=== PATIENT | male | born 1985 | race Caucasian/White ===

== ENCOUNTER 2017-11-11 13:00 | Outpatient (RCR) | payer MEDICARE, MEDICAID, SELFPAY | END 2017-11-19 | LOC: PT 13:00 | PROVIDERS: Visit Provider Nurse Practitioner Family | DX: M54.41 Lumbago with sciatica, right side (principal) | CPT/HCPCS: G8978; G8979; G8980; 97010; 97014; 97110; 97161; G0283 ==

== ENCOUNTER → 2018-06-11 09:01 | Outpatient (CLI) | payer MEDICARE, MEDICAID, SELFPAY ==
--- NOTE | 2018-06-11 09:24 | XR_ITS ---
XR lumbar spine min 4V Ordering Physician: Heriberto Mccann MD Patient Age: 33 years: Male HISTORY: ITS.REASON: SPONDYLOSIS TECHNIQUE: Five-view lumbar spine series. COMPARISON :Previous lumbar spine series October 17, 2017 FINDINGS Vertebral bodies are intact. Normal alignment. Attending slight nonspecific straightening of lumbar lordosis observed. Flexion-extension views show no significant instability. No prominent subluxation. Only question some slight posterior offset of L4 on L5 accentuated on the extension views where it measures just over 2 mm. Slight posterior ridging at the inferior margin of L2 4 may also contribute. This patient has had a previous laminectomy at L5/S1 and possibly including L4/5 with. L5/S1 level is stable. Unremarkable. SI joints unremarkable pedicles transverse processes intact. . IMPRESSION: Previous laminectomy at L5/S1 and possibly extending to L4/5 Slight disc space narrowing L4/5 and L5/S1. The subtle posterior offset of L4 on 5 appears noted and only slightly more evident on the extension and flexion. Negligible.
== END ==
PROVIDERS: PCP Anesthesiology Pain Medicine; Visit Provider Anesthesiology Pain Medicine
DX: M47.816 Spondylosis without myelopathy or radiculopathy, lumbar region (principal)
CPT/HCPCS: 72110

== ENCOUNTER → 2018-09-08 07:16 | Outpatient (CLI) | payer MEDICARE, MEDICAID, SELFPAY ==
--- NOTE | 2018-09-08 08:00 | US_ITS ---
US liver HISTORY: ITS.REASON: ELEVATED LIVER ENZYMES ORDERING PHYSICIAN: Sugey Nieto PATIENT AGE: 33 years COMPARISON: None FINDINGS: PANCREAS:Poorly visualized, no obvious mass LIVER:There is diffuse increased echogenicity of the liver with poor through transmission of sound consistent with fatty liver. There is appropriate direction of the portal blood flow. The portal vein is upper normal at 13 mm. No focal liver lesions demonstrated. RIGHT KIDNEY:Unremarkable. Normal size and echogenicity. No hydronephrosis GALLBLADDER:No gallstones, gallbladder wall thickening, pericholecystic fluid, or biliary dilatation. IMPRESSION: Fatty liver otherwise negative right upper quadrant ultrasound
== END ==
PROVIDERS: Family Provider Internal Medicine Adolescent Medicine; PCP Anesthesiology Pain Medicine; Visit Provider Nurse Practitioner Family
DX: R74.8 Abnormal levels of other serum enzymes (principal)
CPT/HCPCS: 76705

== ENCOUNTER → 2018-10-10 10:37 | Outpatient (POV) | payer MEDICARE, MEDICAID, SELFPAY | PROVIDERS: Visit Provider Specialist | DX: R20.2 Paresthesia of skin (principal) | CPT/HCPCS: 95886; 95908 ==

== ENCOUNTER → 2018-12-20 09:39 | Outpatient (CLI) | payer MEDICARE, MEDICAID, SELFPAY ==
--- NOTE | 2018-12-20 09:48 | XR_ITS ---
EXAM: XR cervical spine 3V HISTORY: ITS.REASON: CERVICALGIA,NECK PAIN ORDERING PHYSICIAN: Heriberto Mccann MD PATIENT AGE: 33 years COMPARISON: None FINDINGS: Normal alignment. No fracture or dislocation. No lytic or blastic change. No significant degenerative change. The disc spaces are preserved. IMPRESSION: Negative cervical spine
== END ==
PROVIDERS: PCP Nurse Practitioner Family; Visit Provider Anesthesiology Pain Medicine
DX: M54.2 Cervicalgia (principal)
CPT/HCPCS: 72040

== ENCOUNTER → 2018-12-29 11:00 | Outpatient (CLI) | payer MEDICARE, MEDICAID, SELFPAY ==
--- NOTE | 2018-12-29 11:10 | XR_ITS ---
XR shoulder RT min 2V HISTORY: Right shoulder pain ITS.REASON: RT SHOULDER INJURY ORDERING PHYSICIAN: Sugey Nieto PATIENT AGE: 33 years Comparison: None FINDINGS: No fracture or dislocation. No lytic or blastic change. There is normal mineralization. The joint spaces are well-preserved. No significant degenerative/arthritic changes. No erosive changes evident. IMPRESSION: Negative, no acute finding
== END ==
PROVIDERS: PCP Nurse Practitioner Family; Visit Provider Nurse Practitioner Family
DX: S49.91XA Unspecified injury of right shoulder and upper arm, initial encounter (principal)
CPT/HCPCS: 73030

== ENCOUNTER → 2019-06-05 14:19 | Outpatient (CLI) | payer MEDICARE, MEDICAID, SELFPAY ==
--- NOTE | 2019-06-05 14:31 | XR_ITS ---
EXAM: XR cervical spine 5V HISTORY: ITS.REASON: CORINNE UPPER EXTREMITY NUMBNESS ORDERING PHYSICIAN: Sugey Nieto APRN PATIENT AGE: 34 years COMPARISON: None FINDINGS: Normal alignment. No fracture or dislocation. No lytic or blastic change. No significant degenerative change. The disc spaces are preserved. The neural foramina are widely patent. No cervical rib evident. IMPRESSION: Negative cervical spine
== END ==
PROVIDERS: PCP Nurse Practitioner Family; Visit Provider Nurse Practitioner Family
DX: R20.0 Anesthesia of skin (principal)
CPT/HCPCS: 72050

== ENCOUNTER → 2019-07-03 08:21 | Outpatient (POV) | payer MEDICARE, MEDICAID, SELFPAY | PROVIDERS: Visit Provider Specialist | DX: M79.602 Pain in left arm (principal); M79.601 Pain in right arm; R20.0 Anesthesia of skin; R20.2 Paresthesia of skin | CPT/HCPCS: 95886; 95909 ==

== ENCOUNTER → 2020-04-30 09:27 | Outpatient (CLI) | payer MEDICARE, MEDICAID, SELFPAY ==
--- NOTE | 2020-04-30 09:39 | XR_ITS ---
PROCEDURE: XR HIP RT 2-3V W/PELVIS CLINICAL INDICATION: RT HIP PAIN COMPARISON: No exams were available for comparison FINDINGS: No fracture or dislocation is evident. No significant degenerative change. No lytic or blastic change. Unremarkable soft tissues. IMPRESSION: No acute findings. Dictated by: Dr. Juan Pederson MD 04/30/2020 10:[address] Juan Pederson MD in [place] 04/30/2020 10:07
== END ==
PROVIDERS: PCP Nurse Practitioner Family; Visit Provider Nurse Practitioner Family
DX: M25.551 Pain in right hip (principal)
CPT/HCPCS: 73502

== ENCOUNTER → 2020-05-21 12:06 | Outpatient (CLI) | payer MEDICARE, MEDICAID, SELFPAY ==
--- NOTE | 2020-05-21 12:14 | XR_ITS ---
PROCEDURE: XR WRIST RT MIN 3V CLINICAL INDICATION: RIGHT WRIST PAIN/ CTS COMPARISON: No exams were available for comparison FINDINGS: No fracture or dislocation. No lytic or blastic change. There is normal mineralization. The joint spaces are well-preserved. No significant degenerative/arthritic changes. No erosive changes evident. Other findings:None. IMPRESSION: No acute findings. Dictated by: Xavi Thorne MD 05/21/2020 14:09 Electronically signed by Xavi Thorne MD in [place] 05/21/2020 14:09
--- NOTE | 2020-05-21 12:14 | XR_ITS ---
PROCEDURE: XR WRIST LT MIN 3V CLINICAL INDICATION: left wrist pain/ CTS COMPARISON: No exams were available for comparison FINDINGS: No fracture or dislocation. No lytic or blastic change. There is normal mineralization. The joint spaces are well-preserved. No significant degenerative/arthritic changes. No erosive changes evident. Other findings:None. IMPRESSION: No acute findings. Dictated by: Xavi Thorne MD 05/21/2020 14:09 Electronically signed by Xavi Thorne MD in [place] 05/21/2020 14:09
== END ==
PROVIDERS: PCP Nurse Practitioner Family; Visit Provider Orthopaedic Surgery
DX: M25.532 Pain in left wrist (principal); M25.531 Pain in right wrist
CPT/HCPCS: 73110

== ENCOUNTER 2020-05-21 13:32 | Outpatient (RCR) | payer MEDICARE, MEDICAID, SELFPAY | END 2020-05-21 14:00 | disposition home or self-care (01) | LOC: OT 13:32 | PROVIDERS: Visit Provider Orthopaedic Surgery | DX: G56.03 Carpal tunnel syndrome, bilateral upper limbs (principal) | CPT/HCPCS: 97763 ==

== ENCOUNTER 2020-06-28 15:12 | Emergency (ER) | payer MEDICARE, MEDICAID, SELFPAY ==
[2020-06-28 15:21] VITALS: BP 154/87; PULSE 101; RESP 16; TEMP 36.6; O2SAT 98; BMI 36.5
--- NOTE | 2020-06-28 15:30 | HMH.EDGENADL ---
ED Disposition Clinical Impression: Low back pain with sciatica Qualifiers: Chronicity: chronic Back pain laterality: midline Sciatica laterality: sciatica of right side Qualified Code(s): M54.41 - Lumbago with sciatica, right side; G89.29 - Other chronic pain Spinal stenosis Qualifiers: Spinal region: lumbar Neurogenic claudication status: without neurogenic claudication Qualified Code(s): M48.061 - Spinal stenosis, lumbar region without neurogenic claudication Disposition: Home, Self-Care Condition on Discharge: Good Instructions: DI for Back Pain With Sciatica Additional Instructions: Prednisone as prescribed. Gabapentin as prescribed. Follow-up with your primary care doctor or neurologist next week. Additional instructions for BACK PAIN: See your physician as soon as possible for further evaluation. Return immediately if back pain becomes intolerable, or if fever, numbness or weakness of your legs, loss of control of your bowels or bladder. Additional instructions for CONTROLLED SUBSTANCES: You have been prescribed a medication that is a controlled substance. Controlled substances include pain medications known as opiates and sedative nerve medications known as benzodiazepines. Tramadol, fioricet, and gabapentin are also controlled substances. Some common opiates include: Codeine (such as Tylenol #3) Hydrocodone (Vicodin, Lortab, Lorcet, [place]) Oxycodone (Percocet, Percodan, Oxycodone, Oxy IR) Some common benzodiazepines include: Diazepam (Valium) Lorazepam (Ativan) Alprazolam (Xanax) Clonazepam (Klonopin) Oxazepam (Serax) All of these controlled substances are highly addictive and frequently abused. Misuse can and frequently does lead to addiction as well as overdose and . Medication should be stored in a locked cabinet or other secure storage unit. Do not store the medication in a motor vehicle. Short term supplies, 3 days or less, are prescribed because of the highly addictive nature of the medication. Any of the controlled substance medication NOT taken should be disposed of properly and NOT SAVED. The recommended method of disposing of unused medications is: Place the medicines in a sealable plastic bag. If the medicine is a solid, crush it or add water to dissolve it. Add something undesirable (cat litter, coffee grounds, etc.) Dispose of sealed bag in household trash Do not flush or pour unused medicines down a sink or drain. Controlled substances should not be shared, given away or sold. Because of the addictive nature and frequent abuse, these medications are sometimes stolen. These medications should be kept in a safe place where they cannot be stolen. Do not keep them in your car or purse. Lost or stolen prescriptions for controlled substances WILL NOT BE REFILLED in this emergency department, regardless of whether a police report was filed. Prescriptions: Gabapentin [Gabapentin 100mg Cap] 100 mg PO TID #20 cap Prescription Printed predniSONE [Prednisone 20mg Tab] 20 mg PO BID #10 tab Prescription Printed Referrals: Sugey Nieto APRN [Primary Care Provider] - - Critical Care Critical Care Time: No Attestation: On 06/28/20, the high probability of a clinically significant, sudden or life threatening deterioration of the following system(s) required my full and direct attention, intervention and personal management. The time I documented below is in addition to time spent performing reported procedures but includes the following listed in this critical care notation. Medical Decision Making - Prasanth Inquiry Pt receiving controlled substance: Yes (neurontin) Prasanth was queried for this patient: Yes Reference #:: [id number] Risks and benefits of using a controlled substance: were discussed with pt by me Comment: 0 rxs. Vital Signs: 06/28/20 15:21 Temperature 98 F Temperature Source Oral Pulse Rate [Radial] 101 H Respiratory Rate 16 Blood Pressu
[2020-06-28 16:01] VITALS: BP 153/78; PULSE 78; RESP 16; TEMP 36.6; O2SAT 98
== END 2020-06-28 16:03 | disposition home or self-care (01) ==
PROVIDERS: Emergency Provider Emergency Medicine; PCP Nurse Practitioner Family
DX: M54.41 Lumbago with sciatica, right side (principal); G89.29 Other chronic pain; M48.061 Spinal stenosis, lumbar region without neurogenic claudication; E11.9 Type 2 diabetes mellitus without complications; I10 Essential (primary) hypertension; E78.5 Hyperlipidemia, unspecified; Z95.2 Presence of prosthetic heart valve; F17.210 Nicotine dependence, cigarettes, uncomplicated; Z90.09 Acquired absence of other part of head and neck; Z79.899 Other long term (current) drug therapy
CPT/HCPCS: 96372; 99281

== ENCOUNTER → 2020-07-05 09:06 | Outpatient (CLI) | payer MEDICARE, MEDICAID, SELFPAY ==
[2020-07-05 10:43] LABS: Chloride 104 mmol/L (98-107); Potassium 4.5 mmoL/L (3.5-5.1); Sodium 139 mmol/L (136-145)
[2020-07-05 10:46] LABS: Anion Gap 14.5 mEq/L (5-15); Blood Urea Nitrogen 11 mg/dl (9-20); Carbon Dioxide 25 mmol/L (22.0-30.0); Estimated Glomerular Filt Rate 128 ml/min (>60); GFR (African American) 154 ML/MIN (>60)
[2020-07-05 10:47] LABS: Calcium 9.3 mg/dl (8.4-10.2); Glucose 132 mg/dl (74-100)
== END ==
PROVIDERS: Visit Provider Physician Assistant Medical
DX: M54.16 Radiculopathy, lumbar region (principal)
CPT/HCPCS: 36415; 80048

== ENCOUNTER → 2020-07-11 08:13 | Outpatient (CLI) | payer MEDICARE, MEDICAID, SELFPAY ==
--- NOTE | 2020-07-11 08:17 | MR_ITS ---
PROCEDURE: MR LUMBAR SPINE WO/W CON CLINICAL INDICATION: LUMBAR RADICULOPATHY RIGHT LEG WEAKNESS, TINGLING AND NUMBNESS [id number], PREVIOUS BACK SURGERY IN 2010. PRIOR MRI 03-14-15 23ML PROHANCE BUN: 11 CREAT: 0.70 GFR: 128 COMPARISON: 03/14/2015 MRI L-spine TECHNIQUE: Standard multiplanar multiecho sequences are performed without and with contrast. 3-D MIP and myelographic images are also rendered and reviewed FINDINGS: There is straightening of the lumbar lordosis.. There is normal alignment. The spinal cord ends at the L1 level. L1-L2: Mild degenerative disc disease with mild disc desiccation and minimal endplate irregularity L2-L3: Minimal degenerative change with mild disc desiccation and endplate irregularity L3-L4: There is mild concentric bulging disc with facet and ligamentum hypertrophy with mild bilateral foraminal narrowing. Borderline narrowing of the canal. L4-5: Degenerative disc disease with decrease in the disc space and disc desiccation with type 2 endplate changes and mild bulging disc with mild bilateral foraminal narrowing. There is borderline narrowing of the canal. Previously noted extra-axial isointensity at the L4-5 level which demonstrate contrast enhancement is not apparent on today's study. Some L5-S1: Degenerative disc disease with bulging disc and a small broad-based central and right paracentral disc protrusion causing moderate right lateral recess narrowing impinging upon the anterior aspect of the right S1 nerve root. There is mild bilateral foraminal narrowing at this level. There is narrowing of the canal at this level at 10 mm. There post laminectomy changes at L5. No enhancing lesions are evident. IMPRESSION: 1. Mild degenerative changes at L1-L2 and L2-L3 and L3-L4. 2. L4-5: Degenerative disc disease with decrease in the disc space and disc desiccation with type 2 endplate changes and mild bulging disc with mild bilateral foraminal narrowing. There is borderline narrowing of the canal. Previously noted extra-axial isointensity at the L4-5 level which demonstrate contrast enhancement is not apparent on today's exam. 3. L5-S1: Degenerative disc disease with bulging disc and a small broad-based central and right paracentral disc protrusion causing moderate right lateral recess narrowing impinging upon the anterior aspect of the right S1 nerve root. There is mild bilateral foraminal narrowing at this level. There is narrowing of the canal at this level at 10 mm. There post laminectomy changes at L5 Dictated by: Xavi Thorne MD 07/12/2020 14:01 Xavi Thorne MD in [place] 07/12/2020 14:01
== END ==
PROVIDERS: PCP Nurse Practitioner Family; Visit Provider Physician Assistant Medical
DX: M54.16 Radiculopathy, lumbar region (principal)
CPT/HCPCS: 72158; 76376; A9576

== ENCOUNTER → 2020-12-12 10:10 | Outpatient (CLI) | payer MEDICARE, MEDICAID, SELFPAY ==
--- NOTE | 2020-12-12 | XR_ITS ---
PROCEDURE: XR HIP RT 2-3V W/PELVIS CLINICAL INDICATION: Right hip pain COMPARISON: CR XR HIP RT 2-3V W/PELVIS from 04/30/2020 FINDINGS: No fracture or dislocation is evident. No significant degenerative change. No lytic or blastic change. Unremarkable soft tissues. IMPRESSION: Negative right hip Dictated by: Xavi Thorne MD 12/12/2020 15:47 Xavi Thorne MD in [place] 12/12/2020 15:47
--- NOTE | 2020-12-12 | XR_ITS ---
PROCEDURE: XR HIP LT 2-3V W/PELVIS CLINICAL INDICATION: PAIN IN RIGHT HIP JOINT Left hip pain COMPARISON: CR XR HIP RT 2-3V W/PELVIS from 04/30/2020 FINDINGS: No fracture or dislocation is evident. No significant degenerative change. No lytic or blastic change. Unremarkable soft tissues. IMPRESSION: Negative left hip Dictated by: Xavi Thorne MD 12/12/2020 15:47 Xavi Thorne MD in [place] 12/12/2020 15:47
== END ==
PROVIDERS: PCP Nurse Practitioner Family; Visit Provider Physician Assistant Medical
DX: M25.551 Pain in right hip (principal)
CPT/HCPCS: 73502

== ENCOUNTER → 2021-06-16 14:35 | Outpatient (CLI) | payer MEDICARE, MEDICAID, SELFPAY ==
--- NOTE | 2021-06-16 14:38 | XR_ITS ---
PROCEDURE: XR WRIST RT MIN 3V CLINICAL INDICATION: right wrist pain COMPARISON: CR XR WRIST RT MIN 3V from 05/21/2020 CR XR WRIST LT MIN 3V from 05/21/2020 FINDINGS: No fracture or dislocation. No lytic or blastic change. There is normal mineralization. The joint spaces are well-preserved. No significant degenerative/arthritic changes. No erosive changes evident. Other findings:None. IMPRESSION: No acute findings. Dictated by: Xavi Thorne MD 06/16/2021 16:57 Xavi Thorne MD in [place] 06/16/2021 16:57
== END ==
PROVIDERS: PCP Family Medicine; Visit Provider Orthopaedic Surgery
DX: M25.531 Pain in right wrist (principal)
CPT/HCPCS: 73110

== ENCOUNTER → 2021-09-15 10:31 | Outpatient (CLI) | payer MEDICARE, MEDICAID, SELFPAY ==
--- NOTE | 2021-09-15 10:40 | XR_ITS ---
PROCEDURE: XR CHEST 2V CLINICAL HISTORY: surgery 09/18/21, hypertension Smoking history, history of asthma COMPARISON: CR CXR CHEST(2 VIEWS-NOT PORTABLE) from 12/04/2013 FINDINGS: The cardiomediastinal silhouette and pulmonary vascularity are within normal limits. The lungs are clear without infiltrates, suspicious nodules, or pleural effusions. No acute bony abnormalities. IMPRESSION: No acute findings. Dictated by: Dr. Juan Pederson MD 09/16/2021 08:27 Dr. Juan Pederson MD in [place] 09/16/2021 08:27
[2021-09-15 10:56] LABS: Basophils # 0.1 K/mm3 (0-0.2); Basophils % 0.8 % (0.1-2.0); Eosinophils # 0.1 K/mm3 (0.0-0.4); Eosinophils % 0.9 % (0.1-12.0); Hematocrit 47.9 % (42.0-52.0); Hemoglobin 15.4 g/dL (14.1-18.0); Lymphocytes # 2.6 K/mm3 (0.7-4.5); Lymphocytes % 20.5 % (10-50); Mean Corpuscular HGB Conc 32.1 g/dL (31.8-35.4); Mean Corpuscular Hemoglobin 28.5 pg (27.0-31.2); Mean Corpuscular Volume 88.7 fl (80-94); Mean Platelet Volume 9.5 fl (7.4-10.4); Monocytes # 0.6 K/mm3 (0.1-1.0); Monocytes % 4.7 % (1.7-9.3); Neutrophils # 9.1 K/mm3 (1.8-7.8); Platelet Count 226 K/mm3 (142-424); Red Cell Distribution Width 14.5 % (11.5-17.5); White Blood Count 12.5 K/mm3 (4.8-10.8)
--- NOTE | 2021-09-15 11:29 | ECG_ITS ---
APPROVED REPORT Exam: Resting ECG HR:85 bpm ECG Measurements Heart Rate 85 AXES AL 184 P 69 QRSd 116 QRS 70 QT 360 T 51 QTc 428 Conclusion Normal sinus rhythm Normal ECG Electronically signed by : Chandrakant Cedillo MD 09/15/2021 21:15:25
[2021-09-15 11:49] LABS: Hemoglobin A1C 6.4 % (4.0-6.0)
[2021-09-15 11:59] LABS: Chloride 104 mmol/L (98-107); Potassium 4.3 mmoL/L (3.5-5.1); Sodium 139 mmol/L (136-145)
[2021-09-15 12:01] LABS: Alanine Aminotransferase 30 U/L (12-78); Aspartate Amino Transferase 27 U/L (17-59); Blood Urea Nitrogen 9 mg/dl (9-20); Estimated Glomerular Filt Rate 127 ml/min (>60); GFR (African American) 154 ML/MIN (>60)
[2021-09-15 12:02] LABS: Albumin/Globulin Ratio 1.6 (1.1-1.8); Alkaline Phosphatase 100 U/L (38-126); Anion Gap 14.3 mEq/L (5-15); Bilirubin,Total 0.6 mg/dl (0.2-1.3); Carbon Dioxide 25 mmol/L (22.0-30.0); Globulin 2.5 g/dL (1.3-3.2); Glucose 105 mg/dl (74-100); Total Protein,Serum 6.5 g/dl (6.3-8.2)
== END ==
PROVIDERS: Visit Provider Orthopaedic Surgery
DX: Z01.818 Encounter for other preprocedural examination (principal); E11.9 Type 2 diabetes mellitus without complications; G56.01 Carpal tunnel syndrome, right upper limb; Z79.84 Long term (current) use of oral hypoglycemic drugs
CPT/HCPCS: 36415; 71046; 80053; 83036; 85025; 93005

== ENCOUNTER → 2021-09-16 10:58 | Outpatient (CLI) | payer MEDICARE, MEDICAID, SELFPAY | PROVIDERS: Visit Provider Orthopaedic Surgery | DX: Z01.812 Encounter for preprocedural laboratory examination (principal); Z11.52 Encounter for screening for COVID-19; G56.01 Carpal tunnel syndrome, right upper limb | CPT/HCPCS: C9803; U0003; U0005 ==

== ENCOUNTER 2021-09-18 06:01 | Day surgery (SDC) | payer MEDICARE, MEDICAID, SELFPAY ==
[2021-09-15 11:34] VITALS: BMI 34.4
[2021-09-18] VITALS (10 sets, daily range): BP systolic 84–137; BP diastolic 51–83; PULSE 77–98; RESP 18–24; TEMP 36.1–37.1; O2SAT 93–97
--- NOTE | 2021-09-18 06:59 | P.PN_ITS ---
[facility] Anesthesia Checklist - Patient Identification Patient Identification: Arm Band - Structural Data Admitted From: Home Planned Operative Procedure/s: Carpal tunnel release Consent for Planned Operative Procedure(s) Verified: Yes - NPO Status Verified Time NPO: 00:00 - Additional verifications Anesthesia Reactions: Yes (hypertension) Hx Blood Transfusions: No Blood Transfusion Reaction: No - Airway Assessment C-Spine Mobility Assessed: Yes TMJ Mobility Assessed: Yes Dentition: Good Dentition - Neurological Assessment Level of Consciousness: Awake Hx Seizures: No Numbness or tingling in extremities: Yes - Anesthesia Plan Anesthesia Risk discussed: Yes Anesthesia Plan: Verified ASA Class: III Anesthesia Type: General [facility] History I have reviewed the patient's past medical history: Yes Medical History: Reports:: Diabetes Mellitus Type 2, Gastroesophageal Reflux Disease(GERD), Hyperlipidemia, Hypertension Denies:: Cancer, Diabetes Mellitus Type 1, Internal Pacemaker, MRSA, Seizures *Have you ever received a pneumonia vaccine?: No *Have you received a flu vaccine this season?: No Other Medical History: Reports: Arthritis. Denies: Blood Transfusion Reaction Anesthesia experience/problems:: HTN - intraop Laterality Cases: Bilateral: Tonsillectomy Other Surgeries: Yes: Cardiac Surgery. No: Pacemaker Amputation: No - *Social History Last grade of school completed: Some college Smoking Status: Current every day smoker Tobacco Type: cigarettes # Packs/Day (cigarettes): 1 Alcohol Intake: never Substance Use Type: denies use *Occupational Status:: disabled Housing: house Household Members: significant other *Travel in the last 8 weeks: None Family Hx:: Cancer, Diabetes, Heart Attack
--- NOTE | 2021-09-18 09:06 | HMH.ANESI ---
[facility] Anesthesia Record Part I Intake, IV Amount: 800 Estimated blood loss (mL): 2 Urine output (mL): 0 Blood Pressure: 98/51 SaO2: 93 Pulse Rate: 88 Respiratory Rate: 18 Temperature: 98.7 F Patient is:: Drowsy, Oral/Nasal airway Stable to PACU at:: 09:05
[2021-09-18 09:15] LABS: POC Glucose,Bedside 120 (70-110)
--- NOTE | 2021-09-18 09:26 | HMH.OPNOTE ---
Date of procedure: 09/18/21 Pre-op Diagnosis:: Carpal tunnel syndrome, right wrist Post-op Diagnosis:: Same Procedure performed:: Open carpal tunnel release, right wrist Surgeon:: Patrick Stinson MD [employer](s):: Daksha Justice PA-C [employer]:: Starr Acosta Anesthesia: LMA Estimated blood loss (mL): 2 Clinical Note:: Patient is a 36-year-old male with right carpal tunnel syndrome with long-standing symptoms. He has had symptoms for a long time and positive EMG/NCV studies for carpal tunnel syndrome in the past. However, most recent study in [place] turned out to be a normal study. Therefore, I performed carpal tunnel steroid injection couple of months ago in the office as a diagnostic tool. This improved his symptoms with gradual return of symptoms over a period of time. As patient failed to respond adequately to conservative management he elected to proceed with surgical remediation. Therefore, the carpal tunnel release surgery is necessary to relieve symptoms, preserve the remaining fibers of the median nerve, improve function and decrease the pain, paresthesias and weakness and to prevent permanent nerve damage. Operative findings:: The intraoperative findings showed the median nerve to be very tightly compressed and hyperemic. The flexor retinaculum was noted to be thick and tight. There was mild synovitis in the carpal tunnel. There was no evidence of any space-occupying lesions within the carpal tunnel. Operative note:: On the day of the surgery the patient was met in the preoperative area. Patient was positively identified and the operative site was marked and initialed by me. A physical examination was performed and the chart was updated. I again discussed the procedure, risks and benefits and alternatives with the patient. The complications discussed include but are not limited to- bleeding, injury to nerves, blood vessels and tendons, infection, wound dehiscence, incomplete relief/continued pain, persistent numbness, palmar hypersensitivity, pillar pain, DVT/PE, complex regional pain syndrome(CRPS), worsening of nerve damage, failure of the condition to improve, incomplete return of function, bowstringing of tendons, weakness of pig breeder strength, recurrence, failure of the surgery to accomplish the desired goals, decreased use of the hand, loss of use of the arm, loss of the hand or arm, loss of life. Likely need for further surgery in the future has been discussed. I've indicated to the patient where the proposed incision would be made and also discussed the possibility of extending the incision if needed to accomplish an effective release. We have discussed how the goal of surgery is to protect the fibers which have remained healthy and hopefully reverse the symptoms of the fibers which are compromised but still recoverable. We have explained that, fibers that are permanently damaged will not recover. We have also discussed the anesthetic options which include local, regional and general. Patient expressed a preference for a regional [place]'s block. Patient asked appropriate questions and all have been answered by me. Patient understood the risks, agreed to proceed with surgery and no guarantees or assurances were given or implied. The patient was brought to the operating room and placed supine on the operating table. The right upper extremity was placed over a side table. All the bony prominences were well-padded. The patient had a general anesthesia administered by the vp of product. The right upper extremity was prepped and draped in the usual sterile fashion. A preprocedure timeout was performed as per hospital policy. The skin incision was marked using the Mcguire's landmarks, just ulnar to the thenar crease. The limb was exsanguinated with the Esmarch bandage and tourniquet was inflated to 250 mmHg. Please see nursing records for the total tourniquet time. Mcguire's landmarks were utilized and a skin incision was made parallel and just u
--- NOTE | 2021-09-18 17:45 | P.PN_ITS ---
[facility] Anesthesia Record Part II Discharge Time: 09:36 Destination: Home PACU nurse assessment reviewed?: Yes Patient Condition:: Good Anesthesia Complications:: None none Swallowing reflex intact?: Yes Cyanosis?: No Blood Pressure: 92/76 Pulse Rate: 77 Temperature: 97.0 F Mental Status: Alert & Oriented Pain level:: 0 Nausea and/or vomitting:: None Intake, IV Amount: 0
== END 2021-09-18 10:10 | disposition home or self-care (01) ==
PROVIDERS: PCP Family Medicine; Visit Provider Orthopaedic Surgery
PROC: (CPT 64721; principal; 2021-09-18 07:30)
DX: G56.01 Carpal tunnel syndrome, right upper limb (principal); E11.9 Type 2 diabetes mellitus without complications
CPT/HCPCS: 64721; 82962; 96374

== ENCOUNTER → 2022-01-06 14:10 | Outpatient (CLI) | payer MEDICARE, MEDICAID, SELFPAY ==
--- NOTE | 2022-01-06 14:14 | MR_ITS ---
FINAL REPORT CLINICAL HISTORY: LUMBAR SPONDYLOSIS W/ MYELOPATHY, S/P LUMBAR SUGERY. hx 2 back surgeries 2010 and 2020. rt leg weakness and numbness. no recent injury or trauma. prior mr 07-11-20 COMPARISON: July 11, 2020 FINDINGS: Multiplanar MR imaging of the lumbar spine was performed without contrast. On the sagittal T2-weighted images, disc degeneration is seen throughout. The vertebral alignment is normal. There is no evidence of fracture. The conus has an unremarkable appearance. L1-2: An annular bulge is present. L2-3: An annular bulge is present. There is mild bilateral neural foraminal narrowing. L3-4: An annular bulge is present. There is mild bilateral neural foraminal narrowing. L4-5: An annular bulge is present. A right paracentral inferiorly extruded disc appears larger. There is right lateral recess stenosis. There is right L5 nerve root impingement. There is moderate bilateral neural foraminal narrowing. L5-S1: There is an annular bulge with facet arthropathy. There is right paracentral soft tissue that may represent an improved disc protrusion versus postoperative change. There is right lateral recess stenosis. There is right S1 nerve root impingement. There is moderate bilateral neural foraminal narrowing. IMPRESSION: Right paracentral inferiorly extruded disc at L4-L5 appears larger and results in right lateral recess stenosis and right L5 nerve root impingement. Right paracentral soft tissue at L5-S1 may represent an improved disc protrusion versus postoperative change and results in right lateral recess stenosis and right S1 nerve root impingement. Multilevel degenerative disc disease with areas of neural foraminal narrowing as described. Reviewed, Interpreted and Dictated by Vijay Gilbert III, MD Transcribed by Jose Caraballo Authenticated by Vijay Gilbert III, MD on 01/06/2022 04:11:58 PM [facility]
== END ==
PROVIDERS: PCP Nurse Practitioner Family; Visit Provider Nurse Practitioner Family
DX: M47.16 Other spondylosis with myelopathy, lumbar region (principal); R20.0 Anesthesia of skin; Z98.890 Other specified postprocedural states
CPT/HCPCS: 72148; 76376

== ENCOUNTER → 2022-03-20 08:26 | Outpatient (CLI) | payer MEDICARE, MEDICAID, SELFPAY ==
[2022-03-20 08:47] LABS: MANUAL DIFFERENTIAL MANUAL DIFFERENTIAL (MANUAL DIFF)
[2022-03-20 09:12] LABS: Basophils # 0.4 K/mm3 (0-0.2); Basophils % 2.6 % (0.1-2.0); Eosinophils # 0.2 K/mm3 (0.0-0.4); Eosinophils % 1.4 % (0.1-12.0); Lymphocytes % 20.3 % (10-50); Mean Corpuscular HGB Conc 34.7 g/dL (31.8-35.4); Mean Corpuscular Hemoglobin 30.8 pg (27.0-31.2); Mean Corpuscular Volume 88.8 fl (80-94); Mean Platelet Volume 11.1 fl (7.4-10.4); Monocytes # 0.7 K/mm3 (0.1-1.0); Monocytes % 4.5 % (1.7-9.3); Neutrophils # 10.4 K/mm3 (1.8-7.8); Neutrophils % 71.2 % (37.0-80.0); Platelet Count 179 K/mm3 (142-424); Red Blood Count 5.86 M/mm3 (4.60-6.20); Red Cell Distribution Width 14.2 % (11.5-17.5); White Blood Count 14.7 K/mm3 (4.8-10.8)
[2022-03-20 09:40] LABS: Anion Gap 14.1 mEq/L (5-15); Blood Urea Nitrogen 11 mg/dl (9-20); Calcium 9.8 mg/dl (8.4-10.2); Carbon Dioxide 26 mmol/L (22.0-30.0); Chloride 100 mmol/L (98-107); Estimated Glomerular Filt Rate 108 ml/min (>60); GFR (African American) 131 ML/MIN (>60); Glucose 162 mg/dl (74-100); Potassium 4.1 mmoL/L (3.5-5.1); Sodium 136 mmol/L (136-145)
[2022-03-20 16:21] LABS: Eosinophils % 1 % (0-3); Lymphocytes % 26 % (10-50); Monocytes % 3 % (2-9); Neutrophils % 70 % (42-76); Total Cells Counted 100
[2022-03-20 16:22] LABS: Platelet Estimate Normal; RBC Morphology Normal
== END ==
PROVIDERS: Visit Provider Urology
DX: N47.1 Phimosis (principal); Z01.812 Encounter for preprocedural laboratory examination; Z11.52 Encounter for screening for COVID-19; R30.0 Dysuria; E11.9 Type 2 diabetes mellitus without complications; Z79.84 Long term (current) use of oral hypoglycemic drugs
CPT/HCPCS: 36415; 80048; 85007; 85014; 85018; 85048; 85049; C9803; U0003; U0005

== ENCOUNTER 2022-03-23 07:22 | Day surgery (SDC) | payer MEDICARE, MEDICAID, SELFPAY ==
[2022-03-20 10:16] VITALS: BMI 37.7
[2022-03-23] VITALS (12 sets, daily range): BP systolic 151–198; BP diastolic 53–121; PULSE 103–116; RESP 12–22; TEMP 36.4–43; O2SAT 92–98
[2022-03-23 07:48] LABS: POC Glucose,Bedside 181 (70-110)
--- NOTE | 2022-03-23 08:19 | P.PN_ITS ---
[facility] Anesthesia Checklist - Patient Identification Patient Identification: Arm Band, Verbal (Name & ) - Structural Data Admitted From: Home Planned Operative Procedure/s: Circumcision Consent for Planned Operative Procedure(s) Verified: Yes Verified Documents: Surgical Consent - Chart Verification Results Verified: CBC, BMP - Additional verifications Anesthesia Reactions: Yes (hypertension) Hx Blood Transfusions: No Blood Transfusion Reaction: No - Airway Assessment C-Spine Mobility Assessed: Yes TMJ Mobility Assessed: Yes Dentition: Good Dentition - Neurological Assessment Level of Consciousness: Awake, Alert, Appropriate - Anesthesia Plan Anesthesia Risk discussed: Yes ASA Class: III Anesthesia Type: General [facility] History I have reviewed the patient's past medical history: Yes Medical History: Reports:: Diabetes Mellitus Type 2, Gastroesophageal Reflux Disease(GERD), Hyperlipidemia, Hypertension Denies:: Cancer, Diabetes Mellitus Type 1, Internal Pacemaker, MRSA, Seizures *Have you ever received a pneumonia vaccine?: No *Have you received a flu vaccine this season?: No Other Medical History: Reports: Arthritis. Denies: Blood Transfusion Reaction Anesthesia experience/problems:: none Laterality Cases: Bilateral: Tonsillectomy Other Surgeries: Yes: No Previous Surgery, Cardiac Surgery, Colonoscopy. No: Pacemaker Amputation: No Fractures: No - *Social History Last grade of school completed: Some college Smoking Status: Current every day smoker Tobacco Type: cigarettes # Packs/Day (cigarettes): 1 Alcohol Intake: current Alcohol Intake Frequency:: a few times a month Substance Use Type: denies use *Occupational Status:: disabled Housing: house Household Members: significant other, family *Travel in the last 8 weeks: None Family Hx:: Cancer, Diabetes, Heart Attack
--- NOTE | 2022-03-23 10:25 | P.PN_ITS ---
[facility] Anesthesia Record Part I Intake, IV Amount: 1,000 Estimated blood loss (mL): 2 Urine output (mL): 0 Blood Pressure: 196/96 SaO2: 94 Pulse Rate: 113 Respiratory Rate: 15 Temperature: 97.6 F Patient is:: Drowsy, Oral/Nasal airway Stable to PACU at:: 10:21
--- NOTE | 2022-03-23 10:36 | PC.NURSE ---
03/23/22@1021- pt arrived to PACU with oral airway in placed, airway remains patent.
--- NOTE | 2022-03-23 10:38 | P.OP_ITS ---
Date of procedure: 03/23/22 Pre-op Diagnosis:: Penile phimosis Post-op Diagnosis:: Penile phimosis, glanular adhesions Procedure performed:: Freehand circumcision, adhesiolysis, frenulotomy. Surgeon:: Parish Garcia MD MARKET PRESIDENT:: Starr Acosta Anesthesia: LMA Estimated blood loss (mL): 2 Clinical Note:: 37-year-old white male with complaints of difficulty retracting his foreskin and recurring episodes of balanitis and cracking of foreskin. Operative findings:: Patient with penile phimosis. Once the dorsal incision was made in the foreskin pulled back there were adhesions to the left and right side of the glans penis. Operative note:: Patient taken to the operating room after informed consent was obtained. He was placed on the operating room table in the supine position and general anesthesia administered. Preoperative antibiotics were given and sequential compression devices placed. He was prepped draped in the standard surgical fashion. Local anesthetic placed as a ring block around the base of the penis. 40 cc of a lidocaine Marcaine mixture were used. The penis was placed on some traction and the tomas of the glans was marked on the outside of the skin with a marking pen. A straight clamp was then used on the dorsal aspect of the skin placing it back to the marked line of circumcision. The skin was clamped for 30 seconds. Clamp was then removed and an incision was made along the line of the clamp. The skin was retracted and there were adhesions to the right and left side of the glans penis. Metzenbaum scissors were then used to incise along the previously marked line of circumcision circumferentially. The circumcision was completed and the skin passed off. The foreskin ventrally was retracted towards the glans due to the adhesions and the adhesions were then taken down sharply with tenotomy scissors. Frenulotomy was also performed releasing the distal end of the foreskin. Hemostasis been achieved of the underlying tissue and the skin was approximated with 3-0 sutures at the 12 3 9 and 6 o'clock position. 3-0 sutures were placed in a simple interrupted fashion between each of the previously noted sutures. The frenulotomy was closed with a couple of 4-0 chromic sutures in a simple interrupted fashion and the right side of the glans penis was undermined a bit and the defect they are closed with 2 simple interrupted 4-0 chromic's. Vaseline gauze was placed around the incision site covered by compression gauze. Patient tolerated procedure well there are no complications. Condition: stable Disposition: PACU Specimens:: Foreskin Complications:: None
--- NOTE | 2022-03-23 10:44 | PC.NURSE ---
Oral airway removed, airway remains patent
[2022-03-23 11:12] LABS: POC Glucose,Bedside 164 (70-110)
--- NOTE | 2022-03-24 09:13 | P.PN_ITS ---
[facility] Anesthesia Record Part II Discharge Time: 11:01 Destination: Surgical Day Care (OP Surgery) PACU nurse assessment reviewed?: Yes Patient Condition:: Good Anesthesia Complications:: None Swallowing reflex intact?: Yes Cyanosis?: No Blood Pressure: 170/53 Pulse Rate: 104 Temperature: 98 F Mental Status: Alert & Oriented Pain level:: 0 Nausea and/or vomitting:: None Intake, IV Amount: 0
[2022-03-24 09:14] VITALS: BP 170/53; PULSE 104; TEMP 36.6
== END 2022-03-23 11:45 | disposition home or self-care (01) ==
LOC: OR 07:27
PROVIDERS: PCP Nurse Practitioner Family; Visit Provider Urology
DX: N47.1 Phimosis (principal); E11.9 Type 2 diabetes mellitus without complications; K21.9 Gastro-esophageal reflux disease without esophagitis; E78.5 Hyperlipidemia, unspecified; I10 Essential (primary) hypertension; M19.90 Unspecified osteoarthritis, unspecified site; Z83.3 Family history of diabetes mellitus; Z82.3 Family history of stroke; Z80.9 Family history of malignant neoplasm, unspecified
CPT/HCPCS: 54164; 54450; 82962; 88304; 88342; 96374

== ENCOUNTER → 2022-03-31 08:26 | Outpatient (CLI) | payer MEDICARE, MEDICAID, SELFPAY ==
--- NOTE | 2022-03-31 08:30 | XR_ITS ---
FINAL REPORT CLINICAL HISTORY: RIGHT SHOULDER pain FINDINGS: RIGHT SHOULDER: 3 views of the right shoulder werer obtained. There is no acute fracture or dislocation. The joint spaces are intact. There is no soft tissue abnormality. IMPRESSION: No acute fracture Reviewed, Interpreted and Dictated by Vijay Gilbert III, MD Transcribed by Jose Caraballo Authenticated by Vijay Gilbert III, MD on 03/31/2022 09:55:51 AM [facility]
== END ==
PROVIDERS: PCP Nurse Practitioner Family; Visit Provider Nurse Practitioner Family
DX: M25.511 Pain in right shoulder (principal)
CPT/HCPCS: 73030

== ENCOUNTER → 2022-04-09 11:51 | Outpatient (CLI) | payer MEDICARE, MEDICAID, SELFPAY | PROVIDERS: PCP Nurse Practitioner Family; Visit Provider Specialist | DX: G47.33 Obstructive sleep apnea (adult) (pediatric) (principal); G47.36 Sleep related hypoventilation in conditions classified elsewhere; I10 Essential (primary) hypertension; E66.9 Obesity, unspecified; Z68.36 Body mass index [BMI] 36.0-36.9, adult | CPT/HCPCS: G0399 ==

== ENCOUNTER 2022-05-11 15:02 | Emergency (ER) | payer MEDICARE, MEDICAID, SELFPAY ==
--- NOTE | 2022-05-11 15:14 | XR_ITS ---
PROCEDURE INFORMATION: Exam: XR Right Hand Exam date and time: 05/11/22 03:43 PM Age: 37 years old Clinical indication: Injury or trauma; Other: Chainsaw accident; Laceration; Finger; Right; Thumb; Additional info: Lac to hand TECHNIQUE: Imaging protocol: Radiologic exam of the Right hand. Views: 3 or more views. COMPARISON: CR XR WRIST RT MIN 3V 06/16/21 02:42 PM FINDINGS: Bones/joints: Normal. Soft tissues: Normal. IMPRESSION: No acute findings.
[2022-05-11 16:05] VITALS: BP 127/78; PULSE 82; RESP 19; TEMP 37.1; O2SAT 100; BMI 37.2
--- NOTE | 2022-05-11 16:24 | HMH.EDUTC ---
[facility] Disposition Clinical Impression: Laceration Disposition: Home, Self-Care Condition on Discharge: Good Instructions: Laceration Repair, DI for Laceration Repair Additional Instructions: Suture instructions: You have required stitches today. Please read the following instructions so you know how to care for them: 1. Keep wound area dry for the first 24 hours. 2 May clean gently with mild soap and water, after 48 hours to prevent crusting over suture knots. 3. You may shower if your provider gives permission but do not take a bath until the skin is healed.. 4. Never leave a wet dressing or Band-Aid on your stitches as this allows bacteria to reach the area and may cause infection. Band-aids can cause the wound to sweat and not recommended to wear for long periods of time Watch for signs of infection: Increasing redness, tenderness or warmth around the suture site Unusual swelling around the site Appearance of pus around each suture or any red streaks Fever If you develop any of the above signs or symptoms of infection, Follow up with Family Physician immediately 5. Suture removal in _8-10___days 6. Return to [facility] or follow up with family doctor for removal. This can be done by any medical provider during regular hours on Wednesday through Wednesday, by appointment. Referrals: Sugey Nieto APRN [Primary Care Provider] - As needed Time of Disposition: 17:26 Medical Decision Making - Prasanth Inquiry Pt receiving controlled substance: No Prasanth was queried for this patient: No Vital Signs: 05/11/22 16:05 Temperature 98.8 F Temperature Source Oral Pulse Rate [Left Brachial] 82 Respiratory Rate 19 Blood Pressure [Left Arm] 127/78 Blood Pressure Mean [Left Arm] 94 Blood Pressure Source [Left Arm] Automatic Cuff Blood Pressure Position [Left Arm] Sitting 02 Sat by Pulse Oximetry 100 Oxygen Delivery Method Room Air Orders (Tests/Meds): ED MEDICATIONS Discontinued Medications Generic Name Dose Route Start Last Admin Trade Name Freq PRN Reason Stop Dose Admin Tetanus/Reduced Diphtheria/Acell Pertussis 0.5 ml 05/11/22 16:25 05/11/22 16:30 Tet/Diphth/Pert-Adult 0.5ml Syringe IM 05/11/22 16:26 0.5 ml .ONCE ONE Administration - Radiology Data #1 Image(s): Hand Image Reviewed: Yes I reviewed the patient's radiology image Preliminary Findings: No Fracture Seen [facility] HPI - General Stated complaint: AO 05/11 wrist lac Time Seen by Provider: 05/11/22 16:24 Mode of Arrival: Ambulatory Source of Information: Patient, Spouse Limitations: No Limitations Description of Symptoms (Recalled from Triage Doc. by RN): PATIENT C/O LACERATION TO RIGHT HAND AFTER A CHAINSAW ACCIDENT TODAY. NEEDS TDAP HEENT Symptoms (Recalled from RN notes): No Resp Symptoms (Recalled from RN notes): No Skin Symptoms (Recalled from RN notes): Yes MS Symptoms (Recalled from RN notes): No Functional Status (Recalled from RN notes): WNL - History of Present Illness Provider Complaint: Patient states that he and his was using an electric chainsaw when it slipped and cut him in the palm o fhis right hand around the base of right thumb States that he can still move thumb easily but knew after looking at the laceration that he would need some sutures so he came in - Related Data Home Medications Medication Instructions Recorded Confirmed albuterol sulfate 90 mcg/actuation 1 inh INHALATION QID 05/21/20 04/23/22 aerosol inhaler epinephrine 0.3 mg/0.3 mL 0.3 mg IM Q5-15M PRN 05/21/20 04/23/22 injection, auto-injector metformin 750 mg tablet,extended 750 mg PO DAILY 05/21/20 04/23/22 release 24 hr pravastatin 20 mg tablet 20 mg PO DAILY 05/21/20 04/23/22 lisinopriL [Lisinopril] 20 mg PO DAILY 09/15/21 04/23/22 Celecoxib 100 mg PO DAILY 09/18/21 04/23/22 bisoprolol 2.5 1 tab PO DAILY 02/26/22 04/23/22 mg-hydrochlorothiazide 6.25 mg tablet cyclobenzaprine 10 mg tablet 10 mg PO TID 02/26/22 04/23/22 ga
[2022-05-11 17:34] VITALS: BP 127/78; PULSE 82; RESP 19; TEMP 37.1; O2SAT 100
== END 2022-05-11 17:40 | disposition home or self-care (01) ==
PROVIDERS: Emergency Provider Nurse Practitioner; PCP Nurse Practitioner Family
DX: S61.511A Laceration without foreign body of right wrist, initial encounter (principal); W29.3XXA Contact with powered garden and outdoor hand tools and machinery, initial encounter
CPT/HCPCS: 12002; 73130; 90471; 90715; 99213; G0463

== ENCOUNTER → 2022-07-07 13:11 | Outpatient (CLI) | payer MEDICARE, MEDICAID, SELFPAY ==
--- NOTE | 2022-07-07 | US_ITS ---
FINAL REPORT CLINICAL HISTORY: Smoker, DM, HTN, HLD, AVR at 2 yrs old, pt has had 3 back surgeries d/t injury FINDINGS: ANKLE-BRACHIAL PRESSURE INDICES Pressure indices are as follows: RIGHT LOWER EXTREMITY: Ankle-brachial pressure index: 1.01 Comments: Normal LEFT LOWER EXTREMITY: Ankle-brachial pressure index: 1.02 Comments: Normal CONCLUSION: No evidence of significant obstructive peripheral vascular disease of the lower extremities Reviewed, Interpreted and Dictated by Vijay Gilbert III, MD Transcribed by Nasra Jain Authenticated and [facility][1]
== END ==
PROVIDERS: PCP Nurse Practitioner Family; Visit Provider Nurse Practitioner Family
DX: M79.604 Pain in right leg (principal); L65.9 Nonscarring hair loss, unspecified; R09.89 Other specified symptoms and signs involving the circulatory and respiratory systems
CPT/HCPCS: 93923

== ENCOUNTER 2022-08-26 16:00 | Outpatient (RCR) | payer MEDICARE, MEDICAID, SELFPAY | END 2022-08-26 16:05 | disposition home or self-care (01) | LOC: PT 16:00 | PROVIDERS: PCP Nurse Practitioner Family; Visit Provider Nurse Practitioner Family | DX: M47.16 Other spondylosis with myelopathy, lumbar region (principal); M51.26 Other intervertebral disc displacement, lumbar region; G62.9 Polyneuropathy, unspecified | CPT/HCPCS: 97110; 97163 ==

== ENCOUNTER 2022-11-26 10:44 | Outpatient (RCR) | payer MEDICARE, MEDICAID, SELFPAY | END 2022-11-26 10:50 | disposition home or self-care (01) | LOC: OT 10:44 | PROVIDERS: PCP Nurse Practitioner Family; Visit Provider Orthopaedic Surgery | DX: M75.121 Complete rotator cuff tear or rupture of right shoulder, not specified as traumatic (principal) | CPT/HCPCS: 97166 ==

== ENCOUNTER → 2022-12-03 20:09 | Outpatient (CLI) | payer MEDICARE, MEDICAID, SELFPAY | PROVIDERS: PCP Nurse Practitioner Family; Visit Provider Nurse Practitioner Family | DX: G47.33 Obstructive sleep apnea (adult) (pediatric) (principal) | CPT/HCPCS: 95811 ==

== ENCOUNTER → 2023-01-01 09:59 | Outpatient (CLI) | payer MEDICARE, MEDICAID, SELFPAY ==
[2023-01-01 11:35] LABS: Basophils # 0.1 K/mm3 (0-0.2); Basophils % 0.7 % (0.1-2.0); Eosinophils # 0.2 K/mm3 (0.0-0.4); Eosinophils % 1.6 % (0.1-12.0); Hematocrit 47.9 % (42.0-52.0); Hemoglobin 16.1 g/dL (14.1-18.0); Lymphocytes # 2.9 K/mm3 (0.7-4.5); Lymphocytes % 26.7 % (10-50); Mean Corpuscular HGB Conc 33.5 g/dL (31.8-35.4); Mean Corpuscular Hemoglobin 28.6 pg (27.0-31.2); Mean Corpuscular Volume 85.2 fl (80-94); Mean Platelet Volume 9.3 fl (7.4-10.4); Monocytes # 0.6 K/mm3 (0.1-1.0); Monocytes % 5.2 % (1.7-9.3); Neutrophils # 7.1 K/mm3 (1.8-7.8); Neutrophils % 65.7 % (37.0-80.0); Platelet Count 178 K/mm3 (142-424); Red Blood Count 5.62 M/mm3 (4.60-6.20); Red Cell Distribution Width 15.6 % (11.5-17.5); White Blood Count 10.8 K/mm3 (4.8-10.8)
[2023-01-01 11:39] LABS: Prothrombin Time 10.8 seconds (10.1-12.5)
[2023-01-01 12:00] LABS: Alanine Aminotransferase 43 U/L (12-78); Albumin Level 4.7 g/dl (3.5-5.0); Albumin/Globulin Ratio 1.8 (1.1-1.8); Alkaline Phosphatase 119 U/L (38-126); Anion Gap 14.4 mEq/L (5-15); Aspartate Amino Transferase 43 U/L (17-59); Bilirubin,Total 0.8 mg/dl (0.2-1.3); Blood Urea Nitrogen 14 mg/dl (9-20); Calcium 9.4 mg/dl (8.4-10.2); Carbon Dioxide 23 mmol/L (22.0-30.0); Chloride 106 mmol/L (98-107); Estimated Glomerular Filt Rate 126 ml/min (>60); GFR (African American) 153 ML/MIN (>60); Globulin 2.6 g/dL (1.3-3.2); Glucose 150 mg/dl (74-100); Potassium 4.4 mmoL/L (3.5-5.1); Sodium 139 mmol/L (136-145); Total Protein,Serum 7.3 g/dl (6.3-8.2)
[2023-01-05 00:07] LABS: ALT (SGPT) P5P 42 IU/L (0-55); AST (SGOT) P5P 31 IU/L (0-40); Alpha 2-Macroglobulins, Qn 204 mg/dL (110-276); Apolipoprotein A-1 121 mg/dL (101-178); Bilirubin, Total 0.6 mg/dL (0.0-1.2); Cholesterol, Total 171 mg/dL (100-199); GGT 56 IU/L (0-65); Glucose 153 mg/dL (70-99); Haptoglobin 141 mg/dL (17-317); Steatosis Score 0.71 (0.00-0.30); Triglycerides 454 mg/dL (0-149)
== END ==
PROVIDERS: PCP Nurse Practitioner Family; Visit Provider Physician Assistant
DX: R16.2 Hepatomegaly with splenomegaly, not elsewhere classified (principal)
CPT/HCPCS: 36415; 80053; 85025; 85610

== ENCOUNTER → 2023-02-22 09:36 | Outpatient (CLI) | payer MEDICARE, MEDICAID, SELFPAY ==
--- NOTE | 2023-02-22 | US_ITS ---
FINAL REPORT CLINICAL HISTORY: .Smoker,DM, back injury with claudication, poor hygiene FINDINGS: BILATERAL ANKLE BRACHIAL INDICES Pressure indices are as follows are: RIGHT LOWER EXTREMITY Ankle brachial pressure index: 1.0 Toe brachial pressure index: 0.7 COMMENTS: Within normal limits LEFT LOWER EXTREMITY Ankle brachial pressure index: 0.9 Toe brachial pressure index: 0.7 COMMENTS: Mildly depressed. IMPRESSION: Mildly depressed MARNIE on the left consistent with mild arterial occlusive disease. Reviewed, Interpreted and Dictated by Yvon Fernandez MD Transcribed by January Rausch Authenticated and [facility]
--- NOTE | 2023-02-22 09:42 | US_ITS ---
FINAL REPORT CLINICAL HISTORY: elevated lfts FINDINGS: Ultrasound images of the right upper quadrant were obtained. The pancreas is obscured. The liver parenchyma is increased echogenicity. The gallbladder is small. There are no gallstones. The common duct is normal. Limited images of the right kidney are unremarkable. IMPRESSION: Fatty liver. Reviewed, Interpreted and Dictated by Yvon Fernandez MD Transcribed by Jose Caraballo Authenticated and [facility]
== END ==
PROVIDERS: PCP Nurse Practitioner Family; Visit Provider Physician Assistant
DX: R16.2 Hepatomegaly with splenomegaly, not elsewhere classified (principal); I70.213 Atherosclerosis of native arteries of extremities with intermittent claudication, bilateral legs
CPT/HCPCS: 76705; 93923

== ENCOUNTER → 2023-03-09 13:31 | Outpatient (CLI) | payer MEDICARE, MEDICAID, SELFPAY ==
--- NOTE | 2023-03-09 13:35 | XR_ITS ---
FINAL REPORT CLINICAL HISTORY: trigger finger FINDINGS: LEFT HAND Three views demonstrate no acute fracture. There is no dislocation. The visualized joint spaces are normally aligned. The joint spaces are preserved. The soft tissues are unremarkable. IMPRESSION: No acute bony abnormality. Reviewed, Interpreted and Dictated by Vijay Gilbert III, MD Transcribed by Nasra Jain Authenticated and [facility]
== END ==
PROVIDERS: PCP Nurse Practitioner Family; Visit Provider Orthopaedic Surgery
DX: M79.642 Pain in left hand (principal); M65.332 Trigger finger, left middle finger
CPT/HCPCS: 73130

== ENCOUNTER 2023-03-18 18:44 | Emergency (ER) | payer MEDICARE, MEDICAID, SELFPAY ==
[2023-03-18 18:45] VITALS: BP 140/89; PULSE 94; RESP 18; TEMP 36.7; O2SAT 96; BMI 36.8
--- NOTE | 2023-03-18 19:15 | HMH.EDGENADL ---
Discharge Plan Disposition Patient Disposition: Still a Patient Prescriptions Prescriptions: No Action epinephrine [EpiPen] 0.3 mg/0.3 mL auto-injector 0.3 mg IM Q5-15M PRN (Reason: allergies) Rx Instructions: do not exceed 3 doses per episode albuterol sulfate 90 mcg/actuation HFA aerosol inhaler 1 inh INHALATION QID pravastatin 20 mg tablet 20 mg PO DAILY metformin 750 mg tablet extended release 24 hr 750 mg PO DAILY Jardiance 25 mg tablet 25 mg PO DAILY hydrochlorothiazide 12.5 mg tablet 12.5 mg PO DAILY bisoprolol-hydrochlorothiazide 2.5-6.25 mg tablet 1 tab PO DAILY baclofen 20 mg tablet 20 mg PO BID docusate sodium 100 mg capsule 100 mg PO DAILY oxycodone 5 mg tablet 5 mg PO PRN gabapentin 600 mg tablet 600 mg PO TID lisinopril 20 MG tablet 20 mg PO DAILY Referrals Follow up/Referrals: Sugey Nieto APRN [Primary Care Provider] - See instructions Clinical Impressions Clinical Impression: Hyperglycemia Instructions Patient Instructions: DI for Hyperglycemia -- Adult Discharge ED Provider: Tiara Martinez General Adult HPI General Chief complaint: Hyper/Hypoglycemia Stated complaint: sugar high Time Seen by Provider: 03/18/23 19:15 Mode of Arrival: Ambulatory Source of Information: Patient Limitations: No Limitations Description of Symptoms (Recalled from ER Triage Doc. by RN): PT REPORTS FINGER STICK AT HOME METER READS HIGH PT WITHOUT SYMPTOMS History of Present Illness HPI narrative: Patient is a 38-year-old male with a known history of diabetes presenting today with hyperglycemia. He has been completely asymptomatic and has been getting worked up for preoperative evaluation because he has ligamental and tendon injury in his ankle and his preoperative work-up within the last week demonstrated hyperglycemia. He has a glucometer at home which demonstrated that it was high. Undetectably high. Patient denies any lethargy any infectious symptoms he has been on metformin for years and has primary care follow-up for this. States his most recent A1c was 8.6. Related Data Home Medications Medication Instructions Recorded Confirmed albuterol sulfate 90 mcg/actuation 1 inh inhalation QID Asthma 05/21/20 03/09/23 aerosol inhaler epinephrine 0.3 mg/0.3 mL 0.3 mg IM Q5-15M PRN allergies 05/21/20 03/09/23 injection, auto-injector (EpiPen) metformin 750 mg tablet,extended 750 mg PO DAILY Diabetes 05/21/20 03/09/23 release 24 hr pravastatin 20 mg tablet 20 mg PO DAILY Cholesterol 05/21/20 03/09/23 lisinopril 20 mg tablet 20 mg PO DAILY bp 09/15/21 03/09/23 bisoprolol 2.5 1 tab PO DAILY High blood pressure 02/26/22 03/09/23 mg-hydrochlorothiazide 6.25 mg tablet empagliflozin 25 mg tablet 25 mg PO DAILY 04/22/22 03/09/23 (Jardiance) baclofen 20 mg tablet 20 mg PO BID 09/14/22 03/09/23 docusate sodium 100 mg capsule 100 mg PO DAILY 09/14/22 03/09/23 oxycodone 5 mg tablet 5 mg PO PRN 12/29/22 03/09/23 gabapentin 600 mg tablet 600 mg PO TID 02/09/23 03/09/23 hydrochlorothiazide 12.5 mg tablet 12.5 mg PO DAILY 03/09/23 03/09/23 Allergies Allergy/AdvReac Type Severity Reaction Status Date / Time acetaminophen [From Lortab] Allergy Verified 03/09/23 14:17 codeine Allergy Verified 03/09/23 14:17 hydrocodone [From Lortab] Allergy Hives Verified 03/09/23 14:17 ibuprofen Allergy Verified 03/09/23 14:17 daptomycin AdvReac Severe Verified 03/09/23 14:17 [facility] Disclaimer: The information contained in this section may have been updated after the patient was seen, as this information can be updated by other users. Medical History Asthma BMI 33.0-33.9,adult BMI 34.0-34.9,adult BMI 36.0-36.9,adult Continued weight gain postoperatively Diabetes mellitus History of hypertension Migraine Noise-induced hearing loss of both ears Renal failure
[2023-03-18 19:30] LABS: Microscopic, Urine URINE MICROSCOPIC (MICROSCOPIC)
[2023-03-18 19:31] VITALS: BP 86/57; PULSE 66; O2SAT 93
[2023-03-18 19:33] LABS: VBG Base Excess 0.2 mmol/L (-2.4-2.3); VBG HCO3 25.4 mmol/L (23-30); VBG Oxygen Saturation 76.4 % (50-70); VBG PCO2 44.6 mmol/L (35-51); VBG PH 7.37 mmol/L (7.31-7.41); VBG Total CO2 26.8 mmol/L (23-27)
[2023-03-18 19:40] LABS: Chloride 98 mmol/L (98-107); Potassium 3.9 mmoL/L (3.5-5.1); Sodium 136 mmol/L (136-145)
[2023-03-18 19:41] LABS: Basophils # 0.1 K/mm3 (0-0.2); Basophils % 0.7 % (0.1-2.0); Eosinophils # 0.2 K/mm3 (0.0-0.4); Hematocrit 48.1 % (42.0-52.0); Lymphocytes # 3.7 K/mm3 (0.7-4.5); Mean Corpuscular HGB Conc 33.3 g/dL (31.8-35.4); Mean Corpuscular Hemoglobin 29.1 pg (27.0-31.2); Mean Corpuscular Volume 87.5 fl (80-94); Mean Platelet Volume 10.4 fl (7.4-10.4); Monocytes # 0.7 K/mm3 (0.1-1.0); Monocytes % 4.3 % (1.7-9.3); Neutrophils # 11.3 K/mm3 (1.8-7.8); Neutrophils % 71.1 % (37.0-80.0); Platelet Count 199 K/mm3 (142-424); White Blood Count 15.9 K/mm3 (4.8-10.8)
[2023-03-18 19:42] LABS: Alanine Aminotransferase 54 U/L (12-78); Aspartate Amino Transferase 67 U/L (17-59); Blood Urea Nitrogen 17 mg/dl (9-20); Creatinine Clearance Estimated 154 mL/min (50-200); Estimated Glomerular Filt Rate 83 ml/min (>60); GFR (African American) 101 ML/MIN (>60)
[2023-03-18 19:43] LABS: Albumin Level 4.3 g/dl (3.5-5.0); Albumin/Globulin Ratio 1.6 (1.1-1.8); Alkaline Phosphatase 125 U/L (38-126); Anion Gap 12.9 mEq/L (5-15); Bilirubin,Total 0.5 mg/dl (0.2-1.3); Carbon Dioxide 29 mmol/L (22.0-30.0); Globulin 2.7 g/dL (1.3-3.2); Glucose 197 mg/dl (74-100); Magnesium 2.2 mg/dl (1.6-2.3); Phosphorous 3.7 mg/dl (2.5-4.5)
[2023-03-18 20:00] VITALS: BP 85/40; PULSE 87; O2SAT 93
[2023-03-18 20:09] LABS: MANUAL DIFFERENTIAL MANUAL DIFFERENTIAL (MANUAL DIFF)
[2023-03-18 20:26] VITALS: BP 139/73; PULSE 84; O2SAT 96
[2023-03-18 20:30] VITALS: BP 136/72; PULSE 86; O2SAT 93
[2023-03-18 20:46] LABS: Appearance,Urine CLEAR (Clear); Bilirubin,Urine Negative (Negative); Blood, Urine Negative (Negative); Color,Urine YELLOW (Yellow); Glucose,Urine (UA) 3+ (Negative); Ketones,Urine Negative (Negative); Leukocyte Esterase,Urine Negative (Negative); Nitrate,Urine Negative (Negative); Protein,Urine Negative (Negative); Urobilinogen,Urine 0.2 EU/dl (0.2)
[2023-03-18 21:23] LABS: Lymphocytes % 25 % (10-50); Monocytes % 3 % (2-9); Neutrophils % 71 % (42-76); Total Cells Counted 100
[2023-03-18 21:25] LABS: Platelet Estimate Normal; RBC Morphology Normal
[2023-03-18 21:46] LABS: POC Glucose,Bedside 146 (70-110)
[2023-03-18 21:49] VITALS: BP 99/64; PULSE 75; RESP 19; TEMP 36.8; O2SAT 98
== END 2023-03-18 21:56 | disposition home or self-care (01) ==
PROVIDERS: Student in an Organized Health Care Education/Training Program; Emergency Provider Emergency Medicine; PCP Nurse Practitioner Family
DX: E11.65 Type 2 diabetes mellitus with hyperglycemia (principal); F17.210 Nicotine dependence, cigarettes, uncomplicated
CPT/HCPCS: 80053; 81001; 82803; 82962; 83735; 84100; 85007; 85025; 96360; 96361; 99285

== ENCOUNTER 2023-06-19 13:54 | Emergency (ER) | payer MEDICARE, SELFPAY ==
[2023-06-19] VITALS (7 sets, daily range): BP systolic 61–146; BP diastolic 41–126; PULSE 56–93; RESP 17–22; TEMP 36.8–37; O2SAT 82–98; BMI 35.7
--- NOTE | 2023-06-19 13:56 | CT_ITS ---
PROCEDURE INFORMATION: Exam: CTA Neck With Contrast Exam date and time: 06/19/2023 2:12 PM Age: 38 years old Clinical indication: Stroke-like symptoms; Left upper extremity numbness/paresthesia; Additional info: Stroke like symptoms TECHNIQUE: Imaging protocol: Computed tomographic angiography of the neck with contrast. 3D rendering (Not supervised by radiologist): MIP and/or 3D reconstructed images were created by the technologist. Radiation optimization: All CT scans at this facility use at least one of these dose optimization techniques: automated exposure control; mA and/or kV adjustment per patient size (includes targeted exams where dose is matched to clinical indication); or iterative reconstruction. Contrast material: ISOVUE; Contrast volume: 100 ml; Contrast route: INTRAVENOUS (IV); REPORTING DATA: Count of CT and Cardiac NM exams in prior 12 months: This patient has received 0 known CTs and 0 known cardiac nuclear medicine studies in the 12 months prior to the current study. COMPARISON: [facility] CT CERVICAL SPINE W/O CONT 10/13/2017 9:23 PM FINDINGS: Right common carotid artery: No stenosis. No dissection or occlusion. Right internal carotid artery: No stenosis of the extracranial segment. No dissection or occlusion. Right external carotid artery: No occlusion or stenosis of the origin. Left common carotid artery: No stenosis. No dissection or occlusion. Left internal carotid artery: No stenosis of the extracranial segment. No dissection or occlusion. Left external carotid artery: No occlusion or stenosis of the origin. Right vertebral artery: No stenosis. No dissection or occlusion. Left vertebral artery: The proximal segment of the left vertebral artery is unopacified and difficult to identified. Remaining left vertebral artery is opacified by hypoplastic. Left subclavian artery: The left subclavian artery is not visualized Soft tissues: Normal. No significant soft tissue swelling. Bones/joints: No acute fracture. IMPRESSION: 1. Unremarkable CTA of the carotid circulation. 2. Nonvisualization of the left subclavian artery etiology of which is unclear. Recommend follow-up CT angio of the chest and left arm for further evaluation. 3. Nonvisualization of the proximal segment of the left vertebral artery with filling more distally that may be due to retrograde flow. REFERENCES: NASCET CRITERIA. The degree of stenosis in the cervical segment of the internal carotid artery is based on NASCET criteria. Normal is no stenosis. Mild is less than 50% stenosis. Moderate is 50-69% stenosis. Severe is 70% to 99% stenosis. Total occlusion is no detectable patent lumen. THIS REPORT CONTAINS FINDINGS THAT MAY BE CRITICAL TO PATIENT CARE. The findings were verbally communicated via telephone conference with Tiara Martinez at 2:46 PM EDT on 06/19/2023. The findings were acknowledged and understood.
--- NOTE | 2023-06-19 13:56 | CT_ITS ---
PROCEDURE INFORMATION: Exam: CTA Head With Contrast, Arteriography Exam date and time: 06/19/2023 2:12 PM Age: 38 years old Clinical indication: Stroke-like symptoms; Left upper extremity numbness/paresthesia; Additional info: Stroke like symptoms TECHNIQUE: Imaging protocol: Computed tomographic angiography of the head with contrast. Exam focused on the arteries. 3D rendering (Not supervised by radiologist): MIP and/or 3D reconstructed images were created by the technologist. Radiation optimization: All CT scans at this facility use at least one of these dose optimization techniques: automated exposure control; mA and/or kV adjustment per patient size (includes targeted exams where dose is matched to clinical indication); or iterative reconstruction. Contrast material: ISOVUE 370; Contrast volume: 100 ml; Contrast route: INTRAVENOUS (IV); REPORTING DATA: Count of CT and Cardiac NM exams in prior 12 months: This patient has received 0 known CTs and 0 known cardiac nuclear medicine studies in the 12 months prior to the current study. COMPARISON: CT HEAD/BRAIN WO CON 06/19/2023 2:06 PM FINDINGS: ANTERIOR CIRCULATION: Right internal carotid artery: Intracranial segment is patent with no significant stenosis. No aneurysm. Right middle cerebral artery: No occlusion or significant stenosis. No aneurysm. Right anterior cerebral artery: No occlusion or significant stenosis. No aneurysm. Left internal carotid artery: Intracranial segment is patent with no significant stenosis. No aneurysm. Left middle cerebral artery: No occlusion or significant stenosis. No aneurysm. Left anterior cerebral artery: No occlusion or significant stenosis. No aneurysm. POSTERIOR CIRCULATION: Right vertebral artery: No occlusion or significant stenosis. No aneurysm. Left vertebral artery: No occlusion or significant stenosis. No aneurysm. Basilar artery: No occlusion or significant stenosis. No aneurysm. Right posterior cerebral artery: No occlusion or significant stenosis. No aneurysm. Left posterior cerebral artery: No occlusion or significant stenosis. No aneurysm. Brain: No intracranial hemorrhage, mass effect, or midline shift. Cerebral ventricles: No ventriculomegaly. Bones/joints: Unremarkable. No acute fracture. Soft tissues: Unremarkable. IMPRESSION: No large vessel stenosis or occlusion.
--- NOTE | 2023-06-19 13:56 | PC.NURSE ---
DR NAPOLES NOTIFIED OF PT COMPLAINTS
--- NOTE | 2023-06-19 13:58 | PC.NURSE ---
RADIOLOGY NOTIFIED OF CT ORDERS
--- NOTE | 2023-06-19 13:59 | PC.NURSE ---
FSBS 150
--- NOTE | 2023-06-19 14:03 | CT_ITS ---
PROCEDURE INFORMATION: Exam: CT Head Without Contrast Exam date and time: 06/19/2023 2:06 PM Age: 38 years old Clinical indication: Stroke-like symptoms; Left upper extremity numbness/paresthesia; Additional info: Stroke symptoms TECHNIQUE: Imaging protocol: Computed tomography of the head without contrast. Radiation optimization: All CT scans at this facility use at least one of these dose optimization techniques: automated exposure control; mA and/or kV adjustment per patient size (includes targeted exams where dose is matched to clinical indication); or iterative reconstruction. Other technique: STROKE PROTOCOL was implemented. REPORTING DATA: Count of CT and Cardiac NM exams in prior 12 months: This patient has received 0 known CTs and 0 known cardiac nuclear medicine studies in the 12 months prior to the current study. COMPARISON: [facility] CT HEAD W/O CONTRAST 10/13/2017 9:23 PM FINDINGS: Brain: Normal. No hemorrhage. No mass effect or midline shift. Cortical sulci and white matter are unremarkable for age. Cerebral ventricles: Unremarkable for age. Paranasal sinuses: Visualized sinuses are unremarkable. No fluid levels. Mastoid air cells: Visualized mastoid air cells are well aerated. Bones/joints: Unremarkable. No acute fracture. Soft tissues: 1 cm superficiald nodular soft tissue density left frontal scalp just deep to the skin surface possibly representing a sebaceous cyst. It additional streaky soft tissue densities more posteriorly within the right scalp unchanged and may represent some scarring.. IMPRESSION: 1. No acute intracranial abnormality. 2. Soft tissue findings within the scalp as discussed above. ASSESSMENT: ASPECTS ([place] Stroke Program Early CT Score) is 10.
[2023-06-19 14:12] LABS: Basophils # 0.1 K/mm3 (0-0.2); Basophils % 0.3 % (0.1-2.0); Eosinophils # 0.1 K/mm3 (0.0-0.4); Eosinophils % 0.9 % (0.1-12.0); Hematocrit 47.7 % (42.0-52.0); Hemoglobin 15.2 g/dL (14.1-18.0); Lymphocytes # 3.2 K/mm3 (0.7-4.5); Mean Corpuscular HGB Conc 31.8 g/dL (31.8-35.4); Mean Corpuscular Hemoglobin 28.2 pg (27.0-31.2); Mean Corpuscular Volume 88.7 fl (80-94); Mean Platelet Volume 10.3 fl (7.4-10.4); Monocytes # 0.7 K/mm3 (0.1-1.0); Monocytes % 4.6 % (1.7-9.3); Neutrophils # 11.8 K/mm3 (1.8-7.8); Neutrophils % 74.1 % (37.0-80.0); Platelet Count 199 K/mm3 (142-424); Red Blood Count 5.38 M/mm3 (4.60-6.20); Red Cell Distribution Width 14.4 % (11.5-17.5); White Blood Count 15.9 K/mm3 (4.8-10.8)
[2023-06-19 14:14] LABS: Chloride 108 mmol/L (98-107); MANUAL DIFFERENTIAL MANUAL DIFFERENTIAL (MANUAL DIFF); Potassium 3.1 mmoL/L (3.5-5.1); Sodium 141 mmol/L (136-145)
[2023-06-19 14:17] LABS: Alanine Aminotransferase 28 U/L (12-78); Albumin/Globulin Ratio 1.8 (1.1-1.8); Alkaline Phosphatase 85 U/L (38-126); Anion Gap 12.1 mEq/L (5-15); Aspartate Amino Transferase 25 U/L (17-59); Bilirubin,Total 0.6 mg/dl (0.2-1.3); Blood Urea Nitrogen 24 mg/dl (9-20); Carbon Dioxide 24 mmol/L (22.0-30.0); Creatinine Clearance Estimated 65 mL/min (50-200); Estimated Glomerular Filt Rate 32 ml/min (>60); GFR (African American) 38 ML/MIN (>60); Globulin 2.2 g/dL (1.3-3.2); Total Protein,Serum 6.2 g/dl (6.3-8.2)
[2023-06-19 14:18] LABS: Calcium 8.4 mg/dl (8.4-10.2); Glucose 132 mg/dl (74-100)
[2023-06-19 14:25] LABS: Eosinophils % 1 % (0-3); Lymphocytes % 24 % (10-50); Monocytes % 4 % (2-9); Neutrophils % 71 % (42-76); Platelet Estimate Normal; RBC Morphology Normal; Total Cells Counted 100
[2023-06-19 14:54] LABS: POC Glucose,Bedside 97 (70-110)
--- NOTE | 2023-06-19 14:56 | PC.NURSE ---
DR NAPOLES AT BEDSIDE TO REEVALUATE PT
--- NOTE | 2023-06-19 14:59 | HMH.EDGENADL ---
Discharge Plan Disposition Patient Disposition: Xfer Other Chief Complaint: Neuro Symptoms/Deficit Prescriptions Prescriptions: No Action epinephrine [EpiPen] 0.3 mg/0.3 mL auto-injector 0.3 mg IM Q5-15M PRN (Reason: allergies) Rx Instructions: do not exceed 3 doses per episode albuterol sulfate 90 mcg/actuation HFA aerosol inhaler 1 inh INHALATION QID pravastatin 20 mg tablet 20 mg PO DAILY metformin 750 mg tablet extended release 24 hr 750 mg PO DAILY Jardiance 25 mg tablet 25 mg PO DAILY hydrochlorothiazide 12.5 mg tablet 12.5 mg PO DAILY bisoprolol-hydrochlorothiazide 2.5-6.25 mg tablet 1 tab PO DAILY baclofen 20 mg tablet 20 mg PO BID docusate sodium 100 mg capsule 100 mg PO DAILY oxycodone 5 mg tablet 5 mg PO PRN gabapentin 600 mg tablet 600 mg PO TID lisinopril 20 MG tablet 20 mg PO DAILY Referrals Follow up/Referrals: Sugey Nieto APRN [Primary Care Provider] - See instructions Clinical Impressions Clinical Impression: LUE weakness, Ischemia of left upper extremity Discharge ED Provider: Tiara Martinez General Adult HPI General Chief complaint: Neuro Symptoms/Deficit Stated complaint: STROKE LIKE SYMPTOMS Time Seen by Provider: 06/19/23 14:40 Mode of Arrival: Wheelchair Source of Information: Patient Limitations: No Limitations Description of Symptoms (Recalled from ER Triage Doc. by RN): PT C/O TINGLING IN LEFT HAND THAT RADIATES UP LEFT ARM TO NECK AND FACE, REPORTS SOME LEFT LEG WEAKNESS. SYMPTOMS STARTED YESTERDAY ABOUT 1430 AFTER BUILDING A DOG HOUSE. SPEECH CLEAR, NO FACIAL DROOP. History of Present Illness HPI narrative: Patient is a 38-year-old male with a history of congenital heart disease and aortic valve replaced at the age of [address] Aguirre in the [facility] presenting with left upper extremity weakness. Also states he has had some associated paresthesias in his face but primarily his symptoms are his left upper extremity. This began yesterday about 24 hours ago when he was working outside and his arm became so weak that he could not continue to work. States that he has been told in the past that he is not able to get a good blood pressure on his left arm but he is unclear of the underlying anatomy that he has in that area. He has never been told that he has occluded vessels going from his heart into his arm or his neck. He denies any changes in coordination or vision or significant weakness elsewhere in his body. Related Data Home Medications Medication Instructions Recorded Confirmed albuterol sulfate 90 mcg/actuation 1 inh inhalation QID Asthma 05/21/20 03/09/23 aerosol inhaler epinephrine 0.3 mg/0.3 mL 0.3 mg IM Q5-15M PRN allergies 05/21/20 03/09/23 injection, auto-injector (EpiPen) metformin 750 mg tablet,extended 750 mg PO DAILY Diabetes 05/21/20 03/09/23 release 24 hr pravastatin 20 mg tablet 20 mg PO DAILY Cholesterol 05/21/20 03/09/23 lisinopril 20 mg tablet 20 mg PO DAILY bp 09/15/21 03/09/23 bisoprolol 2.5 1 tab PO DAILY High blood pressure 02/26/22 03/09/23 mg-hydrochlorothiazide 6.25 mg tablet empagliflozin 25 mg tablet 25 mg PO DAILY 04/22/22 03/09/23 (Jardiance) baclofen 20 mg tablet 20 mg PO BID 09/14/22 03/09/23 docusate sodium 100 mg capsule 100 mg PO DAILY 09/14/22 03/09/23 oxycodone 5 mg tablet 5 mg PO PRN 12/29/22 03/09/23 gabapentin 600 mg tablet 600 mg PO TID 02/09/23 03/09/23 hydrochlorothiazide 12.5 mg tablet 12.5 mg PO DAILY 03/09/23 03/09/23 Allergies Allergy/AdvReac Type Severity Reaction Status Date / Time acetaminophen [From Lortab] Allergy Verified 03/09/23 14:17 codeine Allergy Verified 03/09/23 14:17 hydrocodone [From Lortab] Allergy Hives Verified 03/09/23 14:17 ibuprofen Allergy Verified 03/09/23 14:17 daptomycin AdvReac Severe Verified 03/09/23 14:[address] [facility] Disclaimer: The information contained in t
--- NOTE | 2023-06-19 15:09 | HMH.ITSTN ---
had was scanned for an angio head and neck 100ml of contrast given per protocol -- GFR is only 32 additional contrast scans cancelled working on transfer to another facility
--- NOTE | 2023-06-19 15:11 | PC.NURSE ---
Dr Martinez speaking with [facility] for transfer
[2023-06-19 15:13] LABS: Activated Partial Thrombo Time 30.5 seconds (22.8-30.6); INR 1.07 (0.9-1.1); Prothrombin Time 11.5 seconds (10.1-12.5)
--- NOTE | 2023-06-19 15:17 | PC.NURSE ---
attempted to call pharmacy, operated page for evaluation analyst pharmacy.
--- NOTE | 2023-06-19 15:24 | PC.NURSE ---
Spoke with Tamika from [facility] pharmacy. Pharmacist verified 15u/kg/hr (28ml/hr). Tamika stated she would enter in the order for Heparin.
--- NOTE | 2023-06-19 15:24 | PC.NURSE ---
Spoke with Tamika from [facility] pharmacy. Pharmacist verified 15u/kg/hr (28ml/hr) with a max of 5,000u. Tamika stated she is putting in the Heparin order.
--- NOTE | 2023-06-19 15:25 | PC.NURSE ---
patient assisted to bathroom
--- NOTE | 2023-06-19 15:28 | PC.NURSE ---
states he does not want 5,000U bolus of Heparin just the Heparin Drip.
[2023-06-19 15:31] LABS: PTT Heparin (inpatient only) 30.1 Seconds (23.6-34.0)
--- NOTE | 2023-06-19 15:50 | PC.NURSE ---
REPORT CALLED TO LEVI CAN RUNNER NURSE AT ED
== END 2023-06-19 16:33 | disposition other institution (70) ==
PROVIDERS: Emergency Provider Student in an Organized Health Care Education/Training Program; PCP Nurse Practitioner Family
DX: I99.8 Other disorder of circulatory system (principal); R53.1 Weakness; J45.909 Unspecified asthma, uncomplicated; E11.9 Type 2 diabetes mellitus without complications; G47.33 Obstructive sleep apnea (adult) (pediatric); F17.210 Nicotine dependence, cigarettes, uncomplicated; Z95.2 Presence of prosthetic heart valve; N17.9 Acute kidney failure, unspecified
CPT/HCPCS: 70450; 70496; 70498; 80053; 82962; 85007; 85025; 85610; 85730; 96360; 99291; Q9967

== ENCOUNTER → 2023-07-05 12:52 | Outpatient (CLI) | payer MEDICARE, SELFPAY ==
--- NOTE | 2023-07-05 12:58 | MR_ITS ---
FINAL REPORT CLINICAL HISTORY: CERVICAL STENOSIS OF SPINE. BILATERAL ARM NUMBNESS AND PAIN. WORSE ON LEFT SIDE COMPARISON: None FINDINGS: Multiplanar MR imaging of the cervical spine was performed without contrast. There is motion on many sequences limiting overall image quality. On the sagittal T2-weighted images, disc degeneration is seen at multiple levels. There is no evidence of fracture. The vertebral alignment is normal. The cervical spinal cord has an unremarkable appearance without evidence of mass, edema or syrinx. No significant canal stenosis is identified. The cervicomedullary junction is normal. C2-3: There is a small central disc protrusion mildly indenting the thecal sac. No canal stenosis or neural foraminal narrowing. Is identified. C3-4: There is a small central disc protrusion mildly indenting the thecal sac. No canal stenosis or neural foraminal narrowing is identified. C4-5: There is a small central disc protrusion mildly indenting the thecal sac producing mild left neural foraminal narrowing. No canal stenosis is identified. C5-6: An annular bulge is present, with a small central disc protrusion. No significant canal or neural foraminal narrowing is present. C6-7: A small central disc protrusion is present without evidence of significant canal stenosis or neural foraminal narrowing. C7-T1: There is no significant canal stenosis or neural foraminal narrowing. IMPRESSION: Mild multilevel degenerative change as described. Reviewed, Interpreted and Dictated by Vijay Gilbert III, MD Transcribed by Munira Smith Authenticated and [facility]
== END ==
LOC: RAD 12:52
PROVIDERS: PCP Nurse Practitioner Family; Visit Provider Nurse Practitioner Family
DX: M48.02 Spinal stenosis, cervical region (principal); R20.0 Anesthesia of skin; R20.2 Paresthesia of skin
CPT/HCPCS: 72141; 76376

== ENCOUNTER → 2023-08-30 11:22 | Outpatient (CLI) | payer MEDICARE, MEDICAID, SELFPAY ==
[2023-08-30 16:53] LABS: Alanine Aminotransferase 37 U/L (12-78); Albumin Level 5.1 g/dl (3.5-5.0); Albumin/Globulin Ratio 1.7 (1.1-1.8); Alkaline Phosphatase 106 U/L (38-126); Anion Gap 17.3 mEq/L (5-15); Aspartate Amino Transferase 33 U/L (17-59); Bilirubin,Total 0.8 mg/dl (0.2-1.3); Blood Urea Nitrogen 13 mg/dl (9-20); Calcium 10.2 mg/dl (8.4-10.2); Carbon Dioxide 25 mmol/L (22.0-30.0); Chloride 104 mmol/L (98-107); Chol/HDL Ratio 5.8 (1-3.5); Cholesterol 179 mg/dl (140-200); Estimated Glomerular Filt Rate 108 ml/min (>60); GFR (African American) 130 ML/MIN (>60); Glucose 103 mg/dl (74-100); HDL Cholesterol 31 mg/dl (40-60); Potassium 4.3 mmoL/L (3.5-5.1); Sodium 142 mmol/L (136-145); Total Protein,Serum 8.1 g/dl (6.3-8.2); Triglycerides 377 mg/dl (30-150); VLDL Cholesterol 75 mg/dL (0-40)
[2023-08-30 17:04] LABS: Direct LDL Cholesterol 104.81 mg/dL (100-129)
== END ==
PROVIDERS: PCP Nurse Practitioner Family; Visit Provider Nurse Practitioner Family
DX: E11.9 Type 2 diabetes mellitus without complications (principal); Z79.84 Long term (current) use of oral hypoglycemic drugs; Z79.899 Other long term (current) drug therapy
CPT/HCPCS: 80053; 80061; 83036

== ENCOUNTER → 2023-09-17 07:44 | Outpatient (CLI) | payer MEDICARE, MEDICAID, SELFPAY ==
--- NOTE | 2023-09-17 07:59 | US_ITS ---
FINAL REPORT CLINICAL HISTORY: fatty liver disease FINDINGS: RIGHT UPPER QUADRANT ULTRASOUND Sonographic images of the right upper quadrant were obtained. The pancreas is partially obscured. There is fatty infiltration of the liver. The portal vein is somewhat enlarged measuring 15 mm of uncertain etiology but can be seen with cirrhosis. The gallbladder appears normal without evidence of gallstones. The common duct measures 2 mm. Limited images of the right kidney are normal. IMPRESSION: Fatty liver. Enlarged portal vein of uncertain etiology but can be seen with cirrhosis. Reviewed, Interpreted and Dictated by Vijay Gilbert III, MD Transcribed by Natalya Otto Authenticated and . [facility]
== END ==
PROVIDERS: PCP Nurse Practitioner Family; Visit Provider Nurse Practitioner Family
DX: K76.0 Fatty (change of) liver, not elsewhere classified (principal)
CPT/HCPCS: 76705

== ENCOUNTER → 2023-09-28 16:23 | Outpatient (CLI) | payer MEDICARE, SELFPAY | PROVIDERS: PCP Nurse Practitioner Family; Visit Provider Nurse Practitioner Family | DX: N39.0 Urinary tract infection, site not specified (principal) ==

== ENCOUNTER → 2023-09-29 08:04 | Outpatient (CLI) | payer MEDICARE, MEDICAID, SELFPAY ==
[2023-09-28 16:03] LABS: Basophils # 0.1 K/mm3 (0-0.2); Basophils % 0.8 % (0.1-2.0); Eosinophils # 0.2 K/mm3 (0.0-0.4); Eosinophils % 1.9 % (0.1-12.0); Hematocrit 51.9 % (42.0-52.0); Hemoglobin 17.6 g/dL (14.1-18.0); Lymphocytes # 3.3 K/mm3 (0.7-4.5); Lymphocytes % 25.9 % (10-50); Mean Corpuscular HGB Conc 33.9 g/dL (31.8-35.4); Mean Corpuscular Hemoglobin 30.6 pg (27.0-31.2); Mean Corpuscular Volume 90.2 fl (80-94); Monocytes # 0.6 K/mm3 (0.1-1.0); Neutrophils # 8.5 K/mm3 (1.8-7.8); Neutrophils % 66.3 % (37.0-80.0); Platelet Count 182 K/mm3 (142-424); Red Blood Count 5.75 M/mm3 (4.60-6.20); Red Cell Distribution Width 14.5 % (11.5-17.5); White Blood Count 12.8 K/mm3 (4.8-10.8)
[2023-09-28 16:31] LABS: Alanine Aminotransferase 37 U/L (12-78); Albumin Level 4.9 g/dl (3.5-5.0); Albumin/Globulin Ratio 1.8 (1.1-1.8); Alkaline Phosphatase 105 U/L (38-126); Anion Gap 19.3 mEq/L (5-15); Aspartate Amino Transferase 38 U/L (17-59); Bilirubin,Total 0.6 mg/dl (0.2-1.3); Blood Urea Nitrogen 9 mg/dl (9-20); Calcium 9.9 mg/dl (8.4-10.2); Carbon Dioxide 24 mmol/L (22.0-30.0); Chloride 101 mmol/L (98-107); Estimated Glomerular Filt Rate 94 ml/min (>60); GFR (African American) 114 ML/MIN (>60); Globulin 2.7 g/dL (1.3-3.2); Glucose 70 mg/dl (74-100); Potassium 4.3 mmoL/L (3.5-5.1); Sodium 140 mmol/L (136-145); Total Protein,Serum 7.6 g/dl (6.3-8.2)
--- NOTE | 2023-09-29 08:13 | US_ITS ---
FINAL REPORT TECHNIQUE: Sonographic images of the right upper quadrant were obtained. CLINICAL HISTORY: DILATED PORTAL VEIN COMPARISON: None FINDINGS: PANCREAS: Somewhat limited by overlying bowel gas.. LIVER: Mild fatty infiltration of the liver.. No focal hepatic lesion. No intrahepatic biliary ductal dilatation. GALLBLADDER: No gallstones. No gallbladder wall thickening or pericholecystic fluid. COMMON DUCT: 3 mm. Normal for age. RIGHT KIDNEY: The right kidney measures 12.5 cm. There is no hydronephrosis, mass, or stone. FREE FLUID: None. IMPRESSION: Fatty infiltration of the liver. Reviewed, Interpreted and Dictated by Emilia Russo MD Transcribed by Munira Smith Authenticated and [facility]
[2023-09-29 08:30] LABS: Microscopic, Urine URINE MICROSCOPIC (MICROSCOPIC)
[2023-09-29 08:42] LABS: Appearance,Urine CLEAR (Clear); Bilirubin,Urine Negative (Negative); Blood, Urine Negative (Negative); Color,Urine YELLOW (Yellow); Glucose,Urine (UA) 3+ (Negative); Ketones,Urine Negative (Negative); Leukocyte Esterase,Urine Negative (Negative); Nitrate,Urine Negative (Negative); Protein,Urine Negative (Negative); Specific Gravity, Urine 1.025 (1.005-1.030); Urobilinogen,Urine 0.2 EU/dl (0.2)
[2023-09-29 09:02] LABS: Bacteria,Urine Trace /lpf
== END ==
PROVIDERS: PCP Nurse Practitioner Family; Visit Provider Nurse Practitioner Family
DX: K76.0 Fatty (change of) liver, not elsewhere classified (principal); R10.9 Unspecified abdominal pain; R39.9 Unspecified symptoms and signs involving the genitourinary system; I10 Essential (primary) hypertension; R93.5 Abnormal findings on diagnostic imaging of other abdominal regions, including retroperitoneum; B96.89 Other specified bacterial agents as the cause of diseases classified elsewhere
CPT/HCPCS: 80053; 81001; 85025; 87086; 93975

== ENCOUNTER 2023-11-16 08:22 | Day surgery (SDC) | payer MEDICARE, MEDICAID, SELFPAY ==
[2023-11-10 11:07] VITALS: BMI 34.2
--- NOTE | 2023-11-16 08:39 | ECG_ITS ---
APPROVED REPORT Exam: Resting ECG HR:71 bpm ECG Measurements Heart Rate 71 AXES NE 207 P 69 QRSd 122 QRS 79 QT 375 T 46 QTc 397 Conclusion SINUS RHYTHM MODERATE INTRAVENTRICULAR CONDUCTION DELAY [110+ ms QRS DURATION] BORDERLINE ECG UNCONFIRMED REPORT Electronically signed by : Chandrakant Cedillo MD 11/17/2023 09:02:09
[2023-11-16 09:00] VITALS: BP 126/85; PULSE 72; RESP 18; TEMP 36.2; O2SAT 95
[2023-11-16 09:02] LABS: Basophils # 0.1 K/mm3 (0-0.2); Basophils % 0.6 % (0.1-2.0); Eosinophils # 0.2 K/mm3 (0.0-0.4); Eosinophils % 2.4 % (0.1-12.0); Hemoglobin 17.8 g/dL (14.1-18.0); Lymphocytes # 2.6 K/mm3 (0.7-4.5); Lymphocytes % 26.2 % (10-50); Mean Corpuscular HGB Conc 33.6 g/dL (31.8-35.4); Mean Corpuscular Hemoglobin 29.7 pg (27.0-31.2); Mean Corpuscular Volume 88.4 fl (80-94); Mean Platelet Volume 10.8 fl (7.4-10.4); Monocytes # 0.4 K/mm3 (0.1-1.0); Monocytes % 4.4 % (1.7-9.3); Neutrophils # 6.6 K/mm3 (1.8-7.8); Neutrophils % 66.4 % (37.0-80.0); Platelet Count 143 K/mm3 (142-424); Red Blood Count 5.99 M/mm3 (4.60-6.20); Red Cell Distribution Width 14.6 % (11.5-17.5)
[2023-11-16] MEDS: LACTATED RINGERS 1000ML 1,000 ML 25 ML IV (09:10)
[2023-11-16 09:42] LABS: Chloride 106 mmol/L (98-107); Potassium 4.3 mmoL/L (3.5-5.1); Sodium 140 mmol/L (136-145)
[2023-11-16 09:45] LABS: Anion Gap 16.3 mEq/L (5-15); Blood Urea Nitrogen 14 mg/dl (9-20); Carbon Dioxide 22 mmol/L (22.0-30.0); Creatinine Clearance Estimated 179 mL/min (50-200); Estimated Glomerular Filt Rate 108 ml/min (>60); GFR (African American) 130 ML/MIN (>60)
[2023-11-16 09:46] LABS: Calcium 9.1 mg/dl (8.4-10.2); Glucose 120 mg/dl (74-100)
--- NOTE | 2023-11-16 10:01 | P.PNANES_ITS ---
[facility] Disclaimer: The information contained in this section may have been updated after the patient was seen, as this information can be updated by other users. Medical History Asthma BMI 33.0-33.9,adult BMI 34.0-34.9,adult BMI 36.0-36.9,adult Diabetes mellitus Emphysema/COPD History of hypertension Migraine Noise-induced hearing loss of both ears Renal failure Severe sleep apnea Tinnitus Surgical History History of ankle surgery History of aortic valve replacement History of back surgery History of uvulopalatopharyngoplasty Family History Other Cancer Coronary artery disease Hyperlipidemia Hypertension Social History (Updated 11/16/23 @ 09:09 by Jocelyn Max RN) Smoking Status: Current every day smoker tobacco type: cigarettes packs per day: 1 alcohol intake: never substance use type: denies use current occupational status: disabled Travel in the last 8 weeks: None household members: family housing: house current occupational exposures/hazards: No caffeine: Yes [facility] Anesthesia Checklist Patient Identification Patient Identification: Arm Band Structural Data Admitted From: Home Planned Operative Procedure/s: Drug Induced Sleep Endoscopy Consent for Planned Operative Procedure(s) Verified: Yes Verified Documents: Surgical Consent and History and Physical NPO Status Verified Time NPO: 00:00 Additional verifications Anesthesia Reactions: Yes (HYPERTENSION) Hx Blood Transfusions: No Blood Transfusion Reaction: No Airway Assessment Mallampati Score:: Class II C-Spine Mobility Assessed: Yes TMJ Mobility Assessed: Yes Dentition: Good Dentition Neurological Assessment Level of Consciousness: Awake and Alert Anesthesia Plan Anesthesia Risk discussed: Yes Anesthesia Plan: Verified ASA Class: III Anesthesia Type: MAC
--- NOTE | 2023-11-16 10:15 | EXP.OP.NOTE ---
Date of procedure: 11/16/23 Pre-op Diagnosis:: obstructive sleep apnea Post-op Diagnosis:: same Procedure performed:: drug induced sleep endoscopy Surgeon:: Maikel Storey MD Anesthesia: MAC Estimated blood loss (mL): 0 Operative findings:: Patient would be a candidate for the hypoglossal nerve stimulator implant based off today sleep endoscopy Operative note:: The patient was brought to the OR, laid in supine position, we slowly uptitrate a propofol drip and the patient was snoring and intermittently apneic. The flexible fiberoptic scope was inserted through his left nare. Patient had anterior posterior collapse of his palate. He previously has had a uvulopalatopharyngoplasty and tonsillectomy. As such his uvula was absent. Patient had about 75% lateral collapse of his oropharyngeal wall. He had fairly significant anterior posterior collapse of his base of tongue and epiglottis which was improved with jaw thrust maneuver. Scope was then removed and patient turned back over to anesthesia to be awoken. Condition: stable Disposition: PACU Complications:: none
[2023-11-16 10:20] VITALS: BP 110/58; PULSE 79; RESP 16; TEMP 36.1; O2SAT 93
[2023-11-16 10:30] VITALS: BP 116/65; PULSE 84; RESP 16; O2SAT 96
[2023-11-16 10:40] VITALS: BP 111/52; PULSE 70; RESP 16; O2SAT 96
[2023-11-17 09:35] LABS: POC Glucose,Bedside 116 (70-110)
== END 2023-11-16 10:45 | disposition home or self-care (01) ==
PROVIDERS: PCP Nurse Practitioner Family; Visit Provider Student in an Organized Health Care Education/Training Program
PROC: (CPT 42975; principal; 2023-11-16 10:00)
DX: G47.33 Obstructive sleep apnea (adult) (pediatric) (principal); E11.9 Type 2 diabetes mellitus without complications
CPT/HCPCS: 42975; 80048; 82962; 85025; 93005

== ENCOUNTER 2023-12-03 13:54 | Outpatient (CLI) | payer MEDICARE, MEDICAID, SELFPAY ==
[2023-12-03 15:16] LABS: Alanine Aminotransferase 27 U/L (12-78); Albumin Level 4.2 g/dl (3.5-5.0); Albumin/Globulin Ratio 1.8 (1.1-1.8); Alkaline Phosphatase 99 U/L (38-126); Anion Gap 13.1 mEq/L (5-15); Aspartate Amino Transferase 26 U/L (17-59); Bilirubin,Total 0.5 mg/dl (0.2-1.3); Blood Urea Nitrogen 15 mg/dl (9-20); Calcium 8.7 mg/dl (8.4-10.2); Carbon Dioxide 23 mmol/L (22.0-30.0); Chloride 103 mmol/L (98-107); Chol/HDL Ratio 6.8 (1-3.5); Cholesterol 143 mg/dl (140-200); Estimated Glomerular Filt Rate 75 ml/min (>60); GFR (African American) 90 ML/MIN (>60); Globulin 2.3 g/dL (1.3-3.2); Glucose 140 mg/dl (74-100); HDL Cholesterol 21 mg/dl (40-60); Potassium 4.1 mmoL/L (3.5-5.1); Sodium 135 mmol/L (136-145); Total Protein,Serum 6.5 g/dl (6.3-8.2)
[2023-12-03 15:27] LABS: Direct LDL Cholesterol 89.13 mg/dL (100-129)
[2023-12-03 15:31] LABS: Triglycerides 412 mg/dl (30-150)
[2023-12-03 15:33] LABS: Hemoglobin A1C 6.4 % (4.0-6.0)
== END 2023-12-03 23:59 ==
LOC: LAB.DROPOF 13:56
PROVIDERS: PCP Nurse Practitioner Family; Visit Provider Nurse Practitioner Family
DX: E11.9 Type 2 diabetes mellitus without complications (principal); E78.5 Hyperlipidemia, unspecified; Z79.84 Long term (current) use of oral hypoglycemic drugs
CPT/HCPCS: 80053; 80061; 83036

== ENCOUNTER 2023-12-14 09:25 | Outpatient (CLI) | payer MEDICARE, MEDICAID, SELFPAY ==
[2023-12-14 10:07] LABS: Blood Urea Nitrogen 17 mg/dl (9-20); Estimated Glomerular Filt Rate 94 ml/min (>60); GFR (African American) 114 ML/MIN (>60)
--- NOTE | 2023-12-14 10:42 | XR_ITS ---
FINAL REPORT CLINICAL HISTORY: left hand pain since April 2023 COMPARISON: None FINDINGS: LEFT HAND: 3 views of the left hand were obtained. There is no acute fracture or dislocation. Visualized joint spaces are normally aligned. Soft tissues are unremarkable. IMPRESSION: No acute bony abnormality. Reviewed, Interpreted and Dictated by Yvon Fernandez MD Transcribed by Munira Smith Authenticated and [facility]
== END 2023-12-14 23:59 ==
PROVIDERS: PCP Nurse Practitioner Family; Visit Provider Nurse Practitioner Family
DX: G89.29 Other chronic pain (principal); M48.061 Spinal stenosis, lumbar region without neurogenic claudication; M54.41 Lumbago with sciatica, right side; M79.642 Pain in left hand
CPT/HCPCS: 36415; 73130; 82565; 84520

== ENCOUNTER 2023-12-23 15:12 | Outpatient (CLI) | payer MEDICARE, MEDICAID, SELFPAY ==
--- NOTE | 2023-12-23 15:12 | MR_ITS ---
FINAL REPORT TECHNIQUE: Multiplanar MR, without and with gadolinium enhancement CLINICAL HISTORY: Lower back pain with radiculopath, weakness COMPARISON: 01/06/2022 FINDINGS: Sagittal images show normal vertebral height. Alignment is normal. There are fatty endplate changes at L4-5. Marrow signal pattern is unremarkable. L1-2: Unremarkable. L2-3: Mild diffuse disc bulge is present. L3-4: Moderate diffuse disc bulge is present. Moderate facet arthropathy. Mild central canal stenosis and mild bilateral neural foraminal narrowing. L4-5: Mild diffuse disc bulge is present. Postoperative changes from laminectomy. Mild lateral recess stenosis and moderate bilateral neural foraminal narrowing. L5-S1: Mild to moderate diffuse disc bulge. Moderate facet arthropathy. Moderate central canal stenosis and moderate bilateral neural foraminal narrowing. No abnormal contrast enhancement. IMPRESSION: Degenerative and postoperative change as detailed above. Reviewed, Interpreted and Dictated by London Gaffney MD Transcribed by Natalya Otto Authenticated and [facility]
[2023-12-23] MEDS: SODIUM CHLORIDE 0.9% 10ML SYR (RAD ONLY) 10 ML IV (16:05)
[2023-12-23] MEDS: GADOTERIDOL INJ 17ML SYRINGE 20 ML IV (16:05)
== END 2023-12-23 23:59 ==
LOC: RAD 15:12
PROVIDERS: PCP Nurse Practitioner Family; Visit Provider Nurse Practitioner Family
DX: M48.00 Spinal stenosis, site unspecified (principal); M54.40 Lumbago with sciatica, unspecified side; R29.898 Other symptoms and signs involving the musculoskeletal system; Z98.890 Other specified postprocedural states
CPT/HCPCS: 72158; 76376; A9576

== ENCOUNTER 2024-03-07 01:41 | Observation (INO) | payer MEDICARE, MEDICAID, SELFPAY ==
[2024-03-07] VITALS (10 sets, daily range): BP systolic 104–125; BP diastolic 51–72; PULSE 64–85; RESP 16–19; TEMP 36.6–36.8; O2SAT 93–99; BMI 34.4; BMI 33.0
--- NOTE | 2024-03-07 01:45 | HMH.EDGENADL ---
Discharge Plan Disposition Patient Disposition: Admitted Chief Complaint: Abdominal Pain Prescriptions Prescriptions: No Action epinephrine [EpiPen] 0.3 mg/0.3 mL auto-injector 0.3 mg IM Q5-15M PRN (Reason: allergies) Rx Instructions: do not exceed 3 doses per episode albuterol sulfate 90 mcg/actuation HFA aerosol inhaler 1 inh INHALATION QID metformin 1,000 mg tablet 1,000 mg PO BID 30 Days Qty: 60 6RF Rybelsus 7 mg tablet 7 mg PO DAILY 30 Days Qty: 30 6RF Jardiance 10 mg tablet 10 mg PO DAILY 30 Days Qty: 30 2RF diclofenac sodium [Voltaren Arthritis Pain] 1 % gel 2 g topical QID Qty: 100 3RF Rx Instructions: apply to single elbow, wrist or hand; for hand includes palm/fingers/back of hand baclofen 20 mg tablet 20 mg PO BID oxycodone 5 mg tablet 5 mg PO NEEDED PRN (Reason: Pain) gabapentin 800 mg tablet 800 mg PO TID PRN (Reason: Pain) (DME) Contour Next Test Strips Strip See Rx Instructions .ROUTE .MEDSUPPLY Qty: 10 Rx Instructions: As directed (DME) lancets [Microlet Lancet] Misc See Rx Instructions .ROUTE .MEDSUPPLY Qty: 100 Rx Instructions: As directed bisoprolol-hydrochlorothiazide 2.5-6.25 mg tablet 1 tab PO DAILY 30 Days Qty: 30 6RF hydrochlorothiazide 12.5 mg tablet 12.5 mg PO DAILY 30 Days Qty: 30 6RF lisinopril 20 mg tablet 20 mg PO DAILY 30 Days Qty: 30 6RF pravastatin 40 mg tablet 40 mg PO DAILY Clinical Impressions Clinical Impression: Abdominal pain Instructions Patient Instructions: DI for Acute Abdominal Pain Discharge ED Provider: Markos Jean Baptiste General Adult HPI General Chief complaint: Abdominal Pain Stated complaint: L side abd pain,trouble swallowing,hard to breathe Time Seen by Provider: 03/07/24 01:44 History of Present Illness HPI narrative: 39-year-old male with history of prior WESTON, hypertension, hyperlipidemia, spinal stenosis presents with abdominal pain. Reports abdominal pain started this this morning, is moderate in nature, left-sided. Denies any history of kidney stones, diverticulitis, abdominal surgery. He reports that he has had kidney issues in the past after he had renal failure from antibiotics he was taking for a spinal infection. He denies any current back pain. His last back issue happened about a year ago. He reports he was never on dialysis. He denies any recent fever. Reports that he has been having more bowel movements than normal. Reports that his urine may have been slightly more dark than normal. Related Data Home Medications Medication Instructions Recorded Confirmed albuterol sulfate 90 mcg/actuation 1 inh inhalation QID Asthma 05/21/20 02/07/24 aerosol inhaler epinephrine 0.3 mg/0.3 mL 0.3 mg IM Q5-15M PRN allergies 05/21/20 02/07/24 injection, auto-injector (EpiPen) baclofen 20 mg tablet 20 mg PO BID 09/14/22 02/07/24 oxycodone 5 mg tablet 5 mg PO NEEDED PRN Pain 12/29/22 02/07/24 blood sugar diagnostic (Contour #10 ea 08/30/23 02/07/24 Next Test Strips) lancets (Microlet Lancet) #100 ea 08/30/23 02/07/24 gabapentin 800 mg tablet 800 mg PO TID PRN Pain 02/07/24 02/07/24 pravastatin 40 mg tablet 40 mg PO DAILY 02/07/24 02/07/24 Previous Rx's Medication Instructions Recorded bisoprolol 2.5 1 tab PO DAILY High blood pressure 08/30/23 mg-hydrochlorothiazide 6.25 mg 30 days #30 tabs tablet hydrochlorothiazide 12.5 mg tablet 12.5 mg PO DAILY 30 days #30 tabs 08/30/23 lisinopril 20 mg tablet 20 mg PO DAILY bp 30 days #30 tabs 08/30/23 empagliflozin 10 mg tablet 10 mg PO DAILY 30 days #30 tabs 12/08/23 (Jardiance) metformin 1,000 mg tablet 1,000 mg PO BID 30 days #60 tabs 12/08/23 semaglutide 7 mg tablet (Rybelsus) 7 mg PO DAILY 30 days #30 tabs 12/08/23 diclofenac sodium 1 % topical gel 2 g topical QID #100 grams 12/14/23 (Voltaren Arthritis Pain) Allergies Allergy/AdvReac Type Severity Reaction Status Date / Time acetaminophen [From Lortab] Allergy Verified 02/07/24 11:10 codeine Allergy Verified 02/07/24 11:10 hydrocodone [From Lortab] Allergy Hives Verified 02/07/24 11:10 ibuprofen Allergy Verified 02/07/24 11:10 daptomycin AdvReac Severe Verified 02/07/24 11:10 PFSH [facility] Disclaimer: The information contained in this section may have been updated after the patient was seen, as this information can be updated by other users. Medical History Emphysema/COPD BMI 36.0-36.9,adult Continued weight gain postoperatively BMI 34.0-34.9,adult BMI 33.0-33.9,adult Severe sleep apnea Migraine Renal failure Asthma History of hypertension Diabetes mellitus Noise-induced hearing loss of both ears Tinnitus Surgical History History of uvulopalatopharyngoplasty History of ankle surgery History of aortic valve replacement History of back surgery Family History Mother Cancer brain tumor, bladder/kidney Father Hypertension Hyperlipidemia Other Coronary artery disease Social History Smoking Status: Current every day smoker tobacco type: cigarettes packs per day: 1 alcohol intake: never substance use type: denies use current occupational status: disabled Travel in the last 8 weeks: None household members: family housing: house current occupational exposures/hazards: No caffeine: Yes ROS Obtained: Yes All systems reviewed & no additional complaints except as documented Physical Exam General General appearance: alert and in no apparent distress Head Head exam: atraumatic and normocephalic Eye Eye exam: Present normal appearance, PERRL and EOMI ENT ENT exam: Present normal oropharynx and normal external ear exam Neck Neck exam: Present normal inspection and full ROM Chest Chest inspection: Present normal inspection and symmetric chest wall rise; Absent tenderness Respiratory Respiratory exam: Present normal lung sounds bilaterally; Absent respiratory distress Cardiovascular Cardiovascular exam: Present regular rate and normal rhythm Abdominal Exam Abdominal exam: Present soft and tenderness (Mild, left-sided); Absent distention or guarding Extremities Exam Extremities exam: Present normal inspection; Absent edema or joint swelling Back Exam Back exam: Present normal inspection; Absent tenderness Neurological Exam Neurological exam: Present alert and oriented X3; Absent motor sensory deficit Psychiatric Psychiatric exam: Present normal affect and normal mood Skin Skin exam: Present warm, dry and normal color Lymphatic Lymphatic Findings: no adenopathy Medical Decision Making Medical Records Medical records reviewed: Yes I reviewed the patient's medical records. Prasanth Inquiry Pt receiving controlled substance: No Prasanth was queried for this patient: No Vital Signs: 03/07/24 01:44 03/07/24 01:49 03/07/24 02:30 Temperature 98.2 F Temperature Source Oral Pulse Rate 85 69 Pulse Rate [Left] 85 Respiratory Rate 18 Blood Pressure 124/68 119/72 Blood Pressure [Right Arm] 124/68 Blood Pressure Mean [Right Arm] 86 02 Sat by Pulse Oximetry 96 96 94 L Oxygen Delivery Method Room Air 03/07/24 03:02 Temperature Temperature Source Pulse Rate 72 Pulse Rate [Left] Respiratory Rate Blood Pressure 104/61 L Blood Pressure [Right Arm] Blood Pressure Mean [Right Arm] 02 Sat by Pulse Oximetry 94 L Oxygen Delivery Method Lab Data Lab results reviewed: Yes I reviewed the patient's lab results. Lab Results 03/07/24 01:57: WBC 19.0 H, RBC 5.90, Hgb 17.7, Hct 55.1 H, MCV 93.3, MCH 30.0, MCHC 32.2, RDW 14.0, Plt Count 189, MPV 9.9, Neut % (Auto) 83.2 H, Lymph % (Auto) 10.5, [place] % (Auto) 4.3, Eos % (Auto) 0.9, Baso % (Auto) 1.0, Neut # (Auto) 15.8 H, Lymph # (Auto) 2.0, [place] # (Auto) 0.8, Eos # (Auto) 0.2, Baso # (Auto) 0.2, Total Counted 100, Neutrophils % (Manual) 86 H, Lymphocytes % (Manual) 12, Monocytes % (Manual) 2, Platelet Estimate Normal, RBC Morphology Normal, Sodium 139, Potassium 3.7, Chloride 101, Carbon Dioxide 24, Anion Gap 17.7 H, BUN 27 H, Creatinine 2.30 H, Estimated Creat Clear 62, Estimated GFR 32 L, Est GFR ( Amer) 38 L, Glucose 161 H, Calcium 10.1, Total Bilirubin 2.2 H, AST 32, ALT 37, Alkaline Phosphatase 100, Total Protein 7.6, Albumin 4.9, Globulin 2.7, Albumin/Globulin Ratio 1.8, Lipase 46 03/07/24 01:57 03/07/24 01:57 Orders (Tests/Meds): ED MEDICATIONS Generic Name Dose Route Start Last Admin Trade Name Freq PRN Reason Stop Dose Admin Lactated Ringer's 1,000 mls @ 999 mls/hr 03/07/24 03:30 03/07/24 03:30 Lactated Ringer's 1000 Ml Bag IV 03/07/24 04:30 999 mls/hr .Q1H1M ISSA Administration Discontinued Medications Generic Name Dose Route Start Last Admin Trade Name Freq PRN Reason Stop Dose Admin Acetaminophen 500 mg 03/07/24 01:52 Acetaminophen 500mg Tab PO 03/07/24 01:53 ONCE ONE Sodium Chloride 1,000 mls @ 999 mls/hr 03/07/24 02:00 03/07/24 02:12 Sod Chlor 0.9% 1000ml Bag IV 03/07/24 03:00 999 mls/hr .Q1H1M ISSA Administration Ketorolac Tromethamine 30 mg 03/07/24 01:52 Ketorolac 30mg/Ml Vial IV 03/07/24 01:53 ONCE ONE Morphine Sulfate 4 mg 03/07/24 02:04 03/07/24 02:13 Morphine 4mg/Ml Syringe IV 03/07/24 02:05 4 mg ONCE ONE Administration Ondansetron HCl 4 mg 03/07/24 01:52 03/07/24 02:12 Ondansetron 4mg/2ml Vial IV 03/07/24 01:53 4 mg ONCE ONE Administration ORDERS Category Date Time Status CT abdomen pelvis wo con Stat Cat Scan 03/07/24 01:52 Taken CBC w/Auto Diff [Complete Blood Count Auto Diff] Stat Lab 03/07/24 01:57 Completed CMP [Comprehensive Metabolic Panel] Stat Lab 03/07/24 01:57 Completed Creatinine,Urine Random Stat Lab 03/07/24 02:52 Ordered Lipase Stat Lab 03/07/24 01:57 Completed Sodium,Urine Random Stat Lab 03/07/24 02:52 Ordered UA [Urinalysis and Microscopic] Stat Lab 03/07/24 01:53 Ordered Medical Decision Narrative: 39-year-old male with history of hypertension hyperlipidemia diabetes presents with left-sided abdominal pain. History was obtained interactive discussion with patient family chart review. On arrival, patient is [afebrile, hemodynamically stable, satting appropriately, alert, oriented x4, GCS 15], moving all extremities spontaneously. Full physical exam performed and significant for mild left abdominal tenderness without peritonitis Differential includes but is not limited to diverticulitis, gastroenteritis, splenic pathology, UTI, pyelonephritis, renal lithiasis. Patient was given 4 mg IV morphine, 1 L fluid bolus for symptomatic management and correction of underlying abnormalities. Workup initiated including CBC CMP UA CT abdomen pelvis with IV contrast. On re-evaluation, patient [remains afebrile, HD stable.] Reports symptomatic improvement in his pain Laboratory workup independently interpreted by me and significant for WESTON with creatinine 2.3, up from baseline of 0.9 in November. BUN elevated at 27, anion gap mildly elevated as well. CBC significant for leukocytosis with white count of 19. Patient has still been unable to pee for us. Second liter fluid bolus initiated. Imaging independently interpreted by me and significant for no kidney stone, no hydronephrosis, no apparent diverticulitis. No obvious etiology noted for patient's abdominal pain. See radiology read for full review of final results. Given patient history, exam and workup, patient's presentation most likely represents acute WESTON of uncertain etiology. Interactive discussion had with the hospitalist on-call who admitted for further evaluation management. Procedures Risk/Benefits of Procedure(s) Were Explained: Yes Critical Care Critical Care Time Critical Care Time: No
--- NOTE | 2024-03-07 01:52 | CT_ITS ---
PROCEDURE INFORMATION: Exam: CT Abdomen And Pelvis Without Contrast Exam date and time: 03/07/2024 2:24 AM Age: 39 years old Clinical indication: Abdominal pain; Additional info: Acute left abd pain TECHNIQUE: Imaging protocol: Computed tomography of the abdomen and pelvis without contrast. Radiation optimization: All CT scans at this facility use at least one of these dose optimization techniques: automated exposure control; mA and/or kV adjustment per patient size (includes targeted exams where dose is matched to clinical indication); or iterative reconstruction. COMPARISON: CR XR HIP LT 2-3V W/PELVIS 12/12/2020 10:22 AM FINDINGS: Liver: Normal. Gallbladder and bile ducts: Normal Pancreas: Normal. Spleen: Normal. Adrenal glands: Normal. No mass. Kidneys and ureters: Normal. Stomach and bowel: Normal. Appendix: No evidence of appendicitis. Intraperitoneal space: Unremarkable. No free air. No significant fluid collection. Vasculature: Unremarkable. No abdominal aortic aneurysm. Lymph nodes: Unremarkable. No enlarged lymph nodes. Urinary bladder: Unremarkable as visualized. Reproductive: Unremarkable as visualized. Bones/joints: No acute abnormality. L4-L5 and L5-S1 degenerative disc disease, disc space narrowing, vacuum disc phenomena, minimal osteophyte formation. Soft tissues: Normal. IMPRESSION: No acute abdominal or pelvic abnormality.
[2024-03-07 02:06] LABS: Basophils # 0.2 K/mm3 (0-0.2); Eosinophils # 0.2 K/mm3 (0.0-0.4); Eosinophils % 0.9 % (0.1-12.0); Hematocrit 55.1 % (42.0-52.0); Hemoglobin 17.7 g/dL (14.1-18.0); Lymphocytes % 10.5 % (10-50); Mean Corpuscular HGB Conc 32.2 g/dL (31.8-35.4); Mean Corpuscular Volume 93.3 fl (80-94); Mean Platelet Volume 9.9 fl (7.4-10.4); Monocytes # 0.8 K/mm3 (0.1-1.0); Monocytes % 4.3 % (1.7-9.3); Neutrophils # 15.8 K/mm3 (1.8-7.8); Neutrophils % 83.2 % (37.0-80.0); Platelet Count 189 K/mm3 (142-424)
[2024-03-07 02:12] LABS: MANUAL DIFFERENTIAL MANUAL DIFFERENTIAL (MANUAL DIFF)
[2024-03-07] MEDS: ONDANSETRON 4MG/2ML VIAL 4 MG IV (02:12)
[2024-03-07] MEDS: 0.9 % SODIUM CHLORIDE 1000ML 1,000 ML 999 ML IV (02:12)
[2024-03-07 02:13] LABS: Alanine Aminotransferase 37 U/L (12-78); Albumin Level 4.9 g/dl (3.5-5.0); Albumin/Globulin Ratio 1.8 (1.1-1.8); Alkaline Phosphatase 100 U/L (38-126); Anion Gap 17.7 mEq/L (5-15); Aspartate Amino Transferase 32 U/L (17-59); Bilirubin,Total 2.2 mg/dl (0.2-1.3); Blood Urea Nitrogen 27 mg/dl (9-20); Calcium 10.1 mg/dl (8.4-10.2); Carbon Dioxide 24 mmol/L (22.0-30.0); Chloride 101 mmol/L (98-107); Creatinine Clearance Estimated 62 mL/min (50-200); Estimated Glomerular Filt Rate 32 ml/min (>60); GFR (African American) 38 ML/MIN (>60); Globulin 2.7 g/dL (1.3-3.2); Glucose 161 mg/dl (74-100); Lipase 46 U/L (23-300); Potassium 3.7 mmoL/L (3.5-5.1); Sodium 139 mmol/L (136-145); Total Protein,Serum 7.6 g/dl (6.3-8.2)
[2024-03-07] MEDS: MORPHINE 4MG/ML SYRINGE 4 MG IV (02:13)
--- NOTE | 2024-03-07 02:21 | PC.NURSE ---
pt to CT
[2024-03-07 02:58] LABS: Lymphocytes % 12 % (10-50); Monocytes % 2 % (2-9); Neutrophils % 86 % (42-76); Total Cells Counted 100
[2024-03-07 02:59] LABS: Platelet Estimate Normal; RBC Morphology Normal
[2024-03-07] MEDS: LACTATED RINGERS 1000ML 1,000 ML 999 ML IV (03:30)
--- NOTE | 2024-03-07 03:52 | PC.NURSE ---
I notified the HS of the need for a bed to admit the pt for WESTON
--- NOTE | 2024-03-07 03:57 | EXP.HP ---
History of Present Illness *Admission Date: 03/07/24 *Reason for visit:: abd pain *History of present illness: This is a 39-year-old male with PMHx of NIDDM, hypertension, hyperlipidemia, spinal stenosis, with previous episodes of WESTON and non obstructing kidneys stones presented with abdominal pain. Reports abdominal pain started this this morning, is moderate in nature, left-sided. Also, reported urine color changes. may have been slightly more dark than normal. He denied diverticulitis, abdominal surgery. He reports that he has had kidney issues in the past after he had renal failure from antibiotics he was taking for a spinal infection. He denies any current back pain. His last back issue happened about a year ago. He reports he was never on dialysis. He denies any recent fever. Reports that he has been having more bowel movements than normal. admitted for treatment and management. [facility] Disclaimer: The information contained in this section may have been updated after the patient was seen, as this information can be updated by other users. Medical History Emphysema/COPD BMI 36.0-36.9,adult Continued weight gain postoperatively BMI 34.0-34.9,adult BMI 33.0-33.9,adult Severe sleep apnea Migraine Renal failure Asthma History of hypertension Diabetes mellitus Noise-induced hearing loss of both ears Tinnitus Surgical History History of uvulopalatopharyngoplasty History of ankle surgery History of aortic valve replacement History of back surgery Family History Mother Cancer brain tumor, bladder/kidney Father Hypertension Hyperlipidemia Other Coronary artery disease Social History (Updated 03/07/24 @ 04:45 by Michelle Deleon RN) Smoking Status: Current every day smoker tobacco type: cigarettes packs per day: 1 alcohol intake: former substance use type: denies use current occupational status: disabled Travel in the last 8 weeks: None household members: family housing: house current occupational exposures/hazards: No caffeine: Yes Review of Systems Review of Systems Review of systems:: pertinent systems reviewed and negative unless documented below Meds Home Medications and Allergies Home Medications Medication Instructions Recorded Confirmed Type albuterol sulfate 90 mcg/actuation 1 inh inhalation QID 05/21/20 03/07/24 History aerosol inhaler epinephrine 0.3 mg/0.3 mL 0.3 mg IM Q5-15M PRN allergies 05/21/20 03/07/24 History injection, auto-injector (EpiPen) baclofen 20 mg tablet 20 mg PO BID 09/14/22 03/07/24 History oxycodone 5 mg tablet 5 mg PO NEEDED PRN Pain 12/29/22 03/07/24 History blood sugar diagnostic (Contour #10 ea 08/30/23 03/07/24 History Next Test Strips) hydrochlorothiazide 12.5 mg tablet 12.5 mg PO DAILY 30 days #30 tabs 08/30/23 03/07/24 Rx lancets (Microlet Lancet) #100 ea 08/30/23 03/07/24 History lisinopril 20 mg tablet 20 mg PO DAILY bp 30 days #30 tabs 08/30/23 03/07/24 Rx empagliflozin 10 mg tablet 10 mg PO DAILY 30 days #30 tabs 12/08/23 03/07/24 Rx (Jardiance) metformin 1,000 mg tablet 1,000 mg PO BID 30 days #60 tabs 12/08/23 03/07/24 Rx semaglutide 7 mg tablet (Rybelsus) 7 mg PO DAILY 30 days #30 tabs 12/08/23 03/07/24 Rx diclofenac sodium 1 % topical gel 2 g topical QID #100 grams 12/14/23 03/07/24 Rx (Voltaren Arthritis Pain) pravastatin 40 mg tablet 40 mg PO DAILY 02/07/24 03/07/24 History bisoprolol 2.5 1 tab PO DAILY 03/07/24 03/07/24 History mg-hydrochlorothiazide 6.25 mg tablet gabapentin 600 mg tablet 600 mg PO QID 03/07/24 03/07/24 History New Prescriptions to Start Prescriptions: Allergies Allergy/AdvReac Type Severity Reaction Status Date / Time acetaminophen [From Lortab] Allergy Verified 02/07/24 11:10 codeine Allergy Verified 02/07/24 11:10 hydrocodone [From Lortab] Allergy Hives Verified 02/07/24 11:10 ibuprofen Allergy Verified 02/07/24 11:10 daptomycin AdvReac Severe Verified 02/07/24 11:10 Exam Data for Last 24 hours Vital signs and Labs for Last 24 Hours: Temp Pulse Resp BP Pulse Ox O2 Del Method 98.2 F 72 18 104/61 L 94 L Room Air 03/07/24 01:44 03/07/24 03:02 03/07/24 01:44 03/07/24 03:02 03/07/24 03:02 03/07/24 01:44 Laboratory Results - last 24 hr 03/07/24 01:57: WBC 19.0 H, RBC 5.90, Hgb 17.7, Hct 55.1 H, MCV 93.3, MCH 30.0, MCHC 32.2, RDW 14.0, Plt Count 189, MPV 9.9, Neut % (Auto) 83.2 H, Lymph % (Auto) 10.5, [place] % (Auto) 4.3, Eos % (Auto) 0.9, Baso % (Auto) 1.0, Neut # (Auto) 15.8 H, Lymph # (Auto) 2.0, [place] # (Auto) 0.8, Eos # (Auto) 0.2, Baso # (Auto) 0.2, Total Counted 100, Neutrophils % (Manual) 86 H, Lymphocytes % (Manual) 12, Monocytes % (Manual) 2, Platelet Estimate Normal, RBC Morphology Normal, Sodium 139, Potassium 3.7, Chloride 101, Carbon Dioxide 24, Anion Gap 17.7 H, BUN 27 H, Creatinine 2.30 H, Estimated Creat Clear 62, Estimated GFR 32 L, Est GFR ( Amer) 38 L, Glucose 161 H, Calcium 10.1, Total Bilirubin 2.2 H, AST 32, ALT 37, Alkaline Phosphatase 100, Total Protein 7.6, Albumin 4.9, Globulin 2.7, Albumin/Globulin Ratio 1.8, Lipase 46 I & O for Last 24 hours: Intake & Output 03/04/24 03/05/24 03/06/24 03/07/24 23:59 23:59 23:59 23:59 Weight 102.965 kg Constitutional Constitutional: mild distress and cooperative *Routine HEENT Exam Head: Present normocephalic Eye: Present EOMI and PERRL ENT: Present mucous membranes moist *Routine Neck Exam Neck: Present supple; Absent lymphadenopathy *Routine Respiratory Exam Respiratory: Present CTA bilaterally *Routine Cardiovascular Exam Cardiovascular: Present RRR *Routine Abdominal Exam Abdominal: Present soft, normoactive bowel sounds and tenderness *Routine Rectal Exam Rectal:: deferred *Routine Genitalia Exam Genitalia:: deferred *Routine Extremities Exam Extremities: Absent cyanosis, clubbing or edema *Routine Skin Exam Skin: Present warm; Absent rash *Routine Neurological Exam Neurological: Present alert, oriented X3, normal reflexes and moving all extremities Routine Psychiatric Exam Psychiatric: Present good insight and good judgment H&P: Result Imaging and Cardiology EKG: Status: image reviewed by me, Preliminary report and final report CT scan - abdomen: Status: image reviewed by me and Preliminary report Assessment and Plan *Assessment and plan (1) WESTON (acute kidney injury): Status: Acute Category: Medical Code(s): N17.9 - Acute kidney failure, unspecified (2) Left flank pain: Status: Acute Category: Medical Code(s): R10.9 - Unspecified abdominal pain (3) Abdominal pain: Status: Acute Qualifiers: Abdominal location: left lower quadrant Qualified Code(s): R10.32 - Left lower quadrant pain Category: Medical Code(s): R10.9 - Unspecified abdominal pain (4) Diabetes mellitus: Status: Acute Qualifiers: Diabetes mellitus complication status: with other specified complication Diabetes mellitus care home insulin use: without care home use Diabetes mellitus type: type 2 Qualified Code(s): E11.69 - Type 2 diabetes mellitus with other specified complication Category: Medical Code(s): E11.9 - Type 2 diabetes mellitus without complications (5) History of hypertension: Status: Acute Category: Medical Code(s): Z86.79 - Personal history of other diseases of the circulatory system (6) Obesity (BMI 30-39.9): Status: Chronic Category: Medical Code(s): E66.9 - Obesity, unspecified Plan 39-year-old male with PMHx of NIDDM, hypertension, hyperlipidemia, spinal stenosis, with previous episodes of WESTON and non obstructing kidneys stones presented with abdominal pain. Reports abdominal pain started this this morning, is moderate in nature, left-sided. initial work up showed significant for WESTON with creatinine 2.3, up from baseline of 0.9 in November. BUN elevated at 27, anion gap mildly elevated as well. CBC significant for leukocytosis with white count of 19. Patient has still been unable to pee for us. Second liter fluid bolus initiated. Imaging done. CT imaging reviewed. there is no kidney stone, no hydronephrosis, no apparent diverticulitis. No obvious etiology noted for patient's abdominal pain. Discussed with ED about findings. Agreed for admission. Plan as follow: -Acute kidney injury, Abdominal pain, left flank pain. Suspect passage of kidney stone Admit patient for medical services. dispo MedSurg. Urinary culture pending CT of the abdomen. Pending official read Started on ceftriaxone empirically Continue IV hydration Repeat CMP in the morning Monitor renal output. Bladder scan as needed Avoid nephrotoxic medication. Hold metformin and gabapentin Morphine for pain management. -Mrk-ecxxryf-zygbomsrv diabetes mellitus: Suspect uncontrolled. Obtain A1c Sliding scale Accu-Chek before meals -Hypertension: Resume home medications Obesity with comorbidities. Complicate all aspects of care Lovenox for DVT prophylaxis. On Protonix Full code Attending attestation Patient was seen and evaluated at the bedside myself, agree with JOSE note.
--- NOTE | 2024-03-07 04:09 | PC.NURSE ---
Report given to Paola
[2024-03-07] MEDS: CEFTRIAXONE 1 GM 1 GM in 0.9 % SODIUM CHLORIDE 50 ML IV (04:29)
[2024-03-07] MEDS: 0.9 % SODIUM CHLORIDE 1000ML 1,000 ML 125 ML IV (04:29)
--- NOTE | 2024-03-07 05:20 | PC.NURSE ---
Patient arrived to floor via wheelchair from ED at 4:27.
--- NOTE | 2024-03-07 05:30 | PC.NURSE ---
Pt states he has a list of medications in his truck, will go get and bring to nurse for med rec to be done.
[2024-03-07 06:16] LABS: Chloride 105 mmol/L (98-107); Sodium 137 mmol/L (136-145)
[2024-03-07 06:19] LABS: Alanine Aminotransferase 36 U/L (12-78); Albumin/Globulin Ratio 1.7 (1.1-1.8); Alkaline Phosphatase 78 U/L (38-126); Aspartate Amino Transferase 48 U/L (17-59); Bilirubin,Total 1.7 mg/dl (0.2-1.3); Blood Urea Nitrogen 28 mg/dl (9-20); Calcium 9.2 mg/dl (8.4-10.2); Carbon Dioxide 25 mmol/L (22.0-30.0); Creatinine Clearance Estimated 69 mL/min (50-200); Estimated Glomerular Filt Rate 37 ml/min (>60); GFR (African American) 45 ML/MIN (>60); Globulin 2.3 g/dL (1.3-3.2); Glucose 104 mg/dl (74-100); Total Protein,Serum 6.3 g/dl (6.3-8.2)
[2024-03-07 06:20] LABS: Magnesium 1.7 mg/dl (1.6-2.3)
[2024-03-07 06:26] LABS: Basophils # 0.1 K/mm3 (0-0.2); Basophils % 0.8 % (0.1-2.0); Eosinophils # 0.1 K/mm3 (0.0-0.4); Eosinophils % 0.4 % (0.1-12.0); Hematocrit 51.7 % (42.0-52.0); Hemoglobin 16.7 g/dL (14.1-18.0); Lymphocytes % 15.2 % (10-50); Mean Corpuscular HGB Conc 32.4 g/dL (31.8-35.4); Mean Corpuscular Hemoglobin 30.6 pg (27.0-31.2); Mean Corpuscular Volume 94.4 fl (80-94); Mean Platelet Volume 10.5 fl (7.4-10.4); Monocytes # 0.6 K/mm3 (0.1-1.0); Monocytes % 4.6 % (1.7-9.3); Neutrophils # 10.5 K/mm3 (1.8-7.8); Neutrophils % 79.1 % (37.0-80.0); Platelet Count 146 K/mm3 (142-424); Red Blood Count 5.47 M/mm3 (4.60-6.20); Red Cell Distribution Width 13.9 % (11.5-17.5); White Blood Count 13.2 K/mm3 (4.8-10.8)
--- NOTE | 2024-03-07 06:42 | PC.NURSE ---
Pt still unable to give urine sample. States he feels like he will be able to go in a couple hours, nursing staff in ER said trace amount of urine in the bladder, will not bladder scan at this time.
[2024-03-07 07:01] LABS: Hemoglobin A1C 6.8 % (4.0-6.0)
--- NOTE | 2024-03-07 07:29 | HMH.PHAINT1 ---
Pharmacy Intervention Comments: HOME MEDICATION LIST VERIFIED VIA OUTSIDE PHARMACY
[2024-03-07 08:35] LABS: Microscopic, Urine URINE MICROSCOPIC (MICROSCOPIC)
[2024-03-07] MEDS: ENOXAPARIN 40MG/0.4ML SYRINGE 40 MG SQ (08:41)
[2024-03-07 08:42] LABS: Appearance,Urine CLEAR (Clear); Bilirubin,Urine Negative (Negative); Blood, Urine TRACE-I (Negative); Color,Urine YELLOW (Yellow); Glucose,Urine (UA) Negative (Negative); Ketones,Urine Negative (Negative); Leukocyte Esterase,Urine Negative (Negative); Nitrate,Urine Negative (Negative); PH,Urine 5.5 (5.0-8.5); Protein,Urine 2+ (Negative); Specific Gravity, Urine 1.025 (1.005-1.030); Urobilinogen,Urine 0.2 EU/dl (0.2)
[2024-03-07 08:55] LABS: Amorphous Sediment,Urine 2+ /lpf; Bacteria,Urine 1+ /lpf; Calcium Oxalate Crystals,Urine 1+ /lpf
[2024-03-07 09:02] LABS: Creatinine,Urine Random 133 mg/dL (Not Estab.)
[2024-03-07 11:31] LABS: POC Glucose,Bedside 96 (70-110)
--- NOTE | 2024-03-07 11:32 | PC.NURSE ---
pt states when he was a child he had a aortic valve replacement and was told no b/p in LT arm. limb alert bracelet on.
[2024-03-07] MEDS: 0.9 % SODIUM CHLORIDE 1000ML 1,000 ML 50 ML IV (16:07)
[2024-03-07 16:19] LABS: POC Glucose,Bedside 100 (70-110)
[2024-03-07 19:45] LABS: POC Glucose,Bedside 145 (70-110)
[2024-03-07] MEDS: PANTOPRAZOLE 40MG TABLET 40 MG PO (20:00)
[2024-03-08 04:00] VITALS: BP 134/76; PULSE 64; RESP 16; TEMP 36.4; O2SAT 93; BMI 33.7
[2024-03-08] MEDS: CEFTRIAXONE 1 GM 1 GM in 0.9 % SODIUM CHLORIDE 50 ML IV (04:27)
--- NOTE | 2024-03-08 05:02 | PC.NURSE ---
Pt A&OX4. Room air. Receiving IV fluids and abx. Pt had no complaints of pain through the night. No problem voiding.
[2024-03-08 05:35] LABS: POC Glucose,Bedside 102 (70-110)
[2024-03-08 07:47] LABS: Basophils # 0.1 K/mm3 (0-0.2); Eosinophils # 0.3 K/mm3 (0.0-0.4); Eosinophils % 2.9 % (0.1-12.0); Hematocrit 50.9 % (42.0-52.0); Hemoglobin 16.8 g/dL (14.1-18.0); Lymphocytes # 2.3 K/mm3 (0.7-4.5); Lymphocytes % 20.6 % (10-50); Mean Corpuscular Volume 93.9 fl (80-94); Mean Platelet Volume 10.1 fl (7.4-10.4); Monocytes # 0.6 K/mm3 (0.1-1.0); Monocytes % 5.4 % (1.7-9.3); Neutrophils % 70.1 % (37.0-80.0); Platelet Count 123 K/mm3 (142-424); Red Blood Count 5.43 M/mm3 (4.60-6.20); Red Cell Distribution Width 14.1 % (11.5-17.5); White Blood Count 11.4 K/mm3 (4.8-10.8)
[2024-03-08 07:51] LABS: Chloride 110 mmol/L (98-107); Potassium 4.4 mmoL/L (3.5-5.1); Sodium 140 mmol/L (136-145)
[2024-03-08 07:53] LABS: Alanine Aminotransferase 50 U/L (12-78); Alkaline Phosphatase 91 U/L (38-126); Anion Gap 9.4 mEq/L (5-15); Aspartate Amino Transferase 52 U/L (17-59); Bilirubin,Total 1.2 mg/dl (0.2-1.3); Blood Urea Nitrogen 20 mg/dl (9-20); Carbon Dioxide 25 mmol/L (22.0-30.0); Creatinine Clearance Estimated 127 mL/min (50-200); Estimated Glomerular Filt Rate 74 ml/min (>60); GFR (African American) 90 ML/MIN (>60)
[2024-03-08 07:54] LABS: Albumin Level 3.9 g/dl (3.5-5.0); Albumin/Globulin Ratio 1.6 (1.1-1.8); Calcium 9.3 mg/dl (8.4-10.2); Globulin 2.4 g/dL (1.3-3.2); Glucose 148 mg/dl (74-100); Total Protein,Serum 6.3 g/dl (6.3-8.2)
[2024-03-08 08:00] VITALS: BP 122/70; PULSE 83; RESP 22; TEMP 36.7; O2SAT 94
--- NOTE | 2024-03-08 10:09 | P.DS_ITS ---
General Admission date:: 03/07/24 Discharge date: 03/08/24 HPI HPI HPI: This is a 39-year-old male with PMHx of NIDDM, hypertension, hyperlipidemia, spinal stenosis, with previous episodes of WESTON and non obstructing kidneys stones presented with abdominal pain. Reports abdominal pain started this this morning, is moderate in nature, left-sided. Also, reported urine color changes. may have been slightly more dark than normal. He denied diverticulitis, abdominal surgery. He reports that he has had kidney issues in the past after he had renal failure from antibiotics he was taking for a spinal infection. He denies any current back pain. His last back issue happened about a year ago. He reports he was never on dialysis. He denies any recent fever. Reports that he has been having more bowel movements than normal. admitted for treatment and management. Hospital Course Hospital Course Hospital Course: 39-year-old male with PMHx of NIDDM, hypertension, hyperlipidemia, spinal stenosis, with previous episodes of WESTON and non obstructing kidneys stones presented with abdominal pain. Reports abdominal pain started this this morning, is moderate in nature, left-sided. initial work up showed significant for WESTON with creatinine 2.3, up from baseline of 0.9 in November. BUN elevated at 27, anion gap mildly elevated as well. CBC significant for leukocytosis with white count of 19. Patient has still been unable to pee for us. Second liter fluid bolus initiated. Imaging done. CT imaging reviewed. there is no kidney stone, no hydronephrosis, no apparent diverticulitis. No obvious etiology noted for patient's abdominal pain. Discussed with ED about findings. Agreed for admission. Plan as follow: -Acute kidney injury, - resolved Abdominal pain, left flank pain. Suspect passage of kidney stone - resolved -Wbb-[id number]-ohuiylvyr diabetes mellitus - stable -Hypertension: Resume home medications Obesity with comorbidities. Complicate all aspects of care Exam Data for Last 24 hours Vital signs and Labs for Last 24 Hours: Temp Pulse Resp BP Pulse Ox O2 Del Method 98.0 F 83 22 122/70 94 L Room Air 03/08/24 08:00 03/08/24 08:00 03/08/24 08:00 03/08/24 08:00 03/08/24 08:00 03/08/24 08:00 Laboratory Results - last 24 hr 03/07/24 11:24: POC Glucose 96 03/07/24 16:11: POC Glucose 100 03/07/24 19:37: POC Glucose 145 H 03/08/24 05:29: POC Glucose 102 03/08/24 07:35: WBC 11.4 H, RBC 5.43, Hgb 16.8, Hct 50.9, MCV 93.9, MCH 31.0, MCHC 33.0, RDW 14.1, Plt Count 123 L, MPV 10.1, Neut % (Auto) 70.1, Lymph % (Auto) 20.6, [place] % (Auto) 5.4, Eos % (Auto) 2.9, Baso % (Auto) 1.0, Neut # (Auto) 8.0 H, Lymph # (Auto) 2.3, [place] # (Auto) 0.6, Eos # (Auto) 0.3, Baso # (Auto) 0.1, Sodium 140, Potassium 4.4, Chloride 110 H, Carbon Dioxide 25, Anion Gap 9.4, BUN 20 D, Creatinine 1.10 D, Estimated Creat Clear 127, Estimated GFR 74, Est GFR ( Amer) 90 D, Glucose 148 H, Calcium 9.3, Total Bilirubin 1.2, AST 52, ALT 50 D, Alkaline Phosphatase 91, Total Protein 6.3, Albumin 3.9, Globulin 2.4, Albumin/Globulin Ratio 1.6 I & O for Last 24 hours: Intake & Output 03/05/24 03/06/24 03/07/24 03/08/24 23:59 23:59 23:59 23:59 Intake Total 1140 / 1690 910 / 910 Output Total 3650 / 3650 1250 / 1250 Balance -2510 / -1960 -340 / -340 Weight 99.025 kg 100.834 kg Constitutional Constitutional: no acute distress *Routine HEENT Exam Head: Present normocephalic Eye: Present EOMI and PERRL ENT: Present mucous membranes moist *Routine Neck Exam Neck: Present supple; Absent lymphadenopathy *Routine Respiratory Exam Respiratory: Present CTA bilaterally *Routine Cardiovascular Exam Cardiovascular: Present RRR *Routine Abdominal Exam Abdominal: Present soft and normoactive bowel sounds; Absent tenderness *Routine Extremities Exam Extremities: Absent cyanosis, clubbing or edema *Routine Skin Exam Skin: Present warm; Absent rash *Routine Neurological Exam Neurological: Present alert and oriented X3 Results Data Completed and Pending Labs on day of discharge: Labs from last 24 hours 03/08/24 03/08/24 03/07/24 07:35 05:29 19:37 WBC 11.4 H RBC 5.43 Hgb 16.8 Hct 50.9 MCV 93.9 MCH 31.0 MCHC 33.0 RDW 14.1 Plt Count 123 L MPV 10.1 Neut % (Auto) 70.1 Lymph % (Auto) 20.6 [place] % (Auto) 5.4 Eos % (Auto) 2.9 Baso % (Auto) 1.0 Neut # (Auto) 8.0 H Lymph # (Auto) 2.3 [place] # (Auto) 0.6 Eos # (Auto) 0.3 Baso # (Auto) 0.1 Sodium 140 Potassium 4.4 Chloride 110 H Carbon Dioxide 25 Anion Gap 9.4 BUN 20 D Creatinine 1.10 D Estimated Creat Clear 127 Estimated GFR 74 Est GFR ( Amer) 90 D Glucose 148 H POC Glucose 102 145 H Calcium 9.3 Total Bilirubin 1.2 AST 52 ALT 50 D Alkaline Phosphatase 91 Total Protein 6.3 Albumin 3.9 Globulin 2.4 Albumin/Globulin Ratio 1.6 03/07/24 03/07/24 16:11 11:24 WBC RBC Hgb Hct MCV MCH MCHC RDW Plt Count MPV Neut % (Auto) Lymph % (Auto) [place] % (Auto) Eos % (Auto) Baso % (Auto) Neut # (Auto) Lymph # (Auto) [place] # (Auto) Eos # (Auto) Baso # (Auto) Sodium Potassium Chloride Carbon Dioxide Anion Gap BUN Creatinine Estimated Creat Clear Estimated GFR Est GFR ( Amer) Glucose POC Glucose 100 96 Calcium Total Bilirubin AST ALT Alkaline Phosphatase Total Protein Albumin Globulin Albumin/Globulin Ratio DS: Diagnosis Discharge Diagnosis (1) WESTON (acute kidney injury): Status: Acute Code(s): N17.9 - Acute kidney failure, unspecified (2) Left flank pain: Status: Acute Code(s): R10.9 - Unspecified abdominal pain (3) Abdominal pain: Status: Acute Code(s): R10.9 - Unspecified abdominal pain Qualifiers: Abdominal location: left lower quadrant Qualified Code(s): R10.32 - Left lower quadrant pain (4) Diabetes mellitus: Status: Acute Code(s): E11.9 - Type 2 diabetes mellitus without complications Qualifiers: Diabetes mellitus complication status: with other specified complication Diabetes mellitus termite control servicer insulin use: without termite control servicer use Diabetes mellitus type: type 2 Qualified Code(s): E11.69 - Type 2 diabetes mellitus with other specified complication (5) History of hypertension: Status: Acute Code(s): Z86.79 - Personal history of other diseases of the circulatory system (6) Obesity (BMI 30-39.9): Status: Chronic Code(s): E66.9 - Obesity, unspecified Meds Home Medications and Allergies Home Medications Medication Instructions Recorded Confirmed Type albuterol sulfate 90 mcg/actuation 1 inh inhalation QID 05/21/20 03/07/24 History aerosol inhaler epinephrine 0.3 mg/0.3 mL 0.3 mg IM Q5-15M PRN allergies 05/21/20 03/07/24 History injection, auto-injector (EpiPen) baclofen 20 mg tablet 20 mg PO BID 09/14/22 03/07/24 History oxycodone 5 mg tablet 5 mg PO NEEDED PRN Pain 12/29/22 03/07/24 History blood sugar diagnostic (Contour #10 ea 08/30/23 03/07/24 History Next Test Strips) hydrochlorothiazide 12.5 mg tablet 12.5 mg PO DAILY 30 days #30 tabs 08/30/23 03/07/24 Rx lancets (Microlet Lancet) #100 ea 08/30/23 03/07/24 History lisinopril 20 mg tablet 20 mg PO DAILY bp 30 days #30 tabs 08/30/23 03/07/24 Rx empagliflozin 10 mg tablet 10 mg PO DAILY 30 days #30 tabs 12/08/23 03/07/24 Rx (Jardiance) metformin 1,000 mg tablet 1,000 mg PO BID 30 days #60 tabs 12/08/23 03/07/24 Rx semaglutide 7 mg tablet (Rybelsus) 7 mg PO DAILY 30 days #30 tabs 12/08/23 03/07/24 Rx diclofenac sodium 1 % topical gel 2 g topical QID #100 grams 12/14/23 03/07/24 Rx (Voltaren Arthritis Pain) pravastatin 40 mg tablet 40 mg PO DAILY 02/07/24 03/07/24 History bisoprolol 2.5 1 tab PO DAILY 03/07/24 03/07/24 History mg-hydrochlorothiazide 6.25 mg tablet gabapentin 600 mg tablet 600 mg PO QID 03/07/24 03/07/24 History New Prescriptions to Start Prescriptions: Allergies Allergy/AdvReac Type Severity Reaction Status Date / Time acetaminophen [From Lortab] Allergy Verified 02/07/24 11:10 codeine Allergy Verified 02/07/24 11:10 hydrocodone [From Lortab] Allergy Hives Verified 02/07/24 11:10 ibuprofen Allergy Verified 02/07/24 11:10 daptomycin AdvReac Severe Verified 02/07/24 11:10 Discharge Plan Disposition Patient Disposition: Home, Self-Care Condition: Good Discharge Order Discharge Orders: Discharge Order (Routine); Ordered 03/08/24 Ordered By: Arlene Robertson Follow up Plan Follow up with: Sugey Nieto APRN [Primary Care Provider] - 1 week Prescriptions/Medication Reconciliation: Continued epinephrine [EpiPen] 0.3 mg/0.3 mL auto-injector 0.3 mg IM Q5-15M PRN (Reason: allergies) Rx Instructions: do not exceed 3 doses per episode albuterol sulfate 90 mcg/actuation HFA aerosol inhaler 1 inh INHALATION QID metformin 1,000 mg tablet 1,000 mg PO BID 30 Days Qty: 60 6RF Rybelsus 7 mg tablet 7 mg PO DAILY 30 Days Qty: 30 6RF Jardiance 10 mg tablet 10 mg PO DAILY 30 Days Qty: 30 2RF diclofenac sodium [Voltaren Arthritis Pain] 1 % gel 2 g topical QID Qty: 100 3RF Rx Instructions: apply to single elbow, wrist or hand; for hand includes palm/fingers/back of hand baclofen 20 mg tablet 20 mg PO BID oxycodone 5 mg tablet 5 mg PO NEEDED PRN (Reason: Pain) (DME) Contour Next Test Strips Strip See Rx Instructions .ROUTE .MEDSUPPLY Qty: 10 Rx Instructions: As directed (DME) lancets [Microlet Lancet] Misc See Rx Instructions .ROUTE .MEDSUPPLY Qty: 100 Rx Instructions: As directed hydrochlorothiazide 12.5 mg tablet 12.5 mg PO DAILY 30 Days Qty: 30 6RF lisinopril 20 mg tablet 20 mg PO DAILY 30 Days Qty: 30 6RF pravastatin 40 mg tablet 40 mg PO DAILY gabapentin 600 mg tablet 600 mg PO QID bisoprolol-hydrochlorothiazide 2.5-6.25 mg tablet 1 tab PO DAILY Problem Reconciliation Problems Reviewed?: Yes Patient Discharge Instructions ACTIVITY: Ambulate as tolerated DIET: continue same diet Patient Instructions: Acute Kidney Injury, DI for Acute Abdominal Pain, DI for Acute Kidney Injury Providers Primary Care Provider: Sugey Nieto Admit Provider: El Moreno Attending Provider: El Moreno
--- NOTE | 2024-03-09 10:40 | CARE MANAGER ---
Contacted patient related hospital discharge. He denies questions or concerns. Had no new medications and is aware of follow up appointment. KAILEY Llanos
== END 2024-03-08 10:32 | disposition home or self-care (01) ==
LOC: ER 02:05 → 2ND 04:01
PROVIDERS: Internal Medicine; Nurse Practitioner Family; Admitting Provider Internal Medicine Adolescent Medicine; Emergency Provider Emergency Medicine; PCP Nurse Practitioner Family; Visit Provider Internal Medicine Adolescent Medicine
DX: N17.9 Acute kidney failure, unspecified (principal); R10.32 Left lower quadrant pain; H83.3X3 Noise effects on inner ear, bilateral; G47.30 Sleep apnea, unspecified; E11.69 Type 2 diabetes mellitus with other specified complication; J44.9 Chronic obstructive pulmonary disease, unspecified; F17.210 Nicotine dependence, cigarettes, uncomplicated; E66.9 Obesity, unspecified; M48.00 Spinal stenosis, site unspecified; Z79.84 Long term (current) use of oral hypoglycemic drugs; Z79.899 Other long term (current) drug therapy; Z86.79 Personal history of other diseases of the circulatory system; Z68.33 Body mass index [BMI] 33.0-33.9, adult
CPT/HCPCS: 36415; 74176; 80053; 81001; 82570; 82962; 83036; 83690; 83735; 84540; 85007; 85025; 87086; 99285; G0378; J0696; J2405

== ENCOUNTER 2024-03-10 18:00 | Outpatient (CLI) | payer MEDICARE, MEDICAID, SELFPAY ==
[2024-03-10 17:38] LABS: Basophils # 0.1 K/mm3 (0-0.2); Basophils % 0.9 % (0.1-2.0); Eosinophils # 0.6 K/mm3 (0.0-0.4); Eosinophils % 5.7 % (0.1-12.0); Hematocrit 48.2 % (42.0-52.0); Hemoglobin 15.8 g/dL (14.1-18.0); Lymphocytes # 2.4 K/mm3 (0.7-4.5); Lymphocytes % 22.4 % (10-50); Mean Corpuscular HGB Conc 32.8 g/dL (31.8-35.4); Mean Corpuscular Hemoglobin 30.2 pg (27.0-31.2); Mean Corpuscular Volume 92.1 fl (80-94); Mean Platelet Volume 12.3 fl (7.4-10.4); Monocytes # 0.5 K/mm3 (0.1-1.0); Monocytes % 4.6 % (1.7-9.3); Neutrophils # 7.2 K/mm3 (1.8-7.8); Neutrophils % 66.3 % (37.0-80.0); Platelet Count 141 K/mm3 (142-424); Red Blood Count 5.24 M/mm3 (4.60-6.20); Red Cell Distribution Width 14.3 % (11.5-17.5); White Blood Count 10.8 K/mm3 (4.8-10.8)
[2024-03-10 17:44] LABS: Alanine Aminotransferase 40 U/L (12-78); Albumin Level 4.1 g/dl (3.5-5.0); Alkaline Phosphatase 91 U/L (38-126); Anion Gap 14.8 mEq/L (5-15); Aspartate Amino Transferase 30 U/L (17-59); Bilirubin,Total 0.7 mg/dl (0.2-1.3); Blood Urea Nitrogen 11 mg/dl (9-20); Calcium 9.6 mg/dl (8.4-10.2); Carbon Dioxide 25 mmol/L (22.0-30.0); Chloride 104 mmol/L (98-107); Estimated Glomerular Filt Rate 83 ml/min (>60); GFR (African American) 100 ML/MIN (>60); Globulin 2.1 g/dL (1.3-3.2); Glucose 133 mg/dl (74-100); Potassium 3.8 mmoL/L (3.5-5.1); Sodium 140 mmol/L (136-145); Total Protein,Serum 6.2 g/dl (6.3-8.2)
[2024-03-10 18:07] LABS: Hemoglobin A1C 6.8 % (4.0-6.0)
== END 2024-03-10 23:59 | disposition home or self-care (01) ==
LOC: LAB.DROPOF 03-12 10:29
PROVIDERS: PCP Nurse Practitioner Family; Visit Provider Nurse Practitioner Family
DX: N17.9 Acute kidney failure, unspecified (principal); E11.9 Type 2 diabetes mellitus without complications; Z79.84 Long term (current) use of oral hypoglycemic drugs
CPT/HCPCS: 80053; 83036; 85025

== ENCOUNTER 2024-03-13 10:43 | Outpatient (CLI) | payer MEDICARE, MEDICAID, SELFPAY ==
[2024-03-13 10:46] LABS: Microscopic, Urine URINE MICROSCOPIC (MICROSCOPIC)
[2024-03-13 11:13] LABS: Appearance,Urine CLEAR (Clear); Bilirubin,Urine Negative (Negative); Blood, Urine Negative (Negative); Color,Urine YELLOW (Yellow); Glucose,Urine (UA) TRACE (Negative); Ketones,Urine Negative (Negative); Leukocyte Esterase,Urine Negative (Negative); Nitrate,Urine Negative (Negative); PH,Urine 6.5 (5.0-8.5); Protein,Urine Negative (Negative); Specific Gravity, Urine 1.025 (1.005-1.030); Urobilinogen,Urine 0.2 EU/dl (0.2)
[2024-03-13 11:52] LABS: Bacteria,Urine Trace /lpf; Squamous Epithelial Cell,Urine Occasional #/hpf (0-5)
== END 2024-03-13 23:59 | disposition home or self-care (01) ==
LOC: LAB.DROPOF 10:44
PROVIDERS: PCP Nurse Practitioner Family; Visit Provider Nurse Practitioner Family
DX: N17.9 Acute kidney failure, unspecified (principal)
CPT/HCPCS: 81001

== ENCOUNTER 2024-03-14 08:18 | Outpatient (CLI) | payer MEDICARE, MEDICAID, SELFPAY ==
--- NOTE | 2024-03-14 08:21 | XR_ITS ---
FINAL REPORT CLINICAL HISTORY: left wrist pain COMPARISON: 05/21/2020 FINDINGS: LEFT WRIST Three views demonstrate no acute fracture or dislocation. The visualized joint spaces are normally aligned. The soft tissues are unremarkable. IMPRESSION: No acute bony abnormality. Reviewed, Interpreted and Dictated by Yvon Fernandez MD Transcribed by Regla Montenegro Authenticated and [facility]
--- NOTE | 2024-03-14 08:21 | XR_ITS ---
FINAL REPORT CLINICAL HISTORY: right wrist pain COMPARISON: 06/16/2021 FINDINGS: RIGHT WRIST Three views demonstrate no acute fracture or dislocation. The visualized joint spaces are normally aligned. The soft tissues are unremarkable. IMPRESSION: No acute bony abnormality. Reviewed, Interpreted and Dictated by Yvon Fernandez MD Transcribed by Regla Montenegro Authenticated and [facility]
== END 2024-03-14 23:59 | disposition home or self-care (01) ==
LOC: RAD 08:20
PROVIDERS: PCP Nurse Practitioner Family; Visit Provider Orthopaedic Surgery
DX: M25.532 Pain in left wrist (principal); M25.531 Pain in right wrist
CPT/HCPCS: 73110

== ENCOUNTER 2024-04-04 11:15 | Outpatient (CLI) | payer MEDICARE, MEDICAID, SELFPAY ==
[2024-04-04 16:10] LABS: Albumin Level 4.8 g/dl (3.5-5.0); Anion Gap 19.2 mEq/L (5-15); Blood Urea Nitrogen 16 mg/dl (9-20); Calcium 9.3 mg/dl (8.4-10.2); Carbon Dioxide 23 mmol/L (22.0-30.0); Chloride 99 mmol/L (98-107); Estimated Glomerular Filt Rate 83 ml/min (>60); GFR (African American) 100 ML/MIN (>60); Glucose 234 mg/dl (74-100); Phosphorous 4.9 mg/dl (2.5-4.5); Potassium 4.2 mmoL/L (3.5-5.1); Sodium 137 mmol/L (136-145)
[2024-04-05 14:52] LABS: Microscopic, Urine URINE MICROSCOPIC (MICROSCOPIC)
[2024-04-05 15:12] LABS: Appearance,Urine CLEAR (Clear); Bilirubin,Urine Negative (Negative); Blood, Urine Negative (Negative); Color,Urine YELLOW (Yellow); Glucose,Urine (UA) 3+ (Negative); Ketones,Urine Negative (Negative); Leukocyte Esterase,Urine Negative (Negative); Nitrate,Urine Negative (Negative); PH,Urine 5.5 (5.0-8.5); Protein,Urine Negative (Negative); Specific Gravity, Urine 1.015 (1.005-1.030); Urobilinogen,Urine 0.2 EU/dl (0.2)
== END 2024-04-04 23:59 | disposition home or self-care (01) ==
LOC: LAB.DROPOF 04-05 11:15
PROVIDERS: PCP Nurse Practitioner Family; Visit Provider Nurse Practitioner Family
DX: R10.9 Unspecified abdominal pain (principal); N17.9 Acute kidney failure, unspecified; R34 Anuria and oliguria
CPT/HCPCS: 80069; 81001

== ENCOUNTER 2024-04-11 14:30 | Outpatient (CLI) | payer MEDICARE, MEDICAID, SELFPAY ==
--- NOTE | 2024-04-11 14:32 | US_ITS ---
FINAL REPORT CLINICAL HISTORY: flank pain, WESTON COMPARISON: None FINDINGS: ULTRASOUND BLADDER WITH POST VOID RESIDUAL Bladder volumes were estimated based on 3 dimensional measurements, pre- and postvoid. Prevoid bladder volume: 368 mls Postvoid bladder volume: 52 mls IMPRESSION: Estimated bladder volumes as above with small postvoid residual . Reviewed, Interpreted and Dictated by Yvon Fernandez MD Transcribed by Regla Montenegro Authenticated and [facility]
--- NOTE | 2024-04-11 14:32 | US_ITS ---
FINAL REPORT CLINICAL HISTORY: Flank pain COMPARISON: None FINDINGS: RENAL ULTRASOUND Ultrasound images of the kidneys were obtained. Limited images of the liver parenchyma demonstrates fatty infiltration. The right kidney measures 12.8 cm in length. It is normal echogenicity. There is no hydronephrosis. The left kidney measures 13.5 cm in length. There are tiny echogenic foci in the left kidney probably related to small nonobstructing stones. There is no hydronephrosis. IMPRESSION: Probable small nonobstructing stones left kidney. Fatty liver. Reviewed, Interpreted and Dictated by Yvon Fernandez MD Transcribed by Regla Montenegro Authenticated and [facility]
== END 2024-04-11 23:59 | disposition home or self-care (01) ==
LOC: RAD 14:31
PROVIDERS: PCP Nurse Practitioner Family; Visit Provider Nurse Practitioner Family
DX: R10.9 Unspecified abdominal pain (principal); N17.9 Acute kidney failure, unspecified; R34 Anuria and oliguria
CPT/HCPCS: 76770; 76857

== ENCOUNTER 2024-04-25 13:24 | Outpatient (POV) | payer MEDICARE, MEDICAID, SELFPAY | END 2024-04-25 23:59 | disposition home or self-care (01) | LOC: SC 13:25 | PROVIDERS: PCP Dermatology; Visit Provider Dermatology | DX: Z00.00 Encounter for general adult medical examination without abnormal findings (principal) ==

== ENCOUNTER 2024-05-08 14:56 | Outpatient (CLI) | payer MEDICARE, MEDICAID, SELFPAY ==
[2024-05-08 14:40] LABS: Basophils # 0.1 K/mm3 (0-0.2); Basophils % 0.8 % (0.1-2.0); Eosinophils # 0.2 K/mm3 (0.0-0.4); Eosinophils % 2.2 % (0.1-12.0); Hematocrit 51.6 % (42.0-52.0); Hemoglobin 16.7 g/dL (14.1-18.0); Lymphocytes # 2.9 K/mm3 (0.7-4.5); Lymphocytes % 26.4 % (10-50); Mean Corpuscular HGB Conc 32.4 g/dL (31.8-35.4); Mean Corpuscular Hemoglobin 30.4 pg (27.0-31.2); Mean Corpuscular Volume 93.9 fl (80-94); Mean Platelet Volume 12.1 fl (7.4-10.4); Monocytes # 0.6 K/mm3 (0.1-1.0); Monocytes % 5.1 % (1.7-9.3); Neutrophils # 7.1 K/mm3 (1.8-7.8); Neutrophils % 65.4 % (37.0-80.0); Platelet Count 170 K/mm3 (142-424); Red Blood Count 5.49 M/mm3 (4.60-6.20); Red Cell Distribution Width 14.3 % (11.5-17.5); White Blood Count 10.8 K/mm3 (4.8-10.8)
[2024-05-08 15:04] LABS: Alanine Aminotransferase 35 U/L (12-78); Albumin Level 4.6 g/dl (3.5-5.0); Alkaline Phosphatase 97 U/L (38-126); Anion Gap 17.4 mEq/L (5-15); Aspartate Amino Transferase 32 U/L (17-59); Bilirubin,Total 0.7 mg/dl (0.2-1.3); Blood Urea Nitrogen 12 mg/dl (9-20); Calcium 9.8 mg/dl (8.4-10.2); Carbon Dioxide 23 mmol/L (22.0-30.0); Chloride 106 mmol/L (98-107); Estimated Glomerular Filt Rate 93 ml/min (>60); GFR (African American) 113 ML/MIN (>60); Globulin 2.3 g/dL (1.3-3.2); Glucose 95 mg/dl (74-100); Potassium 4.4 mmoL/L (3.5-5.1); Sodium 142 mmol/L (136-145); Total Protein,Serum 6.9 g/dl (6.3-8.2)
== END 2024-05-08 23:59 | disposition home or self-care (01) ==
LOC: LAB.DROPOF 14:57
PROVIDERS: PCP Nurse Practitioner Family; Visit Provider Nurse Practitioner Family
DX: E11.69 Type 2 diabetes mellitus with other specified complication (principal); E78.5 Hyperlipidemia, unspecified; N17.9 Acute kidney failure, unspecified; R34 Anuria and oliguria; Z79.84 Long term (current) use of oral hypoglycemic drugs
CPT/HCPCS: 80053; 82043; 83036; 85025

== ENCOUNTER 2024-08-08 13:41 | Outpatient (CLI) | payer MEDICARE, MEDICAID, SELFPAY ==
[2024-08-08 13:48] LABS: Alanine Aminotransferase 46 U/L (12-78); Albumin Level 4.9 g/dl (3.5-5.0); Alkaline Phosphatase 99 U/L (38-126); Anion Gap 16.6 mEq/L (5-15); Aspartate Amino Transferase 37 U/L (17-59); Bilirubin,Total 0.7 mg/dl (0.2-1.3); Blood Urea Nitrogen 13 mg/dl (9-20); Carbon Dioxide 21 mmol/L (22.0-30.0); Chloride 107 mmol/L (98-107); Chol/HDL Ratio 4.9 (1-3.5); Cholesterol 158 mg/dl (140-200); Estimated Glomerular Filt Rate 107 ml/min (>60); GFR (African American) 130 ML/MIN (>60); Globulin 2.5 g/dL (1.3-3.2); Glucose 121 mg/dl (74-100); HDL Cholesterol 32 mg/dl (40-60); Potassium 4.6 mmoL/L (3.5-5.1); Sodium 140 mmol/L (136-145); Total Protein,Serum 7.4 g/dl (6.3-8.2); Triglycerides 344 mg/dl (30-150); VLDL Cholesterol 69 mg/dL (0-40)
[2024-08-08 13:55] LABS: Hemoglobin A1C 7.1 % (4.0-6.0)
[2024-08-08 14:18] LABS: Thyroid Stimulating Hormone 0.95 uIU/mL (0.465-4.68)
== END 2024-08-08 23:59 | disposition home or self-care (01) ==
LOC: LAB.DROPOF 13:41
PROVIDERS: PCP Nurse Practitioner Family; Visit Provider Nurse Practitioner Family
DX: E11.69 Type 2 diabetes mellitus with other specified complication; E78.5 Hyperlipidemia, unspecified; I10 Essential (primary) hypertension; K76.0 Fatty (change of) liver, not elsewhere classified
CPT/HCPCS: 80053; 80061; 83036; 84443

== ENCOUNTER 2024-08-09 13:16 | Outpatient (CLI) | payer MEDICARE, MEDICAID, SELFPAY ==
--- NOTE | 2024-08-09 13:29 | CA_ITS ---
APPROVED REPORT EXAM: Comprehensive 2D, Doppler, and color-flow Echocardiogram Casing Tester: Meryl Goldstein RT(R) Ht: 5 ft 8 in Wt: 235lbs BSA: 2.19 BP: 118/82 mmHg Indications: An AV procedure was done when he was 2 years old per patient, COPD, smoker, HTN, DM, 2D Dimensions EF AP4 48.80 % GL Strain -12.2 % M-Mode Dimensions RVDd 2.03 cm (0.9-2.6) LA Diam 2.73 cm (1.9-4.0) LVDd 5.41 cm (3.5-5.7) LVDs 3.59 cm (3.5-5.7) IVSd 0.76 cm (0.6-1.1) PWd 0.76 cm (0.6-1.1) EF (Teich) 61.90% FS 33.60% EDV (Teich) 141.90 mL ESV (Teich) 54.10 mL LV Diastology E Decel Time 150 (160-240 msec) E/A Ratio 1.1 Aortic Valve LAISHA Index 0.91 cm2/m2 AoV Peak Jaswant. 181.0 (50-130 cm/s) AO Peak GR. 13.10 mmHg AO Mean GR. 6.40 (<5 mmHg) AO VTI 29.8 (18-25 cm) LAISHA (VTI) 2.04 (2.5-4.5 cm2) Mitral Valve MV E Max Jaswant. 85.0 (40-130 cm/s) MV A Velocity 76.0 (40-130 cm/s) E/A Ratio 1.11 MV PHT 44.0 ms Left Ventricle The left ventricle is normal size. The left ventricular systolic function is normal. The left ventricular ejection fraction is within the normal range. There is normal left ventricular wall thickness. The septum is asynchronous. No regional wall motion abnormalities are noted. The left ventricular diastolic function is normal. LVEF is 55%. Right Ventricle The right ventricle is normal size. The right ventricular systolic function is normal. Atria The left atrium size is normal. The right atrium size is normal. There is no Doppler evidence of interatrial shunt. Aortic Valve Aortic valve is mildly thickened (reported history of prior unknown AV procedure during childhood). There is no aortic valvular stenosis. Mean AV gradient 5 mmHg. Max AV gradient 10 mmHg. Peak velocity 1.7 m/s. No aortic regurgitation is present. Mitral Valve The mitral valve is normal in structure. No evidence of mitral valve stenosis. There is no mitral valve regurgitation noted. Tricuspid Valve The tricuspid valve leaflets are thin and pliable. Trace tricuspid regurgitation. There is insufficient TR jet to estimate RVSP. Pulmonic Valve The pulmonary valve is normal in structure. Trace pulmonic regurgitation. Great Vessels The aortic root is normal in size. The ascending aorta is normal in size. IVC is normal in size and collapses >50% with inspiration. Pericardium There is no pericardial effusion. Other Information Study Quality: Fair Conclusion Normal biventricular systolic function. No significant valvular stenosis or regurgitation. Reported history of prior unknown AV procedure during childhood. No significant aortic valve stenosis or regurgitation. Mean AV gradient 5 mmHg. Max AV gradient 10 mmHg. Peak velocity 1.7 m/s. Electronically signed by : Simona Champion MD 08/12/2024 00:21:25
[2024-08-09 13:50] LABS: Creatinine,Urine Random 188 mg/dL (Not Estab.)
[2024-08-09 13:53] LABS: Microalbumin/Creatinine Ratio 19.3
--- NOTE | 2024-08-09 14:20 | MR_ITS ---
FINAL REPORT CLINICAL HISTORY: lumbago, weakness BLE, lumbar disc bulging COMPARISON: 12/23/2023 FINDINGS: Multiplanar MR imaging of the lumbar spine was performed without contrast. On the sagittal T2-weighted images, there is abnormal decreased signal involving the L3-4, L4-5, and L5-S1 disc space levels. There is marked loss of height of the L4-5 disc space.. The vertebrae are of normal height. The vertebral alignment is normal. L1-2: There is no significant canal stenosis or neural foraminal narrowing. L2-3: There is no significant canal stenosis or neural foraminal narrowing. L3-4: A mild annular bulge is present with bilateral facet hypertrophy and mild to moderate bilateral neural foraminal narrowing. L4-5: A moderate annular bulge is present with endplate hypertrophy and moderate bilateral neural foraminal narrowing. L5-S1: A mild annular bulge is present with a right paracentral disc protrusion and moderate narrowing of the right lateral recess, slightly more prominent than seen on the prior MRI. This is best visualized on image #24 of series 5. IMPRESSION: Multilevel degenerative change of the lower lumbar spine, most severe at the L5-S1 level as described. Reviewed, Interpreted and Dictated by Yvon Fernandez MD Transcribed by Munira Smith Authenticated and [facility]
== END 2024-08-09 23:59 | disposition home or self-care (01) ==
LOC: RT 13:16
PROVIDERS: PCP Nurse Practitioner Family; Visit Provider Nurse Practitioner Family
DX: R94.31 Abnormal electrocardiogram [ECG] [EKG] (principal); Z98.890 Other specified postprocedural states; R20.0 Anesthesia of skin; R20.2 Paresthesia of skin; M51.36 Other intervertebral disc degeneration, lumbar region; M54.41 Lumbago with sciatica, right side; G89.29 Other chronic pain; M48.061 Spinal stenosis, lumbar region without neurogenic claudication; E11.69 Type 2 diabetes mellitus with other specified complication; E78.5 Hyperlipidemia, unspecified
CPT/HCPCS: 72148; 82043; 82570; 93306

== ENCOUNTER 2024-11-03 11:05 | Outpatient (CLI) | payer MEDICARE, MEDICAID, SELFPAY ==
--- NOTE | 2024-11-03 11:10 | XR_ITS ---
FINAL REPORT CLINICAL HISTORY: LBP with unstable right lower extremity FINDINGS: LUMBAR SPINE Three views were obtained. There is no acute fracture. There is severe degenerative changes at L4-5 and L5-S1 with vacuum phenomenon at L5-S1. There is no malalignment. IMPRESSION: Severe degenerative changes as above. Reviewed, Interpreted and Dictated by Vijay Gilbert III, MD Transcribed by Natalya Otto Authenticated and [facility]
[2024-11-03 13:14] LABS: Albumin Level 4.5 g/dl (3.5-5.0); Chloride 101 mmol/L (98-107)
[2024-11-03 13:15] LABS: Potassium 4.3 mmoL/L (3.5-5.1); Sodium 135 mmol/L (136-145)
[2024-11-03 13:17] LABS: Alanine Aminotransferase 53 U/L (12-78); Alkaline Phosphatase 125 U/L (38-126); Anion Gap 16.3 mEq/L (5-15); Aspartate Amino Transferase 53 U/L (17-59); Bilirubin,Total 0.8 mg/dl (0.2-1.3); Blood Urea Nitrogen 18 mg/dl (9-20); Carbon Dioxide 22 mmol/L (22.0-30.0); Estimated Glomerular Filt Rate 93 ml/min (>60); GFR (African American) 113 ML/MIN (>60)
[2024-11-03 13:18] LABS: Albumin/Globulin Ratio 2.1 (1.1-1.8); Chol/HDL Ratio 5.9 (1-3.5); Cholesterol 124 mg/dl (140-200); Globulin 2.1 g/dL (1.3-3.2); Glucose 382 mg/dl (74-100); HDL Cholesterol 21 mg/dl (40-60); Magnesium 2.2 mg/dl (1.6-2.3); Total Protein,Serum 6.6 g/dl (6.3-8.2); Triglycerides 502 mg/dl (30-150)
[2024-11-03 13:37] LABS: Creatinine,Urine Random 38 mg/dL (Not Estab.); Microalbumin < 6.000 mg/L (0-16.7)
[2024-11-03 13:40] LABS: Direct LDL Cholesterol 60.37 mg/dL (100-129)
[2024-11-03 13:48] LABS: Thyroid Stimulating Hormone 0.69 uIU/mL (0.465-4.68)
[2024-11-03 14:18] LABS: Hemoglobin A1C 7.3 % (4.0-6.0)
== END 2024-11-03 23:59 | disposition home or self-care (01) ==
LOC: RAD 11:07
PROVIDERS: PCP Nurse Practitioner Family; Visit Provider Nurse Practitioner Family
DX: M54.41 Lumbago with sciatica, right side (principal); G89.29 Other chronic pain; E11.9 Type 2 diabetes mellitus without complications; E78.5 Hyperlipidemia, unspecified
CPT/HCPCS: 72100; 80053; 80061; 82043; 82570; 83036; 83735; 84443

== ENCOUNTER 2025-01-19 08:52 | Outpatient (CLI) | payer MEDICARE, MEDICAID, SELFPAY ==
--- NOTE | 2025-01-19 08:56 | CA_ITS ---
FINAL REPORT CLINICAL HISTORY: LE pain, Smoker, DM, Poor hygiene COMPARISON: None FINDINGS: BILATERAL LOWER EXTREMITY DUPLEX DOPPLER Color Doppler and duplex Doppler of the bilateral lower extremity was performed. Spectral analysis was also performed. Velocities were measured at multiple levels. All velocities are in centimeters per second. RIGHT OPERATOR AND TRUCK DRIVER: 99 Prof: 76 SFA Prox: 80 SFA Mid: 78 SFA Distal: 69 DIRECTOR PHARMACOLOGY Mid: 53 Per Prox: 50 DANICA: 56 Waveforms are triphasic. LEFT OPERATOR AND TRUCK DRIVER: 126 Prof: 81 SFA Prox: 75 SFA Mid: 71 SFA Distal: 54 DIRECTOR PHARMACOLOGY Mid: 57 Per Prox: 55 DANICA: 51 Waveforms are triphasic. IMPRESSION: Waveforms are noted to be triphasic. No evidence of significant pulmonary vascular disease Reviewed, Interpreted and Dictated by London Gaffney MD Transcribed by Regla Montenegro Authenticated and [facility] [place] [place]
== END 2025-01-19 23:59 | disposition home or self-care (01) ==
LOC: RT 08:53
PROVIDERS: PCP Nurse Practitioner Family; Visit Provider Nurse Practitioner Family
DX: I73.9 Peripheral vascular disease, unspecified (principal); G62.9 Polyneuropathy, unspecified
CPT/HCPCS: 93925

== ENCOUNTER 2025-01-23 09:42 | Outpatient (CLI) | payer MEDICARE, MEDICAID, SELFPAY ==
[2025-01-23 17:22] LABS: Coronavirus 19, PCR Not Detected (NotDetected); Human Rhinovirus Not Detected (NotDetected); Influenza A, PCR Not Detected (NotDetected); Influenza B, PCR Not Detected (NotDetected); Respiratory Syncytial Virus Not Detected (NotDetected)
== END 2025-01-23 23:59 | disposition home or self-care (01) ==
LOC: LAB.DROPOF 01-24 09:43
PROVIDERS: PCP Nurse Practitioner Family; Visit Provider Nurse Practitioner Family
DX: Z13.83 Encounter for screening for respiratory disorder NEC (principal); R05.9 Cough, unspecified; R68.89 Other general symptoms and signs
CPT/HCPCS: 87631

== ENCOUNTER 2025-01-23 11:14 | Emergency (ER) | payer MEDICARE, MEDICAID, SELFPAY ==
[2025-01-23 11:20] VITALS: BP 140/74; PULSE 100; RESP 18; TEMP 37.2; O2SAT 96; BMI 36.1
--- NOTE | 2025-01-23 11:47 | HMH.EDGENADL ---
Discharge Plan Disposition Patient Disposition: Home, Self-Care Chief Complaint: Skin/Abscess/Foreign Body Prescriptions Prescriptions: No Action epinephrine [EpiPen] 0.3 mg/0.3 mL auto-injector 0.3 mg IM Q5-15M PRN (Reason: allergies) Rx Instructions: do not exceed 3 doses per episode (DME) Contour Next Test Strips Strip See Rx Instructions .ROUTE .MEDSUPPLY Qty: 100 3RF Rx Instructions: As directed (DME) lancets [Microlet Lancet] Misc See Rx Instructions .ROUTE .MEDSUPPLY Qty: 100 1RF Rx Instructions: As directed baclofen 20 mg tablet 20 mg PO BID oxycodone 5 mg tablet 5 mg PO NEEDED PRN (Reason: Pain) pregabalin 200 mg capsule 200 mg PO DAILY fluconazole 200 mg tablet PO ceftriaxone 2 gram recon soln IV tramadol 50 mg tablet PO bisoprolol-hydrochlorothiazide 5-6.25 mg tablet 1 tab PO DAILY Qty: 30 2RF semaglutide 14 mg tablet See Rx Instructions .ROUTE .COMPLEX 30 Days Qty: 30 2RF Dose Instruction: TAKE ONE TABLET BY MOUTH ONCE A DAY Rx Instructions: TAKE ONE TABLET BY MOUTH ONCE A DAY albuterol sulfate 90 mcg/actuation HFA aerosol inhaler See Rx Instructions .ROUTE .COMPLEX Qty: 18 0RF Dose Instruction: INHALE 2 PUFFS BY MOUTH EVERY 6 HOURS NEEDED Rx Instructions: INHALE 2 PUFFS BY MOUTH EVERY 6 HOURS NEEDED metformin 1,000 mg tablet See Rx Instructions .ROUTE .COMPLEX Qty: 60 0RF Dose Instruction: TAKE ONE TABLET BY MOUTH 2 TIMES A DAY Rx Instructions: TAKE ONE TABLET BY MOUTH 2 TIMES A DAY Jardiance 10 mg tablet See Rx Instructions .ROUTE .COMPLEX Qty: 30 0RF Dose Instruction: TAKE ONE TABLET BY MOUTH ONCE A DAY Rx Instructions: TAKE ONE TABLET BY MOUTH ONCE A DAY hydrochlorothiazide 12.5 mg tablet See Rx Instructions .ROUTE .COMPLEX Qty: 30 0RF Dose Instruction: TAKE ONE TABLET BY MOUTH ONCE A DAY Rx Instructions: TAKE ONE TABLET BY MOUTH ONCE A DAY pravastatin 40 mg tablet See Rx Instructions .ROUTE .COMPLEX Qty: 30 0RF Dose Instruction: TAKE ONE TABLET BY MOUTH ONCE A DAY Rx Instructions: TAKE ONE TABLET BY MOUTH ONCE A DAY lisinopril 20 mg tablet See Rx Instructions .ROUTE .COMPLEX Qty: 30 0RF Dose Instruction: TAKE ONE TABLET BY MOUTH ONCE A DAY FOR BLOOD PRESSURE Rx Instructions: TAKE ONE TABLET BY MOUTH ONCE A DAY FOR BLOOD PRESSURE varenicline tartrate 0.5 mg (11)- 1 mg (42) tablets,dose pack See Rx Instructions .ROUTE .COMPLEX Qty: 53 0RF Dose Instruction: TAKE DIRECTED Rx Instructions: TAKE DIRECTED Referrals Follow up/Referrals: Sugey Nieto APRN [Primary Care Provider] - See instructions Activity Restrictions/Add. Instructions Additional Instructions/Restrictions: Call your family doctor to establish care for this visit to the emergency department and schedule follow-up within 48 hours to ensure improvement. If you have any worsening of your condition or any other concerning signs or symptoms, return to the emergency department or your primary care doctor for further evaluation. Clinical Impressions Clinical Impression: Swelling of both lower extremities Instructions Patient Instructions: DI for Skin Abscess Print Language Print Language: Belarusian Discharge ED Provider: Woo [facility] Adult HPI General Chief complaint: Skin/Abscess/Foreign Body Stated complaint: chills leg cramps, diarrhea Time Seen by Provider: 01/23/25 11:32 Mode of Arrival: Ambulatory Source of Information: Patient Description of Symptoms (Recalled from ER Triage Doc. by RN): PT REPORTS BILATERAL LEG SWELLING AND DECREASED SENSATION X 4 WEEKS. REPORTS KNOWN DIABETIC NEUROPATHY. History of Present Illness HPI narrative: Please note that above description of symptoms, in this electronic medical record under categorization of recalled from ER triage doctor by RN are reflective of an initial nursing assessment, however, is not reflective of my full history and physical exam that was personally taken and clarified. Consequentially, this preceding description of symptoms, which may include the patient's categorized chief complaint in the EMR, do not reflect my personal clinical impression, and the ultimate description of history of present illness and patient stated complaints should be deferred to this section of the note. Unless stated otherwise or congruent with this section of the note, additional signs, symptoms, or incongruence should be interpreted as inaccurate with my clinical impression. Related Data Home Medications ?Medication ?Instructions ?Recorded ?Confirmed epinephrine 0.3 mg/0.3 mL 0.3 mg IM Q5-15M PRN allergies 05/21/20 01/15/25 injection, auto-injector (EpiPen) baclofen 20 mg tablet 20 mg PO BID 09/14/22 01/15/25 oxycodone 5 mg tablet 5 mg PO NEEDED PRN Pain 12/29/22 01/15/25 pregabalin 200 mg capsule 200 mg PO DAILY 04/04/24 01/15/25 ceftriaxone 2 gram solution for IV 01/15/25 01/15/25 injection fluconazole 200 mg tablet mg PO 01/15/25 01/15/25 tramadol 50 mg tablet mg PO 01/15/25 01/15/25 Previous Rx's ?Medication ?Instructions ?Recorded blood sugar diagnostic (Contour #100 ea 05/08/24 Next Test Strips) lancets (Microlet Lancet) #100 ea 05/08/24 semaglutide 14 mg tablet See Rx Instructions .Route 05/17/24 .COMPLEX 30 days #30 tabs albuterol sulfate 90 mcg/actuation See Rx Instructions .Route 06/15/24 aerosol inhaler .COMPLEX #18 grams metformin 1,000 mg tablet See Rx Instructions .Route 07/14/24 .COMPLEX #60 tabs empagliflozin 10 mg tablet See Rx Instructions .Route 12/08/24 (Jardiance) .COMPLEX #30 tabs hydrochlorothiazide 12.5 mg tablet See Rx Instructions .Route 12/08/24 .COMPLEX #30 tabs lisinopril 20 mg tablet See Rx Instructions .Route 12/08/24 .COMPLEX #30 tabs pravastatin 40 mg tablet See Rx Instructions .Route 12/08/24 .COMPLEX #30 tabs varenicline tartrate 0.5 mg (11)-1 See Rx Instructions .Route 01/03/25 mg (42) tablets in a dose pack .COMPLEX #53 tabs bisoprolol 5 1 tab PO DAILY #30 tabs 01/15/25 mg-hydrochlorothiazide 6.25 mg tablet Allergies Allergy/AdvReac Type Severity Reaction Status Date / Time acetaminophen (From Lortab) Allergy Verified 01/15/25 08:24 codeine Allergy Verified 01/15/25 08:24 hydrocodone (From Lortab) Allergy Hives Verified 01/15/25 08:24 ibuprofen Allergy Verified 01/15/25 08:24 daptomycin AdvReac Severe Verified 01/15/25 08:24 [facility] Disclaimer: The information contained in this section may have been updated after the patient was seen, as this information can be updated by other users. Medical History Asthma BMI 33.0-33.9,adult BMI 34.0-34.9,adult BMI 36.0-36.9,adult Continued weight gain postoperatively Bulging disc Carpal tunnel syndrome, right upper limb Diabetes mellitus Emphysema/COPD History of hypertension Migraine Noise-induced hearing loss of both ears Renal failure Severe sleep apnea Tinnitus Trigger finger of left hand Surgical History History of ankle surgery History of aortic valve replacement History of back surgery History of uvulopalatopharyngoplasty Family History Mother Cancer brain tumor, bladder/kidney Father Hypertension Hyperlipidemia Other Coronary artery disease Social History (Updated 01/23/25 @ 11:37 by Radha Odonnell RN) Smoking Status: Current every day smoker tobacco type: cigarettes packs per day: 1 alcohol intake: former substance use type: former substance user, marijuana, crack/cocaine and painkillers current occupational status: disabled Travel in the last 8 weeks: None household members: family housing: house current occupational exposures/hazards: No caffeine: Yes Have you lived/traveled outside [place] in past 30 days?: No Contact w/someone who lives/traveled outside [place] past 30 days?: No Exposure to someone with infectious disease in past 14 days?: No Do you have a fever (greater than 100.4 F or 38 C)?: No Have you tested positive for COVID-19: No Exposed to someone with COVID-19 in past 14 days?: No Do you have a sore throat?: No Do you have a cough?: No Do you have any weakness?: No Do you have any diarrhea?: No Are you experiencing any unusual bleeding?: No Do you have any muscle aches/pain?: Yes Do you have any abdominal pain?: No Are you experiencing loss of taste or smell?: No Other Medical History Have you received the Flu Vaccine for this season: No Have you received the Pneumonia Vaccine: No ROS Obtained: Yes All systems reviewed & no additional complaints except as documented Physical Exam General General appearance: alert Head Head exam: atraumatic and normocephalic Eye Eye exam: Present normal appearance, PERRL and EOMI Neck Neck exam: Present normal inspection, full ROM and trachea midline Respiratory Respiratory exam: Absent respiratory distress, wheezes, stridor, accessory muscle use or prolonged expiratory phase Cardiovascular Cardiovascular exam: Present other (Pulses equal symmetric in upper and lower extremities) Abdominal Exam Abdominal exam: Present soft; Absent distention, tenderness or pulsatile mass Extremities Exam Extremities exam: Absent edema Neurological Exam Neurological exam: Present alert, oriented X3 and CN II-XII intact; Absent motor sensory deficit Skin Skin exam: Present warm and dry; Absent diaphoresis or erythema Medical Decision Making Medical Records Medical records reviewed: Yes I reviewed the patient's medical records. Screening: Per USPSTF and CDC recommendations, given the prevalence of disease in our region, it is our hospital?s policy to screen for HIV and viral Hepatitis for all patients aged 18 and over and those with ongoing risk factors. Prasanth Inquiry Pt receiving controlled substance: No Prasanth was queried for this patient: No Vital Signs: 01/23/25 11:20 Temperature 98.9 F Temperature Source Oral Pulse Rate [Radial] 100 H Respiratory Rate 18 Blood Pressure [Left Arm] 140/74 Blood Pressure Mean [Left Arm] 96 Blood Pressure Source [Left Arm] Automatic Cuff Blood Pressure Position [Left Arm] Sitting 02 Sat by Pulse Oximetry 96 Oxygen Delivery Method Room Air Lab Data Lab Results 01/23/25 12:07: WBC 11.8 H, RBC 5.93, Hgb 17.4, Hct 52.3 H, MCV 88.2, MCH 29.3, MCHC 33.3, RDW 13.8, Plt Count 134 L, MPV 12.8 H, Neut % (Auto) 86.4 H, Lymph % (Auto) 7.1 L, [place] % (Auto) 4.9, Eos % (Auto) 0.7, Baso % (Auto) 0.4, Neut # (Auto) 10.1 H, Lymph # (Auto) 0.8, [place] # (Auto) 0.6, Eos # (Auto) 0.1, Baso # (Auto) 0.1, D-Dimer < 0.25, Sodium 138, Potassium 4.2, Chloride 101, Carbon Dioxide 28, Anion Gap 13.2, BUN 15, Creatinine 0.90, Estimated Creat Clear 167, Estimated GFR 93, Est GFR ( Amer) 113, Glucose 144 H, Calcium 9.9, Total Bilirubin 1.2, AST 46, ALT 50, Alkaline Phosphatase 87, Total Creatine Kinase 49 L, NT-Pro-B Natriuret Pep < 20.0, Total Protein 7.3, Albumin 4.9, Globulin 2.4, Albumin/Globulin Ratio 2.0 H 01/23/25 12:07 01/23/25 12:07 Orders (Tests/Meds): ORDERS Category Date Time Status CBC w/Auto Diff [Complete Blood Count Auto Diff] Stat Lab 01/23/25 12:07 Completed CK [Creatine Kinase] Stat Lab 01/23/25 12:07 Completed CMP [Comprehensive Metabolic Panel] Stat Lab 01/23/25 12:07 Completed D-Dimer Stat Lab 01/23/25 12:07 Completed NT Pro Brain Natriuretic Pep. Stat Lab 01/23/25 12:07 Completed Medical Decision Narrative: Clinically well-appearing 39-year-old male with history of hypertension, hyperlipidemia, diabetes, PAD presenting with bilateral lower extremity subjective swelling. Been going on for a few days at this point. Tries to stay mobile, no weightbearing difficulties. States that he has mild pain that radiates from his lumbar spine down the back of his right leg. Supposed be seeing a spine surgeon for this. No bowel or bladder dysfunction, saddle anesthesia, lower extremity weakness, or any other concerns. Came in for further evaluation. On my evaluation, patient very clinically well-appearing. He has no lower extremity edema. He does have good capillary refill, pulses are equal and symmetric ambulatory, sensation intact. No outward signs of abnormality. Differential includes radiculopathy, neuropathy, DVT, myositis, among others. Labs were initiated. On independent trepidation, mild leukocytosis, but nonactionable overall. Dimer negative, electrolytes negative. CK and BMP also negative. Because patient at baseline without signs or symptoms of clinical decompensation, deemed appropriate for discharge. Results were relayed to patient who voiced understanding and were agreeable to outpatient management and follow up. I discussed my clinical impression with patient and answered all questions. At this time, the evidence for any other entities in the differential is insufficient to warrant any further testing or ED observation. This was explained as well. Advisory was given that persistent or worsening symptoms require further evaluation. I confirmed the understanding of this discussion. Car Storer disclaimer Much of this encounter note is an electronic printing equipment mechanic apprentice spoken language to printed text. Electronic printing equipment mechanic apprentice of the spoken language may permit errors. Although I have reviewed the note, some errors may still exist. Critical Care Critical Care Time Critical Care Time: No
[2025-01-23 12:16] LABS: Basophils # 0.1 K/mm3 (0-0.2); Basophils % 0.4 % (0.1-2.0); Eosinophils # 0.1 K/mm3 (0.0-0.4); Eosinophils % 0.7 % (0.1-12.0); Hematocrit 52.3 % (42.0-52.0); Hemoglobin 17.4 g/dL (14.1-18.0); Lymphocytes # 0.8 K/mm3 (0.7-4.5); Lymphocytes % 7.1 % (10-50); Mean Corpuscular HGB Conc 33.3 g/dL (31.8-35.4); Mean Corpuscular Hemoglobin 29.3 pg (27.0-31.2); Mean Corpuscular Volume 88.2 fl (80-94); Mean Platelet Volume 12.8 fl (7.4-10.4); Monocytes # 0.6 K/mm3 (0.1-1.0); Monocytes % 4.9 % (1.7-9.3); Neutrophils # 10.1 K/mm3 (1.8-7.8); Neutrophils % 86.4 % (37.0-80.0); Platelet Count 134 K/mm3 (142-424); Red Blood Count 5.93 M/mm3 (4.60-6.20); Red Cell Distribution Width 13.8 % (11.5-17.5); White Blood Count 11.8 K/mm3 (4.8-10.8)
[2025-01-23 12:23] LABS: Albumin Level 4.9 g/dl (3.5-5.0); Chloride 101 mmol/L (98-107); Potassium 4.2 mmoL/L (3.5-5.1); Sodium 138 mmol/L (136-145)
[2025-01-23 12:25] LABS: Blood Urea Nitrogen 15 mg/dl (9-20); Creatinine Clearance Estimated 167 mL/min (50-200); Estimated Glomerular Filt Rate 93 ml/min (>60); GFR (African American) 113 ML/MIN (>60)
[2025-01-23 12:26] LABS: Alanine Aminotransferase 50 U/L (12-78); Alkaline Phosphatase 87 U/L (38-126); Anion Gap 13.2 mEq/L (5-15); Aspartate Amino Transferase 46 U/L (17-59); Bilirubin,Total 1.2 mg/dl (0.2-1.3); Calcium 9.9 mg/dl (8.4-10.2); Carbon Dioxide 28 mmol/L (22.0-30.0); Creatine Kinase 49 U/L (55-170); Globulin 2.4 g/dL (1.3-3.2); Glucose 144 mg/dl (74-100); Total Protein,Serum 7.3 g/dl (6.3-8.2)
--- NOTE | 2025-01-23 12:29 | PC.NURSE ---
Established 18ga IV in patients R AC, blood collected and sent to lab.
[2025-01-23 12:32] LABS: D-Dimer < 0.25 ug/mL (0.0-0.5)
[2025-01-23 12:35] LABS: NT Pro Brain Natriuretic Pep. < 20.0 pg/mL (0-125)
[2025-01-23 13:01] VITALS: BP 140/80; PULSE 110; RESP 20; TEMP 36.9; O2SAT 98
== END 2025-01-23 13:02 | disposition home or self-care (01) ==
PROVIDERS: Emergency Provider Emergency Medicine; PCP Nurse Practitioner Family
DX: R22.43 Localized swelling, mass and lump, lower limb, bilateral (principal); R20.2 Paresthesia of skin; R19.7 Diarrhea, unspecified; R68.83 Chills (without fever); F17.210 Nicotine dependence, cigarettes, uncomplicated
CPT/HCPCS: 80053; 82550; 83880; 85025; 85378; 99283

== ENCOUNTER 2025-01-31 10:51 | Outpatient (RCR) | payer MEDICARE, MEDICAID, SELFPAY | END 2025-01-31 23:59 | disposition home or self-care (01) | LOC: OT 10:51 | PROVIDERS: PCP Nurse Practitioner Family; Visit Provider Plastic Surgery | DX: Z98.890 Other specified postprocedural states (principal) | CPT/HCPCS: 97165 ==

== ENCOUNTER 2025-02-07 11:50 | Outpatient (CLI) | payer MEDICARE, MEDICAID, SELFPAY ==
[2025-02-07 13:35] LABS: Hemoglobin A1C 6.8 % (4.0-6.0)
[2025-02-07 14:48] LABS: Albumin Level 4.4 g/dl (3.5-5.0); Chloride 105 mmol/L (98-107); Sodium 137 mmol/L (136-145)
[2025-02-07 14:51] LABS: Alanine Aminotransferase 32 U/L (12-78); Aspartate Amino Transferase 29 U/L (17-59); Blood Urea Nitrogen 11 mg/dl (9-20); Carbon Dioxide 22 mmol/L (22.0-30.0); Cholesterol 143 mg/dl (140-200); Estimated Glomerular Filt Rate 107 ml/min (>60); GFR (African American) 129 ML/MIN (>60); Globulin 2.2 g/dL (1.3-3.2); Total Protein,Serum 6.6 g/dl (6.3-8.2); Triglycerides 255 mg/dl (30-150); VLDL Cholesterol 51 mg/dL (0-40)
[2025-02-07 14:52] LABS: Alkaline Phosphatase 89 U/L (38-126); Bilirubin,Total 1.1 mg/dl (0.2-1.3); Calcium 9.8 mg/dl (8.4-10.2); Chol/HDL Ratio 4.9 (1-3.5); Glucose 90 mg/dl (74-100); HDL Cholesterol 29 mg/dl (40-60); Magnesium 1.7 mg/dl (1.6-2.3)
[2025-02-07 15:03] LABS: Direct LDL Cholesterol 86.39 mg/dL (100-129)
== END 2025-02-07 23:59 | disposition home or self-care (01) ==
LOC: LAB.DROPOF 02-08 10:37
PROVIDERS: PCP Nurse Practitioner Family; Visit Provider Nurse Practitioner Family
DX: E78.5 Hyperlipidemia, unspecified (principal); E11.9 Type 2 diabetes mellitus without complications; Z79.84 Long term (current) use of oral hypoglycemic drugs
CPT/HCPCS: 80053; 80061; 83036; 83735

== ENCOUNTER 2025-02-08 13:37 | Outpatient (CLI) | payer MEDICARE, MEDICAID, SELFPAY ==
[2025-02-08 13:25] LABS: Microscopic, Urine URINE MICROSCOPIC (MICROSCOPIC)
[2025-02-08 13:34] LABS: Appearance,Urine CLEAR (Clear); Bilirubin,Urine Negative (Negative); Blood, Urine Negative (Negative); Color,Urine YELLOW (Yellow); Glucose,Urine (UA) Negative (Negative); Ketones,Urine Negative (Negative); Leukocyte Esterase,Urine Negative (Negative); Nitrate,Urine Negative (Negative); Protein,Urine Negative (Negative); Urobilinogen,Urine 0.2 EU/dl (0.2)
[2025-02-08 13:43] LABS: Calcium Oxalate Crystals,Urine 1+ /lpf; Fatty Casts,Urine Occasional #/lpf (0)
[2025-02-08 13:54] LABS: Creatinine,Urine Random 120 mg/dL (Not Estab.)
[2025-02-08 13:58] LABS: Microalbumin/Creatinine Ratio 16.9
== END 2025-02-08 23:59 | disposition home or self-care (01) ==
LOC: LAB.DROPOF 13:37
PROVIDERS: Nurse Practitioner Family; PCP Nurse Practitioner Family; Visit Provider Nurse Practitioner Family
DX: E11.9 Type 2 diabetes mellitus without complications (principal); E78.5 Hyperlipidemia, unspecified
CPT/HCPCS: 81001; 82043; 82570

== ENCOUNTER 2025-02-28 14:48 | Outpatient (CLI) | payer MEDICARE, MEDICAID, SELFPAY ==
[2025-02-28 13:47] LABS: Albumin Level 4.8 g/dl (3.5-5.0); Chloride 99 mmol/L (98-107); Potassium 4.5 mmoL/L (3.5-5.1); Sodium 136 mmol/L (136-145)
[2025-02-28 13:50] LABS: Alanine Aminotransferase 46 U/L (12-78); Albumin/Globulin Ratio 1.9 (1.1-1.8); Alkaline Phosphatase 108 U/L (38-126); Anion Gap 22.5 mEq/L (5-15); Aspartate Amino Transferase 38 U/L (17-59); Bilirubin,Total 0.7 mg/dl (0.2-1.3); Blood Urea Nitrogen 15 mg/dl (9-20); Carbon Dioxide 19 mmol/L (22.0-30.0); Estimated Glomerular Filt Rate 107 ml/min (>60); GFR (African American) 129 ML/MIN (>60); Globulin 2.5 g/dL (1.3-3.2); Total Protein,Serum 7.3 g/dl (6.3-8.2)
[2025-02-28 13:51] LABS: Glucose 267 mg/dl (74-100)
[2025-02-28 16:34] LABS: Microscopic, Urine URINE MICROSCOPIC (MICROSCOPIC)
[2025-02-28 17:30] LABS: Appearance,Urine CLEAR (Clear); Bilirubin,Urine Negative (Negative); Blood, Urine Negative (Negative); Color,Urine YELLOW (Yellow); Glucose,Urine (UA) 3+ (Negative); Ketones,Urine Negative (Negative); Leukocyte Esterase,Urine Negative (Negative); Nitrate,Urine Negative (Negative); PH,Urine 5.5 (5.0-8.5); Protein,Urine Negative (Negative); Specific Gravity, Urine 1.015 (1.005-1.030); Urobilinogen,Urine 0.2 EU/dl (0.2)
[2025-02-28 17:52] LABS: Bacteria,Urine Trace /lpf; WBC,Urine Occasional #/hpf (0-3)
== END 2025-02-28 23:59 | disposition home or self-care (01) ==
PROVIDERS: PCP Nurse Practitioner Family; Visit Provider Nurse Practitioner Family
DX: N18.9 Chronic kidney disease, unspecified (principal); R10.9 Unspecified abdominal pain
CPT/HCPCS: 80053; 81001

== ENCOUNTER 2025-03-06 13:00 | Outpatient (RCR) | payer MEDICARE, MEDICAID, SELFPAY | END 2025-03-06 23:59 | disposition home or self-care (01) | LOC: OT 13:00 | PROVIDERS: Visit Provider Plastic Surgery | DX: Z98.890 Other specified postprocedural states (principal) | CPT/HCPCS: 97014; 97110; 97140; 97168; G0283 ==

== ENCOUNTER 2025-05-11 09:34 | Outpatient (CLI) | payer MEDICARE, MEDICAID, SELFPAY ==
--- OUTSIDE RECORDS SUMMARY | 2025-03-16 05:34 | XMS_ITS | Encounter Summary ---
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 05/18/2025 12:20 PM EDT Office Visit [facility] [address] [place] [address] Candace Ferris, AUTO ELECTRICAL TECHNICIAN [address] [place] [phone] 02/14/2026 9:30 AM EDT Appointment Cardiac Imaging [address] [place] [address] 02/14/2026 11:40 AM EDT Office Visit [facility] [place] [address] [place] [address] Colleen Culver MD [address] [place] [address] Scheduled Referrals Name Type Priority Associated Diagnoses Order Schedule Discharge Ambulatory Referral to Neurosurgery Outpatient Referral Routine Lumbar disc herniation Expected: 03/30/2025, Expires: 09/15/2026 documented as of this encounter Procedures Procedure Name Priority Date/Time Associated Diagnosis Comments POCT GLUCOSE METER UNSOLICITED RESULTS Routine 03/16/2025 11:18 AM EDT FL LESS THAN 1 HOUR (NON-REPORTABLE) Routine 03/16/2025 10:07 AM EDT MICRODISCECTOMY, SPINE, LUMBAR 03/16/2025 7:38 AM EDT Lumbar disc herniation TYPE AND SCREEN Routine 03/16/2025 6:53 AM EDT POCT GLUCOSE METER UNSOLICITED RESULTS Routine 03/16/2025 5:52 AM EDT documented in this encounter Results * (ABNORMAL) POCT glucose meter (03/16/2025 11:18 AM EDT) POCT Glucose 206(H) 74 - 99 mg/dL 03/16/2025 11:19 AM EDT [facility] Comment:Accuracy of a glucos e result obtained from a capillary whole blood specimen relies upon adequate, non-compromised capillary blood flow. If the capillary glucose result is not consistent with the patient's clinical signs and symptoms, glucose testing should be repeated with either an arterial or venous sample on the glucometer or sent to the main labortory for testing. Comment 03/16/2025 11:19 AM EDT [facility] Spares Scheduler ID Ericka Ricci 03/16/2025 11:19 AM EDT [facility] Device ID [id number] 03/16/2025 11:19 AM EDT [facility] Specimen Type POC Capillary 03/16/2025 11:19 AM EDT [facility] Blood Capillary blood specimen / Unknown 03/16/2025 11:18 AM EDT 03/16/2025 11:19 AM EDT Allegra Rodríguez MD LAB POIN T OF CARE TEST DOCKED DEVICE UNSOLICITED RESULTS Final Result [facility] [address] [place] [address] * [place] Less than 1 Hour Intraoperative (03/16/2025 10:07 AM EDT) Narrative IMAGING - 03/16/2025 10:07 AM EDT Images were obtained for surgical purposes. See Allegra Rodríguez's surgical note in the patient's chart for the findings. Allegra Rodríguez MD IMG FLUOROSCOPY PROCEDURES Final Result IMAGING * Type and Screen (03/16/2025 6:53 AM EDT) ABO/Rh O Positive 03/16/2025 6:53 AM EDT BLOOD BANK Antibody Screen Negative 03/16/2025 6:53 AM EDT BLOOD BANK Specimen Expiration 03/19/2025 23:59 03/16/2025 6:53 AM EDT BLOOD BANK Blood Venous blood specimen / Unknown Venipuncture / Unknown 03/16/2025 6:53 AM EDT 03/16/2025 6:56 AM EDT Allegra Rodríguez MD LAB BLOOD BANK T EST ORDERABLES Final Result Performing Organization Address City/[facility] de Phone Number BLOOD BANK [address] [place] [address], * (ABNORMAL) POCT glucose meter (03/16/2025 5:52 AM EDT) [facility] Signature POCT Glucose 162(H) 74 - 99 mg/dL 03/16/2025 5:55 AM EDT [facility] Comment:Accuracy of a glucos e result obtained from a capillary whole blood specimen relies upon adequate, non-compromised capillary blood flow. If the capillary glucose result is not consistent with the patient's clinical signs and symptoms, glucose testing should be repeated with either an arterial or venous sample on the glucometer or sent to the main labortory for testing. Comment 03/16/2025 5:55 AM EDT [facility] Spares Scheduler ID Oksana Rico 03/16/2025 5:55 AM EDT [facility]ARE [facility] Device ID [id number] 03/16/2025 5:55 AM EDT [facility]ARE [facility] Specimen Type POC Capillary 03/16/2025 5:55 AM EDT [facility] Blood Capillary blood specimen / Unknown 03/16/2025 5:52 AM EDT 03/16/2025 5:55 AM EDT Allegra Rodríguez MD LAB POIN T OF CARE TEST DOCKED DEVICE UNSOLICITED RESULTS Final Result Performing Organization Address City/[facility] Co de Phone Number [facility] [address] [place] [address] documented in this encounter Visit Diagnoses Diagnosis Lumbar disc herniation- Primary Displacement of lumbar intervertebral disc without myelopathy Lumbar disc herniation Displacement of lumbar intervertebral disc without myelopathy documented in this encounter Admitting Diagnoses Diagnosis Lumbar disc herniation Displacement of lumbar intervertebral disc without myelopathy documented in this encounter Administered Medications Inactive Administered Medications - up to 3 most recent administrations Medication Order MAR Action Action Date Dose Rate Site fentaNYL (Sublimaze) injection 25 mcg 25 mcg, Intravenous, Every 5 min PRN, 2 doses, Starting on Wed03/16/25 at 1009, Until Wed03/16/25 at 1458, Routine, Recovery (Phase I only), pain score of 3-4 out of 10 HYDROmorphone (Dilaudid) injection 0.5 mg 0.5 mg, Intravenous, Every 10 min PRN, 2 doses, Starting on Wed03/16/25 at 1009, Until Wed03/16/25 at 1458, Routine, Recovery (Phase I only), pain score of 9-10 out of 10 ondansetron (Zofran) injection 4 mg 4 mg, Intravenous, Once as needed, 1 dose, Starting on Wed03/16/25 at 1009, Until Wed03/16/25 at 1458, Routine, Recovery (Phase I only), nausea, vomiting oxyCODONE (Roxicodone) immediate release tablet 10 mg 10 mg, Oral, Every 6 hours PRN, Starting on Wed03/16/25 at 1108, Until Wed03/16/25 at 1458, Routine, Recovery (Phase I only), severe pain Given 03/16/2025 11:37 AM EDT 10 mg oxyCODONE (Roxicodone) immediate release tablet 5 mg 5 mg, Oral, Every 4 hours PRN, Starting on Wed03/16/25 at 1108, Until Wed03/16/25 at 1458, Routine, Recovery (Phase I only), moderate pain Povidone-Iodine 5 % swab solution 1 Application Nasal, Once, 1 dose, On Wed03/16/25 at 0700, Routine Given 03/16/2025 7:11 AM EDT 1 Application sodium chloride 0.9 % flush 10 mL 10 mL, Intravenous, Every 12 hours, First dose on Wed03/16/25 at 0700, Until Discontinued, Routine, Holding - Preprocedure Given 03/16/2025 7:10 AM EDT 10 mL sodium chloride 0.9 % flush 10 mL 10 mL, Intravenous, As needed, Starting on Wed03/16/25 at 0608, Until Wed03/16/25 at 1458, Routine, Holding - Preprocedure, line care documented in this encounter Active and Recently Administered Medications Times are shown in EDT. Scheduled Medication Order 03/14/2025 03/15/2025 03/16/2025 Povidone-Iodine 5 % swab solution 1 Application (COMPLETED) Nasal, Once, 1 dose, On Wed03/16/25 at 0700, Routine 0711 (Given - Provid er: Lia Alvarado RN) sodium chloride 0.9 % flush 10 mL(Linked Group 1) 10 mL, Intravenous, Every 12 hours, First dose on Wed03/16/25 at 0700, Until Discontinued, Routine, Holding - Preprocedure 0710 (Given - Provid er: Lia Alvarado RN) PRN Medication Order 03/14/2025 03/15/2025 03/16/2025 bupivacaine PF (Marcaine) 0.25 % injection (CANCELED) As needed, Starting on Wed03/16/25 at 1023, Until Wed03/16/25 at 1102, Routine, Intraprocedure 1023 (Given - Provid er: Raleigh Agee MD) fentaNYL (Sublimaze) injection 25 mcg 25 mcg, Intravenous, Every 5 min PRN, 2 doses, Starting on Wed03/16/25 at 1009, Until Wed03/16/25 at 1458, Routine, Recovery (Phase I only), pain score of 3-4 out of 10 HYDROmorphone (Dilaudid) injection 0.5 mg 0.5 mg, Intravenous, Every 10 min PRN, 2 doses, Starting on Wed03/16/25 at 1009, Until Wed03/16/25 at 1458, Routine, Recovery (Phase I only), pain score of 9-10 out of 10 lidocaine-EPINEPHrine (Xylocaine W/EPI) 1 %-1:594240 injection (CANCELED) As needed, Starting on Wed03/16/25 at 0827, Until Wed03/16/25 at 1102, Routine, Intraprocedure 0827 (Given - Provid er: Raleigh Agee MD) ondansetron (Zofran) injection 4 mg 4 mg, Intravenous, Once as needed, 1 dose, Starting on Wed03/16/25 at 1009, Until Wed03/16/25 at 1458, Routine, Recovery (Phase I only), nausea, vomiting oxyCODONE (Roxicodone) immediate release tablet 10 mg(Linked Group 2) 10 mg, Oral, Every 6 hours PRN, Starting on Wed03/16/25 at 1108, Until Wed03/16/25 at 1458, Routine, Recovery (Phase I only), severe pain 1137 (Given - Provid er: Ericka Ricci RN) oxyCODONE (Roxicodone) immediate release tablet 5 mg(Linked Group 2) 5 mg, Oral, Every 4 hours PRN, Starting on Wed03/16/25 at 1108, Until Wed03/16/25 at 1458, Routine, Recovery (Phase I only), moderate pain 1137 (See Alternativ e - Provider: Ericka Ricci RN) sodium chloride 0.9 % flush 10 mL(Linked Group 1) 10 mL, Intravenous, As needed, Starting on Wed03/16/25 at 0608, Until Wed03/16/25 at 1458, Routine, Holding - Preprocedure, line care thrombin (recombinant) (Recothrom) topical solution (CANCELED) As needed, Starting on Wed03/16/25 at 0827, Until Wed03/16/25 at 1102, Routine 0827 (Given - Provid er: Raleigh Agee MD - Comment: on the field) Linked Groups Order Group 1: Insert peripheral IV (CANCELED) Once, On Wed03/16/25 at 0609, For 1 occurrence, Holding - Preprocedure And Saline lock IV (CANCELED) Once, On Wed03/16/25 at 0609, For 1 occurrence, Holding - Preprocedure And sodium chloride 0.9 % flush 10 mLJump to med 10 mL, Intravenous, Every 12 hours, First dose on Wed03/16/25 at 0700, Until Discontinued, Routine, Holding - Preprocedure And sodium chloride 0.9 % flush 10 mLJump to med 10 mL, Intravenous, As needed, Starting on Wed03/16/25 at 0608, Until Wed03/16/25 at 1458, Routine, Holding - Preprocedure, line care Group 2: oxyCODONE (Roxicodone) immediate release tablet 5 mgJump to med 5 mg, Oral, Every 4 hours PRN, Starting on Wed03/16/25 at 1108, Until Wed03/16/25 at 1458, Routine, Recovery (Phase I only), moderate pain Or oxyCODONE (Roxicodone) immediate release tablet 10 mgJump to med 10 mg, Oral, Every 6 hours PRN, Starting on Wed03/16/25 at 1108, Until Wed03/16/25 at 1458, Routine, Recovery (Phase I only), severe pain documented in this encounter Additional Health Concerns Assessment Noted Time PHQ-9 Depression Total Score: 0 02/16/20 8:23 AM EDT A fall risk assessment has been complete d for the patient 02/15/2025 8:24 AM EDT A Body Mass Index follow-up plan has been documented for the patient 03/07/2025 1:26 PM EDT documented as of this encounter Care Teams Manager Analytical Relationship Specialty Start Date End Date Sugey Nieto APRN [address] [place] [address] PCP - General 06/30/24 Jayshree Morales APRN [address] [place] [address] Nurse Practitioner Internal Medicine 08/19/22 Nissa Linn RN [facility] Registered Nurse Cardiology 08/19/22 Stiven Blair MD [address] [place] [address] Consulting Physician Pediatric Cardiology 09/30/22 Mekhi Aguirre MD [address] [place] [address] Consulting Physician Cardiology 02/03/23 documented as of this encounter
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
[2025-05-11 13:58] LABS: Chloride 106 mmol/L (98-107)
[2025-05-11 13:59] LABS: Albumin Level 5.1 g/dl (3.5-5.0); Potassium 4.4 mmoL/L (3.5-5.1); Sodium 139 mmol/L (136-145)
[2025-05-11 14:01] LABS: Alanine Aminotransferase 39 U/L (12-78); Anion Gap 14.4 mEq/L (5-15); Aspartate Amino Transferase 36 U/L (17-59); Blood Urea Nitrogen 12 mg/dl (9-20); Carbon Dioxide 23 mmol/L (22.0-30.0); Estimated Glomerular Filt Rate 93 ml/min (>60); GFR (African American) 113 ML/MIN (>60)
[2025-05-11 14:02] LABS: Albumin/Globulin Ratio 1.9 (1.1-1.8); Alkaline Phosphatase 114 U/L (38-126); Bilirubin,Total 0.7 mg/dl (0.2-1.3); Calcium 10.1 mg/dl (8.4-10.2); Globulin 2.7 g/dL (1.3-3.2); Glucose 113 mg/dl (74-100); Total Protein,Serum 7.8 g/dl (6.3-8.2)
[2025-05-11 15:13] LABS: Prostate Specific Ag Screen 0.4 ng/ml (0.0-4.0)
--- OUTSIDE RECORDS SUMMARY | 2025-05-14 09:49 | XMS_ITS | Clinical Summary ---
Author Organization [facility] Address [address] [place] [address] Phone Care Team Providers Care Telehealth Nurse Educator Name Role Phone Status, Fax Unavailable Conditions or Problems Problem Name Problem Code Onset Date Status Entry Date Provider Comment Standard Description Annotate Coronary artery disease (CAD) 22191377 (SNOMED CT) 01/02 Active 01/02 Tatyana Lee Coronary arteriosclerosi s Presence of prosthetic heart valve Z95.2 (ICD-10-CM ) 01/02 Active 01/02 Tatyana Jesus Presence of prosthetic heart valve Flexor tenosynoviti s, left hand/finger 350006959 (SNOMED CT) 01/02 Active 01/02 Tatyana Jesus Tenosynovitis of hand Cellulitis, finger, left 21065258 (SNOMED CT) 01/02 Active 01/02 Tatyana Jesus Cellulitis of finger Obesity due to excess calories E66.09 (ICD-10-CM ) 08/02 Resolved 08/02 Tatyana Jesus Other obesity due to excess calories Obesity, class 3, BMI 40 or greater E66.813 (ICD-10-CM ) 01/02 Active 01/02 Tatyana Jesus Obesity, class 3 MSSA infection 173932800 (SNOMED CT) 01/02 Active 01/02 Tatyana Jesus Infection by methicillin sensitive Staphylococcus aureus Abscess, paraspinal G06.1 (ICD-10-CM ) 07/22 Resolved 07/22 Tatyana Jesus Intraspinal abscess and granuloma Lumbar region, infected discitis (pyogenic) (document infectious agent) M46.36 (ICD-10-CM ) 07/22 Resolved 07/22 Tatyana Lee Infection of intervertebral disc (pyogenic), lumbar region Osteomyeliti s of lumbar vertebra 806052419 (SNOMED CT) 07/22 Resolved 07/22 Tatyana Jesus Osteomyelitis of vertebra Rhabdomyolys is 225005133 (SNOMED CT) 08/02 Resolved 08/02 Tatyana Jesus Rhabdomyolysis Infection following a procedure, superficial incisional surgical site, subsequent encounter(s) T81.41xD (ICD-10-CM ) 08/02 Resolved 08/02 Tatyana Jesus Infection following a procedure, superficial incisional surgical site, subsequent encounter Obesity due to excess calories E66.09 (ICD-10-CM ) 08/02 Removed 08/02 Tatyana Jesus Other obesity due to excess calories Nicotine dependence, cigarettes F17.210 (ICD-10-CM ) 08/02 Active 08/02 Tatyana Lee Nicotine dependence, cigarettes, uncomplicated DM II with diabetic polyneuropat hy E11.42 (ICD-10-CM ) 07/22 Active 07/22 Tatyana Jesus Type 2 diabetes mellitus with diabetic polyneuropathy Infection following a procedure, superficial incisional surgical site, subsequent encounter(s) T81.41xD (ICD-10-CM ) 08/02 Removed 08/02 Tatyana Jesus Infection following a procedure, superficial incisional surgical site, subsequent encounter Rhabdomyolys is 476576984 (SNOMED CT) 08/02 Removed 08/02 Tatyana Jesus Rhabdomyolysis Lumbar discitis 272569960 (SNOMED CT) 07/22 Resolved 07/22 Tatyana Jesus Lumbar discitis Benign Essential Hypertension 20586301 (SNOMED CT) 07/22 Active 07/22 Tatyana Jesus Benign hypertension Smoking cessation counseling 543706375 (SNOMED CT) 07/23 Active 07/23 Nicolasa Mayorga Procedure carried out on subject COPD 40116782 (SNOMED CT) 07/22 Active 07/22 Pearl Mohr Chronic obstructive pulmonary disease Lumbar discitis 803094432 (SNOMED CT) 07/22 Removed 07/22 Pearl Mohr Lumbar discitis Lumbar region, infected discitis (pyogenic) (document infectious agent) M46.36 (ICD-10-CM ) 07/22 Removed 07/22 Pearl Mohr Infection of intervertebral disc (pyogenic), lumbar region Osteomyeliti s of lumbar vertebra 847933605 (SNOMED CT) 07/22 Removed 07/22 Pearl Mohr Osteomyelitis of vertebra Abscess, paraspinal G06.1 (ICD-10-CM ) 07/22 Removed 07/22 Pearl Mohr Intraspinal abscess and granuloma Hypertension 18802021 (SNOMED CT) 07/22 Inactive 07/22 Pearl Mohr Hypertensive disorder Diabetes mellitus type II 96296365 (SNOMED CT) 07/22 Inactive 07/22 Pearl Mohr Type 2 diabetes mellitus Medications Medication Instructions Start Date Stop Date Generic Name NDC Provider TRAMADOL HCL 50 MG TABS 03/12 tramadol [id number] Ehsan Ashleyh ceftriaxone recon soln Rocephin 2G IV q24hrs -- BHI/LIDC dose, line care, labs 01/18 ceftriaxone recon dagoberto [facility] CEPHALEXIN 500 MG CAPS Take 2 capsule by mouth twice a day 01/16 cephalexin 78356591200 Vijay Guzman MD BISOPROLOL-HYDROCHLO ROTHIAZIDE 5-6.25 MG TABS by mouth once a day bisoprolol-hydrochl orothiazide 47266926735 Samir Linares FLUCONAZOLE 200 MG TABS Take 1 tablet by mouth once a day 01/09 fluconazole 73807185874 Vijay Guzman MD ceftriaxone recon soln Rocephin 2G IV q24hrs -- BHI/LIDC dose, line care, labs 01/18 ceftriaxone recon soln Karlie Navarrete CHANTIX 1 MG TABS by mouth twice a day 01/01 varenicline tartrate 91129579643 [facility] VARENICLINE TARTRATE (STARTER) 0.5 MG X 11 & 1 MG X 42 TBPK 1 mg, Oral, 2 Times Daily 01/01 varenicline tartrate 82306459413 [facility] DOCUSATE SODIUM 100 MG CAPS 100 mg, Oral, 2 Times Daily 01/01 docusate sodium 27222202829 [facility] JARDIANCE 10 MG TABS by mouth once a day 01/01 empagliflozin 59671137069 [facility] LISINOPRIL 20 MG TABS by mouth once a day 01/01 lisinopril 33188588951 [facility] GLYXAMBI 25-5 MG TABS daily 01/01 empagliflozin-linag liptin 44060804922 [facility] FISH OIL 500 MG CAPS 1000mg, Oral, Daily 01/01 omega 5-dzs-itd-fish oil 09433522513 [facility] METFORMIN HCL ER 750 MG [id number]-ETR 2 tablet by mouth once a day 01/01 metformin (glucophage xr) 93710424513 [facility] GABAPENTIN 600 MG TABS by mouth three times a day 01/01 gabapentin 06496562130 [facility] EPIPEN 2-CASIMIRO 0.3 MG/0.3ML SOAJ 01/01 epinephrine 66690516351 [facility] OXYCODONE HCL 5 MG TABS by mouth three times a day PRN 01/01 oxycodone 55514958277 [facility] ALBUTEROL SULFATE HFA 108 (90 Base) MCG/ACT AERS albuterol sulfate 42054943916 [facility] RYBELSUS 14 MG TABS 01/01 semaglutide 05833224671 [facility] PREGABALIN 200 MG CAPS 01/01 pregabalin 50412481219 [facility] PRAVASTATIN SODIUM 40 MG TABS 01/01 pravastatin 62654291369 [facility] HYDROCHLOROTHIAZIDE 12.5 MG TABS 01/01 hydrochlorothiazide 20582929712 [facility] FLUTICASONE PROPIONATE HFA 110 MCG/ACT AERO 01/01 fluticasone propionate 97497155601 Ehsan Stevenson TRAMADOL HCL 50 MG TABS Take 1 tablet by mouth every six hours as needed as directed 01/01 tramadol 52429964341 Ehsan Stevenson RYBELSUS 14 MG TABS semaglutide 16623576 430 Ehsan Stevenson JARDIANCE 10 MG TABS empagliflozin 93199 610133 Ehsan Stevenson HYDROCHLOROTHIAZIDE 12.5 MG TABS hydrochlorothiazide 59492827438 Av jairo Stevenson VARENICLINE TARTRATE (STARTER) 0.5 MG X 11 & 1 MG X 42 TBPK varenicline tartrate 72851559764 Ehsan Stevenson PREGABALIN 200 MG CAPS pregabalin 51116913729 Ehsan Stevenson EPINEPHRINE 0.3 MG/0.3ML SOAJ epinephrine 66625909723 Ehsan Stevenson METFORMIN HCL 1000 MG TABS metformin 96541537946 Ehsan Stevenson TRAMADOL HCL 50 MG TABS 03/12 tramadol 96660275830 Ehsan Stevenson PRAVASTATIN SODIUM 40 MG TABS pravastatin 22621179756 Ehsan Stevenson LISINOPRIL 20 MG TABS lisinopril 98759082879 Ehsan Stevenson OXYCODONE-ACETAMINOP HEN 7.5-325 MG TABS by mouth three times a day as needed 01/05 oxycodone-acetamino phen 68902808143 [facility] PRAVASTATIN SODIUM 20 MG TABS by mouth once a day 01/05 pravastatin 37741118046 Mackenzie Garciaguillaume OXYCODONE HCL 5 MG TABS by mouth three times a day PRN 01/01 oxycodone 12733486797 Mackenzie Walsh DOXYCYCLINE MONOHYDRATE 100 MG TABS Take 1 tablet by mouth twice a day 11/12 doxycycline monohydrate 98091205981 Vijay Verdin MD LEVOFLOXACIN 500 MG TABS Take 1 tablet by mouth once a day 11/12 levofloxacin 75608696874 Vijay Verdin MD DOXYCYCLINE MONOHYDRATE 100 MG TABS Take 1 tablet by mouth twice a day 10/13 doxycycline monohydrate 12276945962 Vijay Verdin MD LEVOFLOXACIN 500 MG TABS Take 1 tablet by mouth once a day 10/13 levofloxacin 97367349630 Vijay Verdin MD TEFLARO 400 MG SOLR Teflaro 600mg IV [id number]/ROSE BRUCE DOSE, LINE CARE, STAT LABS 07/28 ceftaroline fosamil 68387001679 Ericka Kwon RN LEVOFLOXACIN 500 MG TABS Take 1 tablet by mouth once a day 10/10 levofloxacin 00167429229 Vijay Verdin MD DOXYCYCLINE MONOHYDRATE 100 MG TABS Take 1 tablet by mouth twice a day 10/10 doxycycline monohydrate 95194173031 Vijay Verdin MD GLYXAMBI 25-5 MG TABS daily 01/01 empagliflozin-linag liptin 48449901675 Daisy Tejeda CELEBREX 200 MG CAPS 07/29 celecoxib 52072614069 Daisy Tejeda docusate sodium 100 mg tablet by mouth twice a day 07/29 docusate sodium 91983319435 Daisy Tejeda HYDROCHLOROTHIAZIDE 12.5 MG TABS by mouth once a day 07/29 hydrochlorothiazide 42043794843 Daisy Tejeda DOCUSATE SODIUM 100 MG CAPS 100 mg, Oral, 2 Times Daily 05/04 docusate sodium 49940297665 Daisy Tejeda omega 9-cio-dxq-fish oil unspecified unspecified 1000mg, Oral, Daily 01/01 omega 8-jte-nao-fish oil 16384192874 Daisy Tejeda varenicline 0.5 mg (11)- 1 mg (42) tablets,dose pack 1 mg, Oral, 2 Times Daily 01/01 varenicline 01417751347 Daisy Tejeda Cubicin unspecified unspecified Cubicin 500mg IV [id number]-OOW/CA RETENDERS 07/23 daptomycin 82414478246 Ericka Kwon RN CEFTRIAXONE SODIUM 1 GM SOLR Rocephin 2G IV [id number]-SAE/CA RETENDERS 07/23 ceftriaxone 02604448769 Ericka Kwon RN TEFLARO 400 MG SOLR Teflaro 600mg IV [id number]/LI DC DOSE, LINE CARE, STAT LABS 07/28 ceftaroline fosamil 60252060673 Ericka Kwon RN Cubicin unspecified unspecified Cubicin 500mg IV d00iru-TXX/CA RETENDERS 07/23 daptomycin 47783920448 Ericka Kwon RN CEFTRIAXONE SODIUM 1 GM SOLR Rocephin 2G IV a48ego-VIZ/CA RETENDERS 07/23 ceftriaxone 84144972991 Ericka Kwon RN BACLOFEN 20 MG TABS by mouth twice a day baclofen 24535152259 Nicolasa Mayorga BISOPROLOL-HYDROCHLO ROTHIAZIDE 2.5-6.25 MG TABS by mouth once a day 05/04 bisoprolol-hydrochl orothiazide 43536635280 Nicolasa Mayorga CELEBREX 200 MG CAPS 07/29 celecoxib 46526304124 Nicolasa Mayorga docusate sodium 100 mg tablet by mouth twice a day 07/29 docusate sodium 92347839577 Nicolasa Mayorga JARDIANCE 10 MG TABS by mouth once a day 01/01 empagliflozin 45067144824 Nicolasa Mayorga EpiPen 0.3 mg/0.3 mL auto-injector 01/01 epinephrine 93720748030 Nicolasa Mayorga GABAPENTIN 600 MG TABS by mouth three times a day 01/01 gabapentin 91753252038 Nicolasa Mayorga GLYXAMBI 25-5 MG TABS 07/29 empagliflozin-linag liptin 72560611009 Nicolasa Mayorga HYDROCHLOROTHIAZIDE 12.5 MG TABS by mouth once a day 05/04 hydrochlorothiazide 75059806175 Nicolasa Mayorga LISINOPRIL 20 MG TABS by mouth once a day 01/01 lisinopril 54607179833 Nicolasa Mayorga METFORMIN HCL ER 750 MG PI20N-NIJ 2 tablet by mouth once a day 01/01 metformin 99008548942 Nicolasa Mayorga OXYCODONE-ACETAMINOP HEN 7.5-325 MG TABS by mouth three times a day as needed 01/05 oxycodone-acetamino phen 69853175476 Nicolasa Mayorga PRAVASTATIN SODIUM 20 MG TABS by mouth once a day 01/05 pravastatin 32115836348 Nicolasa Mayorga Chantix 1 mg tablet by mouth twice a day 01/01 varenicline 38323613961 Nicolasa Mayorga Medications Administered No information available. Allergies, Adverse Reactions, Alerts Allergy Name Reaction Description Start Date Severity Statu s Provider LEVOFLOXACIN kidney issues Severe Active Av jairo Stevenson IBUPROFEN Moderate Active Ehsan Hea th CODEINE Moderate Active Ehsan Hea th ACETAMINOPHEN palpitations Severe Active Av jairo Stevenson HYDROCODONE and hives Moderate Active Ehsan H eath WASP VENOM PROTEIN swelling Moderate Active Ehsan Stevenson DAPTOMYCIN Rhabdomyolysis Moderate Active Hel en Tejeda MELOXICAM GI intolerance, abdominal pain Moderate Active Nicolasa Mayorga Results Date Name Value Unit Range Flag Description Office Visit: rm 5 CIGAR USE yes Tobacco smo adeline status CIGARET SMKG yes Tobacco smoking status Lab Report: CBC WITH AUTO DI FFERENTIAL [id number]-GE-[id number] 0.0 /100 WBC 0.0-0.2 GE use only - for [employer] import when terms are not otherwise specified IMMATUREGRAN 0.06 10*3/MM3 0.00-0.05 H Immature granulocytes [#/volume] in Blood BASO# 0.09 10*3/mm3 0.00-0.20 Basophils [#/vol ume] in Blood EOS ABSLT 0.32 10*3/uL 0.00-0.40 Eosinophi ls [#/volume] in Blood MONOSCT AUTO 0.70 10*3/uL 0.10-0.90 Monocy sachi [#/volume] in Blood by Automated count LYMPHCT AUTO 2.99 10*3/mm3 0.70-3.10 Lymph ocytes [#/volume] in Blood by Automated count ABS NEUTROPH 9.31 10*3/uL 1.70-7.00 H Neutro phils [#/volume] in Blood IMM GRANU % 0.4 % 0.0-0.5 Immature granulocytes/100 leukocytes in Blood % EOS AUTO 2.4 % 0.3-6.2 Eosinophil s/100 leukocytes in Blood by Automated count MONOCYTE % 5.2 % 5.0-12.0 Monocytes /100 leukocytes in Blood by Automated count LYMPHOCY BF 22.2 % 19.6-45.3 lymphoc ytes as percent of body fluid leukocytes NEUTROP BF 69.1 % 42.7-76.0 Neutroph ils/100 leukocytes in Body fluid PLATELETS 191 10*3/mm3 140-450 Platelets [#/volume] in Blood by Automated count RDW_ 13.2 12.3-15.4 RDW, no uni ts MCHC 33.1 G/DL 31.5-35.7 MCHC [Mass/ volume] by Automated count MCH 28.9 pg 26.6-33.0 MCH [Entiti c mass] by Automated count MCV 87.2 fL 79.0-97.0 MCV [Entiti c volume] by Automated count HCT 53.1 % 37.5-51.0 H Hematocrit [Volume Fraction] of Blood by Automated count HGB 17.6 g/dL 13.0-17.7 Hemoglobin [Mass/volume] in Blood RBC 6.09 10*6/mm3 4.14-5.80 H Erythrocyt es [#/volume] in Blood by Automated count WBC 13.47 10*3/mm3 3.40-10.8 0 H Leukocytes [#/volume] in Blood by Automated count Lab Report: SEDIMENTATION RA TE ESR 9 mm/h 0-15 Erythrocyte sedimentation rate by Westergren method Lab Report: C-REACTIVE PROTE IN CRP 0.83 mg/dL 0.00-0.50 H C reactive protein [Mass/volume] in Serum or Plasma Lab Report: COMPREHENSIVE ME TABOLIC PANEL ANIONGAP 13.0 mmol/L 5.0-15.0 anion gap, serum BUN/CREAT 13.4 7.0-25.0 Urea nitrogen/Creatinine [Mass Ratio] in Serum or Plasma BILI TOTAL 0.4 mg/dL 0.0-1.2 Bilirubin. total [Mass/volume] in Serum or Plasma ALK PHOS 115 U/L 39-117 Alkaline desean sphatase [Enzymatic activity/volume] in Blood SGOT (AST) 28 U/L 1-40 Aspartate aminotransferase [Enzymatic activity/volume] in Serum or Plasma SGPT (ALT) 43 U/L 1-41 H Alanine aminotransferase [Enzymatic activity/volume] in Serum or Plasma ALBUMIN 4.4 g/dL 3.5-5.2 Albumin [Mass/volume] in Serum or Plasma PROTEIN, TOT 7.1 g/dL 6.0-8.5 Protein [Mass/volume] in Serum or Plasma CALCIUM 10.0 mg/dL 8.6-10.5 Calcium [Moles/volume] in Serum or Plasma CO2 25.0 mmol/L 22.0-29.0 Carbon diox estela, total [Moles/volume] in Venous blood CHLORIDE 105 mmol/L 98-107 Chloride [Moles/volume] in Serum or Plasma POTASSIUM 4.4 mmol/L 3.5-5.2 Potassium [Moles/volume] in Serum or Plasma SODIUM 143 mmol/L 136-145 Sodium [Moles/volume] in Serum or Plasma CREATININE 0.82 mg/dL 0.76-1.27 Creatini ne [Mass/volume] in Serum or Plasma BUN 11 mg/dL 6-20 Urea nitrogen [Mass/volume] in Serum or Plasma GLUCOSE SER 109 mg/dL 65-99 H Glucose [Mass/volume] in Serum or Plasma Office Visit: Office Visit:iqra brush 7 MEDS REVIEW Done Documenta tion of current medications (procedure) ORALTOBACUSE Never Tobacco smoking status SMOK ADVICE yes Smoking c essation education (procedure) SMOK STATUS Current every day smoker Tobacco smoking status Plan of Care Type Date Detail Referral MRI Lumbar Spine with/without constrast Pending order Continue IV anti biotics Pending order Weekly PICC Line Care Pending order New Oral Antibio tic Pending order Continue IV anti biotics Pending order Weekly PICC Line Care Pending order Weekly Labs (Con tinue) Pending order CMP Pending order CBC w/o Differen tial Pending order C- reactive prot ein Pending order Sedimentation Ra te (ESR) Pending order STAT Labs Pending order CBC with Differe ntial Pending order CMP Pending order C- reactive prot ein Pending order Sedimentation Ra te (ESR) Pending order CBC with Differe ntial Pending order Sedimentation Ra te (ESR) Pending order C- reactive prot ein Pending order Continue oral an tibiotics Pending order Discontinue IV a ntibiotics Pending order New Oral Antibio tic Pending order PICC Removal Pending order Stat Weekly Labs Pending order Continue IV anti biotics Pending order Teflaro Pending order STAT Labs Pending order CBC with Differe ntial Pending order CMP Pending order C- reactive prot ein Pending order PICC Line Insert ion Pending order Continue IV anti biotics Pending order STAT Labs Pending order Weekly PICC Line Care Pending order STAT Labs Pending order Continue IV anti biotics Pending order Stat Weekly Labs Procedures Code Procedure Name Date Entry Date CPT-ca Continue IV antibiotics 2024 CPT-wpc Weekly PICC Line Care 01/09 CPT-cwl Weekly Labs (Continue) 01/09 CPT-30800 CMP CPT-05811 CBC w/o Differential CPT-28416 C- reactive protein CPT-24068 Sedimentation Rate (ESR) 202 03/23/18 CPT-sl STAT Labs [id number] CBC with Differential 2022 CPT-12103 CMP CPT-07033 C- reactive protein CPT-22609 Sedimentation Rate (ESR) 202 01/23/11 CPT-55351 MRI Lumbar Spine with/without constrast 2 [id number] CBC with Differential 2022 CPT-06776 Sedimentation Rate (ESR) 202 01/21/14 CPT-89907 C- reactive protein CPT-Cooral Continue oral antibiotics 20 13/10/22 CPT-DC Discontinue IV antibiotics 2 CPT-óscar New Oral Antibiotic CPT-PICREM PICC Removal CPT- stat weekly Stat Weekly Labs CPT-ca Continue IV antibiotics 2021 CPT-J0712 Teflaro CPT-sl STAT Labs [id number] CBC with Differential 2021 CPT-46995 CMP CPT-95885 C- reactive protein CPT-45182 PICC Line Insertion CPT-ca Continue IV antibiotics 2021 CPT-sl STAT Labs CPT-wpc Weekly PICC Line Care 08/13 CPT-sl STAT Labs CPT-ca Continue IV antibiotics 2021 CPT- stat weekly Stat Weekly Labs Vital Signs Date Name Value Unit Description BMI (Body Mass Index) 35.73 kg/m2 Bod y Mass Index (Ratio) Body Temperature 97.9 [degF] temperat ure E&M BP Diastolic 68 mm[Hg] blood pressu re, diastolic BP Systolic 110 mm[Hg] blood pressur e, systolic Heart Rate 87 /min pulse rate Height 68 [in_us] height E&M Respiratory Rate 16 /min respirat ory rate E&M Weight Measured 235 [lb_av] weight E& M Weight Measured 235 [lb_av] weight E& M Immunizations No information available. Advance Directives Directive Description Start Date NO ADVANCED DIRECTIVES ESTABLISHED 08/04
--- OUTSIDE RECORDS SUMMARY | 2025-05-14 09:50 | XMS_ITS | Data Portability ---
Author Organization [facility] SIENA Umaña NISSWA CLOSED Address [address] [place] [address] Care Team Providers Care Grinder Hand Name Role Phone PARISH FUENTES Referring Provider Assessment Encounter Date Assessment Date Assessment LastModified by Organization Details LastModified Time 04/20/2025 04/20/2025 Discussed with patient that he does have some evidence of flexor tendon adhesions as his passive mobility is better than his active motion. This may ultimately require flexor tenolysis. However he continues to have expected postoperative inflammation and swelling. I would like to wait until this is improved to increase her likelihood of success following surgery. I will have him resume hand therapy working on continued passive and active motion as well as edema control. Follow-up again in a month for repeat assessment. Ultimately should active motion fail to improve over time we would discuss proceeding with flexor tenolysis once his swelling/edema has sufficiently improved. bdevers Not available 04/20/2025 10:01:10 Plan of Treatment Reminders Order Date Submit Date Provider Last Modified By Organization Details Last Modified Time Details Appointments RECHECK 2024 09:45A M SIS VALLADARES MD Not available Not available Not available Lab None recorded . Referral None recorded . Procedures None recorded . Surgeries None recorded . Imaging None recorded . Medication Orders None recorded . Patient TargetsNo targets recorded. Patient InstructionsNo instructions recorded. Reason for Referral None Reported. Medical Equipment None Reported. Allergies Allergen ID Allergen Name Allergen Category Reaction Reaction Severity Criticality Documentation Date Start Date Code Code System Note Provider Name and Address Organization Details Recorded Time 472052 Tylenol medicatio n Not available Not available Not available 04/20/202588939 3 RxNorm Judson Dela Cruz [facility] 09:27:01 951375 adhesive tape environme nt,medica tion Not available Not available Not available 04/20/2025 12488 UNK Judson Dela Cruz [facility] 5 09:27:15 749811 codeine medicatio n Not available Not available Not available 04/20/2025 2670 RxNorm Judson [facility] 5 09:27:26 239300 daptomyci n medicatio n Not available Not available Not available 04/20/2025 06142 RxNorm Judson [facility] 5 09:27:37 474745 hydrocodo ne Not available Not available Not available Not available 04/20/2025 5489 RxNorm [facility] 5 09:27:47 739023 ibuprofen medicatio n Not available Not available Not available 04/20/2025 5640 RxNorm [facility] 5 09:27:56 Medications Name Sig Start Date Stop Date Status Note LastModified by Organization Details LastModified Time losartan 50 mg tablet TAKE ONE TABLET BY MOUTH ONCE A DAY active Not Available Not Available No t Available pravastati n 40 mg tablet TAKE 1 TABLET BY MOUTH ONCE A DAY active Not Available Not Available No t Available bisoprolol 5 mg-hydroch lorothiazi de 6.25 mg tablet TAKE 1 TABLET BY MOUTH ONCE A DAY active Not Available Not Available No t Available baclofen 20 mg tablet TAKE 1 TABLET BY MOUTH 2 TIMES A DAY active Not Available Not Available No t Available Ziac 10 mg-6.25 mg tablet Daily 04/20 completed Frequen cy: daily;M edicati on Descrip tion: bisopro lol-hyd rochlor othiazi de; Dosage: 1; Route:o ral; refills :5; Quantit y:30 tablet Not Available Not Available Not Available gabapentin 800 mg tablet TAKE 1 TABLET BY MOUTH 3 TIMES A DAY active Not Available Not Available No t Available metformin 1,000 mg tablet TAKE ONE TABLET BY MOUTH 2 TIMES A DAY active Not Available Not Available No t Available methylpred nisolone 4 mg tablets in a dose pack FOLLOWIN G Schedule ON PACKAGE INSTRUCT IONS 04/20 completed Not Available Not Available Not Available albuterol sulfate HFA 90 mcg/actuat ion aerosol inhaler INHALE 2 PUFFS BY MOUTH EVERY 6 HOURS NEEDED active Not Available Not Available No t Available oxycodone 5 mg tablet TAKE 1 TABLET BY MOUTH 2 TIMES A DAY active Not Available Not Available No t Available cyclobenza luis 5 mg tablet TAKE 1 TABLET BY MOUTH THREE TIMES DAILY 04/20 completed Not Available Not Available Not Available pregabalin 200 mg capsule TAKE ONE CAPSULE BY MOUTH 3 TIMES A DAY 04/20 completed Not Available Not Available Not Available Neurontin Three times a day 2010 active Instruc tions: 1 hs for nerve pain. May ^ q 7d if needed to 2 hs; 1 am, 2 hs; 2 am, 2 hs ;Freque ncy: tid;Alt Frequen cy: as direct. ;Medica tion Descrip tion: gabapen tin; Dosage: 1; Route:o ral; refills :5; Quantit y:90 Not Available Not Available Not Available vareniclin e tartrate 0.5 mg (11)-1 mg (42) tablets in a dose pack TAKE DIRECETE D 04/20 completed Not Available Not Available Not Available hydrochlor othiazide 12.5 mg tablet TAKE 1 TABLET BY MOUTH ONCE A DAY active Not Available Not Available No t Available Jardiance 10 mg tablet TAKE ONE TABLET BY MOUTH ONCE A DAY active Not Available Not Available No t Available Rybelsus 14 mg tablet TAKE ONE TABLET BY MOUTH ONCE A DAY active Not Available Not Available No t Available Vitals Date Recorded Body height Provider Name an d Address Organization Details Last Updated DateTime 04/20/2025 172.72 cm [facility] 09:26:42 Social History None recorded. Functional Status None recorded. Mental Status None recorded. Family History Nothing Reported. Medical History No medical history recorded. Past Encounters Encounter ID Performer Location Encounter Start Date Encounter Closed Date Diagnosis/Indication Diagnosis SNOMED-CT Code Diagnosis ICD10 Code Diagnosis Note [id number] SIS VALLADARES MD [facility] [address] [place] [address] 04/20/2025 09:19:29 04/20/2025 09:56:16 Disorder of tendon 35334524 M67.80 Left index finger flexor tendon adhesions Status post previous left index trigger finger release on 12/08/2024 complicate d by infection requiring incision and drainage of flexor tendon sheath on 12/28/2024, both by Dr. Fuentes Health Concerns Section Related Observation LastModified by Organization Detai ls LastModified Time None Recorded Concern Status LastModified by Organization Details LastModified Time None Recorded Advance Directives Directive None Recorded Payers Insurance Date Sequence Insurance Name Policy Number Policy Kirkpatrick Covered Member ID Kirkpatrick Member ID Guarantor Name 04/20/2025 3 [place] [id number] Judson Cornelius [id number] Judson Cornelius 04/20/2025 1 [facility] (MEDICARE REPLACEMENT/A DVANTAGE - HMO) [id number] Judson Cornelius [id number] Judson Adryan 04/20/2025 2 MEDICAID-[facility] CHOICES - FFS/TRADITION [place] Judson Corneilus [id number] Judson Cornelius Notes Date Note Type Note Provider Name and Address Organization Details Recorded Time text/htm l Patient is a 40-year-old eiaa-tiod-mwraqnvw male who is on disability. He presents today for evaluation of left index finger stiffness following previous surgical procedures for the finger. He initially underwent a index trigger finger release by Dr. Fuentes on 12/08/2024. This was complicated by postoperative infection requiring incision and drainage of the flexor tendon sheath, which was performed on 12/28/2024. He has gone on to clear the infection, but has residual stiffness in the finger felt to be related to flexor tendon adhesions. He is a diabetic. He has not been to therapy in 3 to 4 weeks as he recently had back surgery. Consult requested by: Parish Fuentes [facility] Physician: Hand dominance: LeftLocation: Left IF Pain level: 3 /10 Date of injury: 3 monthsDuration: Recent Surgery: YesProcedure: lt IF TFRDate of surgery: 12/08/2024Surgeon: Dr. Fuentes Procedure: I&D lt index finger flexor sheathDOS: 12/28/2024Surgeon: Dr. Fuentes In office procedure? No Previous upper extremity surgery? YesProcedure: Right cubital tunnel decompression with anterior transposition ; right arm adipofascial flap/local tissue rearrangement for ulnar nerve transpositionApproximate date of surgery: 04/28/2024Surgeon (if known): Dr. Fuentes Procedure: Rt CTRDOS: 4+ yearsSurgeon: Dr. Stinson Have you or any of your immediate family members been seen by our hand surgeons before? EMPLOYMENT STATUS: disabled Employer:Occupation: Is this injury associated with a Workers Compensation claim?Patient arrived in: taken off [employer] Professional Strength: right: left: New: Mr. Corneluis is here for eval of lt IF. Had surgery with Dr. Fuentes in Nov and Dec, but recently got new insurance and Dr. Fuentes is out of network.Op notes scanned in chart Enorses stiffness of the left IF. Still has intermittent locking. States that after his I&D he had similar symtpoms to before the TFR in Nov SIS VALLADARES MD [address] [place] [address], [id number], [facility] 04/20/2025 10:01:24
--- OUTSIDE RECORDS SUMMARY | 2025-05-14 09:50 | XMS_ITS | Continuity of Care Document ---
Author Organization [facility], [facility] Address [address] [facility] [place] [address] Care Team Providers Care Garage Laborer Name Role Phone PARISH FUENTES Referring Provider [...] Modified Time Details Appointments RECHECK 2024 09:45A Radha VALLADARES MD Not available Not available Not [...] Name and Address Organization Details Recorded Time 253211 Tylenol medicatio n Not available Not available Not available 04/20/202588234 3 RxNorm [facility] 09:27:01 393640 adhesive tape environme nt,medica tion Not available Not available Not available 04/20/2025 09796 UNK Judson Deal Cruz [facility] 5 09:27:15 333812 codeine medicatio n Not available Not available Not available 04/20/2025 2670 RxNorm Judson Dela Cruz [facility] 5 09:27:26 146777 daptomyci n medicatio n Not available Not available Not available 04/20/2025 54748 RxNorm Judson [facility] 5 09:27:37 755477 hydrocodo ne Not available Not available Not available Not available 04/20/2025 5489 RxNorm Judson [facility] 5 09:27:47 365029 ibuprofen medicatio n Not available Not available Not available 04/20/2025 5640 RxNorm [facility] 5 09:27:56 Medications Name Sig Start Date [...] Details Last Updated DateTime 04/20/2025 172.72 cm [facility] 09:26:42 Social History None recorded. Functional Status None recorded. Mental Status None recorded. Family History Nothing Reported. Medical History No medical history recorded. Past Encounters Encounter ID Performer Location Encounter Start Date Encounter Closed Date Diagnosis/Indication Diagnosis SNOMED-CT Code Diagnosis ICD10 Code Diagnosis Note [id number] SIS VALLADARES MD ORTHOPEDI [address] [place] [address] 04/20/2025 09:19:29 04/20/2025 09:56:16 Disorder of tendon 32497382 M67.80 Left index finger flexor tendon adhesions Status post previous left index trigger finger release on 12/08/2024 complicate d by infection requiring incision and drainage of flexor tendon sheath on 12/28/2024, both by Dr. Fuentes Health Concerns Section Related Observation LastModified by Organization Detai ls LastModified Time None Recorded Concern Status LastModified by Organization Details LastModified Time None Recorded Payers Encounter Date Sequence Insurance Name Policy Number Policy Kirkpatrick Covered Member ID Kirkpatrick Member ID Guarantor Name 04/20/2025 2 MED[facility]ID-[facility] CHOICES - FFS/TRADITION [place] Judson Cornelius [id number] Judson Cornelius 04/20/2025 1 [facility] (MEDICARE REPLACEMENT/A DVANTAGE - HMO) JUDYDINA Knox Adryan [id number] Judson Cornelius Notes Date Note Type Note Provider Name and Address Organization Details Recorded Time 5 text/htm l Patient is a 40-year-old gcok-twuc-yeqnzlnx male who is on disability. He presents [...] back surgery. Consult requested by: Parish Fuentes [facility] Physician: Hand dominance: LeftLocation: Left IF [...] Workers Compensation claim?Patient arrived in: taken off [employer] Chemist Strength: right: left: New: Mr. Cornelius is here for eval of lt IF. Had surgery with Dr. Fuentes in Nov and Dec, but recently got new insurance and Dr. Fuentes is out of network.Op notes scanned in chart Enorses stiffness of the left IF. Still has intermittent locking. States that after his I&D he had similar symtpoms to before the TFR in Nov SIS VALLADARES MD [address] [place], [address], [facility] 04/20/2025 10:01:24
--- OUTSIDE RECORDS SUMMARY | 2025-05-14 09:50 | XMS_ITS | Encounter Summary ---
Author Organization [facility] Address [address] [place] [address] Care Team Providers Care Supervisor Public Message Service Name Role Phone Chandrakant Hopson MD Primary Care Provider [phone] Susanna Patel RN Unavailable Unavailable Jayshree Morales WOOD MACHINIST APPRENTICE Unavailable [phone] Nissa Linn RN Unavailable Unavailable Stiven Blair MD Unavailable Mekhi Aguirre MD Unavailable [phone] Sugey Nieto WOOD MACHINIST APPRENTICE Primary Care Provider [phone] Encounter Details Date Type Department Care Team (Late st Contact Info) Description 12/23/2023 Orders Only External Location [address] [place] [id number] Provider, External Social History Tobacco Use Types Packs/Day Years Used Date Smoking Tobacco: Every Day Cigarettes 0.3 29.1 Started: 04/25/1996 Smokeless Tobacco: Never Comments:Down to smoking 2-3 cigarettes per day while on Chantix starter dmitry Alcohol Use Standard Drinks/Week Comments Not Currently 0 (1 standard drink = 0.6 oz pur e alcohol) PHQ-2 Answer Date Recorded Patient Health Questionnaire-2 Score 0 07/01/2023 CAGE ASSESSMENT Answer Date Recorded Cage unable to access Not on file 07/18/2022 Cage max number of drinks Not on file 2021 Cage Beverages a week Not on file 07/18/2022 Have you ever felt you should CUT down on your d rinking? 0 07/18/2022 Cage questionnaire annoyed Not on file 07/18 Cage questionnaire guilty Not on file 2021 Cage questionnaire eye councilor Not on file Cage Overall score Not on file 07/18/2022 PHQ-2A Answer Date Recorded Patient Health Questionnaire-2 Score 0 07/01/2023 Sex and Gender Information Value Date Recorded Sex Assigned at Not on file Legal Sex Male 6:14 PM EDT Gender Identity Not on file Sexual Orientation Not on file documented as of this encounter Plan of Treatment Upcoming Encounters Date Type Department Care Team (Late st Contact Info) Description 05/18/2025 12:20 PM EDT Office Visit [facility] [address] [place] [address] Candace Ferris, WOOD MACHINIST APPRENTICE [address] [place] [address] 02/14/2026 9:30 AM EDT Appointment Cardiac Imaging [address] [place] [address] 02/14/2026 11:40 AM EDT Office Visit [facility] [address] [place] [address] Colleen Culver MD [address] [place] [address] documented as of this encounter Procedures Procedure Name Priority Date/Time Associated Diagnosis Comments MR NEURO OUTSIDE IMAGES 12/23/2023 3:07 PM EST documented in this encounter Results * MR NEURO OUTSIDE IMAGES (12/23/2023 3:07 PM EST) Anatomical Region Laterality Modality Magnetic Resonan ce 12/23/2023 3:07 PM EST us External Provider IMG MRI PROCEDURES Final Resul t documented in this encounter Visit Diagnoses Not on filedocumented in this encounter Additional Health Concerns Assessment Noted Time A fall risk assessment has been complete d for the patient 07/01/2023 12:10 PM EDT A Body Mass Index follow-up plan has been documented for the patient 07/01/2023 12:58 PM EDT documented as of this encounter Care Teams Supervisor Public Message Service Relationship Specialty Start Date End Date Chandrakant Hopson MD [facility] [place] [address] PCP - General 08/28/21 06/29/24 Sugey Nieto, WOOD MACHINIST APPRENTICE [address] [place] [address] PCP - General 06/30/24 Susanna Patel, RN [facility] Registered Nurse 08/19/22 03/15/25 Jayshree Morales, WOOD MACHINIST APPRENTICE [address] [place] [address] Nurse Practitioner Internal Medicine 08/19/22 Nissa Linn RN [facility] Registered Nurse Cardiology 08/19/22 Stiven Blair MD [address] [place] [address] Consulting Physician Pediatric Cardiology 09/30/22 Mekhi Aguirre MD [address] [place] [address] Consulting Physician Cardiology 02/03/23 documented as of this encounter
--- OUTSIDE RECORDS SUMMARY | 2025-05-14 09:50 | XMS_ITS | Encounter Summary ---
Author Organization Healthcare Address [address] [place] [address] Care Team Providers Care Manager Philosophy Name Role Phone Susanna Patel RN Unavailable Unavailable Jayshree Morales AIR CONDITIONING ENGINEER Unavailable [phone] Nissa Linn RN Unavailable Unavailable Stiven Blair MD Unavailable Mekhi Aguirre MD Unavailable [phone] Sugey Nieto AIR CONDITIONING ENGINEER Primary Care Provider [phone] Encounter Details Date Type Department Care Team (Late st Contact Info) Description 08/09/2024 Orders Only External Location [address] [place] [address] Provider, External Social History Tobacco Use Types [...] Not on file 2021 Cage questionnaire eye warranty clerk Not on file Cage Overall score Not [...] Description 05/18/2025 12:20 PM EDT Office Visit [facility] [address] [place] [address] Candace Ferris, AIR CONDITIONING ENGINEER [address] [facility] [address] [place] [address] 02/14/2026 9:30 AM EDT Appointment Cardiac Imaging [address] [place] [address] 02/14/2026 11:40 AM EDT Office Visit [facility] [address] [place] [address] Colleen Culver MD [address] [place] [address] documented as of this encounter Procedures Procedure Name Priority Date/Time Associated Diagnosis Comments MR NEURO OUTSIDE IMAGES 08/09/2024 2:26 PM EDT documented in this encounter Results * MR NEURO OUTSIDE IMAGES (08/09/2024 2:26 PM EDT) Anatomical Region Laterality Modality Magnetic Resonan ce 08/09/2024 2:26 PM EDT us External Provider IMG MRI PROCEDURES Final Resul t documented in this encounter Visit Diagnoses Not on filedocumented in this encounter Additional Health Concerns Assessment Noted Time A fall risk assessment has been complete d for the patient 07/01/2023 12:10 PM EDT A Body Mass Index follow-up plan has been documented for the patient 06/30/2024 10:39 AM EDT documented as of this encounter Care Teams Manager Philosophy Relationship Specialty Start Date End Date Sugey Nieto, AIR CONDITIONING ENGINEER [address] [place] [address] PCP - General 06/30/24 Susanna Patel, RN [facility] Registered Nurse 08/19/22 03/15/25 Jayshree Morales APRN [address] [place] [address] Nurse Practitioner Internal Medicine 08/19/22 Nissa Linn, RN [facility] Registered Nurse Cardiology 08/19/22 Stiven Blair MD [address] [place] [address] Consulting Physician Pediatric Cardiology 09/30/22 Mekhi Aguirre MD [address] [place] [address] Consulting Physician Cardiology 02/03/23 documented as of this encounter
--- OUTSIDE RECORDS SUMMARY | 2025-05-14 09:50 | XMS_ITS | Clinical Summary ---
Author Organization [employer] Address [address] [place] [address] Care Team Providers Care Mexican Food Maker Hand Name Role Phone NietoSugey galloway APRN Primary Care Provider Allergies Active Allergy Reactions Criticality Noted Date Comments Daptomycin Other (See Comments) 07/25/2022 Rhabdomyolysis Levofloxacin Other (See Comments) 07/30/2023 Kidney issues Meloxicam Nausea And Vomiting, Other (See Comments) Medium 02/17/2022 Abdominal pain Venom-Wasp Swelling High 03/09/2023 Medications baclofen (LIORESAL) 20 MG tablet Take 1 tablet (20 mg total) by mouth daily. 3 Active bisoprolol-hydr oCHLOROthiazide (ZIAC) 2.5-6.25 mg per tablet Take 1 tablet by mouth daily. 3 Active empagliflozin (JARDIANCE) 10 mg tablet Take by mouth. Activ e gabapentin (NEURONTIN) 600 MG tablet Take 800 mg by mouth in the morning and 800 mg before bedtime. 3 Active hydroCHLOROthia zide (HYDRODIURIL) 12.5 MG tablet Take 1 tablet (12.5 mg total) by mouth daily. 3 Active lisinopriL (PRINIVIL,ZESTR IL) 20 MG tablet Take 1 tablet (20 mg total) by mouth daily. 3 Active metFORMIN (GLUCOPHAGE-XR) 750 MG 24 hr tablet Take 1 tablet (750 mg total) by mouth daily. 3 Active oxyCODONE (ROXICODONE) 5 MG immediate release tablet Take 1 tablet (5 mg total) by mouth 2 (two) times daily as needed. Active ipratropium/alb uterol sulfate (COMBIVENT RESPIMAT INHL) as needed. Acti ve EPINEPHrine (EPIPEN) 0.3 mg/0.3 mL AtIn epinephrine 0.3 mg/0.3 mL injection, auto-injector Active fluticasone propionate (FLOVENT HFA) 110 mcg/actuation inhaler Inhale 1 puff by mouth via inhaler 2 (two) times daily. Active semaglutide (Rybelsus) 7 mg Tab Take 7 mg by mouth daily. Active pravastatin (PRAVACHOL) 20 MG tablet Take 1 tablet (20 mg total) by mouth daily. 3 Active Active Problems Problem Noted Date Diagnosed Date Smoker 08/10/2023 Spinal stenosis 08/10/2023 Arrhythmia 08/10/2023 Preop examination 07/31/2023 Unstable right ankle 07/31/2023 Chronic pain of right ankle 07/31/2023 Asthma 07/31/2023 Type 2 diabetes mellitus, [facility] long-term current use of insulin 07/31/2023 Primary hypertension 07/31/2023 SHEMAR treated with BiPAP 07/31/2023 Obesity (BMI 30-39.9) 07/31/2023 Chronic back pain 07/31/2023 Adult congenital heart disease 07/31/2023 History of general anesthesia complication 07/31 Emphysema lung 07/31/2023 Leukocytosis 07/31/2023 History of aortic valve disorder Overview (08/10/2023): age 2 Family History Medical History Relation Name Comments Hyperlipidemia Father Brain cancer Mother Relation Name Status Comments Father Alive Mother Social History Tobacco Use Types Packs/Day Years Used Date Smoking Tobacco: Every Day Cigarettes Smokeless Tobacco: Never Tobacco Cessation:Ready to Q uit: Not Asked; Counseling Given: Not Answered Alcohol Use Standard Drinks/Week Comments Never 0 (1 standard drink = 0.6 oz pur e alcohol) Interpersonal Safety Answer Date Record ed Family or friends hurt you Not on file 12/04 Family or friends insult you Not on file Family or friends threaten you Not on file 0 12/04/2023 Family or friends scream or curse at you Not on file 12/04/2023 Housing Stability Answer Date Recorded Living situation today Not on file Living situation problems Not on file 2023 Food Insecurity Answer Date Recorded Food run out past 12 months Not on file 11/22 Food did not last past 12 months Not on file 12/04/2023 Employment Answer Date Recorded Help finding and keeping a job Not on file 0 12/04/2023 Family and Community Support Answer Sukhdeep e Recorded Help with Day to Day Activities Not on file 12/04/2023 Feeling Lonely or Isolated Not on file 12/04 Educational Attainment Answer Date Tino rded Speak language other than Indonesian at home Not on file 12/04/2023 Want help with school or training Not on file 12/04/2023 Depression Answer Date Recorded PHQ-2 Risk Not on file 12/04/2023 Disabilities Answer Date Recorded Difficulty concentrating Not on file 024 Difficulty doing errands alone Not on file 0 12/04/2023 Substance Use Answer Date Recorded Used prescription meds for non-medical reasons N ot on file 12/04/2023 Used illegal drugs past 12 months Not on file 12/04/2023 Sex and Gender Information Value Date Recorded Sex Assigned at Not on file Legal Sex Male 8:59 AM CDT Gender Identity Not on file Sexual Orientation Not on file Last Filed Vital Signs Vital Sign Reading Time Taken Comments Blood Pressure 120/70 08/10/2023 12:04 PM EDT Pulse 75 08/10/2023 12:04 PM EDT Temperature 36.4 C (97.5 F) 08/10/2023 11:56 AM EDT Respiratory Rate 16 08/10/2023 12:04 PM EDT Oxygen Saturation 93% 08/10/2023 12:04 PM EDT Inhaled Oxygen Concentration - - Weight 98 kg (216 lb) 08/10/2023 8:26 AM EDT Height 173.4 cm (5' 8.25 ) 08/10/2023 8:26 AM ED T Body Mass Index 32.6 08/10/2023 8:26 AM EDT Plan of Treatment Health Maintenance Due Date Last Done Comments Medicare Initial AWV G0438 Diabetic Kidney Health Evaluation (KED) 1984 Diabetic Eye Exam 01/29/1994 Diabetic foot exam 01/29/1994 Depression Screening (12+) 1996 HIV Screening 01/29/1999 Hepatitis C Screening 01/29/2002 Pneumococcal Vaccine: 0-49 Y ears (1 of 2 - PCV) 01/29/2003 Lipid Panel 01/29/2019 Hemoglobin A1C 01/28/2024 07/30/2023, 03/09/2023 COVID-19 VACCINE ( - season) 2024 Tobacco Cessation Counseling and Screening (12+) 08/10/2024 08/10/2023 Influenza Vaccine (Season Ended) 2025 08/30/20 17 DTAP/TDAP/TD VACCINES (2 - Td or Tdap) 05/11/2032 Procedures Procedure Name Priority Date/Time Associated Diagnosis Comments HEMOGLOBIN A1C Routine 07/30/2023 9:37 AM EDT Preop examination from Last 3 Months or Most Recently Relevant to Health Maintenance Results * Hemoglobin A1c (07/30/2023 9:37 AM EDT) Hemoglobin A1C 5.7 4.2 - 6.3 % 07/30/2023 12:14 PM EDT [facility] Comment: Hemoglobin A1C levels are related to mean glucose during the preceding 2-3 months. Less than 7% demonstrates glycemic control in diabetic patients. Hemoglobin AlC % Suggested Diagnosis > or = 6.5 Diabetic 5.7 - 6.4 Prediabetic <5.7 Non-diabetic eAVG Glucose 116.89 mg/dL 07/30/2023 12:14 PM EDT [facility] Blood Venipuncture / Unknown 07/30/2023 9:37 AM EDT 07/30/2023 9:43 AM EDT Yazan Sharma MD LAB BLOOD ORDERABLES Marjorie madsen Result [facility] [address] [place] [address], [facility] [phone] from Last 3 Months or Most Recently Relevant to Health Maintenance Insurance O MAP Care Teams Mexican Food Maker Hand Relationship Specialty Start Date End Date Sugey Nieto, QUALITY MANAGEMENT NURSE [address] [address] PCP - General Nurse Practitioner 03/05/23
--- OUTSIDE RECORDS SUMMARY | 2025-05-14 09:51 | XMS_ITS | Data Portability ---
Author Organization [facility] [place] [facility] [place] Address [address] [place] [id number] Care Team Providers Care Rv Body Mechanic Name Role Phone KENTRELL GREYNIE Primary Care Provider Assessment Encounter Date Assessment Date Assessment LastModified by Organization Details LastModified Time 01/01/2023 01/01/2023 37 yo male with history of hepatosplenomegaly with historically normal hepatic function labs. Transaminitis workup was unremarkable. Will repeat labs per below. Check US liver and hepatic vein doppler. Patient plans to have these done at [facility]. f/u 5 weeks te to go over results [email or web address] Not available 01/01/2023 09:44:01 03/04/2023 03/04/2023 38 yo male with history of hepatosplenomegaly with historically normal hepatic function labs. Transaminitis workup was unremarkable. Suspect NAFLD. Liver ultrasound showed fatty liver. The patient reports his PCP checks his labs every 3 months due to his diabetes. I recommend he have CMP q 6 months and annual follow-up with our clinic. 1) NAFLD -Educated on diet/exercise -Educated on mediterranean diet or intermittent fasting. Increasing low carb, high protein diet -Avoid alcohol -Avoid NSAIDs -Do not exceed 2gm tylenol daily annual follow up [email or web address] Not available 03/04/2023 17:44:06 Plan of Treatment Reminders Order Date Submit Date Provider Last Modified By Organization Details Last Modified Time Details Appointments None recorded. Lab CMP, serum or plasma 2022 023 [facility] (Lab), [address] [place] [address] [address], [place], [id number], 02/10/202 3 14:18:37 CBC 2022 023 [facility], [address] [place] [address] [address], [place], [id number], 3 09:18:07 PT/INR 2022 023 [facility] (Lab), [address] [place] [address] [address], [place], [id number], 3 13:23:42 nonalcohol ic steatohepa titis + fibrosis panel, serum or plasma 2022 023 [facility] (Lab), [address] [place] [address] [address], [place], [id number], 3 05:35:15 Referral None recorded. Procedures None recorded. Surgeries None recorded. Imaging US, duplex, hepatic vein 2022 023 [facility] (Scheduling), [address] [place], [place] [address], [place], [id number], 3 22:24:43 US, liver 2022 023 [facility] (Scheduling), [address] [place], [place] [address], [place], [id number], 3 11:09:38 Medication Orders None recorded. Patient TargetsNo targets recorded. Patient InstructionsNo instructions recorded. Reason for Referral None Reported. Results Created Date Observation Date Name Description Value Unit Range Abnormal Flag Note LastModifiedBy Organization Detail LastModifiedTime 02/23/20 23 02/22/2023 US, liver No observ ation record ed. [address], [place], [id number], 04/14/2023 22:23:40 02/23/20 23 02/22/2023 US, duple x, hepat ic vein No observ ation record ed. [address] (Scheduling) [address], [place], [address], 04/14/2023 22:24:43 Result Notes None recorded. Problems Name Problem SNOMED Code Status Onset Date Resolution Date Notes Provider Name and Address Organization Details Recorded Time Hepatosplenome manuel 86187907 Active 2022 Stevenson Smith PA-C [address] [facility], [place], [address] , [facility] & [place] 3 09:13:27 Problem Notes None recorded. Procedures Surgical History Date Name Laterality Status Provider Name and Address Organization Details Recorded Time 2 Back Surgery completed Octavia Hernandezady Roman [facility] & [place] 03/04/2023 14:53:39 Imaging Results None recorded. Procedure Notes None recorded. Medical Equipment None Reported. Allergies No known drug allergies Medications Name Sig Start Date Stop Date Status Note LastModified by Organization Details LastModified Time cyclobenzapr ine 10 mg tablet active Not Available Not Available Not Available gabapentin 600 mg tablet active Not Available Not Available Not Available Normal Saline Flush 0.9 % injection syringe 12/29 completed Not Available Not Available Not Available pravastatin 40 mg tablet active Not Available Not Available Not Available hydrocodone 5 mg-acetamino phen 325 mg tablet active Not Available Not Available Not Available lisinopril 20 mg tablet active Not Available Not Available Not Available gabapentin 400 mg capsule 01/01 completed Not Available Not Available Not Available niacin ER 500 mg tablet,exten ded release 24 hr active Not Available Not Available Not Available sulfamethoxa zole 800 mg-trimethop rim 160 mg tablet active Not Available Not Available Not Available doxycycline monohydrate 100 mg tablet active Not Available Not Available Not Available bisoprolol 2.5 mg-hydrochlo rothiazide 6.25 mg tablet active Not Available Not Available Not Available baclofen 20 mg tablet active Not Available Not Available No t Available Celebrex 200 mg capsule Take 1 capsule every day by oral route. active Not Available Not Available No t Available oxycodone-ac etaminophen 5 mg-325 mg tablet active Not Available Not Available Not Available hydromorphon e 2 mg tablet active Not Available Not Available Not Available methocarbamo l 750 mg tablet active Not Available Not Available Not Available tamsulosin 0.4 mg capsule active Not Available Not Available Not Available cephalexin 500 mg capsule active Not Available Not Available Not Available metformin 1,000 mg tablet active Not Available Not Available Not Available docusate sodium 100 mg capsule active Not Available Not Available N ot Available gabapentin 300 mg capsule active Not Available Not Available Not Available pravastatin 20 mg tablet active Not Available Not Available Not Available mupirocin 2 % topical ointment 12/29 completed Not Available Not Available Not Available epinephrine 0.3 mg/0.3 mL injection, auto-injecto r active Not Available Not Available Not Available levofloxacin 500 mg tablet active Not Available Not Available Not Available oxycodone-ac etaminophen 7.5 mg-325 mg tablet active Not Available Not Available No t Available albuterol sulfate HFA 90 mcg/actuatio n aerosol inhaler active Not Available Not Available Not Available cefdinir 300 mg capsule active Not Available Not Available N ot Available Microlet Lancet active Not Available Not Available Not Available ceftriaxone 2 gram solution for injection active Not Available Not Available No t Available oxycodone 5 mg tablet active Not Available Not Available No t Available metformin ER 750 mg tablet,exten ded release 24 hr active Not Available Not Available Not Available daptomycin 500 mg intravenous solution active Not Available Not Available Not Available varenicline tartrate 0.5 mg (11)-1 mg (42) tablets in a dose pack active Not Available Not Available Not Available hydrochlorot hiazide 12.5 mg tablet active Not Available Not Available No t Available diclofenac 1 % topical gel active Not Available Not Available Not Available Teflaro 600 mg intravenous solution 12/29 completed Not Available Not Available Not Available Antiseptic Skin Cleanser (chlorhexidi ne) 4 % liquid 01/01 completed Not Available Not Available Not Available Contour Next Test Strips active Not Available Not Available Not Available Jardiance 10 mg tablet active Not Available Not Available No t Available Jardiance 25 mg tablet active Not Available Not Available No t Available Glyxambi 25 mg-5 mg tablet active Not Available Not Available Not Available OneTouch Ultra2 Meter active Not Available Not Available Not Available OneTouch Delica Plus Lancet 33 gauge active Not Available Not Available Not Available Rybelsus 7 mg tablet active Not Available Not Available No t Available Rybelsus 3 mg tablet active Not Available Not Available No t Available Vitals Date Recorded Heart rate Systolic blood pressure Diastolic blood pressure Provider Name and Address Organization Details Last Updated DateTime 01/01/2023 77 /min 139 mm[Hg] 79 mm[Hg] [facility] [place] 01/01/2023 08:56:32 Date Recorded Body weight Heart rate Systolic blood pressure Diastolic blood pressure Provider Name and Address Organization Details Last Updated DateTime 03/04/2023 824943.72 g 99 /min 172 mm[Hg] 80 mm[Hg] [facility] [place] 03/04/2023 15:24:05 Social History Question Answer Notes LastModified by Organizat ion Details LastModified Time Tobacco Smoking Status Current Some Day Smoker Octavia Hernandezady Roman [facility] & [place] 03/04/2023 14:53:39 Do You Have An Advance Directive? No Information not available 03/04/2023 Are You Blind Or Do You Have Difficulty Seeing? No Information not available 03/04/2023 What Was The Date Of Your Most Recent Tobacco Screening? 02/28/2022 Information not available 03/04/2023 Are You Passively Exposed To Smoke? Yes Information not available 03/04/2023 How Much Tobacco Do You Smoke? 0.5 PPD Information not available 03/04/2023 How Many Years Have You Smoked Tobacco? 15 Information not available 03/04/2023 Sex: Male Functional Status Question Answer Note LastModified by Organizat ion Details LastModified Time Do you use any illicit or recreational drugs? No Information not available 03/04/2023 What is your level of alcohol consumption? Occasional Information not available 03/04/2023 Do you or have you ever used smokeless tobacco? Never used smokeless tobacco Information not available 03/04/2023 What is your exercise level? Occasional Information not available 03/04/2023 Mental Status Question Answer Note LastModified by Organizat ion Details LastModified Time Do you feel stressed (tense, restless, nervous, or anxious, or unable to sleep at night)? [id number] Information not available 03/04/2023 Family History Nothing Reported. Medical History Condition Response Diabetes Y Arthritis Y Kidney or Bladder Problems Y High Cholesterol Y Heart Disease Y Spine Problems Y Headaches Y Hypertension Y Obstructive Sleep Apnea Y Immunizations Vaccine Type Date Status Note Provider Rene manrique and Address Organization Details Recorded Time Influenza, split virus, quadrivalent, preservative 7 completed Octavia Roman null, [place] - [facility] & [place] 03/04/2023 14:53:48 MMR 6 completed Octavia Roman null, [place] - [facility] [place] [facility] [place] 03/04/2023 14:53:48 Tdap 2 completed Octavia Roman null, [place] - [facility] & [place] 03/04/2023 14:53:48 Hep B, adolescent/high risk infant 6 completed Octavia Roman null, [place] - [facility] & [place] 03/04/2023 14:53:48 Hep B, adolescent/high risk 6 completed Octavia Roman null, [place] - [facility] & [place] 03/04/2023 14:53:48 Past Encounters Encounter ID Performer Location Encounter Start Date Encounter Closed Date Diagnosis/Indication Diagnosis SNOMED-CT Code Diagnosis ICD10 Code Diagnosis Note [id number] Stevenson Smith PA-C [facility] [address] [address] 01/01/2023 08:45:43 01/01/2023 09:22:30 Hepatosplenomegaly 50746851 R16.2 [id number] Stevenson Smith PA-C [facility] [address] [address] 03/04/2023 15:07:15 03/04/2023 15:49:35 Hepatosplenomegaly 17886533 R16.2 Non-alcoho lic fatty liver 185056997 K76.0 Health Concerns Section Related Observation LastModified by Organization Detai ls LastModified Time None Recorded Concern Status LastModified by Organization Details LastModified Time None Recorded Advance Directives Directive N: Payers Insurance Date Sequence Insurance Name Policy Number Policy Kirkpatrick Covered Member ID Kirkpatrick Member ID Guarantor Name 03/07/2024 2 MEDICAID-[facility] CHOICES - FFS/TRADITIO NAL Judson Knox Adryan [id number] Judson Knox Bemiss 02/28/2023 1 [employer] (MEDICARE REPLACEMENT/ ADVANTAGE - PPO) Judson Knox Adryan [id number] Judson Knox Adryan 03/03/2024 1 [place] [id number] Judson Knox Bemiss [id number] Judson Knox Bemiss Notes Date Note Type Note Provider Name and Address Organization Details Recorded Time 3 text/html Pleasant 37-year-old male with history hepatosplenomegaly referred to the office today for follow-up. Prior workup of possible autoimmune, viral, metabolic, and hereditary causes of liver disease was unremarkable. Hepatic function labs are historically within normal limits. US Doppler was previously ordered last year however the patient did not have this performed and did not follow up thereafter. He has undergone multiple back surgeries over the past year and did have an abscess develop in his back that he is seeing ID for due to need for antibiotic therapy. He is prescribed opioids for chronic pain. He reports being hospitalized with renal failure last summer. He denies abdominal pain, constipation, diarrhea, nausea, vomiting, hematemesis, melena, or hematochezia. Stevenson Smith PA-C [address] [facility], [place], [address], [facility] - [facility] [place] [facility] [place] 01/01/2023 09:44:14 3 text/html PREVIOUS (01/01/23): Pleasant 37-year-old male with history hepatosplenomegaly referred to the office today for follow-up. Prior workup of possible autoimmune, viral, metabolic, and hereditary causes of liver disease was unremarkable. Hepatic function labs are historically within normal limits. US Doppler was previously ordered last year however the patient did not have this performed and did not follow up thereafter. He has undergone multiple back surgeries over the past year and did have an abscess develop in his back that he is seeing ID for due to need for antibiotic therapy. He is prescribed opioids for chronic pain. He reports being hospitalized with renal failure last summer. He denies abdominal pain, constipation, diarrhea, nausea, vomiting, hematemesis, melena, or hematochezia. CURRENT: Mr. Cornelius is a 38-year-old male who presents today for follow-up of NAFLD. He recently underwent US liver which showed fatty infiltration without liver lesion seen. LFTs have remained WNL. 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 He reports eating protein shakes in the summer to help with weight loss. He is unable to exercise at this time due to a torn ligament in his ankle, for which he is scheduled for surgical repair. Stevenson Smith PA-C [address], [place], [address], [facility] - [place] [facility] [place] & [place] 03/04/2023 17:44:31
--- OUTSIDE RECORDS SUMMARY | 2025-05-14 09:51 | XMS_ITS | Referral Summary ---
Author Organization [employer] Address [address] [place] [address] Care Team Providers Care Gas Cutting Machine Operator Name Role Phone NietoSugey galloway RN [employer]GR[employer] Primary Care Provider Allergies Active Allergy Reactions [...] 07/31/2023 Asthma 07/31/2023 Type 2 diabetes mellitus, [facility] long-term current use of insulin 07/31/2023 Primary hypertension 07/31/2023 SHEMAR treated with BiPAP 07/31/2023 Obesity (BMI 30-39.9) 07/31/2023 Chronic back pain 07/31/2023 Adult congenital heart disease 07/31/2023 History of general anesthesia complication 07/31 Emphysema lung 07/31/2023 Leukocytosis 07/31/2023 History of aortic valve disorder Overview (08/10/2023): age 2 Social History Tobacco Use Types Packs/Day Years [...] Date Tino rded Speak language other than Moldovan at home Not on file 12/04/2023 Want [...] 08/10/2023 8:26 AM EDT Plan of Treatment Not on file Procedures Procedure Name Priority Date/Time Associated Diagnosis Comments HEMOGLOBIN A1C Routine 07/30/2023 9:37 AM EDT Preop examination from Last 3 Months or Most Recently Relevant to Health Maintenance Results * Hemoglobin A1c (07/30/2023 9:37 AM EDT) Hemoglobin A1C 5.7 4.2 - 6.3 % 07/30/2023 12:14 PM EDT [facility] Comment: Hemoglobin A1C levels are related to mean glucose during the preceding 2-3 months. Less than 7% demonstrates glycemic control in diabetic patients. Hemoglobin AlC % Suggested Diagnosis > or = 6.5 Diabetic 5.7 - 6.4 Prediabetic <5.7 Non-diabetic eAVG Glucose 116.89 mg/dL 07/30/2023 12:14 PM EDT [facility] Blood Venipuncture / Unknown 07/30/2023 9:37 AM EDT 07/30/2023 9:43 AM EDT us Yazan Sharma MD LAB BLOOD ORDERABLES Marjorie madsen Result [facility] [address] [phone] from Last 3 Months or Most Recently Relevant to Health Maintenance Insurance ACCESS O MAP Care Teams Gas Cutting Machine Operator Relationship Specialty Start Date End Date Sugey Nieto, RN INTEGRITY [address] [address] PCP - General Nurse Practitioner 03/05/23
--- OUTSIDE RECORDS SUMMARY | 2025-05-14 09:51 | XMS_ITS | Encounter Summary ---
Author Organization Healthcare Address [address] [id number] Care Team Providers Care Car Restorer Name Role Phone Jayshree Morales TRUST VAULT CLERK Unavailable [phone] Nissa Linn RN Unavailable Unavailable Stiven Blair MD Unavailable Mekhi Aguirre MD Unavailable [phone] Sugey Nieto TRUST VAULT CLERK Primary Care Provider [phone] Reason for Visit * Reason Onset Date Comments Med Refill 03/27/2025 Encounter Details Date Type Department Care Team (Late st Contact Info) Description 03/27/2025 [facility]ill [place] [facility] [address] [place] [address] Raleigh Agee MD [address] [place] [address] Social History Tobacco Use Types Packs/Day Years [...] Not on file 2021 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 [place] [id number] Colleen Culver MD [address] [place] [address] documented as of this encounter Visit Diagnoses Not on filedocumented [...] documented as of this encounter Care Teams Car Restorer Relationship Specialty Start Date End Date Sugey Nieto APRN [address] [place] [address] PCP - General 06/30/24 Jayshree Morales APRN [address] [place] [address] Nurse Practitioner Internal Medicine 08/19/22 Nissa Linn, RN [facility] Registered Nurse Cardiology 08/19/22 Stiven Blair MD [address] [place] [address] Consulting Physician Pediatric Cardiology 09/30/22 Mekhi Aguirre MD [address] [place] [address] Consulting Physician Cardiology 02/03/23 documented as of this encounter
--- OUTSIDE RECORDS SUMMARY | 2025-05-14 09:51 | XMS_ITS | Clinical Summary ---
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 has decision-making capacity? Yes Care Teams [employer] Relationship Specialty Start Date End Date Sugey Nieto APRN [address] [place] [address] PCP - General 06/30/24 Jayshree Morales APRN [address] [place] [id number] Nurse Practitioner Internal Medicine 08/19/22 Nissa Linn, RN [facility] Registered Nurse Cardiology 08/19/22 Stiven Blair MD [address] [place] [address] Consulting Physician Pediatric Cardiology 09/30/22 Mekhi Agurire MD [address] [place] [address] Consulting Physician Cardiology 02/03/23
--- OUTSIDE RECORDS SUMMARY | 2025-05-14 09:51 | XMS_ITS | Continuity of Care Document ---
Author Organization [facility] Address [address] [facility] [address] [place] [address] Care Team Providers Care [employer] Physician Name Role Phone VERITO GREY Primary Care Provider [phone] Assessment Encounter Date Assessment Date Assessment LastModified by Organization Details LastModified Time 04/18/2025 04/18/2025 Interval History : Mr. Cornelius is a 40 yo male. This patient has treated in this clinic since January 2018 for chronic pain. He presents to clinic today for the office visit follow-up and for medication refill. Since last visit he has undergone L5/S1 decompression with Dr. Rodríguez 03/16/25. He did receive two short prescriptions of oxycodone following surgery, he did not notify the office. Reports back pain has improved but continues to have leg pain and weakness. States neurosurgery recommended possibly increasing the lyrica dose. He currently takes 200mg TID. Also reports his PCP has mentioned possibly increasing the oxycodone dose if pain fails to improve. At this time he continues to report benefit with oxycodone without adverse effects. Reports neurosurgery prescribed medrol that caused severe constipation, could not tolerate. He will now be seeing Dr. Heriberto Cruz for left index trigger finger. Infection has cleared, no longer followed by infectious disease. Reports Dr. Horn does not take his new insurance. Pain History: This patient has multiple chronic pain complaints. He has pain affecting the lumbar region bilaterally with symptoms into the hips and residual symptoms in the right leg. He has pain affecting the lateral right hip extending down the lateral right thigh due to trochanteric bursitis. He also has pain affecting the posterior cervical spine region bilaterally. He also has chronic right ankle pain. Past Medical History: The patient has a past medical history significant for previous aortic valve replacement surgery at age 2. This patient has treated with Dr. Fabian, neurosurgery. Per the consult note dated September 09, 2022, the updated MRI show changes consistent with discitis/osteomyel itis at L4-5 level, but the changes have improved compared to the previous MRI. He did see this provider in follow-up in September 2023 for the neck pain complaint. The EMG nerve conduction study for the upper extremity was reported to be normal. No surgery was recommended for the cervical spine. The patient had a neurosurgical consult with Dr. Rodríguez at on November 07, 2024. Physical therapy has been ordered. If no improvement after 6 weeks, he will proceed with right L5-S1 lumbar microdiscectomy with lateral recess decompression surgery. Update: The patient initiated the formal physical therapy in January 2025. He has not seen this provider in follow-up since last visit. The patient treats with Dr. Verdin, infectious disease. He has seen this provider since last visit due to infection following left index trigger finger surgery. He is currently on oral antibiotics. The patient treats with Dr. Childress for his right ankle. He had an updated MRI performed. He has a torn ligament and tendon. He did have his surgical procedure to include repair right collateral ligament of the right ankle on August 10, 2023. For now, he will return to this provider on a as needed basis. The patient treats with urology for kidney stones. He has not seen this provider since last visit. The patient has history of hepatomegaly noted on previous imaging. For this, he is treating with Dr. Smith at [facility]. He has not seen this provider since last visit. The patient treats with Dr. Horn, hand surgeon. He has seen this provider since last visit. He underwent right cubital tunnel release surgery in April. He had a left index trigger finger injection with this provider. Update: He he did have the planned left index trigger finger surgery. Afterwards, he was prescribed oxycodone. Unfortunately, the postoperative course was complicated by infection which required a second surgery. No longer treating with infectious disease. Will now change to levi Newby as Dr. Horn does not take his new insurance. Need for further surgery will be decided at that time. Imaging: X-rays lumbar spine dated November 03, 2024 noted severe degenerative changes at L4-5 and L5-S1 level with vacuum phenomenon at L5-S1. MRI lumbar spine without contrast dated August 09, 2024-compared to previous study December 23, 2023-noted mild annular disc bulge with bilateral facet hypertrophy and mild to moderate bilateral neuroforaminal narrowing L3-4 level, moderate annular bulge with endplate hypertrophy and moderate bilateral neuroforaminal narrowing L4-5 level, and mild annular disc bulge present with a right paracentral disc protrusion at L5-S1 level with moderate narrowing of the right lateral recess slightly more prominent than seen on prior MRI. EMG nerve conduction study for both lower extremities dated March 29, 2024 noted findings are chronic or longstanding and consistent with the patient's history of previous lumbar surgery with no evidence of underlying polyneuropathy or acute lumbar radiculopathy. MRI lumbar spine with and without contrast dated December 23, 2023 mild diffuse disc bulge L2-3 level, moderate diffuse disc bulge with moderate facet arthropathy with mild central canal stenosis and mild bilateral neuroforaminal narrowing at L3-4 level, mild diffuse disc bulge at L4-5 level, postoperative changes from laminotomy with mild lateral recess stenosis and moderate bilateral neuroforaminal narrowing L4-5 level, and mild to moderate diffuse disc bulge with moderate facet arthropathy at L5-S1 level with moderate spinal canal stenosis and moderate bilateral neuroforaminal narrowing. No abnormal contrast-enhanceme nt. EMG nerve conduction study bilateral upper extremities dated January 05, 2024 is positive for mild right carpal tunnel syndrome and mild to moderate bilateral cubital tunnel syndrome. MRI cervical spine without contrast dated July 05, 2023 noted small central disc protrusion C2-3 level, small central disc protrusion C3-4 level, small central disc protrusion with mild left foraminal narrowing C4-5 level, annular disc bulge C5-6 level, and a small central disc protrusion C6-7 level. Lumbar MRI without contrast dated January 06, 2022-compared to previous study July 11, 2020-noted annular bulge at L1-2 level, annular bulge at L2-3 level with mild bilateral neuroforaminal narrowing, annular bulge with mild bilateral neuroforaminal narrowing at L3-4 level, annular bulge at L4-5 level with a right paracentral inferiorly extruded disc which appears larger, there is right lateral recess stenosis, there is right L5 nerve root impingement, and there is moderate bilateral neuroforaminal narrowing, and annular disc bulge with facet arthropathy at L5-S1 level, there is right paracentral soft tissue that may represent an improved disc protrusion versus postoperative changes. There is right lateral recess stenosis. There is right S1 nerve root impingement. There is moderate bilateral neuroforaminal narrowing. X-rays right hip dated December 12, 2020 within normal limits. MRI lumbar spine with and without contrast dated July 11, 2020 noted mild degenerative disc disease at L1 to and L2-3 levels, mild concentric disc bulge and facet and ligamentum flavum hypertrophy at L3-4 level with mild bilateral foraminal narrowing, degenerative disc disease with type II endplate changes at L4-5 level with mild disc bulging and mild foraminal narrowing, and degenerative disc disease with disc bulging and right paracentral disc protrusion at L5-S1 level causing moderate right lateral recess narrowing impinging upon the anterior aspect of the right S1 nerve root. X-rays cervical spine dated December 20, 2018- negative cervical spine. X-rays lumbar spine dated June 11, 2019 noted previous laminectomy at L5-S1 level and possibly extending to L4-5 level. Surgical evaluation/ history: For the low back pain, the patient was evaluated by Dr. Luther in 2023. No surgery was recommended. He is status post left index trigger finger release surgery by Dr. Horn December 08, 2024 with postoperative course complicated by infection requiring a second surgery. He is status post right cubital tunnel release surgery with Dr. Horn in April 2024. He is status post right carpal tunnel release surgery with Dr. Stinson on September 18, 2021. This patient is status post lumbar spine surgery with Dr. Fabian on June 08, 2022 to include a redo right lumbar discectomy. The postoperative course was complicated by discitis/osteomyel itis at L4-5 level. He is status post L4-5 laminectomy and microdiscectomy by Dr. Denny in November 2010. He is status post redo right L5-S1 laminotomy, medial facetectomy, foraminotomy, discectomy surgery by Dr. Fabian on October 10, 2020. Conservative Treatments: For the neck pain, he was provided a structured home exercise program on December 28, 2023. He is performing those exercises daily. Interventional treatment history: He is status post therapeutic lumbar epidural transforaminal bilateral L5-S1 level under fluoroscopy April 12, 2024 with 100% pain relief reported on the left side but no pain relief reported on the right side. He is status post therapeutic cervical epidural injection interlaminar C7-T1 level under fluoroscopy January 12, 2024 with 50% pain relief reported. He is status post therapeutic bilateral cervical/thoracic trigger point injections September 23, 2021 with 75% pain relief. He is status post right hip joint injection under fluoroscopy December 23, 2020 with 45% pain relief for 2 weeks. He is status post bilateral lumbar radiofrequency procedure levels L3-L5 under fluoroscopy September 28, 2018. Previous analgesics: Following his lumbar spine surgery in May 2022, the patient had acute renal failure. His celecoxib was discontinued at that time. In addition, he has a history of fatty liver, so we do avoid acetaminophen. Current analgesics: For his chronic pain, he is prescribed oxycodone, baclofen, and pregabalin which he tolerates. Compliance Monitoring: The updated Prasanth report is reviewed today and is appropriate. He received a prescription for oxycodone 03/16 and 03/28 for post surgical pain. He did not notify the office. Advised he must contact the office prior to picking up any outside opioid rx. The oral swab collected 01/30/25 was negative for oxycodone as expected. Positive for pregabalin. Appropriate result. No UDS planned for today. Based on the patients oral swab results, the patient's overall risk level will remain the same. I would consider the patient to be Low risk based on these new results. In response to the patient's risk level and urine confirmation I plan to not change the patient's opioid prescription. His ORT score is 3 representing low risk. Anticoagulant/Anti platelet Medications: none Oswestry Disability Index score: 52 Neck Pain score: 21 Plan: This patient continues to report multiple chronic pain complaints. He is S/P L5/S1 decompression 03/16. Back pain has improved but leg pain and weakness persist. Advised he is currently on the max dose of lyrica. Could rotate to gabapentin as he has not taken the medication in over 1 year. Tolerated without adverse effect. We will rotate to gabapentin 800mg TID, but he will start with 1 tablet at night only, increasing to BID then TID as tolerated. Understands to stop pregabalin. If any adverse effects develop, he should stop the medication immediately and contact the office. He follows up with neurosurgery next month. He will establish care with Dr. Cruz for the left trigger finger in the coming weeks. Reports Dr. Horn was considering further surgery but is now out of network. He understands if surgery is performed prior to next visit he must contact the office if any additional pain medication is prescribed. We will continue oxycodone at the current dose. As he continues to report benefit with the medication and takes sparingly as he is able, I do not believe increase is warranted today. He is in agreement. We will follow up in 60 days for medication management and further treatment planning. [email or web address] Not available 04/18/2025 09:14:04 Plan of Treatment Reminders Order Date Submit Date Provider Last Modified By Organization Details Last Modified Time Details Appointments FOLLOW UP 15 2024 11:00A RICKY Gibson Not available Not available Not available Lab None recorded. Referral None recorded. Procedures remote therapeut ic monitorin g to monitor musculosk eletal system (PROC) - Patient prescribe d RTM (Remote Therapeut ic Monitorin g) to prevent further functiona l decline and monitor treatment effective ness. Patient will complete medicatio n tracking and physical therapy exercises as instructe d. Monitorin g to take place over the next 12 months using the CP&S Shon to also include functiona l assessmen ts as well as daily pain scores. Patient consent obtained and device provided. 2024 025 [email or web address] Not available 04/18/2025 11:40:15 Surgeries None recorded. Imaging None recorded. Medication Orders oxycodone 5 mg tablet 2024 025 [id number] [facility], [address] [place], [place] [address], [id number], 04/21/2025 05:11:02 oxycodone 5 mg tablet 2024 025 [id number] [facility], [address] [place], [place] [address], [id number], 04/21/2025 05:11:02 gabapenti n 800 mg tablet 2024 025 [facility], [address], [id number], 04/18/2025 11:43:55 baclofen 20 mg tablet 2024 025 [facility], [address], [id number], 04/18/2025 11:43:55 Patient TargetsNo targets recorded. Patient InstructionsNo instructions recorded. Reason for Referral None Reported. 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 [id number] 484392 Active 2020 RICKY Atkins [address] [place] [address], [address] , [facility] 2 16:06:05 Myofascia l pain 852588971 Active 2021 RICKY Atkins [address] [place] [address], [phone] , [facility] 2 16:06:27 Long-term drug therapy Active 2021 RICKY Atkins [address] [place] [address], [phone] , [facility] 2 07:13:34 Spasm of back muscles 652996657 Active 2021 RICKY Atkins [address] [place] [address], [phone] , [facility] 2 12:07:53 Cervical spondylos is 454096498 Active 2023 RICKY Atkins [address] [place], [address] , [place] [facility] 4 11:51:06 Cervical radiculop athy 54065328 Active 2023 RICKY Atkins [address] [place], [address] , [place] [facility] 4 11:33:44 Hypertens trung disorder 94689451 Completed 201712/06/2018 Carmen Ying null, [place] [facility] 9 08:13:39 Heart disease 39506050 Completed 201702/09/2018 Germania Claribel null, [place] [facility] 8 14:45:09 Asthma 425590378 Completed 201712/06/2018 Carmen Hartwick null, [place] [facility] 9 08:13:34 Acid reflux 764166097 Completed 201712/06/2018 Carmen Ying null, [place] [facility] 9 08:13:49 Spinal stenosis 73995534 Completed 201712/06/2018 Carmen Ying null, [place] [facility] 9 08:13:44 Notes:Some problems listed i n Documents: #[id number], #[id number], #[id number] could not be added to this patient's chart. Please review these documents and add these problems to the patient's chart manually as needed. Problem Notes None recorded. Procedures Surgical History Date Name Laterality Status Provider Name and Address Organization Details Recorded Time 04/12/20 24 Lumbar Transforaminal Epidural Steroid Injection (1 Level Bilateral): completed Carmen He [place] [facility] 04/12/2024 11:19:35 02/29/20 24 Lumbar Transforaminal Epidural Steroid Injection (1 Level Bilateral): sandhyaed imani ybarra [place] [facility] 02/28/2024 08:09:44 01/12/20 24 Cervical Epidural Steroid Injection: [facility]laminar [facility] 01/12/2024 09:59:11 12/13/19 24 Diagnostic Cervical MBB: Posterior (3 Level Unilateral) completed Carmen Ying [facility] 12/13/2023 11:06:34 09/23/20 21 Trigger Point Injections completed RICKY Atkins [address] [place] [address], [phone] 09/23/2021 09:35:29 09/18/20 21 Carpal tunnel surgery completed Adriana Jain [facility] 12/03/2021 09:34:54 05/12/20 21 GT Bursa cancelled Oksana Martinez [facility] 05/08/2021 08:55:24 12/23/19 21 Hip [facility]2020 09:52:58 10/10/20 20 Lumbar Discectomy/Decompr ession completed Adriana Jain [facility] 10/16/2020 11:07:16 09/28/20 18 Lumbar RFA (3 Level Bilateral) completed Vandana Norman [facility] 09/28/2018 08:38:13 08/08/20 18 Diagnostic Lumbar MBB (3 Level Bilateral) completed Vandana Norman [facility] 08/08/2018 11:11:01 03/11/20 18 Lumbar Transforaminal Epidural Steroid Injection (1 Level Unilateral): completed Vandana Norman [facility] 03/11/2018 13:35:41 Remove spine lamina 1/2 lmbr completed Adriana Jain [facility] 12/05/2018 12:40:35 Imaging Results None recorded. Procedure Notes None recorded. Medical Equipment None Reported. Allergies Allergen ID Allergen Name Allergen Category Reaction Reaction Severity Criticality Documentation Date Start Date Code Code System Note Provider Name and Address Organization Details Recorded Time 827958 meloxicam medicatio n abdominal pain Not available Not available 04/09/2021 58308 RxNorm Adriana cole [facility] 1 09:40:05 571769 Non-stero idal anti-infl ammatory agent (product) medicatio n Not available Not available Not available 01/10/2024 91252 005 JUDY Interiano - [facility] 4 14:05:22 Medications Name Sig Start Date Stop Date Status Note LastModified by Organization Details LastModified Time metformin hydrochlori de er 750 mg tb24 01/18 completed Not Available Not Available Not Available amoxicillin 875 mg tabs 02/09 completed Not Available Not Available Not Available bisoprolol fumarate/hy drochloroth iazide 5-6.25 mg tabs 02/09 completed Not Available Not Available Not Available gabapentin 300 mg caps TID 02/09 completed Not Available Not Available Not Available bisoprolol fumarate/hy drochloroth iazide 10-6.25 mg tabs 01/18 completed Not Available Not Available Not Available metformin hydrochlori de 500 mg tabs 09/07 completed Not Available Not Available Not Available hydrocodone /ibuprofen 7.5-200 mg tabs 06/09 completed Not Available Not Available Not Available digoxin 250 mcg tabs 06/09 completed Not Available Not Available Not Available metformin hcl er 750 mg tb24 07/18 completed Not Available Not Available Not Available methylpredn isolone dose pack 4 mg tbpk 02/09 completed Not Available Not Available Not Available meloxicam 15 mg tabs 01/18 completed Not Available Not Available Not Available cyclobenzap rine hcl 10 mg tabs 06/09 completed Not Available Not Available Not Available lyrica 75 mg caps 01/18 completed Not Available Not Available Not Available ventolin hfa 108 (90 base) mcg/actaers 07/29 completed Not Available Not Available Not Available diclofenac sodium dr 75 mg tbec 06/09 completed Not Available Not Available Not Available naproxen 500 mg tabs 02/09 completed Not Available Not Available Not Available bisoprolol fumarate/hy drochloroth iazide 2.5-6.25 mg tabs 07/18 completed Not Available Not Available Not Available tramadol hcl 50 mg tabs 01/18 completed Not Available Not Available Not Available gabapentin 600 mg tabs 06/09 completed Not Available Not Available Not Available fluticasone propionate 50 mcg/act susp 02/07 completed Not Available Not Available Not Available losartan 50 mg tablet TAKE ONE TABLET BY MOUTH ONCE A DAY active Not Available Not Available No t Available celecoxib 200 mg capsule Take 1 capsule every day by oral route as directed for 30 days. 12/03 completed Not Available Not Available Not Available cyclobenzap rine 10 mg tablet PCP 07/29 completed Not Available Not Available Not Available gabapentin 600 mg tablet Take 1 tablet 4 times a day by oral route as directed for 30 days. 03/31 completed Not Available Not Available Not Available Normal Saline Flush 0.9 % injection syringe 09/25 completed Not Available Not Available Not Available pravastatin 40 mg tablet TAKE 1 TABLET BY MOUTH ONCE A DAY active Not Available Not Available No t Available hydrocodone 5 mg-acetamin ophen 325 mg tablet 07/29 completed Not Available Not Available Not Available fluconazole 200 mg tablet infection active Not Available Not Available No t Available meloxicam 15 mg tablet Take 1 tablet every day by oral route with meals for 30 days. 04/09 completed Not Available Not Available Not Available lisinopril 20 mg tablet active Not Available Not Available Not Available prednisone 20 mg tablet 07/18 completed Not Available Not Available Not Available clonazepam 0.5 mg tablet 12/01 completed Not Available Not Available Not Available gabapentin 400 mg capsule Take 1 capsule 3 times a day by oral route as directed for 30 days. 07/29 completed Not Available Not Available Not Available niacin ER 500 mg tablet,exte nded release 24 hr Take by oral route for 30 days. 10/01 completed Not Available Not Available Not Available bisoprolol 5 mg-hydrochl orothiazide 6.25 mg tablet TAKE 1 TABLET BY MOUTH ONCE A DAY active Not Available Not Available No t Available acetaminoph en 300 mg-codeine 30 mg tablet 12/03 completed Not Available Not Available Not Available sulfamethox azole 800 mg-trimetho prim 160 mg tablet 07/29 completed Not Available Not Available Not Available doxycycline monohydrate 100 mg tablet Take by oral route. 02/01 completed Not Available Not Available Not Available bisoprolol 2.5 mg-hydrochl orothiazide 6.25 mg tablet 01/30 completed Not Available Not Available Not Available tramadol 50 mg tablet active Not Available Not Available No t Available baclofen 20 mg tablet TAKE 1 TABLET BY MOUTH 2 TIMES A DAY active Not Available Not Available No t Available oxycodone-a cetaminophe n 5 mg-325 mg tablet Take 1 tablet twice a day by oral route as needed for 30 days. 12/04 completed Not Available Not Available Not Available hydromorpho ne 2 mg tablet 04/27 completed Not Available Not Available Not Available methocarbam ol 750 mg tablet 07/29 completed Not Available Not Available Not Available tamsulosin 0.4 mg capsule 04/18 completed Not Available Not Available Not Available gabapentin 800 mg tablet TAKE 1 TABLET BY MOUTH 3 TIMES A DAY active Not Available Not Available No t Available lorazepam 2 mg tablet 08/02 completed Not Available Not Available Not Available cephalexin 500 mg capsule infection active Not Available Not Available No t Available metformin 1,000 mg tablet TAKE ONE TABLET BY MOUTH 2 TIMES A DAY active Not Available Not Available No t Available lisinopril 10 mg tablet 04/27 completed Not Available Not Available Not Available docusate sodium 100 mg capsule OTC PRN 01/10 completed Not Available Not Available Not Available gabapentin 300 mg capsule Take 1 capsule 3 times a day by oral route as directed for 30 days. 07/29 completed Not Available Not Available Not Available pravastatin 20 mg tablet 01/31 completed Not Available Not Available Not Available mupirocin 2 % topical ointment 07/29 completed Not Available Not Available Not Available gabapentin 100 mg capsule Take 1 capsule 3 times a day by oral route as directed for 30 days. 04/09 completed Not Available Not Available Not Available epinephrine 0.3 mg/0.3 mL injection, auto-inject or Take by injection route. active Not Available Not Available No t Available levofloxaci n 500 mg tablet Take by oral route. 02/01 completed Not Available Not Available Not Available oxycodone-a cetaminophe n 7.5 mg-325 mg tablet 10/01 completed Not Available Not Available Not Available methylpredn isolone 4 mg tablets in a dose pack FOLLOWING Schedule ON PACKAGE INSTRUCTI ONS 04/18 completed Not Available Not Available Not Available albuterol sulfate HFA 90 mcg/actuati on aerosol inhaler INHALE 2 PUFFS BY MOUTH EVERY 6 HOURS NEEDED active Not Available Not Available No t Available cefdinir 300 mg capsule 07/29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
--- OUTSIDE RECORDS SUMMARY | 2025-05-14 09:51 | XMS_ITS | Encounter Summary ---
Author Organization Healthcare Address [address] 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 [place] [address] Colleen Culver MD [address] [place] [address] documented as of this encounter [...] documented as of this encounter Care Teams Finishing Pan Operator Relationship Specialty Start Date End Date Sugey Nieto, BMW SERVICE TECHNICIAN [address] [place] [address] PCP - General 06/30/24 Jayshree Morales APRN [address] [place] [address] Nurse Practitioner Internal Medicine 08/19/22 Nissa Linn, RN [facility] Registered Nurse Cardiology 08/19/22 Stiven Blair MD [address] [place] [address] Consulting Physician Pediatric Cardiology 09/30/22 Mekhi Aguirre MD [address] [place] [address] Consulting Physician Cardiology 02/03/23 documented as of this encounter
--- OUTSIDE RECORDS SUMMARY | 2025-05-14 09:51 | XMS_ITS | Encounter Summary ---
Author Organization Healthcare Address [address] 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 [place] [address] Colleen Culver MD [address] [place] [address] documented as of this encounter [...] documented as of this encounter Care Teams Parts Coordinator Relationship Specialty Start Date End Date Sugey Nieto, PERSONAL CARE WORKER [address] [place] [address] PCP - General 06/30/24 Jayshree Morales APRN [address] [place] [address] Nurse Practitioner Internal Medicine 08/19/22 Nissa Linn, RN [facility] Registered Nurse Cardiology 08/19/22 Stiven Blair MD [address] [place] [address] Consulting Physician Pediatric Cardiology 09/30/22 Mekhi Aguirre MD [address] [place] [address] Consulting Physician Cardiology 02/03/23 documented as of this encounter
--- OUTSIDE RECORDS SUMMARY | 2025-05-14 09:51 | XMS_ITS | Encounter Summary ---
Author Organization Healthcare Address [address] 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 [place] [address] Colleen Culver MD [address] [place] [address] documented as of this encounter [...] documented as of this encounter Care Teams Customer Supply Chain Analyst Relationship Specialty Start Date End Date Sugey Nieto, FRUIT LOADER MACHINE OPERATOR [address] [place] [address] PCP - General 06/30/24 Jayshree Morales APRN [address] [place] [address] Nurse Practitioner Internal Medicine 08/19/22 Nissa Linn, RN [facility] Registered Nurse Cardiology 08/19/22 Stiven Blair MD [address] [place] [address] Consulting Physician Pediatric Cardiology 09/30/22 Mekhi Aguirre MD [address] [place] [address] Consulting Physician Cardiology 02/03/23 documented as of this encounter
--- OUTSIDE RECORDS SUMMARY | 2025-05-14 09:51 | XMS_ITS | Encounter Summary ---
Author Organization Healthcare Address [address] 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 [place] [address] Colleen Culver MD [address] [place] [address] documented as of this encounter [...] documented as of this encounter Care Teams Binder Roller Relationship Specialty Start Date End Date Sugey Nieto, LIMOUSINE DRIVER [address] [place] [address] PCP - General 06/30/24 Jayshree Morales APRN [address] [place] [address] Nurse Practitioner Internal Medicine 08/19/22 Nissa Linn, RN [facility] Registered Nurse Cardiology 08/19/22 Stiven Blair MD [address] [place] [address] Consulting Physician Pediatric Cardiology 09/30/22 Mekhi Aguirre MD [address] [place] [address] Consulting Physician Cardiology 02/03/23 documented as of this encounter
--- OUTSIDE RECORDS SUMMARY | 2025-05-14 09:51 | XMS_ITS | Encounter Summary ---
Author Organization Healthcare Address [address] 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 [place] [address] Colleen Culver MD [address] [place] [address] documented as of this encounter [...] documented as of this encounter Care Teams Forestry Engineer Relationship Specialty Start Date End Date Sugey Nieto, MANAGER CHINESE [address] [place] [address] PCP - General 06/30/24 Jayshree Morales APRN [address] [place] [address] Nurse Practitioner Internal Medicine 08/19/22 Nissa Linn, RN [facility] Registered Nurse Cardiology 08/19/22 Stiven Blair MD [address] [place] [address] Consulting Physician Pediatric Cardiology 09/30/22 Mekhi Aguirre MD [address] [place] [address] Consulting Physician Cardiology 02/03/23 documented as of this encounter
--- OUTSIDE RECORDS SUMMARY | 2025-05-14 09:51 | XMS_ITS | Data Portability ---
Author Organization [facility] Address [address] [facility] [address] [place] [address] Care Team Providers Care Operator Catalyst Concentration Name Role Phone VERITO GREY Primary Care Provider [phone] Assessment Encounter Date Assessment Date Assessment LastModified by Organization Details LastModified Time 08/04/2024 08/04/2024 Pain History: Mr. Cornelius is a 39 yo male. This patient has treated in this clinic since January 2018 for chronic pain. He presents today for the office visit follow-up and for medication refill. The patient reports the overall pain level to be about the same as per last visit. At last visit, he was still having low back pain on the right side radiating into the right lower extremity. For this, I ordered therapeutic lumbar epidural right L4-5 and right S1 levels. That procedure was approved, but the patient elected not to schedule the injection. He saw his primary care physician. The primary care physician recommended an updated lumbar MRI. He is scheduled for this August 09, 2024 at [facility]. Then he will follow-up with his neurosurgeon August 23, 2024. He wants to wait until all of this is completed before doing any more injections. He has seen the hand surgeon in follow-up since last visit. He continues to do the home exercise program daily. He reports no issues with the medications. No general health changes reported today. Past Medical History: This patient has multiple chronic pain [...] He also has chronic right ankle pain. The patient has a past medical history significant for previous aortic valve replacement surgery at age 2. This patient is followed by Dr. Fabian, neurosurgery. Per the consult note [...] surgery was recommended for the cervical spine. Update: He is scheduled to follow-up with this provider on August 23, 2024 to review updated lumbar MRI. The patient treats with Dr. Verdin, infectious disease. He has not seen this provider since last visit. He is no longer taking oral antibiotics. The patient treats with Dr. [...] he is treating with Dr. Smith at [facility]. He has not seen this provider since last visit. The patient treats with Dr. Horn, hand surgeon. He has seen this provider since last visit. He underwent right cubital tunnel release surgery in April. He had a left index trigger finger injection with this provider. Update: He has seen this provider in follow-up since last visit. Imaging: EMG nerve conduction study for both lower [...] surgery was recommended. He is status post right cubital tunnel [...] report is reviewed today and is appropriate. The urine drug screen confirmation report from June 05, 2024 is appropriately positive for oxycodone and pregabalin. No UDS is performed today. Based on the patients urine confirmation (LCMS) results, the patient's overall risk level will remain the same. I would consider the patient to be Low risk based on these new results. In response to the patient's risk level and urine confirmation I plan to not change the patient's opioid prescription. Anticoagulant/Anti platelet Medications: none Oswestry Disability Index score: 46 Neck Pain score: 21 Plan: This patient is symptomatic with multiple chronic pain complaints. The primary complaint is low back pain with leg pain, specifically on the right side. He elected not to schedule the therapeutic lumbar epidural injection recommended last visit. He met with the primary care physician who recommended updated lumbar MRI. The patient is scheduled for that at [facility] on August 09, 2024. Once completed, I will request the radiology report. In addition, he will follow-up with his neurosurgeon Dr. Fabian on August 23, 2024 to review the updated lumbar MRI. Once he has completed that, he will make a decision about moving forward with the recommended epidural injection. He has seen the hand surgeon since last visit. He has not seen any other specialist since last visit. I recommend he continue the home exercise program daily which includes exercises for the neck and low back regions. I will continue with the current medications. No issues are reported today. The medications allow him to perform his activities of daily living. He may continue pregabalin 200 mg 1 p.o. 3 times daily, baclofen 20 mg 1 p.o. twice daily, and oxycodone 5 mg 1 p.o. twice daily. This results in the same morphine equivalent dose of 15. I will reassess him in 60 days. At that time, I will review the updated lumbar MRI report and follow-up on his neurosurgical office visit. His ORT score is 3 representing low risk. [email or web address] Not available 08/04/2024 09:42:44 10/02/2024 10/02/2024 Pain History: Mr. Cornelius is a 39 yo male. This patient has treated in this clinic since January 2018 for chronic pain. He presents today for the office visit follow-up and for medication refill. Per the patient, his chronic pain complaints have remained stable compared to last visit. The primary complaint continues to be low back pain with radiating symptoms into the right lower extremity. He did have his neurosurgical consult at [facility]. No surgery was recommended. Per the patient, the primary care physician is arranging a second opinion at . He continues to do the home exercise program daily. He reports no issues with the medications. No general health changes reported today. Pain History: This patient has multiple chronic [...] replacement surgery at age 2. This patient is followed by Dr. Fabian, neurosurgery. Per the consult note [...] surgery was recommended for the cervical spine. Update: He did see this provider in follow-up on August 23, 2024 for the low back pain. No surgery was recommended. The patient treats with Dr. Verdin, infectious disease. He has not seen this provider since last visit. He is no longer taking oral antibiotics. The patient treats with Dr. [...] he is treating with Dr. Smith at [facility]. He has not seen this provider since last visit. The patient treats with Dr. Horn, hand surgeon. He has seen this provider since last visit. He underwent right cubital tunnel release surgery in April. He had a left index trigger finger injection with this provider. Update: He has not seen this provider in follow-up since last visit. Imaging: MRI lumbar spine without contrast dated August [...] surgery was recommended. He is status post right cubital tunnel [...] report is reviewed today and is appropriate. No UDS is performed today. Anticoagulant/Anti platelet Medications: none Oswestry Disability Index score: 46 Neck Pain score: 21 Plan: This patient continues to report multiple chronic pain complaints. The nature of these chronic pain complaints has not changed compared to last visit. The primary complaint continues to be low back pain with radiating symptoms into the right lower extremity. For this, I was able to review the lumbar MRI report dated August 09, 2024. The findings are noted above. He has pathology to the right at L5-S1 level matching symptomatology. For this, previously he was recommended therapeutic lumbar epidural transforaminal right L4-5 and right S1 levels under fluoroscopy. The patient still wants to hold off on doing injection therapy at this time. He had a neurosurgical consult with Dr. Fabian on August 23, 2024. I was able to review that consult note today. No surgery was recommended. Per the patient, his primary care physician is arranging a second opinion with neurosurgery. He should continue the home exercise program daily which includes exercises for the neck and low back regions. He reports therapeutic benefit with the current medications. No issues are reported today. The medications allow him to perform his activities of daily living. He may continue pregabalin 200 mg 1 p.o. 3 times daily, baclofen 20 mg 1 p.o. twice daily, and oxycodone 5 mg 1 p.o. twice daily. This results in the same morphine equivalent dose of 15. I will reassess him in 60 days. His ORT score is 3 representing low risk. [email or web address] Not available 10/02/2024 11:05:04 12/01/2024 12/01/2024 Pain History: Mr. Cornelius is a 39 yo male. This patient has treated in this clinic since January 2018 for chronic pain. Due to inclement weather, the visit is conducted today via telephone. He is currently at his home in [place], [place]. Since last visit, he notes an increase in the low back pain complaint. He currently has pain affecting the lumbar region with radiating symptoms into the right lower extremity. His PCP obtained updated x-rays of the lumbar spine. He saw neurosurgery where surgery has been discussed, and physical therapy has been ordered. With the recent weather, he has not been able to initiate the physical therapy. He continues to do the home exercise program daily. He reports no issues with the medications. No general health changes reported today. Pain History: This patient has multiple chronic [...] surgery was recommended for the cervical spine. Update: The patient had a neurosurgical consult with Dr. Rodríguez at on November 07, 2024. Physical therapy has been ordered. If no improvement after 6 weeks, he will proceed with right L5-S1 lumbar microdiscectomy with lateral recess decompression surgery. The patient treats with Dr. Verdin, infectious disease. He has not seen this provider since last visit. He is no longer taking oral antibiotics. The patient treats with Dr. [...] he is treating with Dr. Smith at [facility]. He has not seen this provider since last visit. The patient treats with Dr. Horn, hand surgeon. He has seen this provider since last visit. He underwent right cubital tunnel release surgery in April. He had a left index trigger finger injection with this provider. Update: He has seen this provider in follow-up since last visit. He will be having surgery on December 08, 2024 for the left index trigger finger. For this, he was prescribed 1 clonazepam 0.5 mg tablets to take on the day of the surgery. Imaging: MRI lumbar spine without contrast dated August [...] surgery was recommended. He is status post right cubital tunnel [...] report is reviewed today and is appropriate. There is 1 notation dated October 23, 2024 where he received 1 clonazepam 0.5 mg tablets to take prior to upcoming surgery. I am unable to perform a UDS today. Anticoagulant/Anti platelet Medications: none Oswestry Disability Index score: 52 Neck Pain score: 21 Plan: This patient does have multiple chronic pain complaints. The primary complaint continues to be low back pain with radiating symptoms into the right lower extremity. Since last visit, he reports having updated x-rays of the lumbar spine ordered by the primary care physician and performed at [facility]. I will request the radiology report. He then had a neurosurgical consult at November 07, 2024. I was able to review that consult note today. The plan is to initiate physical therapy. If no improvement after 6 weeks, he will undergo surgery to include right L5-S1 lumbar microdiscectomy and lateral recess decompression surgery. In addition, he has seen the hand surgeon since last visit. He is scheduled for surgery for left index trigger finger December 08, 2024. He was prescribed 1 clonazepam 0.5 mg tablets to take prior to the surgery. He should continue the home exercise program daily which includes exercises for the neck and low back regions. He reports therapeutic benefit with the current medications. No issues are reported today. The medications allow him to perform his activities of daily living. He may continue pregabalin 200 mg 1 p.o. 3 times daily, baclofen 20 mg 1 p.o. twice daily, and oxycodone 5 mg 1 p.o. twice daily. This results in the same morphine equivalent dose of 15. I will reassess him in 60 days. At that time, I will review the requested lumbar radiology report. His ORT score is 3 representing low risk. Approximate call time was 16 minutes. Patient is an established patient with their informed consent to treat signed and on file. Patient was visually authenticated based on the photograph in the patient s file. This visit is being conduct via telemedicine in accordance to all applicable laws and regulations. Patient is located at his home in [place], [place], and the treating medical provider is located at the [facility]. * Visit today was conducted via audio and video with [employer] due to inclement weather. [email or web address] Not available 12/01/2024 11:58:01 2025 2025 Pain History: Mr. Cornelius is a 40 yo male. This patient has treated in this clinic since January 2018 for chronic pain. He presents to clinic today for the office visit follow-up and for medication refill. He reports his chronic pain complaints to be stable today. For his chronic low back pain with radiating symptoms into the right lower extremity, he initiated formal physical therapy last week ordered by the neurosurgeon. He continues to do the home exercise program daily. He reports no issues with the medications. Since last visit, he did have the surgery for the left index trigger finger. Unfortunately, this was complicated by an infection which required a second surgery. He was prescribed oxycodone and tramadol following his surgeries. He did not notify the office. No other general health changes reported today. Pain History: This patient has multiple chronic [...] patient had a neurosurgical consult with Dr. oRdríguez at on November 07, 2024. Physical therapy [...] he is treating with Dr. Smith at [facility]. He has not seen this provider since [...] by infection which required a second surgery. He was prescribed tramadol and oxycodone. He has seen this provider in follow-up. He is also treating with infectious disease. Imaging: X-rays lumbar spine dated November 03, [...] report is reviewed today and is appropriate. There is a notation dated December 08, 2024 where he received 15 oxycodone 5 mg tablets following surgery. There is also notations dated January 01, 2025 where he received 12 tramadol 50 mg tablets and January 07, 2025 where he received 20 oxycodone 5 mg tablets. The patient did not notify the office. The patient was unable to provide a urine specimen today. An oral swab is performed. It has been greater than 48 hours since the last dose of oxycodone, and the last dose of pregabalin was today. The specimen will be sent for confirmation today. I anticipate oxycodone to be negative. Anticoagulant/Anti platelet Medications: none Oswestry Disability Index score: 52 Neck Pain score: 21 Plan: This patient continues to report multiple chronic pain complaints. For the complaint of low back pain with radiating symptoms into the right lower extremity, he did initiate the formal physical therapy ordered by the neurosurgeon last week. After 6 weeks, he will follow-up with the neurosurgeon to determine if surgery is required. I was able to review the radiology report for lumbar x-rays from November 03, 2024. The findings are noted above. Since last visit, he did have his planned left index trigger finger release surgery. Unfortunately, the postoperative course was complicated by an infection which required a second surgery. He is currently treating with infectious disease on oral antibiotics. Following surgery, the patient was given 2 prescriptions for oxycodone and 1 prescription for tramadol. He did not notify the office. I did educate the patient, per his controlled medication agreement, anytime he is prescribed pain medication from any other provider, he is obligated to notify the office for documentation and approval. I did educate the patient that failure to do so in the future may result in his medications being tapered and discontinue, and it may result in him being discharged from the practice. The patient understands. He should continue the home exercise program daily which includes exercises for the neck and low back regions. Per the Prasanth report, he last filled our prescription for oxycodone on December 29 which would run through January 28, 2025. Therefore, his history of no oxycodone in the last 48 hours is appropriate. He reports therapeutic benefit with the current medications. No issues are reported today. The medications allow him to perform his activities of daily living. He may continue pregabalin 200 mg 1 p.o. 3 times daily, baclofen 20 mg 1 p.o. twice daily, and oxycodone 5 mg 1 p.o. twice daily. This results in the same morphine equivalent dose of 15. I will reassess him in 60 days. His ORT score is 3 representing low risk. [email or web address] Not available 2025 10:57:14 04/18/2025 04/18/2025 Interval History : Mr. Cornelius [...] he is treating with Dr. Smith at [facility]. He has not seen this provider since [...] for medication management and further treatment planning. Not available 04/18/2025 09:14:04 Plan of Treatment Reminders Order Date Submit Date Provider Last Modified By Organization Details Last Modified Time Details Appointments FOLLOW UP 15 2024 11:00A RICKY Gibson Not available Not available Not available Lab unlisted lab - saliva opiates/o pioids 2024 025 [email or web address] Pending Sale To [facility], [facility], [address] [place] [address], [id number], 02/20/2025 07:22:11 unlisted lab - saliva kathrine analogs 2024 025 [facility], [facility], [address] [place] [address], [id number], 02/20/2025 07:22:11 Referral None recorded. Procedures remote therapeut ic [...] consent obtained and device provided. 2024 025 Not available 04/18/2025 11:40:15 remote therapeut ic monitorin g to monitor [...] consent obtained and device provided. 2024 025 [email or web address] Not available 12/01/2024 11:58:02 Surgeries None recorded. Imaging None recorded. Medication Orders oxycodone 5 mg tablet 2024 025 [facility]-[id number] 7064 [facility], [address] [place] [address], [id number], 04/21/2025 05:11:02 oxycodone 5 mg tablet 2024 025 [facility]-[id number] [address] [facility], [address] [place] [address], [id number], 04/21/2025 05:11:02 gabapenti n 800 mg tablet 2024 025 [facility], [address] [place] [address], [id number], 04/18/2025 11:43:55 baclofen 20 mg tablet 2024 025 [facility], [address] [place] [address] S, JUDY Rosas, [id number], 04/18/2025 11:43:55 pregabali n 200 mg capsule 2024 025 [facility], [address] [place] [address] S, JUDY Rosas, [id number], 2025 10:47:55 oxycodone 5 mg tablet 2024 025 [id number] 7064 [facility], [address] [place] [address] S, JUDY Rosas, [id number], 04/21/2025 05:11:02 oxycodone 5 mg tablet 2024 025 [id number] 7064 [facility], [address] [place] [address] S, JUDY Rosas, [id number], 04/21/2025 05:11:02 baclofen 20 mg tablet 2024 025 [facility], [address] [place] [address] S, JUDY Rosas, [id number], 2025 10:47:57 pregabali n 200 mg capsule 2024 025 [facility], [address] [place] [address] S, JUDY Rosas, [id number], 12/01/2024 10:26:43 oxycodone 5 mg tablet 2024 025 [id number] 70[address] [facility], [address] [place] [address] S, JUDY Rosas, [id number], 04/21/2025 05:11:02 oxycodone 5 mg tablet 2024 025 [id number] 70[address] [facility], [address] [place] [address] S, JUDY Rosas, [id number], 04/21/2025 05:11:02 baclofen 20 mg tablet 2024 025 [facility], [address] [place] [address] S, JUDY Rosas, [id number], 12/01/2024 10:26:46 pregabali n 200 mg capsule 2023 024 [facility], [address] [place] [address] S, JUDY Rosas, [id number], 10/02/2024 11:30:29 oxycodone 5 mg tablet 2023 024 [id number] 7064 [facility], [address] [place] [address] S, JUDY Rosas, [id number], 04/21/2025 05:11:03 oxycodone 5 mg tablet 2023 024 [id number] 7064 [facility], [address] [place] [address] S, JUDY Rosas, [id number], 04/21/2025 05:11:03 baclofen 20 mg tablet 2023 024 [facility], [address] [place] [address] S, JUDY Rosas, [id number], 10/02/2024 11:30:26 pregabali n 200 mg capsule 2023 024 [email or web address] [facility], [address] [place] [address] S, JUDY Rosas, [id number], 08/04/2024 15:08:36 oxycodone 5 mg tablet 2023 024 [id number] 7064 [facility], [address] [place], [place] [address] [place], [id number], 04/21/2025 05:11:03 oxycodone 5 mg tablet 2023 024 [id number] 7064 [facility], [address], [id number], 04/21/2025 05:11:03 baclofen 20 mg tablet 2023 024 FERNANDO [facility], [facility] [place], [id number], 08/04/2024 13:44:09 Patient TargetsNo targets recorded. Patient Instructions Encounter Date Encounter Id Patient Instructions Last Modified By Organization Details Last Modified Time 08/04/2024 [id number] Opioid Risk Tool (ORT)* [email or web address] Not available 08/04/2024 15:09:06 12/01/2024 [id number] high blood pressure: care instructions [email or web address] Not available 12/01/2024 11:58:03 A healthy lifestyle: care instructions [email or web address] Not available 12/01/2024 11:58:03 advance directives: care instructions Not available 12/01/2024 11:58:03 depression and chronic disease: care instructions [email or web address] Not available 12/01/2024 11:58:03 safe use of opioid pain medicine: care instructions [email or web address] Not available 12/01/2024 11:58:03 Learning About Benefits of Quitting Smoking [email or web address] Not available 12/01/2024 11:58:03 behavioral healt h screen* [email or web address] Not available 12/05/2024 15:44:29 medical record request* - Request radiology report for the last lumbar x-rays ordered by primary care provider [email or web address] Not available 12/25/2024 08:00:35 2025 [id number] high blood pressure: care instructions [email or web address] Not available 2025 16:24:20 Reason for Referral None Reported. Results Created Date Observation Date Name Description Value Unit Range Abnormal Flag Note LastModifiedBy Organization Detail LastModifiedTime 08/04/20 24 08/04/2024 Opioi d Risk Tool (ORT) * ORT 3 Not Available [place] [address], [place], [address], 08/04/2024 08:54:40 08/10/20 24 08/09/2024 MRI, lumba r spine , w/o contr ast No observ ation record ed. [email or web address] Not Available 2023 10:21:41 12/01/19 25 11/03/2024 XR, lumbo sacra l spine , 4 or more view No observ ation record ed. [email or web address] [facility] (Med Record) [address], [place], [id number], 2025 10:41:01 12/25/19 25 11/03/2024 XR, lumbo sacra l spine , 4 or more view No observ ation record ed. [email or web address] [facility] (Med Record) [address], [place], [id number], 2025 10:41:01 Result Notes None recorded. 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 [id number] 745832 Active 2020 RICKY Atkins [address] [place], [address] , [facility] 2 16:06:05 Myofascia l pain 664404250 Active 2021 RICKY Atkins [address] [place], [address] , [place] [facility] 2 16:06:27 Long-term drug therapy Active 2021 RICKY Atkins [address] [place], [address] , [place] [facility] 2 07:13:34 Spasm of back muscles 229008899 Active 2021 RICKY Atkins [address] [place], [address] , [place] [facility] 2 12:07:53 Cervical spondylos is 260453939 Active 2023 RICKY Atkins [address] [place], [address] , [place] [facility] 4 11:51:06 Cervical radiculop athy 71973127 Active 2023 RICKY Atkins [address] [place], [address] , [place] [facility] 4 11:33:44 Hypertens trung disorder 14530370 Completed 201712/06/2018 Carmen He null, [place] [facility] 9 08:13:39 Heart disease 12978432 Completed 201702/09/2018 Germania Sanford [place] [facility] 8 14:45:09 Asthma 512083418 Completed 201712/06/2018 Carmen He [place] [facility] 9 08:13:34 Acid reflux 740928986 Completed 201712/06/2018 Carmen Ying [place] [facility] 9 08:13:49 Spinal stenosis 86968533 Completed 201712/06/2018 Carmen [place] [facility] 9 08:13:44 Notes:Some problems listed i n Documents: #[id number], #[id number], #[id number] could not be added to this patient's chart. Please review these documents and add these problems to the patient's chart manually as needed. Problem Notes None recorded. Procedures Surgical History Date Name Laterality Status Provider Name and Address Organization Details Recorded Time 04/12/20 24 Lumbar Transforaminal Epidural Steroid Injection (1 Level Bilateral): completed Carmen [place] [facility] 04/12/2024 11:19:35 02/29/20 24 Lumbar Transforaminal Epidural Steroid Injection (1 Level Bilateral): cancelled imani ybarra [facility] 02/28/2024 08:09:44 01/12/20 24 Cervical Epidural Steroid Injection: Interlaminar completed Carmen [place] [facility] 01/12/2024 09:59:11 12/13/19 24 Diagnostic Cervical MBB: Posterior (3 Level Unilateral) completed Carmen [place] [facility] 12/13/2023 11:06:34 09/23/20 21 Trigger Point Injections completed RICKY Atkins [address] [place] [address], [id number] 09/23/2021 09:35:29 09/18/20 21 Carpal tunnel surgery completed Adriana Jain [facility] [place] 12/03/2021 09:34:54 05/12/20 21 GT Bursa cancelled Oksana Martinez [facility] 05/08/2021 08:55:24 12/23/19 21 Hip Joint Injection Fluoro completed Carmen [place] [facility] 12/23/2020 09:52:58 10/10/20 20 Lumbar Discectomy/Decompr ession completed Adriana Jain [facility] [place] 10/16/2020 11:07:16 09/28/20 18 Lumbar RFA (3 Level Bilateral) completed Vandana Norman [facility] [place] 09/28/2018 08:38:13 08/08/20 18 Diagnostic Lumbar MBB (3 Level Bilateral) completed Vandana Norman [facility] [place] 08/08/2018 11:11:01 03/11/20 18 Lumbar Transforaminal Epidural Steroid Injection (1 Level Unilateral): completed Vandana Norman [facility] 03/11/2018 13:35:41 Remove spine lamina 1/2 lmbr completed Adriana Jain [facility] 12/05/2018 12:40:35 Imaging Results None recorded. Procedure Notes None recorded. Medical Equipment None Reported. Allergies Allergen ID Allergen Name Allergen Category Reaction Reaction Severity Criticality Documentation Date Start Date Code Code System Note Provider Name and Address Organization Details Recorded Time 931123 meloxicam medicatio n abdominal pain Not available Not available 04/09/2021 47586 RxNorm [facility] 09:40:05 388194 Non-stero idal anti-infl ammatory agent (product) medicatio n Not available Not available Not available 01/10/2024 85823 005 SNOMED Carmen Ying [facility] 4 14:05:22 Medications Name Sig Start Date Stop Date Status Note LastModified by Organization Details LastModified Time hydrocodone /ibuprofen 7.5-200 mg tabs 06/09 completed [...] Not Available Not Available metformin hydrochlori de er 750 mg tb24 [...] Not Available Vitals Date Recorded Body height Provider Name an d Address Organization Details Last Updated DateTime 12/01/2024 176.53 cm Adriana Jain [facility] 12/01/2024 09:53:05 Date Recorded Body height Body mass index (BMI) Body weight Oxygen saturation Oxygen saturation in Arterial blood by Pulse oximetry Heart rate Systolic blood pressure Diastolic blood pressure Provider Name and Address Organization Details Last Updated DateTime 5 176.53 cm 34.2 kg/m2 573933. 21 g 97 % 97 % 75 /min 113 mm[Hg] 72 mm[Hg] Adriana Jain [facility] 5 10:33:26 Date Recorded Body height Body mass index (BMI) Body weight Oxygen saturation Oxygen saturation in Arterial blood by Pulse oximetry Heart rate Systolic blood pressure Diastolic blood pressure Provider Name and Address Organization Details Last Updated DateTime 5 176.53 cm 34.2 kg/m2 108142. 21 g 96 % 96 % 89 /min 134 mm[Hg] 69 mm[Hg] Maikel Henderson [facility] 5 08:40:20 Date Recorded Body height Body mass index (BMI) Body weight Oxygen saturation Oxygen saturation in Arterial blood by Pulse oximetry Heart rate Systolic blood pressure Diastolic blood pressure Provider Name and Address Organization Details Last Updated DateTime 4 176.53 cm 34.6 kg/m2 935252. 98 g 96 % 96 % 83 /min 151 mm[Hg] 88 mm[Hg] Adriana Jain [facility] 4 09:17:44 Date Recorded Body height Body mass index (BMI) Body weight Oxygen saturation Oxygen saturation in Arterial blood by Pulse oximetry Heart rate Systolic blood pressure Diastolic blood pressure Provider Name and Address Organization Details Last Updated DateTime 4 176.53 cm 34.4 kg/m2 844035. 8 g 97 % 97 % 118 /min 118 mm[Hg] 71 mm[Hg] Adriana Jain [facility] 4 10:14:23 Social History Question Answer Notes LastModified by Organizat ion Details LastModified Time Tobacco Smoking Status Current Some Day Smoker Adriana cole [facility] 10/16/2020 11:07:29 Do You Have An Advance Directive? No Information not available 07/29/2022 What Type Of Diet Are You Following? REGULAR [email or web address] Information not available 07/29/2022 Which Illicit Or Recreational Drugs Have You Used? None [email or web address] Information not available 09/07/2018 Education 12 Information no t available 09/07/2018 What Is The Highest Grade Or Level Of School You Have Completed Or The Highest Degree You Have Received? MB24829-5 [email or web address] Information not available 07/29/2022 How Many Times Per Week Do You Exercise? 1-2 Times Per Week [email or web address] Information not available 06/02/2023 Prescription Drug Abuse No [email or web address] Information not available 02/09/2018 Disability Yes [email or web address] Information no t available 02/09/2018 History Of Sexual Abuse No [email or web address] Information not available 02/09/2018 Marital Status [email or web address] Informatio n not available 02/09/2018 Do You Have A Medical Power Of Promotions Team Leader? No [email or web address] Information not available 12/28/2023 What Was The Date Of Your Most Recent Tobacco Screening? 12/01/2024 [email or web address] Information not available 12/01/2024 What Is Your Relationship Status? [email or web address] Information not available 07/29/2022 How Much Tobacco Do You Smoke? 0.5 PPD [email or web address] Information not available 09/07/2018 Has Tobacco Cessation Counseling Been Provided? Yes [email or web address] Information not available 12/28/2023 On What Date Was Tobacco Cessation Counseling Provided? 12/01/2024 [email or web address] Answered No To The Tobacco Cessation Counseling Provided Question On 09/07/2018. [email or web address] Information not available 12/01/2024 How Many Years Have You Smoked Tobacco? 24 [email or web address] Information not available 09/07/2018 Sex: Unknown Functional Status Question Answer Note LastModified by Organizat ion Details LastModified Time What is your level of alcohol consumption? None [email or web address] Information not available 02/09/2018 Do you or have you ever used smokeless tobacco? Never used [email or web address] tobacco Information not available 07/18/2020 Are you currently employed? No [email or web address] Information not available 09/16/2021 What is your occupation? Disabled [email or web address] Information not available 09/07/2018 Do you or have you ever used e-cigarettes or vape? Never used electronic cigarettes [email or web address] Information not available 07/18/2020 What is your exercise level? Occasional Information not available 06/02/2023 Mental Status None recorded. Family History Nothing Reported. Medical History Condition Response Bipolar Disease N Coronary Artery Disease N Gout N Seizure Disorder N Thyroid Disease N Atrial Fibrillation N Hernia N Head Trauma/Injury N COPD N Depression N Anxiety Disorder N Acid Reflux (GERD) Y Cancer N Skin Disorder N Stroke N High Cholesterol N Liver Disease N Rheumatoid Arthritis N Fibromyalgia N Headaches Y Autoimmune Disease N Kidney Disease N Osteoarthritis Y Neurosurgery N DVT N Peptic Ulcer Disease N Anemia N Heart Attack (NC) N Diabetes N Cardiomyopathy N Bleeding Disorder [...] SNOMED-CT Code Diagnosis ICD10 Code Diagnosis Note [id number] Heriberto Mccann MD [facility] [place] [address],[facility] [address] [place] [address] 02/09/2018 14:05:33 02/09/2018 15:14:14 Low back pain 434636801 M54.5 Interverte bral disc disorder 66410536 M51.27 Lumbar radiculopathy 128 924650 M54.16 Post-ruperto ectomy syndrome 45457363 M96.1 [id number] MD [facility] [place] [address] [place] [address] 03/11/2018 12:55:15 03/11/2018 13:37:41 Lumbar radiculopathy 652662250 M54.16 [id number] MD [facility] [place] [address] [place] [address] 06/09/2018 13:52:35 06/09/2018 14:35:19 Low back pain 574237087 M54.5 Interverte bral disc disorder 85016487 M51.27 Lumbar spondylosis 99254 0009 M47.816 [id number] MD Donnell Escudero [address] [place] [address] 08/08/2018 10:37:12 08/08/2018 11:12:14 Lumbosacral spondylosis without myelopathy 89011960 M47.817 [id number] MD Donnell Escudero [address] [place] [address] 09/07/2018 08:24:49 09/07/2018 09:02:35 Degeneration of lumbar intervertebral disc 01602353 M51.36 Chronic pain syndrome 37 4159493 G89.4 Lumbar spondylosis 41279 0009 M47.816 The recommende d procedure is discussed with the patient in detail. Questions related to the procedure are answered. The patient is provided the patient education handout. Lumbar radiculopathy 128 441654 M54.16 Lumbar post-laminectomy syndrome 455896706 M96.1 [id number] MD Donnell Escudero [address] [place] [address] 09/28/2018 07:53:06 09/28/2018 08:39:21 Lumbosacral spondylosis without myelopathy 96673957 M47.817 [id number] MD Donnell Escudero [address] [place] [address] 12/06/2018 07:59:17 12/06/2018 08:34:06 Neck pain 48684701 M54.2 Lumbosacra l spondylosis without myelopathy 97163201 M47.817 [id number] Brandyn Castro MD [facility] [address] [place] [address] 01/18/2019 09:13:59 01/18/2019 10:27:42 Lumbar radiculopathy 448005544 M54.16 ORT and PHQ-9 testing was completed electronic ally by the patient to evaluate the patient's psychosoci al health to better determine baseline risk as we consider initiating opioid medication s. The patient's ORT score of 3 indicates (low) risk potential for medication misuse. The patients PHQ-9 of 3 indicates (minimal) depression . The patients PSEQ score being 30 represents the patient has (less sustainabl e gains) if opioid medication is considered . Baseline results. Will be taken into considerat ion if treatment with opioid medication is initiated in the future. Lumbosacra l spondylosis without myelopathy 86150586 M47.817 Neck pain 34798009 M54.2 [id number] MD Donnell Escudero [facility] [address] [place] [address] 03/15/2019 09:33:18 03/15/2019 10:18:41 Degeneration of lumbar intervertebral disc 73921679 M51.36 Degenerati on of cervical intervertebral disc 13799318 M50.30 Lumbar radiculopathy 128 358788 M54.16 Chronic pain syndrome 37 6009450 G89.4 Pain of ri ght shoulder joint 8651801971 1481099 M25.511 The recommende d procedure is discussed with the patient in detail. Questions related to the procedure are answered. The patient is provided the patient education handout. [id number] MD Donnell Escudero [address] [place] [address] 06/18/2020 07:58:52 06/18/2020 08:37:20 Degeneration of lumbar intervertebral disc 39756264 M51.36 Degenerati on of cervical intervertebral disc 42866465 M50.30 Lumbar radiculopathy 128 361865 M54.16 [id number] MD Donnell Escudero [address] [place] [address] 07/18/2020 09:00:18 07/18/2020 09:30:36 Lumbar radiculopathy 109696488 M54.16 Use of the medication does allow the patient to perform the activities of daily living and function without being in severe pain. Degenerati on of lumbar intervertebral disc 87240395 M51.36 Degenerati on of cervical intervertebral disc 30201928 M50.30 Long-term drug therapy 780717194 Z79.899 [id number] Heriberto Mccann MD [place] [address] [place] [address] 08/13/2020 08:45:15 08/13/2020 09:11:57 Lumbar radiculopathy 983721066 M54.16 Use of the medication does allow the patient to perform the activities of daily living and function without being in severe pain. Degenerati on of lumbar intervertebral disc 71788251 M51.36 Degenerati on of cervical intervertebral disc 33393650 M50.30 Long-term drug therapy 353996292 Z79.899 The preliminar y urine drug screen is appropriat e for the class of medication s that the patient is being prescribed and based on their stratifica tion I will not send this sample for further quantitati ve LCMS testing. [id number] MD [facility] [address] [address] 10/16/2020 10:59:37 10/16/2020 11:24:09 Lumbar radiculopathy 036571418 M54.16 Use of the medication does allow the patient to perform the activities of daily living and function without being in severe pain. Degenerati on of lumbar intervertebral disc 92602731 M51.36 Degenerati on of cervical intervertebral disc 07343499 M50.30 Long-term drug therapy 393109138 Z79.899 The preliminar y urine drug screen is appropriat e for the class of medication s that the patient is being prescribed and based on their stratifica tion I will not send this sample for further quantitati ve LCMS testing. [id number] Heriberto Mccann MD [facility] [address] [place] [address] 12/12/2020 08:24:41 12/12/2020 09:12:44 Lumbar radiculopathy 538039451 M54.16 Use of the medication does allow the patient to perform the activities of daily living and function without being in severe pain. Degenerati on of lumbar intervertebral disc 83913167 M51.36 Degenerati on of cervical intervertebral disc 07317348 M50.30 Long-term drug therapy 889501711 Z79.899 Pain of ri ght hip joint 8312503282 70175 M25.551 The recommende d procedure is discussed with the patient in detail. Questions related to the procedure are answered. The patient is provided the patient education handout. [id number] MD [facility] [place] [address] [place] [address] 12/23/2020 09:19:19 12/23/2020 09:38:06 Osteoarthritis of right hip joint 4826360481 18953 M16.11 [id number] MD Donnell Escudero [address] [place] [address] 02/07/2021 08:37:20 02/07/2021 10:39:39 Lumbar radiculopathy 571664028 M54.16 Use of the medication does allow the patient to perform the activities of daily living and function without being in severe pain. Degenerati on of lumbar intervertebral disc 38609132 M51.36 Degenerati on of cervical intervertebral disc 03242669 M50.30 Long-term drug therapy 109242215 Z79.513 [id number] MD Solitario [place] [address] [place] [address] 04/09/2021 08:46:46 04/09/2021 10:04:52 Lumbar radiculopathy 544205868 M54.16 Degenerati on of lumbar intervertebral disc 98270215 M51.36 Degenerati on of cervical intervertebral disc 61730147 M50.30 Long-term drug therapy 000275758 Z79.899 The patient was advised that the purpose of this urine drug screen is to monitor for compliance and to assist in risk stratifica tion. The results of this preliminar y screening test was discussed with the patient. do not send Greater tr ochanteric pain syndrome of right lower limb 7174540306 3842146 M70.61 The recommende d procedure is discussed with the patient in detail. Questions related to the procedure are answered. The patient is provided the patient education handout. [id number] MD Donnell Escudero [facility] [address] [place] [address] 09/16/2021 09:01:40 09/16/2021 09:56:26 Lumbar radiculopathy 700556201 M54.16 Degenerati on of lumbar intervertebral disc 70452511 M51.36 Greater tr ochanteric pain syndrome of right lower limb 4978793438 3089702 M70.61 Myofascial pain 38305427 9 M79.10 The recommende d procedure is discussed with the patient in detail. Questions related to the procedure are answered. The patient is provided the patient education handout. Chronic neck pain 756757 6840 107 M54.2 [id number] [place] [address] [place] [address] 09/23/2021 08:46:44 09/23/2021 09:26:42 Myofascial pain 127799687 M79.10 The recommende d procedure is discussed with the patient in detail. Questions related to the procedure are answered. The patient is provided the patient education handout. [id number] MD Donnell Escudero [address] [place] [address] 12/03/2021 09:04:06 12/03/2021 09:54:45 Degeneration of lumbar intervertebral disc 19692614 M51.36 Use of the medication does allow the patient to perform the activities of daily living and function without being in severe pain. Lumbar radiculopathy 128 455933 M54.16 Greater tr ochanteric pain syndrome of right lower limb 7739109801 6007283 M70.61 Myofascial pain 86088130 9 M79.10 [id number] MD Donnell Escudero [address] [place] [address] 01/01/2022 09:01:48 01/01/2022 10:08:11 Degeneration of lumbar intervertebral disc 88538482 M51.36 Use of the medication does allow the patient to perform the activities of daily living and function without being in severe pain. Lumbar radiculopathy 128 M54.16 Use of the medication does allow the patient to perform the activities of daily living and function without being in severe pain. Greater tr ochanteric pain syndrome of right lower limb 3142720954 6463703 M70.61 Myofascial pain 46509858 9 M79.10 [id number] Heriberto Mccann MD [place] [address] [place] [address] 01/23/2022 09:13:13 01/23/2022 10:04:27 Degeneration of lumbar intervertebral disc 77362079 M51.36 Use of the medication does allow the patient to perform the activities of daily living and function without being in severe pain. Lumbar radiculopathy 128 M54.16 Use of the medication does allow the patient to perform the activities of daily living and function without being in severe pain. Greater tr ochanteric pain syndrome of right lower limb 8451328038 0354156 M70.61 Myofascial pain 06512204 9 M79.10 [id number] MD Donnell Escudero [address] [place] [address] 04/27/2022 13:48:22 04/27/2022 14:35:22 Lumbar radiculopathy 439236116 M54.16 Use of the medication does allow the patient to perform the activities of daily living and function without being in severe pain. Greater tr ochanteric pain syndrome of right lower limb 2531842450 3796810 M70.61 Myofascial pain 81939551 9 M79.10 [id number] MD Donnell Escudero [address] [place] [address] 07/29/2022 10:06:34 07/29/2022 11:32:43 Lumbar radiculopathy 399444692 M54.16 Use of the medication does allow the patient to perform the activities of daily living and function without being in severe pain. Greater tr ochanteric pain syndrome of right lower limb 8455482662 0114443 M70.61 Myofascial pain 38701922 9 M79.10 Long-term drug therapy 175853323 Z79.899 The patient was advised that the purpose of this urine drug screen is to monitor for compliance and to assist in risk stratifica tion. The results of this preliminar y screening test was discussed with the patient.Se nd for LCMS confirmati on of Gabapentin to confirm the quantitati ve level of this drug and its metabolite as it will not be detected in [place] testing and the patient is currently prescribed Gabapentin . [id number] Heriberto Mccann MD [place] [address] [place] [address] 08/25/2022 10:17:01 08/25/2022 10:44:23 Lumbar radiculopathy 557982693 M54.16 Use of the medication does allow the patient to perform the activities of daily living and function without being in severe pain. Greater tr ochanteric pain syndrome of right lower limb 9917118955 0460513 M70.61 Long-term drug therapy 709172831 Z79.899 Spasm of back muscles 20 7471745 M62.830 Use of the medication does allow the patient to perform the activities of daily living and function without being in severe pain. [id number] MD [facility] [place] [address] [place] [address] 09/25/2022 10:28:30 09/25/2022 11:19:59 Lumbar radiculopathy 679588240 M54.16 Use of the medication does allow the patient to perform the activities of daily living and function without being in severe pain. Greater tr ochanteric pain syndrome of right lower limb 5233589542 6679728 M70.61 Spasm of back muscles 20 6725582 M62.830 Use of the medication does allow the patient to perform the activities of daily living and function without being in severe pain. Long-term drug therapy 085144896 Z79.899 The patient was advised that the purpose of this urine drug screen is to monitor for compliance and to assist in risk stratifica tion. The results of this preliminar y screening test was discussed with the patient.Se nd for LCMS confirmati on of Oxycodone and Oxymorphon e to confirm the quantitati ve levels of these drugs that the patient is prescribed . Send for LCMS confirmati on of Opiates (Codeine, Hydrocodon e, Hydromorph one, Morphine, and Heroin) as these are frequently used and/or abused pain medication s amongst chronic pain patients in our community. Send for LCMS confirmati on of Synthetic Opioids (Fentanyl, Methadone, Tramadol, Tapentadol , and Buprenorph ine) as these drugs will not be detected in Opiate [place] testing and these are also frequently used and/or abused pain medication s in our community. Send for LCMS confirmati on of Gabapentin to confirm the quantitati ve level of this drug and its metabolite as it will not be detected in [place] testing and the patient is currently prescribed Gabapentin . [id number] Heriberto Mccann MD [place] [address] [place] [address] 12/04/2022 08:00:53 12/04/2022 08:41:57 Lumbar radiculopathy 049023997 M54.16 Use of the medication does allow the patient to perform the activities of daily living and function without being in severe pain. Greater tr ochanteric pain syndrome of right lower limb 3968715802 5640192 M70.61 Spasm of back muscles 20 3595040 M62.830 Use of the medication does allow the patient to perform the activities of daily living and function without being in severe pain. Long-term drug therapy [id number] Z79.107 [id number] MD Donnell FELIX [address] [place] [address] 02/01/2023 09:53:53 02/01/2023 10:22:41 Lumbar radiculopathy 033116746 M54.16 Use of the medication does allow the patient to perform the activities of daily living and function without being in severe pain. Greater tr ochanteric pain syndrome of right lower limb [id number] 9620498 M70.61 Spasm of back muscles 20 0387848 M62.830 Use of the medication does allow the patient to perform the activities of daily living and function without being in severe pain. Long-term drug therapy 024183173 Z79.128 [id number] PATRICK LEAL MD [facility] [address] [place] [address] 04/01/2023 09:49:22 04/01/2023 10:26:09 Lumbar radiculopathy 711131957 M54.16 Use of the medication does allow the patient to perform the activities of daily living and function without being in severe pain. Greater tr ochanteric pain syndrome of right lower limb [id number] 7892532 M70.61 Spasm of back muscles 20 0943377 M62.830 Use of the medication does allow the patient to perform the activities of daily living and function without being in severe pain. Long-term drug therapy 358490737 Z79.899 The patient was advised that the purpose of this urine drug screen is to monitor for compliance and to assist in risk stratifica tion. Hypertensi on screening 048070061 Z13.6 [id number] PATRICK LEAL MD [facility] [address] [place] [address] 06/02/2023 09:52:02 06/02/2023 10:16:04 Lumbar radiculopathy 391741703 M54.16 Use of the medication does allow the patient to perform the activities of daily living and function without being in severe pain. Spasm of back muscles 20 1869034 M62.830 Use of the medication does allow the patient to perform the activities of daily living and function without being in severe pain. Greater tr ochanteric pain syndrome of right lower limb [id number] 1896528 M70.61 Hypertensi on screening 593935045 Z13.6 Long-term drug therapy 190194388 Z79.633 [id number] PATRICK LEAL MD [facility] [address] [place] [address] 08/02/2023 09:14:53 08/02/2023 10:02:02 Greater trochanteric pain syndrome of right lower limb [id number] 9093345 M70.61 Spasm of back muscles 20 4984243 M62.830 Use of the medication does allow the patient to perform the activities of daily living and function without being in severe pain. Lumbar radiculopathy 128 826826 M54.16 Use of the medication does allow the patient to perform the activities of daily living and function without being in severe pain. Hypertensi on screening 402483111 Z13.6 Long-term drug therapy 368114054 Z79.899 The patient was advised that the purpose of this urine drug screen is to monitor for compliance and to assist in risk stratifica tion. [id number] MD [facility] [address] [place] [address] 10/01/2023 10:34:39 10/01/2023 11:04:41 Greater trochanteric pain syndrome of right lower limb 6869741188 8530150 M70.61 Spasm of back muscles 20 2786863 M62.830 Use of the medication does allow the patient to perform the activities of daily living and function without being in severe pain. Lumbar radiculopathy 128 M54.16 Use of the medication does allow the patient to perform the activities of daily living and function without being in severe pain. Hypertensi on screening 011394465 Z13.6 Long-term drug therapy 583092409 Z79.899 Neck pain 78256529 M54.2 [id number] MD [facility] [address] [place] [address] 11/30/2023 10:44:02 11/30/2023 11:26:34 Spasm of back muscles 336704221 M62.830 Use of the medication does allow the patient to perform the activities of daily living and function without being in severe pain. Lumbar radiculopathy 128 M54.16 Use of the medication does allow the patient to perform the activities of daily living and function without being in severe pain. Hypertensi on screening 569220047 Z13.6 Long-term drug therapy 627520487 Z79.899 The patient was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
== END 2025-05-11 23:59 | disposition home or self-care (01) ==
LOC: LAB.DROPOF 05-14 09:35
PROVIDERS: PCP Nurse Practitioner Family; Visit Provider Nurse Practitioner Family
DX: E11.22 Type 2 diabetes mellitus with diabetic chronic kidney disease (principal); E11.69 Type 2 diabetes mellitus with other specified complication; E78.5 Hyperlipidemia, unspecified; N18.9 Chronic kidney disease, unspecified; Z12.5 Encounter for screening for malignant neoplasm of prostate
CPT/HCPCS: 80053; 83036; G0103

== ENCOUNTER 2025-06-06 16:33 | Outpatient (CLI) | payer MEDICARE, MEDICAID, SELFPAY ==
--- OUTSIDE RECORDS SUMMARY | 2025-06-06 16:35 | XMS_ITS | Clinical Summary ---
Author Organization [facility] Address [address] [place] [address] Phone Care Team Providers Care Floor Mechanic Name Role Phone Status, Fax Unavailable Conditions or Problems Problem Name Problem Code Onset Date Status Entry Date Provider Comment Standard Description Annotate Coronary artery disease (CAD) 39802612 (SNOMED CT) 01/02 Active 01/02 Tatyana Lee Coronary arteriosclerosi s Presence of prosthetic heart valve Z95.2 (ICD-10-CM ) 01/02 Active 01/02 Tatyana Jesus Presence of prosthetic heart valve Flexor tenosynoviti s, left hand/finger 573921648 (SNOMED CT) 01/02 Active 01/02 Tatyana Jesus Tenosynovitis of hand Cellulitis, finger, left 38053063 (SNOMED CT) 01/02 Active 01/02 Tatyana Jesus Cellulitis of finger Obesity due to excess calories E66.09 (ICD-10-CM ) 08/02 Resolved 08/02 Tatyana Jesus Other obesity due to excess calories Obesity, class 3, BMI 40 or greater E66.813 (ICD-10-CM ) 01/02 Active 01/02 Tatyana Jesus Obesity, class 3 MSSA infection 596241634 (SNOMED CT) 01/02 Active 01/02 Tatyana Jesus Infection by methicillin sensitive Staphylococcus aureus Abscess, paraspinal G06.1 (ICD-10-CM ) 07/22 Resolved 07/22 Tatyana Jesus Intraspinal abscess and granuloma Lumbar region, infected discitis (pyogenic) (document infectious agent) M46.36 (ICD-10-CM ) 07/22 Resolved 07/22 Tatyana Lee Infection of intervertebral disc (pyogenic), lumbar region Osteomyeliti s of lumbar vertebra 051092157 (SNOMED CT) 07/22 Resolved 07/22 Tatyana Jesus Osteomyelitis of vertebra Rhabdomyolys is 722910375 (SNOMED CT) 08/02 Resolved 08/02 Tatyana Jesus [...] incisional surgical site, subsequent encounter Rhabdomyolys is 752086140 (SNOMED CT) 08/02 Removed 08/02 Tatyana Jesus Rhabdomyolysis Lumbar discitis 863149962 (SNOMED CT) 07/22 Resolved 07/22 Tatyana Jesus Lumbar discitis Benign Essential Hypertension 78083994 (SNOMED CT) 07/22 Active 07/22 Tatyana Jesus Benign hypertension Smoking cessation counseling 994356533 (SNOMED CT) 07/23 Active 07/23 Nicolasa Mayorga Procedure carried out on subject COPD 31740474 (SNOMED CT) 07/22 Active 07/22 Pearl Mohr Chronic obstructive pulmonary disease Lumbar discitis 554441444 (SNOMED CT) 07/22 Removed 07/22 Pearl Mohr Lumbar discitis Lumbar region, infected discitis (pyogenic) (document infectious agent) M46.36 (ICD-10-CM ) 07/22 Removed 07/22 Pearl Mohr Infection of intervertebral disc (pyogenic), lumbar region Osteomyeliti s of lumbar vertebra 618164799 (SNOMED CT) 07/22 Removed 07/22 Pearl Mohr Osteomyelitis of vertebra Abscess, paraspinal G06.1 (ICD-10-CM ) 07/22 Removed 07/22 Pearl Mohr Intraspinal abscess and granuloma Hypertension 10666470 (SNOMED CT) 07/22 Inactive 07/22 Pearl Mohr Hypertensive disorder Diabetes mellitus type II 98045935 (SNOMED CT) 07/22 Inactive 07/22 Pearl Mohr Type 2 diabetes mellitus Medications Medication Instructions Start Date Stop Date Generic Name NDC Provider TRAMADOL HCL 50 MG TABS 03/12 tramadol [id number] Ehsan Ashleyh ceftriaxone recon soln Rocephin 2G IV q24hrs -- BHI/LIDC dose, line care, labs 01/18 ceftriaxone recon dagoberto [facility] CEPHALEXIN 500 MG CAPS Take 2 capsule by mouth twice a day 01/16 cephalexin 86758388895 Vijay Guzman MD BISOPROLOL-HYDROCHLO ROTHIAZIDE 5-6.25 MG TABS by mouth once a day bisoprolol-hydrochl orothiazide 74860609592 Samir Linares FLUCONAZOLE 200 MG TABS Take 1 tablet by mouth once a day 01/09 fluconazole 48423807140 Vijay Guzman MD ceftriaxone recon soln Rocephin 2G IV q24hrs -- BHI/LIDC dose, line care, labs 01/18 ceftriaxone recon soln Karlie Navarrete CHANTIX 1 MG TABS by mouth twice a day 01/01 varenicline tartrate 47458704849 [facility] VARENICLINE TARTRATE (STARTER) 0.5 MG X 11 & 1 MG X 42 TBPK 1 mg, Oral, 2 Times Daily 01/01 varenicline tartrate 65680056594 [facility] DOCUSATE SODIUM 100 MG CAPS 100 mg, Oral, 2 Times Daily 01/01 docusate sodium 43645004772 [facility] JARDIANCE 10 MG TABS by mouth once a day 01/01 empagliflozin 68132136264 [facility] LISINOPRIL 20 MG TABS by mouth once a day 01/01 lisinopril 21738305375 [facility] GLYXAMBI 25-5 MG TABS daily 01/01 empagliflozin-linag liptin 40548527176 [facility] FISH OIL 500 MG CAPS 1000mg, Oral, Daily 01/01 omega 7-sjr-qef-fish oil 41939984406 [facility] METFORMIN HCL ER 750 MG [id number] 2 tablet by mouth once a day 01/01 metformin (glucophage xr) 86197512736 [facility] GABAPENTIN 600 MG TABS by mouth three times a day 01/01 gabapentin 33861760338 [facility] EPIPEN 2-CASIMIRO 0.3 MG/0.3ML SOAJ 01/01 epinephrine 51036730282 [facility] OXYCODONE HCL 5 MG TABS by mouth three times a day PRN 01/01 oxycodone 53470739240 [facility] ALBUTEROL SULFATE HFA 108 (90 Base) MCG/ACT AERS albuterol sulfate 50162800918 [facility] RYBELSUS 14 MG TABS 01/01 semaglutide 03196873491 [facility] PREGABALIN 200 MG CAPS 01/01 pregabalin 09118369401 [facility] PRAVASTATIN SODIUM 40 MG TABS 01/01 pravastatin 98983316535 [facility] HYDROCHLOROTHIAZIDE 12.5 MG TABS 01/01 hydrochlorothiazide 02572921319 [facility] FLUTICASONE PROPIONATE HFA 110 MCG/ACT AERO 01/01 fluticasone propionate 64494400623 Ehsan Stevenson TRAMADOL HCL 50 MG TABS Take 1 tablet by mouth every six hours as needed as directed 01/01 tramadol 19324742088 Ehsan Stevenosn RYBELSUS 14 MG TABS semaglutide 37164319 430 Ehsan Stevenson JARDIANCE 10 MG TABS empagliflozin 27764 121790 Ehsan Stevenson HYDROCHLOROTHIAZIDE 12.5 MG TABS hydrochlorothiazide 76881483630 Av jairo Stevenson VARENICLINE TARTRATE (STARTER) 0.5 MG X 11 & 1 MG X 42 TBPK varenicline tartrate 70851551288 Ehsan Stevenson PREGABALIN 200 MG CAPS pregabalin 53987447452 Ehsan Stevenson EPINEPHRINE 0.3 MG/0.3ML SOAJ epinephrine 49335989913 Ehsan Stevenson METFORMIN HCL 1000 MG TABS metformin 66598130243 Ehsan Stevenson TRAMADOL HCL 50 MG TABS 03/12 tramadol 00016662497 Ehsan Stevenson PRAVASTATIN SODIUM 40 MG TABS pravastatin 22632121677 Ehsan Stevenson LISINOPRIL 20 MG TABS lisinopril 53892500562 Ehsan Stevenson OXYCODONE-ACETAMINOP HEN 7.5-325 MG TABS by mouth three times a day as needed 01/05 oxycodone-acetamino phen 48176680222 [facility] PRAVASTATIN SODIUM 20 MG TABS by mouth once a day 01/05 pravastatin 92618043525 Mackenzie Garciaguillaume OXYCODONE HCL 5 MG TABS by mouth three times a day PRN 01/01 oxycodone 34835228455 Mackenzie Walsh DOXYCYCLINE MONOHYDRATE 100 MG TABS Take 1 tablet by mouth twice a day 11/12 doxycycline monohydrate 77421761758 Vijay Verdin MD LEVOFLOXACIN 500 MG TABS Take 1 tablet by mouth once a day 11/12 levofloxacin 09847523164 Vijay Verdin MD DOXYCYCLINE MONOHYDRATE 100 MG TABS Take 1 tablet by mouth twice a day 10/13 doxycycline monohydrate 96454976336 Vijay Verdin MD LEVOFLOXACIN 500 MG TABS Take 1 tablet by mouth once a day 10/13 levofloxacin 98785126630 Vijay Verdin MD TEFLARO 400 MG SOLR Teflaro 600mg IV [id number]-EAE/ROSE BRUCE DOSE, LINE CARE, STAT LABS 07/28 ceftaroline fosamil 76951906215 Ericka Kwon RN LEVOFLOXACIN 500 MG TABS Take 1 tablet by mouth once a day 10/10 levofloxacin 95982562001 Vijay Verdin MD DOXYCYCLINE MONOHYDRATE 100 MG TABS Take 1 tablet by mouth twice a day 10/10 doxycycline monohydrate 76385374363 Vijay Verdin MD GLYXAMBI 25-5 MG TABS daily 01/01 empagliflozin-linag liptin 77117168666 Daisy Tejeda CELEBREX 200 MG CAPS 07/29 celecoxib 81871080885 Daisy Tejeda docusate sodium 100 mg tablet by mouth twice a day 07/29 docusate sodium 60732826127 Daisy Tejeda HYDROCHLOROTHIAZIDE 12.5 MG TABS by mouth once a day 07/29 hydrochlorothiazide 79807178891 Daisy Tejeda DOCUSATE SODIUM 100 MG CAPS 100 mg, Oral, 2 Times Daily 05/22 docusate sodium 11902064208 Daisy Tejeda omega 7-vub-gbr-fish oil unspecified unspecified 1000mg, Oral, Daily 01/01 omega 6-iwr-czn-fish oil 54372884190 Daisy Tejeda varenicline 0.5 mg (11)- 1 mg (42) tablets,dose pack 1 mg, Oral, 2 Times Daily 01/01 varenicline 80387310664 Daisy Tejeda Cubicin unspecified unspecified Cubicin 500mg IV [id number]-FWW/CA RETENDERS 07/23 daptomycin 18803067280 Ericka Kwon RN CEFTRIAXONE SODIUM 1 GM SOLR Rocephin 2G IV f75dhp-NEM/CA RETENDERS 07/23 ceftriaxone 82674429009 Ericka Kwon RN TEFLARO 400 MG SOLR Teflaro 600mg IV [id number]-KTK/LI DC DOSE, LINE CARE, STAT LABS 07/28 ceftaroline fosamil 72214250268 Ericka Kwon RN Cubicin unspecified unspecified Cubicin 500mg IV n93kik-FDP/CA RETENDERS 07/23 daptomycin 39960210926 Ericka Kwon RN CEFTRIAXONE SODIUM 1 GM SOLR Rocephin 2G IV p25uih-OSV/CA RETENDERS 07/23 ceftriaxone 92799230466 Ericka Kwon RN BACLOFEN 20 MG TABS by mouth twice a day baclofen 59508805568 Nicolasa Mayorga BISOPROLOL-HYDROCHLO ROTHIAZIDE 2.5-6.25 MG TABS by mouth once a day 05/22 bisoprolol-hydrochl orothiazide 87423094111 Nicolasa Mayorga CELEBREX 200 MG CAPS 07/29 celecoxib 25746633966 Nicolasa Mayorga docusate sodium 100 mg tablet by mouth twice a day 07/29 docusate sodium 03389084970 Nicolasa Mayorga JARDIANCE 10 MG TABS by mouth once a day 01/01 empagliflozin 41435992426 Nicolasa Mayorga EpiPen 0.3 mg/0.3 mL auto-injector 01/01 epinephrine 93597363164 Nicolasa Mayorga GABAPENTIN 600 MG TABS by mouth three times a day 01/01 gabapentin 17814223347 Nicolasa Mayorga GLYXAMBI 25-5 MG TABS 07/29 empagliflozin-linag liptin 00375036484 Nicolasa Mayorga HYDROCHLOROTHIAZIDE 12.5 MG TABS by mouth once a day 05/22 hydrochlorothiazide 85938242625 Nicolasa Mayorga LISINOPRIL 20 MG TABS by mouth once a day 01/01 lisinopril 18945232079 Nicolasa Mayorga METFORMIN HCL ER 750 MG [id number] 2 tablet by mouth once a day 01/01 metformin 46229807891 Nicolasa Mayorga OXYCODONE-ACETAMINOP HEN 7.5-325 MG TABS by mouth three times a day as needed 01/05 oxycodone-acetamino phen 42544659418 Nicolasa Mayorga PRAVASTATIN SODIUM 20 MG TABS by mouth once a day 01/05 pravastatin 55230225722 Nicolasa Mayorga Chantix 1 mg tablet by mouth twice a day 01/01 varenicline 22998075352 Nicolasa Mayorga Medications Administered No information available. [...] Care 01/09 CPT-cwl Weekly Labs (Continue) 01/09 CPT-05971 CMP CPT-80708 CBC w/o Differential CPT-64891 C- reactive protein CPT-01180 Sedimentation Rate (ESR) 202 03/23/18 CPT-sl STAT Labs [id number] CBC with Differential 2022 CPT-27227 CMP CPT-23379 C- reactive protein CPT-99429 Sedimentation Rate (ESR) 202 01/23/11 CPT-47479 MRI Lumbar Spine with/without constrast 2 [id number] CBC with Differential 2022 CPT-79076 Sedimentation Rate (ESR) 202 01/21/14 CPT-43266 C- reactive protein CPT-Cooral Continue oral antibiotics 20 13/10/22 CPT-DC Discontinue IV antibiotics 2 CPT-óscar New Oral Antibiotic CPT-PICREM PICC Removal CPT- stat weekly Stat Weekly Labs CPT-ca Continue IV antibiotics 2021 CPT-J0712 Teflaro CPT-sl STAT Labs [id number] CBC with Differential 2021 CPT-95338 CMP CPT-92610 C- reactive protein CPT-38362 PICC Line Insertion CPT-ca Continue IV antibiotics [...]
--- OUTSIDE RECORDS SUMMARY | 2025-06-06 16:36 | XMS_ITS | Referral Summary ---
Author Organization [employer] ([place], [place], [place], [place]) Address [address] [place] [address] Care Team Providers Care Flight Controls Engineer Name Role Phone NietoSugey galloway VICE PRESIDENT OF COMPLIANCE Primary Care Provider [phone] Allergies Active Allergy Reactions Criticality Noted Date [...] mouth 2 (two) times daily as needed. 3 Active ipratropium/alb uterol sulfate (COMBIVENT RESPIMAT INHL) [...] 07/31/2023 Asthma 07/31/2023 Type 2 diabetes mellitus, [facility] long-term current use of insulin 07/31/2023 Primary [...] drink = 0.6 oz pur e alcohol) Food Insecurity Answer Date Recorded Food run [...] Date Tino rded Speak language other than Nepali at home Not on file 12/04/2023 Want help with school or training Not on file 12/04/2023 Substance Use Answer Date Recorded Used [...] - 6.3 % 07/30/2023 12:14 PM EDT [facility] Comment: Hemoglobin A1C levels are related to mean glucose during the preceding 2-3 months. Less than 7% demonstrates glycemic control in diabetic patients. Hemoglobin AlC % Suggested Diagnosis > or = 6.5 Diabetic 5.7 - 6.4 Prediabetic <5.7 Non-diabetic eAVG Glucose 116.89 mg/dL 07/30/2023 12:14 PM EDT [facility] Blood Venipuncture / Unknown 07/30/2023 9:37 AM EDT 07/30/2023 9:43 AM EDT us Yazan Sharma MD LAB BLOOD ORDERABLES Marjorie l Result [facility] [address] [employer] [place] [address] [phone] from Last 3 Months or Most Recently Relevant to Health Maintenance Insurance [employer] MAP Care Teams Flight Controls Engineer Relationship Specialty Start Date End Date Sugey Nieto APRN [address] [address] PCP - General Nurse Practitioner 03/05/23
--- OUTSIDE RECORDS SUMMARY | 2025-06-06 16:36 | XMS_ITS | Clinical Summary ---
Author Organization [facility] Address [address] [place] [address] Care Team Providers Care Produce Clerk Name Role Phone Jayshree Morales AIRBRUSH ARTIST TECHNICAL Unavailable [phone] Nissa Linn RN Unavailable Unavailable Stiven Blair MD Unavailable Mekhi Aguirre MD Unavailable [phone] Sugey Nieto AIRBRUSH ARTIST TECHNICAL Primary Care Provider [phone] Allergies Active Allergy Reactions Criticality Noted Date Comments Acetaminophen Palpitations Low 09/14/2022 Codeine Rash Low 09/14/2022 Daptomycin Anaphylaxis High 07/01/2023 Hydrocodone Hives,Rash Medium 09/14/2022 Ibuprofen Diarrhea Low 09/14/2022 Meloxicam Other - please docum ent in the comment field Medium 02/17/2022 Abdominal pain Wasp Venom Protein Swelling High 03/09/2023 Medications hydroCHLOROthi azide (HYDRODiuril) 12.5 MG tablet 09/06/20 Active aspirin 81 MG EC tablet Take 2 tablets by mouth 2 times a day as needed for mild pain. Active LORazepam (Ativan) 2 MG tablet Take 1 tablet (2 mg) by mouth 1 (one) time for 1 dose. Take one hour prior to cardiac imaging 1 tablet 06/16/20 Active albuterol 108 (90 Base) MCG/ACT inhaler Inhale 2 puffs every 4 (four) hours as needed for shortness of breath or wheezing. 06/16/20 Active metFORMIN (Glucophage) 1000 MG tablet Take 1 tablet by mouth daily with breakfast. 06/15/20 Active Rybelsus 14 MG tablet Take 14 mg by mouth daily. 06/15/20 Active Jardiance 10 MG Take 1 tablet by mouth daily. 06/15/20 Active EPINEPHrine (Epipen-JR) 0.15 MG/0.3ML injection syringe Inject 0.3 mL (0.15 mg) into the muscle if needed for anaphylaxis. Inject into upper leg. Call 911 after use. Active baclofen (Lioresal) 20 MG tablet Take 1 tablet by mouth 3 times a day as needed for muscle spasms. 09/12/20 Active pravastatin (Pravachol) 40 MG tablet Take 1 tablet by mouth daily. 10/12/20 Active oxyCODONE (Roxicodone) 5 MG immediate release tablet Take 1 tablet by mouth every 8 hours as needed. 11/03/20 Active varenicline (Chantix) 0.5 MG tablet Take 1 tablet by mouth 2 times a day. Take with full glass of water. Active Kerendia 20 MG tablet Take 20 mg by mouth daily. 02/10/20 Active bisoprolol-hyd roCHLOROthiazi de (Ziac) 5-6.25 MG tablet Take 1 tablet by mouth daily. 02/21/20 25 Active cyclobenzaprin e (Flexeril) 5 MG tablet Take 1 tablet by mouth 3 times a day. 30 tablet 03/28/20 25 Active losartan (Cozaar) 50 MG tablet Take 1 tablet by mouth daily. 03/09/20 25 Active methylPREDNISo lone (Medrol Dospak) 4 MG tabletsIndicat ions:Lumbar disc herniation,S/P laminectomy Follow schedule on package instructions 21 tablet 03/29/20 25 Active pregabalin (Lyrica) 200 MG capsule Take 1 capsule by mouth daily. 06/05/20 24 025 Discontinued Active Problems Problem Noted Date Diagnosed Date [...] 09/07/2018 Aortic coarctation 03/31/2018 Pulmonary emphysema 02/09/2018 Essential hypertension 12/12/2016 Left ventricular systolic dysfunction [...] Encounters Date Type Department Care Team Description 05/18/2025 Travel 05/11/2025 Travel 04/17/2025 Travel 03/29/2025 1:20 PM EDT Office Visit [place] [facility] [address] [place] [address] Cely Elizabeth APRN S/P laminectomy (Primary Dx); Lumbar disc herniation 03/29/2025 Travel 03/27/2025 Refill [place] [facility] [address] [place] [address] Raleigh Agee MD 03/22/2025 Travel 03/16/2025 7:37 AM EDT Anesthesia Event [facility] [address] [place] [phone] Darrell Sprague MD Petelle, Jana, CRNA 03/16/2025 7:30 AM EDT - 03/16/2025 10:20 AM EDT Surgery [facility] [address] [place] [phone] Allegra Rodríguez MD Right L5-S1 Lumbar Lateral Recess Rescetion 03/16/2025 5:34 AM EDT - 03/16/2025 12:50 PM EDT Hospital Encounter [facility] [address] [place] [address] Allegra Rodríguez MD Lumbar disc herniation (Primary Dx) Discharge Disposition: Home or Self Care 03/16/2025 Travel 03/09/2025 Travel 03/07/2025 10:15 AM EDT Pre-Admission Testing [facility] [address] [place] [address] Preop examination (Primary Dx) 03/07/2025 9:20 AM EDT Consult [place] [facility] [address] [place] [address] Cely Elizabeth APRN Lumbar radiculopathy (Primary Dx); Preop examination; Bulging lumbar disc; Smoker; Acute bilateral low back pain with right-sided sciatica 03/07/2025 Travel from Last 3 Months Immunizations Immunization Administration Dates Next Due Hep B, Adolescent or Pediatric 07/17/1996,1995 Hep B, Adolescent/High Risk Infant 07/17/1996, Influenza, injectable, quadrivalent 08/30/2017 MMR 06/14/1996 Tdap 05/11/2022 Family History Medical History Relation Name Comments Hyperlipidemia Father Hypertension, benign Father Abnormal EKG Maternal Grandmother Jareth Sextonmariam Diabetes Maternal Grandmother Jareth Morrislexy Heart attack Maternal Grandmother Jareth Morrislexy Heart disease Maternal Grandmother Jareth Lyles Brain Aneurysm Mother Jacqueline winter jones Brain Tumor Mother Jacqueline winter jones Cancer Mother Jacqueline winter jones Depression Mother Jacqueline winter jones Mental illness Mother Jacqueline winter jones Other cancer Mother Jacqueline winter jones Parkinsonism Mother Jacqueline winter jones Anesthesia problems Neg Hx Malig Hyperthermia Neg Hx Relation Name Status Comments Father Alive Maternal Grandmother Jareth Lyles Mother Jacqueline winter jones Social History Tobacco Use Types Packs/Day [...] Not on file 2021 Cage questionnaire eye therapist speech Not on file Cage Overall score Not [...] Care Team (Late st Contact Info) Description 02/14/2026 9:30 AM EDT Appointment Cardiac Imaging [address] [place] [address] 02/14/2026 11:40 AM EDT Office Visit [facility] [place] [address] [place] [address] Colleen Culver MD [address] [place] [address] Health Maintenance Due Date Last Done Comments [facility]-Medicare Annual Wellness (AWV) 1984 [facility]-/Child/Adol SDOH Screenings 1985 Diabetes: Dental Exam 01/29/1994 [...] Years) (1 of 2 - PCV) 01/29/2003 [id number] Vaccine (1 - season) 2024 [facility]-Diabetes: Hemoglobin A1C 03/29/2025 12/28/2024, 07/20/2022, 06/05/2022 [facility]-Influenza Vaccine (#1) 2025 08/30/2017 [facility]-Depression Screening 02/15/2026 02/15/2025, 01/21 [...] this topic Medical Devices Implanted Type Area Certified Appliance Service Technician Device Identifier Shelf Expiration Date Model / Serial / Lot Screw Screw Right: Ankle Procedures Procedure Name Priority Date/Time Associated Diagnosis Comments POCT GLUCOSE METER UNSOLICITED RESULTS Routine 03/16/2025 11:18 AM EDT FL LESS THAN 1 HOUR (NON-REPORTABLE) Routine 03/16/2025 10:07 AM EDT PB ANESTHESIA PLACEHOLDER Routine 03/16/2025 7:49 AM EDT WA AN ELECTIVE ENDOTRACHEAL AIRWAY Routine 03/16/2025 7:49 [...] Routine 03/07/2025 11:20 AM EDT Preop examination HEPATITIS C ANTIBODY - ED W/REFLEX TO HCV QUANT PCR STAT 06/19/2023 5:50 PM EDT HIV 1/2 ANTIBODY/ANTIGEN SCREEN WITH REFLEX TO HIV I/II DIFFERENTIATION STAT 06/19/2023 5:50 PM EDT from Last 3 Months or Most Recently Relevant to Health Maintenance Results * (ABNORMAL) POCT glucose meter (03/16/2025 11:18 AM EDT) Only the most recent of2 resultswithin the time period is included. POCT Glucose 206(H) 74 - 99 mg/dL [...] Comment 03/16/2025 11:19 AM EDT [facility]ARE [facility] Police Shift Commander ID Ericka Ricci 03/16/2025 11:19 AM EDT HEALTHCARE LAB Device ID [id number] 03/16/2025 11:19 AM EDT HEALTHCARE LAB Specimen Type POC Capillary 03/16/2025 11:19 AM EDT [facility]ALTH[facility]ARE [facility] Blood Capillary blood specimen / Unknown 03/16/2025 11:18 AM EDT 03/16/2025 11:19 AM EDT Allegra Rodríguez MD LAB POIN T OF CARE TEST DOCKED DEVICE UNSOLICITED RESULTS Final Result Performing Organization Address City/[facility]/ZIP Co de Phone Number [facility] [address] [place] [address] * FL Less than 1 Hour Intraoperative (03/16/2025 10:07 AM EDT) Narrative IMAGING - 03/16/2025 10:07 AM EDT Images were obtained for surgical purposes. See Allegra Rodríguez's surgical note in the patient's chart for the findings. us Allegra Rodríguez MD IMG FLUOROSCOPY PROCEDURES Final Result Performing Organization Address City/[facility]/ZIP Co de Phone Number IMAGING * WA AN ELECTIVE ENDOTRACHEAL AIRWAY, PB ANESTHESIA PLACEHOLDER (03/16/2025 7:49 AM EDT) Narrative Ana Rosa Castaneda CRNA - 03/16/2025 7:49 AM EDT Ana Rosa Castaneda CRNA 03/16/2025 8:21 AM Airway Date/Time: 03/16/2025 7:49 AM Reason: elective Airway not difficult General Information and Staff Patient location during procedure: OR RIVET FLUNKY: Ana Rosa Castaneda CRNA Performed: RIVET FLUNKY Patient Condition Indications for airway management: anesthesia [...] Additional Comments Atraumatic. No change to dentition. Darrell Sprague MD ANESTHESIA ORDERABLES Final Re [...] BLOOD BANK T EST ORDERABLES Final Result BLOOD BANK [address] [place] [address], * APTT (03/07/2025 11:20 AM EDT) aPTT 30 25 - 35 sec LAB COAGULATION METHOD 03/07/2025 1:11 PM EDT [facility] Blood Venous blood specimen / Unknown Venipuncture / Unknown 03/07/2025 11:20 AM EDT 03/07/2025 11:20 AM EDT us Cely Elizabeth APRN LAB BLOOD ORDERABLES Final Result Performing Organization Address [facility] Co de Phone Number [facility] [address] [place] [address] * Protime-INR (03/07/2025 11:20 AM EDT) Prothrombin Time 14.2 12.0 - 14.3 sec LAB COAGULATION METHOD 03/07/2025 1:11 PM EDT [facility] INR 1.1 0.9 - 1.1 LAB COAGULATION METHOD 03/07/2025 1:11 PM EDT [facility] Blood Venous blood specimen / Unknown Venipuncture / Unknown 03/07/2025 11:20 AM EDT 03/07/2025 11:20 AM EDT Narrative [facility] - 03/07/2025 1:11 PM EDT OPTIMAL INR RANGES FOR PATIENT ON ORAL ANTICOAGULANT THERAPY Prevention of venous thromboembolism INR 2.0 to 3.0 In patients with heart disease: Atrial fibrillation INR 2.0 to 3.0 Valvular heart disease INR 2.0 to 3.0 Tissue heart valves INR 2.0 to 3.0 Mechanical prosthetic valves INR 2.5 to 3.5 Prevention of recurrent WI INR 2.5 to 3.5 us Cely Elizabeth APRN LAB BLOOD ORDERABLES Final Result Performing Organization Address [facility] Co de Phone Number [facility] [address] [place] [address] * (ABNORMAL) CBC and differential (03/07/2025 11:20 AM EDT) WBC Count 15.28(H) 3.70 - 10.30 10*3/uL LAB HEMATOLOGY METHOD 03/07/2025 1:10 PM EDT [facility] RBC Count 6.06 4.60 - 6.10 10*6/uL LAB HEMATOLOGY METHOD 03/07/2025 1:10 PM EDT [facility] HGB 17.6(H) 13.7 - 17.5 g/dL LAB HEMATOLOGY METHOD 03/07/2025 1:10 PM EDT [facility] HCT 53.6(H) 40.0 - 51.0 % LAB HEMATOLOGY METHOD 03/07/2025 1:10 PM EDT [facility] Platelet Count 188 155 - 369 10*3/uL LAB HEMATOLOGY METHOD 03/07/2025 1:10 PM EDT [facility] MCV 88 79 - 98 fL LAB HEMATOLOGY METHOD 03/07/2025 1:10 PM EDT [facility] MCH 29.0 26.0 - 32.0 pg LAB HEMATOLOGY METHOD 03/07/2025 1:10 PM EDT [facility] MCHC 32.8 30.7 - 35.5 g/dL LAB HEMATOLOGY METHOD 03/07/2025 1:10 PM EDT [facility] RDW 14.4 11.5 - 14.5 % LAB HEMATOLOGY METHOD 03/07/2025 1:10 PM EDT [facility] MPV 12.7(H) 8.8 - 12.5 fL LAB HEMATOLOGY METHOD 03/07/2025 1:10 PM EDT [facility] nRBC 0.0 <=0.0 per 100 WBCs LAB HEMATOLOGY METHOD 03/07/2025 1:10 PM EDT [facility] Differential Type Automated LAB HEMATOLOGY METHOD 03/07/2025 1:10 PM EDT [facility] Neutrophils % 70 % LAB HEMATOLOGY METHOD 03/07/2025 1:10 PM EDT [facility] Lymphocytes % 21 % LAB HEMATOLOGY METHOD 03/07/2025 1:10 PM EDT [facility] Monocytes % 6 % LAB HEMATOLOGY METHOD 03/07/2025 1:10 PM EDT [facility] Eosinophils % 1 % LAB HEMATOLOGY METHOD 03/07/2025 1:10 PM EDT [facility] Basophils % 1 % LAB HEMATOLOGY METHOD 03/07/2025 1:10 PM EDT [facility] Immature Granulocytes % 1 % LAB HEMATOLOGY METHOD 03/07/2025 1:10 PM EDT [facility] Neutrophils Absolute 10.85(H) 1.60 - 6.10 10*3/uL LAB HEMATOLOGY METHOD 03/07/2025 1:10 PM EDT [facility] Lymphocytes Absolute 3.17 1.20 - 3.90 10*3/uL LAB HEMATOLOGY METHOD 03/07/2025 1:10 PM EDT [facility] Monocytes Absolute 0.87 0.30 - 0.90 10*3/uL LAB HEMATOLOGY METHOD 03/07/2025 1:10 PM EDT [facility] Eosinophils Absolute 0.19 0.00 - 0.50 10*3/uL LAB HEMATOLOGY METHOD 03/07/2025 1:10 PM EDT [facility] Basophils Absolute 0.09 0.00 - 0.10 10*3/uL LAB HEMATOLOGY METHOD 03/07/2025 1:10 PM EDT [facility] Immature Granulocytes Absolute 0.11(H) 0.00 - 0.06 10*3/uL LAB HEMATOLOGY METHOD 03/07/2025 1:10 PM EDT [facility] Blood Venous blood specimen / Unknown Venipuncture / Unknown 03/07/2025 11:20 AM EDT 03/07/2025 11:20 AM EDT Narrative [facility] - 03/07/2025 1:10 PM EDT Therapeutic decision making should be based on absolute values, rather than percentages. us Cely Elizabeth AIRBRUSH ARTIST TECHNICAL LAB BLOOD ORDERABLES Final Result [facility] [address] [place] [address] * (ABNORMAL) Basic metabolic panel (03/07/2025 11:20 AM EDT) Glucose, Plasma 116(H) 74 - 99 mg/dL 03/07/2025 1:21 PM EDT [facility] BUN, Plasma 14 7 - 21 mg/dL 03/07/2025 1:21 PM EDT [facility] Creatinine, Plasma 0.88 0.70 - 1.20 mg/dL 03/07/2025 1:21 PM EDT [facility] BUN/Creatinine Ratio 16 03/07/2025 1:21 PM EDT [facility] Sodium, Plasma 137 136 - 145 mmol/L 03/07/2025 1:21 PM EDT [facility] Potassium, Plasma 4.8 3.6 - 4.9 mmol/L 03/07/2025 1:21 PM EDT [facility] Chloride, Plasma 103 97 - 107 mmol/L 03/07/2025 1:21 PM EDT [facility] CO2, Plasma 23 22 - 29 mmol/L 03/07/2025 1:21 PM EDT [facility] Anion Gap 11 6 - 16 mmol/L 03/07/2025 1:21 PM EDT [facility] Total Calcium, Plasma 10.0 8.9 - 10.2 mg/dL 03/07/2025 1:21 PM EDT [facility] eGFRcr 110.8 mL/min/1.7 3m*2 03/07/2025 1:21 PM EDT [facility] Comment:Reported eGFRcr in m L/min/1.73m2 is based the CKD-EPI 2020 equation that does not use a race coefficient. Blood Venous blood specimen / Unknown Venipuncture / Unknown 03/07/2025 11:20 AM EDT 03/07/2025 11:20 AM EDT us Cely Elizabeth APRN LAB BLOOD ORDERABLES Final Result Performing Organization Address City/[facility]/ZIP Co de Phone Number [facility] [address] [place] [address] * HIV 1 & 2 Antibody/Antigen Screen (06/19/2023 5:50 PM EDT) [facility] HIV 1 & 2 Antibody/Antigen Screen Non Reactive Non Reactive 06/19/2023 6:56 PM EDT [facility] Comment:Screening for HIV 1 & 2 antibodies, and P24 antigen is NONREACTIVE. No confirmatory testing is required. Blood Venous blood specimen / Unknown Venipuncture / Unknown 06/19/2023 5:50 PM EDT 06/19/2023 6:06 PM EDT us Jeremy Lopez MD LAB BLOOD ORDERABLES Final Resu lt [facility] [address] [place] [address] * Hepatitis C Antibody - ED (06/19/2023 5:50 PM EDT) Hepatitis C Antibody Negative Negative 06/19/2023 6:46 PM EDT [facility] Blood Venous blood specimen / Unknown Venipuncture / Unknown 06/19/2023 5:50 PM EDT 06/19/2023 6:06 PM EDT us Jeremy Lopez MD LAB BLOOD ORDERABLES Final Resu lt [facility] [address] [place] [address] from Last 3 Months or Most Recently Relevant to Health Maintenance Insurance [place]ICAID-[place] [employer] MEDICARE Advance Directives * Full Code (Latest Code Status on File) Date Activated Date Inactivated Comments 07/18/2022 2:23 AM 07/19/2022 12:56 PM Question Answer Comments Patient has decision-making capacity? Yes Care Teams Produce Clerk Relationship Specialty Start Date End Date Sugey Nieto APRN [address] [place] [address] PCP - General 06/30/24 Jayshree Morales APRN [address] [place] [address] Nurse Practitioner Internal Medicine 08/19/22 Nissa Linn, RN [facility] Registered Nurse Cardiology 08/19/22 Stiven Blair MD [address] [place] [address] Consulting Physician Pediatric Cardiology 09/30/22 Mekhi Aguirre MD [address] [place] [address] Consulting Physician Cardiology 02/03/23
--- OUTSIDE RECORDS SUMMARY | 2025-06-06 16:36 | XMS_ITS | Encounter Summary ---
Author Organization Healthcare Address [address] [place] [address] Care Team Providers Care Transition Mgr Name Role Phone Susanna Patel RN Unavailable Unavailable Jayshree Morales ACREAGE REPORTER Unavailable [phone] Nissa Linn RN Unavailable Unavailable Stiven Blair MD Unavailable Mekhi Aguirre MD Unavailable [phone] Sugey Nieto ACREAGE REPORTER Primary Care Provider [phone] Encounter Details Date Type Department Care Team (Late st Contact Info) Description 08/09/2024 Orders Only External Location [address] [place] [address] Provider, External Social History Tobacco Use Types [...] Not on file 2021 Cage questionnaire eye hogshead opener Not on file Cage Overall score [...] AM EDT Appointment Cardiac Imaging [address] [place] [address] 02/14/2026 11:40 AM EDT Office Visit [facility] [place] [address] [facility] [place] [address] Colleen Culver MD [address] [place] [address] documented as of this encounter [...] documented as of this encounter Care Teams Transition Mgr Relationship Specialty Start Date End Date Sugey Nieto APRN [address] [place] [address] PCP - General 06/30/24 Susanna Patel, RN [facility] Registered Nurse 08/19/22 03/15/25 Jayshree Morales APRN [address] [place] [phone] Nurse Practitioner Internal Medicine 08/19/22 Nissa Linn, RN [facility] Registered Nurse Cardiology 08/19/22 Stiven Blair MD [address] [place] [address] Consulting Physician Pediatric Cardiology 09/30/22 Mekhi Aguirre MD [address] [place] [address] Consulting Physician Cardiology 02/03/23 documented as of this encounter
--- OUTSIDE RECORDS SUMMARY | 2025-06-06 16:36 | XMS_ITS | Encounter Summary ---
Author Organization Healthcare Address [address] [place] [address] Care Team Providers Care Web Worker Name Role Phone Jayshree Morales WALL TO WALL CARPET INSTALLER Unavailable [phone] Nissa Linn RN Unavailable Unavailable Stiven Blair MD Unavailable Mekhi Aguirre MD Unavailable [phone] Sugey Nieto WALL TO WALL CARPET INSTALLER Primary Care Provider [phone] Encounter Details Date Type Department Care Team [...] Not on file 2021 Cage questionnaire eye sagger maker Not on file Cage Overall score Not [...] AM EDT Appointment Cardiac Imaging [address] [place] [phone] 02/14/2026 11:40 AM EDT Office Visit [facility] [place] [address] [facility] [place] [address] Colleen Culver MD [address] [place] [address] documented as of this encounter [...] documented as of this encounter Care Teams Web Worker Relationship Specialty Start Date End Date Sugey Nieto APRN [address] [place] [address] PCP - General 06/30/24 Jayshree Morales APRN [address] [place] [phone] Nurse Practitioner Internal Medicine 08/19/22 Nissa Linn RN [facility] Registered Nurse Cardiology 08/19/22 Stiven Blair MD [address] [place] [address] Consulting Physician Pediatric Cardiology 09/30/22 Mekhi Aguirre MD [address] [place] [phone] Consulting Physician Cardiology 02/03/23 documented as of this encounter
--- OUTSIDE RECORDS SUMMARY | 2025-06-06 16:36 | XMS_ITS | Encounter Summary ---
Author Organization Healthcare Address [address] [place] [address] Care Team Providers Care Informatics Developer Name Role Phone Jayshree Morales VIDEO TAPE DUPLICATOR Unavailable [phone] Nissa Linn RN Unavailable Unavailable Stiven Blair MD Unavailable Mekhi Aguirre MD Unavailable [phone] Sugey Nieto VIDEO TAPE DUPLICATOR Primary Care Provider [phone] Encounter Details Date Type Department Care Team [...] Not on file 2021 Cage questionnaire eye qa reviewer Not on file Cage Overall score Not [...] EDT Appointment Cardiac Imaging [address] [place] [phone] 02/14/2026 11:40 AM EDT Office Visit [facility] [place] [address] [facility] [place] [phone] Colleen Culver MD [address] [place] [address] documented as of this encounter [...] documented as of this encounter Care Teams Informatics Developer Relationship Specialty Start Date End Date Sugey Nieto APRN [address] [place] [address] PCP - General 06/30/24 Jayshree Morales APRN [address] [place] [phone] Nurse Practitioner Internal Medicine 08/19/22 Nissa Linn RN [facility] Registered Nurse Cardiology 08/19/22 Stiven Blair MD [address] [place] [address] Consulting Physician Pediatric Cardiology 09/30/22 Mekhi Aguirre MD [address] [place] [phone] Consulting Physician Cardiology 02/03/23 documented as of this encounter
--- OUTSIDE RECORDS SUMMARY | 2025-06-06 16:36 | XMS_ITS | Encounter Summary ---
Author Organization Address [address] [place] [address] Care Team Providers Care Plate Stacker Name Role Phone Chandrakant Hopson MD Primary Care Provider Ssuanna Patel RN Unavailable Unavailable Jayshree Morales DERMATOLOGY PHYSICIAN ASSISTANT Unavailable [phone] Nissa Linn RN Unavailable Unavailable Stiven Blair MD Unavailable Mekhi Aguirre MD Unavailable [phone] Sugey Nieto DERMATOLOGY PHYSICIAN ASSISTANT Primary Care Provider [phone] Encounter Details Date Type Department Care Team (Late st Contact Info) Description 12/23/2023 Orders Only External Location [address] [place] [phone] Provider, External Social History Tobacco Use Types [...] Not on file 2021 Cage questionnaire eye jail guard Not on file Cage Overall score Not [...] AM EDT Appointment Cardiac Imaging [address] [place] [address] 02/14/2026 11:40 AM EDT Office Visit [facility] [place] [address] [place] [phone] Colleen Culver MD [address] [place] [address] documented as of this encounter [...] documented as of this encounter Care Teams Plate Stacker Relationship Specialty Start Date End Date Chandrakant Hopson MD [address] [place] [address] PCP - General 08/28/21 06/29/24 Sugey Nieto APRN [address] [place] [address] PCP - General 06/30/24 Susanna Patel, RN [facility] Registered Nurse 08/19/22 03/15/25 Jayshree Morales APRN [address] [place] [address] Nurse Practitioner Internal Medicine 08/19/22 Nissa Linn RN [facility] Registered Nurse Cardiology 08/19/22 Stiven Blair MD [address] [place] [address] Consulting Physician Pediatric Cardiology 09/30/22 Mekhi Aguirre MD [address] [place] [address] Consulting Physician Cardiology 02/03/23 documented as of this encounter
--- OUTSIDE RECORDS SUMMARY | 2025-06-06 16:36 | XMS_ITS | Data Portability ---
Author Organization JUDY [facility], [facility] Address [address] [place] [address] Care Team Providers Care Critical Care Nurse Specialist Name Role Phone VERITO GREY Primary Care Provider Assessment Encounter Date Assessment [...] scheduled for this August 09, 2024 at [facility]. Then he will follow-up with his neurosurgeon [...] he is treating with Dr. Smith at [facility]. He has not seen this provider since [...] The patient is scheduled for that at [facility] on August 09, 2024. Once completed, I [...] ORT score is 3 representing low risk. Not available 08/04/2024 09:42:44 10/02/2024 10/02/2024 Pain [...] He did have his neurosurgical consult at [facility]. No surgery was recommended. Per the patient, [...] he is treating with Dr. Smith at [facility]. He has not seen this provider since [...] ORT score is 3 representing low risk. Not available 10/02/2024 11:05:04 12/01/2024 12/01/2024 Pain History: Mr. Cornelius is a 39 yo male. This patient has treated in this clinic since January 2018 for chronic pain. Due to inclement weather, the visit is conducted today via telephone. He is currently at his home in [place], [place]. Since last visit, he notes an [...] he is treating with Dr. Smith at [facility]. He has not seen this provider since [...] the primary care physician and performed at [facility]. I will request the radiology report. He [...] Patient is located at his home in [place], [place], and the treating medical provider is located at the [facility]. * Visit today was conducted via audio and video with [employer] due to inclement weather. [email or web address] Not available 12/01/2024 11:58:01 2025 2025 Pain [...] he is treating with Dr. Smith at [facility]. He has not seen this provider since [...] ORT score is 3 representing low risk. [email or web address] Not available 2025 10:57:14 04/18/2025 04/18/2025 Interval [...] he is treating with Dr. Smith at [facility]. He has not seen this provider since [...] for medication management and further treatment planning. [email or web address] Not available 04/18/2025 09:14:04 Plan of Treatment Reminders Order Date Submit Date Provider Last Modified By Organization Details Last Modified Time Details Appointments FOLLOW UP 15 2024 11:00A TAM Gibson Not available Not available Not available Lab unlisted lab - saliva opiates/o pioids [email or web address] [facility], [facility], [address] [place] [address], [id number], 02/20/2025 07:22:11 unlisted lab - saliva kathrine analogs 2024 025 [email or web address] [facility], [facility], [address] [place] [address], [id number], 02/20/2025 07:22:11 Referral None recorded. Procedures remote [...] consent obtained and device provided. 2024 025 [email or web address] Not available 04/18/2025 11:40:15 remote therapeut ic [...] consent obtained and device provided. 2024 025 [email or web address] Not available 12/01/2024 11:58:02 Surgeries None recorded. Imaging None recorded. Medication Orders oxycodone 5 mg tablet 2024 025 [id number] [facility], [address] [place] [address], [id number], 04/21/2025 05:11:02 oxycodone 5 mg tablet 2024 025 [facility], [address] [place] [address], [id number], 05/18/2025 15:54:55 gabapenti n 800 mg tablet 2024 025 [facility], [address] [place] [address], [id number], 06/01/2025 11:37:31 baclofen 20 mg tablet 2024 025 [facility], [address] [place], [place] [address], [place], [id number], 05/16/2025 15:15:14 pregabali n 200 mg capsule 2024 025 [facility], [address] [place] [address] S, JUYD Rosas, [id number], 2025 10:47:55 oxycodone 5 mg tablet 2024 025 [id number] 7064 [facility], [address] [place] [address] S, JUDY Rosas, [id number], 04/21/2025 05:11:02 oxycodone 5 mg tablet 2024 025 [id number] 7064 [facility], [address] [place] [address] S, JUDY Rosas, [id number], 04/21/2025 05:11:02 baclofen 20 mg tablet 2024 025 [facility], [address] [place] [address] S, JUDY Rosas, [id number], 2025 10:47:57 pregabali n 200 mg capsule 2024 025 [facility], [address] [place] [address] S, JUDY Rosas, [id number], 12/01/2024 10:26:43 oxycodone 5 mg tablet 2024 025 [id number] 7064 [facility], [address] [place] [address] S, JUDY Rosas, [id number], 04/21/2025 05:11:02 oxycodone 5 mg tablet 2024 025 [id number] 7064 [facility], [address] [place] [address], JUDY Rosas, [id number], 04/21/2025 05:11:02 baclofen 20 mg tablet 2024 025 [facility], [address] [place] [address] S, JUDY Rosas, [id number], 12/01/2024 10:26:46 pregabali n 200 mg capsule 2023 024 [facility], [address] [place] [address] S, JUDY Rosas, [id number], 10/02/2024 11:30:29 oxycodone 5 mg tablet 2023 024 [id number] 7064 [facility], [address] [place] [address], JUDY Rosas, [id number], 04/21/2025 05:11:03 oxycodone 5 mg tablet 2023 024 [id number] 7064 [facility], [address] [place] [address] S, JUDY Rosas, [id number], 04/21/2025 05:11:03 baclofen 20 mg tablet 2023 024 [facility], [address] [place] [address] S, JUDY Rosas, [id number], 10/02/2024 11:30:26 pregabali n 200 mg capsule 2023 024 [email or web address] [facility], [address] [place] [address] S, JUDY Rosas, [id number], 08/04/2024 15:08:36 oxycodone 5 mg tablet 2023 024 [id number] 7064 [facility], [address] [place] [address] [place], [id number], 04/21/2025 05:11:03 oxycodone 5 mg tablet 2023 024 [id number] 7064 [facility], [address] [address] [place], [id number], 04/21/2025 05:11:03 baclofen 20 mg tablet 2023 024 FERNANDO [facility], [address] [place], [id number], 08/04/2024 13:44:09 Patient TargetsNo targets recorded. Patient Instructions Encounter Date Encounter Id Patient Instructions Last Modified By Organization Details Last Modified Time 08/04/2024 [id number] Opioid Risk Tool (ORT)* [email or web address] Not available 08/04/2024 15:09:06 12/01/2024 [id number] high blood pressure: care instructions Not available 12/01/2024 11:58:03 A healthy lifestyle: care instructions Not available 12/01/2024 11:58:03 advance directives: care instructions [email or web address] Not available 12/01/2024 11:58:03 depression and chronic disease: care instructions [email or web address] Not available 12/01/2024 11:58:03 safe use of opioid pain medicine: care instructions [email or web address] Not available 12/01/2024 11:58:03 Learning About Benefits of Quitting Smoking Not available 12/01/2024 11:58:03 behavioral healt h screen* [email or web address] Not available 12/05/2024 15:44:29 medical record request* - Request radiology report for the last lumbar x-rays ordered by primary care provider [email or web address] Not available 12/25/2024 08:00:35 2025 [id number] high blood pressure: care instructions [email or web address] Not available 2025 16:24:20 Reason for Referral None Reported. Results Created Date Observation Date Name Description Value Unit Range Abnormal Flag Note LastModifiedBy Organization Detail LastModifiedTime 08/04/20 24 08/04/2024 Opioi d Risk Tool (ORT) * ORT 3 Not Available [place] [address], [place], [address], 08/04/2024 08:54:40 08/10/20 24 08/09/2024 MRI, lumba r spine , w/o contr ast No observ ation record ed. [email or web address] Not Available 2023 10:21:41 12/01/19 25 11/03/2024 XR, lumbo sacra l spine , 4 or more view No observ ation record ed. [email or web address] [facility] (Med Record) [address], JUDY Rosas, [address], 2025 10:41:01 12/25/19 25 11/03/2024 XR, lumbo sacra l spine , 4 or more view No observ ation record ed. [email or web address] [facility] (Med Record) [address], JUD[place], [address], 2025 10:41:01 Result Notes None recorded. Problems Name Problem SNOMED Code Status Onset Date Resolution Date Notes Provider Name and Address Organization Details Recorded Time Chronic pain 28917733 Active 2023 TAM Atkins [address] [place], [address] , [facility]ly [facility] 4 11:33:41 Lumbar radiculop athy 389592270 Active 2017 TAM Atkins [address] [place], [address] , [facility] 2 16:06:10 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 46025535980 523283 Active 2020 TAM Atkins [address] [place], [address] , [facility]ly [facility] 2 16:06:05 Myofascia l pain 886378596 Active 2021 TAM Atkins [address] [place], [address] , [place] [facility] 2 16:06:27 Long-term drug therapy Active 2021 TAM Atkins [address] [place], [address] , [place] [facility] 2 07:13:34 Spasm of back muscles 457506421 Active 2021 TAM Atkins [address] [place], [address] , [place] [facility] 2 12:07:53 Cervical spondylos is 107681721 Active 2023 TAM Atkins [address] [place], [address] , [place] [facility] 4 11:51:06 Cervical radiculop athy 84679782 Active 2023 TAM Atkins [address] [place], [address] , [place] [facility] 4 11:33:44 Hypertens trung disorder 92265035 Completed 201712/06/2018 Carmen He null, [place] [facility] 9 08:13:39 Heart disease 56979800 Completed 201702/09/2018 Germania Sanford null, [place] [facility] 8 14:45:09 Asthma 030643404 Completed 201712/06/2018 Carmen He null, [place] [facility] 9 08:13:34 Acid reflux 347232942 Completed 201712/06/2018 Carmen [place] null, [place] [facility] 9 08:13:49 Spinal stenosis 46139023 Completed 201712/06/2018 Carmen [place] null, [place] [facility] 9 08:13:44 Notes:Some problems listed i n Documents: #[id number], #[id number], #[id number], #[id number], #[id number] could not be added to this patient's chart. Please review these documents and add these problems to the patient's chart manually as needed. Problem Notes None recorded. Procedures Surgical History Date Name Laterality Status Provider Name and Address Organization Details Recorded Time 04/12/20 24 Lumbar Transforaminal Epidural Steroid Injection (1 Level Bilateral): completed Carmen Ying [facility] 04/12/2024 11:19:35 02/29/20 24 Lumbar Transforaminal Epidural Steroid Injection (1 Level Bilateral): cancelled imani ybarra [facility] 02/28/2024 08:09:44 01/12/20 24 Cervical Epidural Steroid Injection: [facility]laminar [facility] 01/12/2024 09:59:11 12/13/19 24 Diagnostic Cervical MBB: Posterior (3 Level Unilateral) completed Carmen Zapatawitt [facility] 12/13/2023 11:06:34 09/23/20 21 Trigger Point Injections completed TAM Atkins [address] [place] [address], [address] 09/23/2021 09:35:29 09/18/20 21 Carpal tunnel surgery completed Adriana Jain [facility] 12/03/2021 09:34:54 05/12/20 21 GT Bursa Fluoro cancelled Oksana Martinez [facility] 05/08/2021 08:55:24 12/23/19 21 Hip Joint Injection Fluoro [facility] 12/23/2020 09:52:58 10/10/20 20 Lumbar Discectomy/Decompr ession completed Adriana Jain [facility] 10/16/2020 11:07:16 09/28/20 18 Lumbar RFA (3 Level Bilateral) completed Vandana Norman [facility] 09/28/2018 08:38:13 08/08/20 18 Diagnostic Lumbar MBB (3 Level Bilateral) completed Vandana Norman [facility] 08/08/2018 11:11:01 04/20/20 18 Lumbar Transforaminal Epidural Steroid Injection (1 Level Unilateral): completed Vandana Castilloon [facility] 03/11/2018 13:35:41 Remove spine lamina 1/2 lmbr completed Adriana Jain [facility] 12/05/2018 12:40:35 Imaging Results None recorded. Procedure Notes None recorded. Medical Equipment None Reported. Allergies Allergen ID Allergen Name Allergen Category Reaction Reaction Severity Criticality Documentation Date Start Date Code Code System Note Provider Name and Address Organization Details Recorded Time 948535 meloxicam medicatio n abdominal pain Not available Not available 04/09/2021 71766 Rx[facility] 09:[facility]:05 551507 Non-stero idal anti-infl ammatory agent (product) medicatio n Not available Not available Not available 01/10/2024 52730 005 SNOMED Carmen [place] [facility] 4 14:05:22 Medications Name Sig Start [...] Updated DateTime 12/01/2024 176.53 cm Adriana Jain [facility] 12/01/2024 09:53:05 Date Recorded Body height Body mass index (BMI) Body weight Oxygen saturation Oxygen saturation in Arterial blood by Pulse oximetry Heart rate Systolic And Diastolic Provider Name and Address Organization Details Last Updated DateTime 5 176.53 cm 34.2 kg/m2 700976. 21 g 97 % 97 % 75 /min 113/72 mm[Hg] Adriana Jain [facility] 5 10:33:26 Date Recorded Body height Body mass index (BMI) Body weight Oxygen saturation Oxygen saturation in Arterial blood by Pulse oximetry Heart rate Systolic And Diastolic Provider Name and Address Organization Details Last Updated DateTime 5 176.53 cm 34.2 kg/m2 039938. 21 g 96 % 96 % 89 /min 134/69 mm[Hg] Maikel Henderson [facility] 5 08:40:20 Date Recorded Body height Body mass index (BMI) Body weight Oxygen saturation Oxygen saturation in Arterial blood by Pulse oximetry Heart rate Systolic And Diastolic Provider Name and Address Organization Details Last Updated DateTime 4 176.53 cm 34.6 kg/m2 525227. 98 g 96 % 96 % 83 /min 151/88 mm[Hg] Adriana Jain [facility] 4 09:17:44 Date Recorded Body height Body mass index (BMI) Body weight Oxygen saturation Oxygen saturation in Arterial blood by Pulse oximetry Heart rate Systolic And Diastolic Provider Name and Address Organization Details Last Updated DateTime 4 176.53 cm 34.4 kg/m2 065652. 8 g 97 % 97 % 118 /min 118/71 mm[Hg] Adriana Jain [facility] 4 10:14:23 Social History Question Answer Notes LastModified by Organizat ion Details LastModified Time Tobacco Smoking Status Current Some Day Smoker Adriana cole [facility] 10/16/2020 11:07:29 Do You Have An Advance Directive? No Information not available 07/29/2022 What Type Of Diet Are You Following? REGULAR [email or web address] Information not available 07/29/2022 Which Illicit Or Recreational Drugs Have You Used? None [email or web address] Information not available 09/07/2018 Education 12 [email or web address] Information no t available 09/07/2018 What Is The Highest Grade Or Level Of School You Have Completed Or The Highest Degree You Have Received? [id number] [email or web address] Information not available 07/29/2022 How Many Times Per Week Do You Exercise? 1-2 Times Per Week Information not available 06/02/2023 Prescription Drug Abuse No [email or web address] Information not available 02/09/2018 Disability Yes [email or web address] Information no t available 02/09/2018 History Of Sexual Abuse No [email or web address] Information not available 02/09/2018 Marital Status [email or web address] Informatio n not available 02/09/2018 Do You Have A Medical Power Of Care Asst? No [email or web address] Information not available 12/28/2023 What Was The Date Of Your Most Recent Tobacco Screening? 12/01/2024 [email or web address] Information not available 12/01/2024 What Is Your Relationship Status? [email or web address] Information not available 07/29/2022 How Much Tobacco Do You Smoke? 0.5 PPD Information not available 09/07/2018 Has Tobacco Cessation Counseling Been Provided? Yes [email or web address] Information not available 12/28/2023 On What Date Was Tobacco Cessation Counseling Provided? 12/01/2024 [email or web address] Answered No To The Tobacco Cessation Counseling Provided Question On 09/07/2018. [email or web address] Information not available 12/01/2024 How Many Years Have You Smoked Tobacco? 24 Information not available 09/07/2018 Sex: Unknown Functional Status Question Answer Note LastModified by Organizat ion Details LastModified Time What is your level of alcohol consumption? None [email or web address] Information not available 02/09/2018 Do you or have you ever used smokeless tobacco? Never used smokeless tobacco [email or web address] Information not available 07/18/2020 Are you currently employed? No [email or web address] Information not available 09/16/2021 What is your occupation? Disabled [email or web address] Information not available 09/07/2018 Do you or have you ever used e-cigarettes or vape? Never used electronic cigarettes Information not available 07/18/2020 What is your exercise level? Occasional [email or web address] Information not available 06/02/2023 Mental Status None [...] Ulcer Disease N Anemia N Heart Attack (AR) N Diabetes N Cardiomyopathy N Bleeding Disorder [...] SNOMED-CT Code Diagnosis ICD10 Code Diagnosis Note [id number] Heriberto Mccann MD [address],[facility] [address] [place] [address] 02/09/2018 14:05:33 02/09/2018 15:14:14 Low back pain 204546486 M54.5 Interverte bral disc disorder 65146178 M51.27 Lumbar radiculopathy 128 331277 M54.16 Post-ruperto ectomy syndrome 48551667 M96.1 [id number] MD Solitario Escuderoington [address] [place] [address] 03/11/2018 12:55:15 03/11/2018 13:37:41 Lumbar radiculopathy 054669995 M54.16 [id number] MD Donnell Escudero [address] [place] [address] 06/09/2018 13:52:35 06/09/2018 14:35:19 Low back pain 892056966 M54.5 Interverte bral disc disorder 80595884 M51.27 Lumbar spondylosis 86024 0009 M47.816 [id number] MD Donnell Escudero [address] [place] [address] 08/08/2018 10:37:12 08/08/2018 11:12:14 Lumbosacral spondylosis without myelopathy 22468065 M47.817 [id number] MD Donnell Escudero [address] [place] [address] 09/07/2018 08:24:49 09/07/2018 09:02:35 Degeneration of lumbar intervertebral disc 07468371 M51.36 Chronic pain syndrome 37 0496087 G89.4 Lumbar spondylosis 49742 0009 M47.816 The recommende d procedure is discussed with the patient in detail. Questions related to the procedure are answered. The patient is provided the patient education handout. Lumbar radiculopathy 128 673334 M54.16 Lumbar post-laminectomy syndrome 143894296 M96.1 [id number] MD Donnell Escudero [address] [place] [address] 09/28/2018 07:53:06 09/28/2018 08:39:21 Lumbosacral spondylosis without myelopathy 37436805 M47.817 [id number] MD Donnell Escudero [address] [place] [address] 12/06/2018 07:59:17 12/06/2018 08:34:06 Neck pain 61241252 M54.2 Lumbosacra l spondylosis without myelopathy 93114014 M47.817 [id number] MD Solitario Daigleington [address] [place] [address] 01/18/2019 09:13:59 01/18/2019 10:27:42 Lumbar radiculopathy 742699197 M54.16 ORT and PHQ-9 testing was completed [...] the future. Lumbosacra l spondylosis without myelopathy 35661730 M47.817 Neck pain 26846246 M54.2 [id number] MD Donnell Escudero [address] [place] [address] 03/15/2019 09:33:18 03/15/2019 10:18:41 Degeneration of lumbar intervertebral disc 20856683 M51.36 Degenerati on of cervical intervertebral disc 82754631 M50.30 Lumbar radiculopathy 128 282360 M54.16 Chronic pain syndrome 37 4158998 G89.4 Pain of ri ght shoulder joint 6602986396 8184736 M25.511 The recommende d procedure is discussed with the patient in detail. Questions related to the procedure are answered. The patient is provided the patient education handout. [id number] MD Donnell Escudero [address] [place] [address] 06/18/2020 07:58:52 06/18/2020 08:37:20 Degeneration of lumbar intervertebral disc 31002181 M51.36 Degenerati on of cervical intervertebral disc 09495142 M50.30 Lumbar radiculopathy 128 829652 M54.16 [id number] MD Donnell Escudero [address] [place] [address] 07/18/2020 09:00:18 07/18/2020 09:30:36 Lumbar radiculopathy 375646962 M54.16 Use of the medication does allow the patient to perform the activities of daily living and function without being in severe pain. Degenerati on of lumbar intervertebral disc 02507743 M51.36 Degenerati on of cervical intervertebral disc 70840315 M50.30 Long-term drug therapy 174193040 Z79.899 [id number] Heriberto Mccann MD [address] [place] [address] 08/13/2020 08:45:15 08/13/2020 09:11:57 Lumbar radiculopathy 548263569 M54.16 Use of the medication does allow the patient to perform the activities of daily living and function without being in severe pain. Degenerati on of lumbar intervertebral disc 20065748 M51.36 Degenerati on of cervical intervertebral disc 35134954 M50.30 Long-term drug therapy 890643888 Z79.899 The preliminar y urine drug screen is appropriat e for the class of medication s that the patient is being prescribed and based on their stratifica tion I will not send this sample for further quantitati ve LCMS testing. [id number] MD Solitario Escudero[address] [place] [address] 10/16/2020 10:59:37 10/16/2020 11:24:09 Lumbar radiculopathy 483658173 M54.16 Use of the medication does allow the patient to perform the activities of daily living and function without being in severe pain. Degenerati on of lumbar intervertebral disc 25324292 M51.36 Degenerati on of cervical intervertebral disc 73942539 M50.30 Long-term drug therapy 627961950 Z79.899 The preliminar y urine drug screen is appropriat e for the class of medication s that the patient is being prescribed and based on their stratifica tion I will not send this sample for further quantitati ve LCMS testing. [id number] MD Donnell Escudero [address] [place] [address] 12/12/2020 08:24:41 12/12/2020 09:12:44 Lumbar radiculopathy 696346833 M54.16 Use of the medication does allow the patient to perform the activities of daily living and function without being in severe pain. Degenerati on of lumbar intervertebral disc 53551701 M51.36 Degenerati on of cervical intervertebral disc 09631788 M50.30 Long-term drug therapy 006494151 Z79.899 Pain of ri ght hip joint 2594600132 95273 M25.551 The recommende d procedure is discussed with the patient in detail. Questions related to the procedure are answered. The patient is provided the patient education handout. [id number] MD Donnell Escudero [address] [place] [address] 12/23/2020 09:19:19 12/23/2020 09:38:06 Osteoarthritis of right hip joint 8594627877 20949 M16.11 [id number] MD Donnell Escudero [address] [place] [address] 02/07/2021 08:37:20 02/07/2021 10:39:39 Lumbar radiculopathy 381069548 M54.16 Use of the medication does allow the patient to perform the activities of daily living and function without being in severe pain. Degenerati on of lumbar intervertebral disc 41689675 M51.36 Degenerati on of cervical intervertebral disc 97066040 M50.30 Long-term drug therapy 221090687 Z79.325 [id number] MD Solitario Ecsuderoington [address] [place] [address] 04/09/2021 08:46:46 04/09/2021 10:04:52 Lumbar radiculopathy 342284958 M54.16 Degenerati on of lumbar intervertebral disc 60496982 M51.36 Degenerati on of cervical intervertebral disc 15952286 M50.30 Long-term drug therapy 421774731 Z79.899 The patient was advised that the purpose of this urine drug screen is to monitor for compliance and to assist in risk stratifica tion. The results of this preliminar y screening test was discussed with the patient. do not send Greater tr ochanteric pain syndrome of right lower limb [id number] 2602983 M70.61 The recommende d procedure is discussed with the patient in detail. Questions related to the procedure are answered. The patient is provided the patient education handout. [id number] MD Solitario Escuderoington [address] [place] [address] 09/16/2021 09:01:40 09/16/2021 09:56:26 Lumbar radiculopathy 224461441 M54.16 Degenerati on of lumbar intervertebral disc 64239775 M51.36 Greater tr ochanteric pain syndrome of right lower limb 6282569799 4023395 M70.61 Myofascial pain 90494132 9 M79.10 The recommende d procedure is discussed with the patient in detail. Questions related to the procedure are answered. The patient is provided the patient education handout. Chronic neck pain 078032 8414 107 M54.2 [id number] MD Donnell Escudero [facility] [address] [place] [address] 09/23/2021 08:46:44 09/23/2021 09:26:42 Myofascial pain 746409638 M79.10 The recommende d procedure is discussed with the patient in detail. Questions related to the procedure are answered. The patient is provided the patient education handout. [id number] MD Solitario Escuderoington [address] [place] [address] 12/03/2021 09:04:06 12/03/2021 09:54:45 Degeneration of lumbar intervertebral disc 96022478 M51.36 Use of the medication does allow the patient to perform the activities of daily living and function without being in severe pain. Lumbar radiculopathy 128 855937 M54.16 Greater tr ochanteric pain syndrome of right lower limb 0316279194 1293390 M70.61 Myofascial pain 33556917 9 M79.10 [id number] MD Soliatrio Escuderoington [address] [place] [address] 01/01/2022 09:01:48 01/01/2022 10:08:11 Degeneration of lumbar intervertebral disc 67577784 M51.36 Use of the medication does allow the patient to perform the activities of daily living and function without being in severe pain. Lumbar radiculopathy 128 M54.16 Use of the medication does allow the patient to perform the activities of daily living and function without being in severe pain. Greater tr ochanteric pain syndrome of right lower limb 9986227735 6102749 M70.61 Myofascial pain 66978115 9 M79.10 [id number] Heriberto Mccann MD [facility] [address] [place] [address] 01/23/2022 09:13:13 01/23/2022 10:04:27 Degeneration of lumbar intervertebral disc 35545684 M51.36 Use of the medication does allow the patient to perform the activities of daily living and function without being in severe pain. Lumbar radiculopathy 128 M54.16 Use of the medication does allow the patient to perform the activities of daily living and function without being in severe pain. Greater tr ochanteric pain syndrome of right lower limb 1975686667 6276661 M70.61 Myofascial pain 08727638 9 M79.10 [id number] MD Solitario Escuderoington [address] [place] [address] 04/27/2022 13:48:22 04/27/2022 14:35:22 Lumbar radiculopathy 444093612 M54.16 Use of the medication does allow the patient to perform the activities of daily living and function without being in severe pain. Greater tr ochanteric pain syndrome of right lower limb 2510917172 4101901 M70.61 Myofascial pain 72954663 9 M79.10 [id number] MD Donnell Escudero [address] [place] [address] 07/29/2022 10:06:34 07/29/2022 11:32:43 Lumbar radiculopathy 721645571 M54.16 Use of the medication does allow the patient to perform the activities of daily living and function without being in severe pain. Greater tr ochanteric pain syndrome of right lower limb 7137214507 2553082 M70.61 Myofascial pain 57087400 9 M79.10 Long-term drug therapy 037571130 Z79.899 The patient was advised that the [...] the patient is currently prescribed Gabapentin . [id number] Heribetro Mccann MD [facility] [address] [place] [address] 08/25/2022 10:17:01 08/25/2022 10:44:23 Lumbar radiculopathy 521808790 M54.16 Use of the medication does allow the patient to perform the activities of daily living and function without being in severe pain. Greater tr ochanteric pain syndrome of right lower limb 4155380401 9509725 M70.61 Long-term drug therapy 811105077 Z79.899 Spasm of back muscles 20 1370070 M62.830 Use of the medication does allow the patient to perform the activities of daily living and function without being in severe pain. [id number] Heriberto Mccann MD [facility] [address] [place] [address] 09/25/2022 10:28:30 09/25/2022 11:19:59 Lumbar radiculopathy 137712235 M54.16 Use of the medication does allow the patient to perform the activities of daily living and function without being in severe pain. Greater tr ochanteric pain syndrome of right lower limb 1800573748 8727830 M70.61 Spasm of back muscles 20 8807343 M62.830 Use of the medication does allow the patient to perform the activities of daily living and function without being in severe pain. Long-term drug therapy 308595630 Z79.899 The patient was advised that the [...] the patient is currently prescribed Gabapentin . [id number] Heriberto Mccann MD [facility] [address] [place] [address] 12/04/2022 08:00:53 12/04/2022 08:41:57 Lumbar radiculopathy 985534071 M54.16 Use of the medication does allow the patient to perform the activities of daily living and function without being in severe pain. Greater tr ochanteric pain syndrome of right lower limb 9035218935 8096275 M70.61 Spasm of back muscles 20 9925530 M62.830 Use of the medication does allow the patient to perform the activities of daily living and function without being in severe pain. Long-term drug therapy 394204749 Z79.856 [id number] PATRICK LEAL MD [facility] [address] [place] [address] 02/01/2023 09:53:53 02/01/2023 10:22:41 Lumbar radiculopathy 278170110 M54.16 Use of the medication does allow the patient to perform the activities of daily living and function without being in severe pain. Greater tr ochanteric pain syndrome of right lower limb 7795717873 7772182 M70.61 Spasm of back muscles 20 7120509 M62.830 Use of the medication does allow the patient to perform the activities of daily living and function without being in severe pain. Long-term drug therapy 664183314 Z79.846 [id number] PATRICK LEAL MD [facility] [address] [place] [address] 04/01/2023 09:49:22 04/01/2023 10:26:09 Lumbar radiculopathy 715591930 M54.16 Use of the medication does allow the patient to perform the activities of daily living and function without being in severe pain. Greater tr ochanteric pain syndrome of right lower limb 7133392423 1586314 M70.61 Spasm of back muscles 20 7633048 M62.830 Use of the medication does allow the patient to perform the activities of daily living and function without being in severe pain. Long-term drug therapy 586512268 Z79.899 The patient was advised that the purpose of this urine drug screen is to monitor for compliance and to assist in risk stratifica tion. Hypertensi on screening 925873022 Z13.6 [id number] PATRICK LEAL MD [facility] [address] [place] [address] 06/02/2023 09:52:02 06/02/2023 10:16:04 Lumbar radiculopathy 091594210 M54.16 Use of the medication does allow the patient to perform the activities of daily living and function without being in severe pain. Spasm of back muscles 20 8221505 M62.830 Use of the medication does allow the patient to perform the activities of daily living and function without being in severe pain. Greater tr ochanteric pain syndrome of right lower limb 2993482862 7007317 M70.61 Hypertensi on screening 660366862 Z13.6 Long-term drug therapy 603552710 Z79.686 [id number] PATRICK LEAL MD [facility] [address] [place] [address] 08/02/2023 09:14:53 08/02/2023 10:02:02 Greater trochanteric pain syndrome of right lower limb 9081914070 5437349 M70.61 Spasm of back muscles 20 8917657 M62.830 Use of the medication does allow the patient to perform the activities of daily living and function without being in severe pain. Lumbar radiculopathy 128 085904 M54.16 Use of the medication does allow the patient to perform the activities of daily living and function without being in severe pain. Hypertensi on screening 155853957 Z13.6 Long-term drug therapy 882374403 Z79.899 The patient was advised that the purpose of this urine drug screen is to monitor for compliance and to assist in risk stratifica tion. [id number] MD Donnell FELIX [address] [place] [address] 10/01/2023 10:34:39 10/01/2023 11:04:41 Greater trochanteric pain syndrome of right lower limb 9903599069 7095114 M70.61 Spasm of back muscles 20 9297308 M62.830 Use of the medication does allow the patient to perform the activities of daily living and function without being in severe pain. Lumbar radiculopathy 128 M54.16 Use of the medication does allow the patient to perform the activities of daily living and function without being in severe pain. Hypertensi on screening 039296615 Z13.6 Long-term drug therapy 068995784 Z79.899 Neck pain 79048573 M54.2 [id number] MD Donnell FELIX [address] [place] [address] 11/30/2023 10:44:02 11/30/2023 11:26:34 Spasm of back muscles 573709124 M62.830 Use of the medication does allow the patient to perform the activities of daily living and function without being in severe pain. Lumbar radiculopathy 128 M54.16 Use of the medication does allow the patient to perform the activities of daily living and function without being in severe pain. Hypertensi on screening 685433032 Z13.6 Long-term drug therapy 269611297 Z79.899 The patient was advised that the purpose of this urine drug screen is to monitor for compliance and to assist in risk stratifica tion. Cervical spondylosis 387 923331 M47.812 The recommende d procedure is discussed with the patient in detail. Questions related to the procedure are answered. The patient is provided the patient education handout. [id number] MD Donnell FELIX [address] [place] [address] 12/13/2023 10:23:57 12/13/2023 10:58:51 Cervical spondylosis 461505534 M47.088 [id number] MD Donnell FELIX [address] [place] [address] 12/28/2023 08:22:38 12/28/2023 09:57:19 Hypertension screening 036711147 Z13.6 Cervical radiculopathy 74862261 M54.12 [id number] PATRICK LEAL MD [facility] [address] 6 01/12/2024 08:45:13 01/12/2024 09:57:20 Cervical radiculopathy 27275766 M54.12 [id number] PATRICK LEAL MD [facility] [address] 6 02/01/2024 10:27:37 02/01/2024 11:19:50 Greater trochanteric pain syndrome of right lower limb 0979050454 1469657 M70.61 Spasm of back muscles 20 6042170 M62.830 Use of the medication does allow the patient to perform the activities of daily living and function without being in severe pain. Lumbar radiculopathy 128 M54.16 Use of the medication does allow the patient to perform the activities of daily living and function without being in severe pain. 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 Lumbar radiculopathy 128 M54.16 Use of the medication does allow the patient to perform the activities of daily living and function without being in severe pain. 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 4692402119 95026 G56.01 Hypertensi on screening 851244318 Z13.6 Long-term drug therapy 573423086 Z79.899 Chronic pain 24019112 G8 9.29 [id number] PATRICK LEAL MD [facility] [address] [place] [address] 04/12/2024 10:28:16 04/12/2024 11:16:47 Lumbar radiculopathy 553773543 M54.16 [id number] PATRICK LEAL MD [facility] [address] [place] [address] 06/05/2024 09:39:53 06/05/2024 10:06:30 Greater trochanteric pain syndrome of right lower limb 3268074987 8042147 M70.61 Spasm of back muscles 20 4114428 M62.830 Use of the medication does allow the patient to perform the activities of daily living and function without being in severe pain. Lumbar radiculopathy 128 M54.16 Use of the medication does allow the patient to perform the activities of daily living and function without being in severe pain. 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 [id number] RANDI ALVARADO MD [facility] [address] [place] [address] 08/04/2024 09:14:15 08/04/2024 09:33:35 Greater trochanteric pain syndrome of right lower limb 5650051364 1391272 M70.61 Spasm of back muscles 20 0316143 M62.830 Use of the medication does allow the patient to perform the activities of daily living and function without being in severe pain. Lumbar radiculopathy 128 M54.16 Use of the medication does allow the patient to perform the activities of daily living and function without being in severe pain. Chronic pain 69398789 G8 9.29 Long-term drug therapy 163104497 Z79.899 Cervical spondylosis 387 908368 M47.588 [id number] PATRICK LEAL MD [facility] [address] [place] [address] 10/02/2024 09:51:05 10/02/2024 10:27:12 Greater trochanteric pain syndrome of right lower limb 1506045114 2708244 M70.61 Spasm of back muscles 20 5527283 M62.830 Use of the medication does allow the patient to perform the activities of daily living and function without being in severe pain. Lumbar radiculopathy 128 862649 M54.16 Use of the medication does allow the patient to perform the activities of daily living and function without being in severe pain. Cervical spondylosis 387 274701 M47.812 Chronic pain 15678082 G8 9.29 Long-term drug therapy 412389377 Z79.581 [id number] PATRICK LEAL MD [facility] [address] [place] [address] 12/01/2024 09:50:48 12/01/2024 10:29:20 Greater trochanteric pain syndrome of right lower limb 9545433877 5105849 M70.61 Spasm of back muscles 20 9243402 M62.830 Use of the medication does allow the patient to perform the activities of daily living and function without being in severe pain. Lumbar radiculopathy 128 M54.16 Use of the medication does allow the patient to perform the activities of daily living and function without being in severe pain. Chronic pain 98427386 G8 9.29 Cervical spondylosis 387 380784 M47.812 Long-term drug therapy 060278264 Z79.899 Hypertensi on screening 663207164 Z13.6 [id number] PATRICK LEAL MD [facility] [address] [place] [address] 2025 10:24:08 2025 11:05:37 Spasm of back muscles 393211293 M62.830 Use of the medication does allow the patient to perform the activities of daily living and function without being in severe pain. Greater tr ochanteric pain syndrome of right lower limb 7408599461 5640924 M70.61 Lumbar radiculopathy 128 553021 M54.16 Use of the medication does allow the patient to perform the activities of daily living and function without being in severe pain. Chronic pain 80426303 G8 9.29 Cervical spondylosis 387 441355 M47.812 Hypertensi on screening 511877942 Z13.6 Long-term drug therapy 175905988 Z79.899 The patient was advised that the purpose of this drug screen is to monitor for compliance and to assist in risk stratifica tion. [id number] PATRICK LEAL MD [facility] [address],[facility] [address] [place] [address] 04/18/2025 08:15:07 04/18/2025 09:05:53 Spasm of back muscles 591665939 M62.830 Lumbar radiculopathy 128 036955 M54.16 Long-term drug therapy 194689584 Z79.899 no uds today Chronic pain 58659332 G8 9.29 Health Concerns Section Related Observation LastModified by Organization Detai ls LastModified Time None Recorded Concern Status LastModified by Organization Details LastModified Time None Recorded Advance Directives Directive N: Payers Insurance Date Sequence Insurance Name Policy Number Policy Kirkpatrick Covered Member ID Kirkpatrick Member ID Guarantor Name [id number] 1 [place]MED[place]AC[place] H[place] [id number] Judson Cornelius [id number] Judson Cornelius 03/26/2025 2 [facility] CHOICES - FFS/TRADITIONA L Z -[id number] Judson Cornelius [id number] Judson Cornelius 11/17/2023 1 [id number] Judson Cornelius [id number] Judson Cornelius 05/30/2023 2 [id number] Judson Cornelius [id number] Judson Cornelius 04/15/2025 1 [facility] (MEDICARE REPLACEMENT/AD VANTAGE - HMO) [id number] Judson Cornelius [id number] Judson Cornelius 2025 2 [place] Judson Cornelius [id number] Judson Cornelius 05/30/2023 2 [place] Judson Cornelius [id number] Judson Cornelius 07/05/2023 2 [place] [facility] [place] - FFS/TRADITIONA L Judson Knox Adryan [id number] Judson Cornelius 2025 1 [employer] (MEDICARE REPLACEMENT/AD VANTAGE - PPO) Judson Cornelius [id number] Judson Cornelius Notes Date Note Type Note [...] Able to bathe/groom without assistance.;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 (as tolerated); Participating in recreation on a regular basis. Prior Imaging:MRI (07/11/2020 Lumbar MRI at [facility] in [place], [place]); EMG; 03/29/2024 EMG at [facility] Neurology 12/23/2023 Lumbar MRI at [facility] 11/27/2022 Lumbar MRI at [facility] 01/06/2022 Lumbar MRI at [facility] 07/05/2018 Xray of Lumbar Spine 03/14/15 [...] - Mood disorders and nightmares Narcotics Meds: [place] - Effective, however PCP stopped prescribing narcotic [...] extremities Prior Imaging:MRI; EMG; 01/05/2024 EMG at [facility] 07/05/2023 Cervical MRI at [facility] 12/20/2018 Xray of Cervical Spine Previous [...] - Mood disorders and nightmares Narcotics Meds: [place] - Effective, however PCP stopped prescribing narcotic medication in 2016 Working:no Functional Scores:Neck Disability Index (NDI) Completed: -03/31/2024 Prior Pain Management:yes Complete Care Program:Order Date: (06/05/2024) Patient presents today for medication refill. Patient states he did have f/u with PCP since last visit. Patient states he will be having an updated Lumbar MRI at [facility] on 08/09/2024 and then he will have f/u with Dr. Fabian on 08/23/2024. 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 (as tolerated); Participating in recreation on a regular basis. Prior Imaging:MRI (07/11/2020 Lumbar MRI at [facility] in [place], [place]); EMG; 08/09/2024 Lumbar MRI at [facility] 03/29/2024 EMG at [facility] Neurology 12/23/2023 Lumbar MRI at [facility] 11/27/2022 Lumbar MRI at [facility] 01/06/2022 Lumbar MRI at [facility] 07/05/2018 Xray of Lumbar Spine 03/14/15 [...] - Mood disorders and nightmares Narcotics Meds: [place] - Effective, however PCP stopped prescribing narcotic [...] extremities Prior Imaging:MRI; EMG; 01/05/2024 EMG at [facility] 07/05/2023 Cervical MRI at [facility] 12/20/2018 Xray of Cervical Spine Previous [...] - Mood disorders and nightmares Narcotics Meds: [place] - Effective, however PCP stopped prescribing narcotic medication in 2015 Working:no Functional Scores:Neck Disability Index (NDI) Completed: -03/31/2024 Prior Pain Management:yes Complete Care Program:Order Date: (06/05/2024) Patient presents today for f/u, medication refill, review lumbar MRI and N/S consult. Patient states he did have f/u with PCP since last visit. 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 (as tolerated); Participating in recreation on a regular basis. Prior Imaging:MRI (07/11/2020 Lumbar MRI at [facility] in [place], [place]); EMG; 08/09/2024 Lumbar MRI at [facility] 03/29/2024 EMG at [facility] Neurology 12/23/2023 Lumbar MRI at [facility] 11/27/2022 Lumbar MRI at [facility] 01/06/2022 Lumbar MRI at [facility] 07/05/2018 Xray of Lumbar Spine 03/14/15 [...] - Mood disorders and nightmares Narcotics Meds: [place] - Effective, however PCP stopped prescribing narcotic [...] extremities Prior Imaging:MRI; EMG; 01/05/2024 EMG at [facility] 07/05/2023 Cervical MRI at [facility] 12/20/2018 Xray of Cervical Spine Previous [...] - Mood disorders and nightmares Narcotics Meds: [place] - Effective, however PCP stopped prescribing narcotic medication in 2015 Working:no Functional Scores:Neck Disability Index (NDI) Completed: -03/31/2024 Prior Pain Management:yes Complete Care Program:Order Date: (12/01/2024) Patient states he did have f/u with PCP since last visit and he did have updated imaging of lumbar spine at [facility]. Patient states his PCP referred him to Dr. Denny for second opinion. Patient states he did have evaluation with Dr. Denny and he has been referred to another surgeon in same office with Dr. Denny. Patient states physical therapy was ordered but he has not started this at this time. 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 (as tolerated); Participating in recreation on a regular basis. Prior Imaging:x-ray; MRI (07/11/2020 Lumbar MRI at [facility] in [place], [place]); EMG; 11/03/2024 lumbar XR at [facility] 08/09/2024 Lumbar MRI at [facility] 03/29/2024 EMG at [facility] Neurology 12/23/2023 Lumbar MRI at [facility] Lumbar Surgery:lumbar decompression/discect tacho: (10/10/2020 Dr. [...] - Mood disorders and nightmares Narcotics Meds: [place] - Effective, however PCP stopped prescribing narcotic [...] extremities Prior Imaging:MRI; EMG; 01/05/2024 EMG at [facility] 07/05/2023 Cervical MRI at [facility] 12/20/2018 Xray of Cervical Spine Previous [...] - Mood disorders and nightmares Narcotics Meds: [place] - Effective, however PCP stopped prescribing narcotic [...] he has f/u with Dr. Denny today. 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 (as tolerated); Participating in recreation on a regular basis. Prior Imaging:x-ray; MRI (07/11/2020 Lumbar MRI at [facility] in [place], [place]); EMG; 11/03/2024 lumbar XR at [facility] 08/09/2024 Lumbar MRI at [facility] 03/29/2024 EMG at [facility] Neurology 12/23/2023 Lumbar MRI at [facility] Lumbar Surgery:lumbar decompression/discect tacho: (10/10/2020 Dr. [...] - Mood disorders and nightmares Narcotics Meds: [place] - Effective, however PCP stopped prescribing narcotic [...] extremities Prior Imaging:MRI; EMG; 01/05/2024 EMG at [facility] 07/05/2023 Cervical MRI at [facility] 12/20/2018 Xray of Cervical Spine Previous [...] - Mood disorders and nightmares Narcotics Meds: [place] - Effective, however PCP stopped prescribing narcotic medication in 2015 Working:no Functional Scores:Neck Disability Index (NDI) Completed: -03/31/2024 Prior Pain Management:yes Complete Care Program:Order Date: (12/01/2024) Patient presents today for f/u, medication refill. TAM JOSEPH [address] [place] [address], [phone], Formerly [facility] 04/18/2025 11:40:20
--- OUTSIDE RECORDS SUMMARY | 2025-06-06 16:36 | XMS_ITS | Continuity of Care Document ---
Author Organization [facility] Address [address] [place] [address] Care Team Providers Care Shell Mold Bonding Machine Operator Name Role Phone VERITO GREY Primary Care Provider [phone] Assessment Encounter Date Assessment Date Assessment LastModified [...] he is treating with Dr. Smith at [facility]. He has not seen this provider since [...] for medication management and further treatment planning. [email or web address] Not available 04/18/2025 09:14:04 Plan of Treatment [...] consent obtained and device provided. 2024 025 [email or web address] Not available 04/18/2025 11:40:15 Surgeries None recorded. Imaging None recorded. Medication Orders oxycodone 5 mg tablet 2024 025 [facility]-[id number] [facility], [facility] [address] [place], [id number], 04/21/2025 05:11:02 oxycodone 5 mg tablet 2024 025 FERNANDO [facility], [address] [address] [place], [id number], 05/18/2025 15:54:55 gabapenti n 800 mg tablet 2024 025 FERNANDOALMA DELIA [facility], [address] [address] [place], [id number], 06/01/2025 11:37:31 baclofen 20 mg tablet 2024 025 FERNANDO [facility], [address] [address] [place], [id number], 05/16/2025 15:15:14 Patient TargetsNo targets recorded. Patient InstructionsNo instructions recorded. Reason for Referral None Reported. 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 81799715822 466791 Active 2020 RICKY Atkins [address] [place] [address], [phone] , [facility] 2 16:06:05 Myofascia l pain 817309453 Active 2021 RICKY Atkins [address] [place] [address], [phone] , [facility] 2 16:06:27 Long-term drug therapy Active 2021 RICKY Atkins [address] [place] [address], [address] , [facility] 2 07:13:34 Spasm of back muscles 419595041 Active 2021 RICKY Atkins [address] [place], [address] , [facility] 2 12:07:53 Cervical spondylos is 174302439 Active 2023 RICKY Atkins [address] [place], [address] , [place] [facility] 4 11:51:06 Cervical radiculop athy 44443133 Active 2023 RICKY Atkins [address] [place], [address] , [place] [facility] 4 11:33:44 Hypertens trung disorder 17919666 Completed 201712/06/2018 Carmen Ying null, [place] [facility] 9 08:13:39 Heart disease 40806792 Completed 201702/09/2018 Germania Claribel null, [place] [facility] 8 14:45:09 Asthma 576064213 Completed 201712/06/2018 Carmensue ZapataYing null, [place] [facility] 9 08:13:34 Acid reflux 123187252 Completed 201712/06/2018 Carmen Ying null, [place] - [facility] 9 08:13:49 Spinal stenosis 17323351 Completed 201712/06/2018 Carmen [place] null, [place] - [facility] 9 08:13:44 Notes:Some problems listed i n Documents: #[id number], #[id number], #[id number], #[id number], #[id number] could not be added to this patient's chart. Please review these documents and add these problems to the patient's chart manually as needed. Problem Notes None recorded. Procedures Surgical History Date Name Laterality Status Provider Name and Address Organization Details Recorded Time 04/12/20 24 Lumbar Transforaminal Epidural Steroid Injection (1 Level Bilateral): completed Carmen He [place] [facility] 04/12/2024 11:19:35 02/29/20 24 Lumbar Transforaminal Epidural Steroid Injection (1 Level Bilateral): sandhyaed imani ybarra [facility] 02/28/2024 08:09:44 01/12/20 24 Cervical Epidural Steroid Injection: Interlaminar completed Carmen Ying [facility] 01/12/2024 09:59:11 12/13/19 24 Diagnostic Cervical MBB: Posterior (3 Level Unilateral) completed Carmen Ying [facility] 12/13/2023 11:06:34 09/23/20 21 Trigger Point Injections completed RICKY Atkins [address] [place] [address], [phone] 09/23/2021 09:35:29 09/18/20 21 Carpal tunnel surgery completed Adriana Jain [facility] 12/03/2021 09:34:54 05/12/20 21 GT Bursa Fluoro cancelled Oksana Martinez [facility] 05/08/2021 08:55:24 12/23/19 21 Hip Joint Injection Fluoro [facility] 12/23/2020 09:52:58 10/10/20 20 Lumbar Discectomy/Decompr ession completed Adriana Jain [facility] 10/16/2020 11:07:16 09/28/20 18 Lumbar RFA (3 Level Bilateral) completed Vandana Norman [facility] 09/28/2018 08:38:13 08/08/20 18 Diagnostic Lumbar MBB (3 Level Bilateral) completed Vandana Norman [facility] 08/08/2018 11:11:01 03/11/20 18 Lumbar Transforaminal Epidural Steroid Injection (1 Level Unilateral): completed Vandana Norman [facility] 03/11/2018 13:35:41 Remove spine lamina 1/2 lmbr completed Adriana Jain [facility] 12/05/2018 12:40:35 Imaging Results None recorded. Procedure Notes None recorded. Medical Equipment None Reported. Allergies Allergen ID Allergen Name Allergen Category Reaction Reaction Severity Criticality Documentation Date Start Date Code Code System Note Provider Name and Address Organization Details Recorded Time 076409 meloxicam medicatio n abdominal pain Not available Not available 04/09/2021 05237 RxNorm Adriana cole [facility] 1 09:40:05 227693 Non-stero idal anti-infl ammatory agent (product) medicatio n Not available Not available Not available 01/10/2024 42862 005 ABDULLAHI cole [facility] 4 14:05:22 Medications Name Sig Start Date [...] Not Available [facility]ofenac [facility] dr [facility] completed Not Available Not Available Not [...] Updated DateTime 5 176.53 cm 34.2 kg/m2 352380. 21 g 96 % 96 % 89 /min 134/69 mm[Hg] Maikel Henderson [facility] 5 08:40:20 Social History Question Answer Notes LastModified by Organizat ion Details LastModified Time Tobacco Smoking Status [facility] 11:07:29 Do You Have An Advance Directive? No [email or web address] Information not available 07/29/2022 What Type Of Diet Are You Following? REGULAR [email or web address] Information not available 07/29/2022 Which Illicit Or Recreational Drugs Have You Used? None [email or web address] Information not available 09/07/2018 Education 12 [email or web address] Information no t available 09/07/2018 What Is The Highest Grade Or Level Of School You Have Completed Or The Highest Degree You Have Received? OT88810-8 Information not available 07/29/2022 How Many Times Per Week Do You Exercise? 1-2 Times Per Week [email or web address] Information not available 06/02/2023 Prescription Drug Abuse No [email or web address] Information not available 02/09/2018 Disability Yes [email or web address] Information no t available 02/09/2018 History Of Sexual Abuse No [email or web address] Information not available 02/09/2018 Marital Status [email or web address] Informatio n not available 02/09/2018 Do You Have A Medical Power Of Liquid Waste Treatment Plant Operator? No [email or web address] Information not available 12/28/2023 What Was The Date Of Your Most Recent Tobacco Screening? 12/01/2024 [email or web address] Information not available 12/01/2024 What Is Your Relationship Status? [email or web address] Information not available 07/29/2022 How Much Tobacco Do You Smoke? 0.5 PPD [email or web address] Information not available 09/07/2018 Has Tobacco Cessation Counseling Been Provided? Yes [email or web address] Information not available 12/28/2023 On What Date Was Tobacco Cessation Counseling Provided? 12/01/2024 [email or web address] Answered No To The Tobacco Cessation Counseling Provided Question On 09/07/2018. [email or web address] Information not available 12/01/2024 How Many Years Have You Smoked Tobacco? 24 [email or web address] Information not available 09/07/2018 Sex: Unknown Functional Status Question Answer Note LastModified by Organizat ion Details LastModified Time What is your level of alcohol consumption? None [email or web address] Information not available 02/09/2018 Do you or have you ever used smokeless tobacco? Never used smokeless tobacco [email or web address] Information not available 07/18/2020 Are you currently employed? No [email or web address] Information not available 09/16/2021 What is your occupation? Disabled [email or web address] Information not available 09/07/2018 Do you or have you ever used e-cigarettes or vape? Never used electronic cigarettes [email or web address] Information not available 07/18/2020 What is your [...] Ulcer Disease N Anemia N Heart Attack ([place]) N Diabetes N Cardiomyopathy N Bleeding Disorder [...] SNOMED-CT Code Diagnosis ICD10 Code Diagnosis Note [id number] PATRICK LEAL MD [place] [address] [place] [address] 04/18/2025 08:15:07 04/18/2025 09:05:53 Spasm of back muscles 964522196 M62.830 Lumbar radiculopathy 128 404510 M54.16 Long-term drug therapy 478089721 Z79.899 no uds today Chronic pain 96089779 G8 9.29 Health Concerns Section Related Observation LastModified by Organization Detai ls LastModified Time None Recorded Concern Status LastModified by Organization Details LastModified Time None Recorded Payers Encounter Date Sequence Insurance Name Policy Number Policy Kirkpatrick Covered Member ID Kirkpatrick Member ID Guarantor Name 04/18/2025 2 [place] [employer] - FFS/TRADITION AL Z -QMB Judson Cornelius [id number] Judson Cornelius 04/18/2025 1 [facility] (MEDICARE REPLACEMENT/A DVANTAGE - HMO) [id number] Judson Cornelius [id number] Judson Cornelius Notes Date Note Type Note [...] Able to bathe/groom without assistance.;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 (as tolerated); Participating in recreation on a regular basis. Prior Imaging:x-ray; MRI (07/11/2020 Lumbar MRI at [facility] in [place], [place]); EMG; 11/03/2024 lumbar XR at [facility] 08/09/2024 Lumbar MRI at [facility] 03/29/2024 EMG at [facility] Neurology 12/23/2023 Lumbar MRI at [facility] Lumbar Surgery:lumbar decompression/discect tacho: [...] - Mood disorders and nightmares Narcotics Meds: [place] - Effective, however PCP stopped prescribing narcotic [...] extremities Prior Imaging:MRI; EMG; 01/05/2024 EMG at [facility] 07/05/2023 Cervical MRI at [facility] 12/20/2018 Xray of Cervical [...] - Mood disorders and nightmares Narcotics Meds: [place] - Effective, however PCP stopped prescribing narcotic medication in 2015 Working:no Functional Scores:Neck Disability Index (NDI) Completed: -03/31/2024 Prior Pain Management:yes Complete Care Program:Order Date: (12/01/2024) Patient presents today for f/u, medication refill. RICKY JOSEPH [address] [place] [address], [phone], [facility] 04/18/2025 11:40:20
--- OUTSIDE RECORDS SUMMARY | 2025-06-06 16:36 | XMS_ITS | Clinical Summary ---
Author Organization [employer] ([place], [place], [place], [place]) Address [address] [place] [address] Care Team Providers Care Investment Trader Name Role Phone NietoSugey galloway MANAGER EDUCATIONAL Primary Care Provider [phone] Allergies Active Allergy Reactions Criticality Noted Date [...] diabetes mellitus, [facility] long-term current use of insulin 07/31/2023 Primary [...] Date Tino rded Speak language other than Citizen Of [place] at home Not on file 12/04/2023 Want [...] Evaluation (KED) 1984 Diabetic Eye Exam 01/29/1994 Depression Screening (12+) 1996 HIV Screening 01/29/1999 Hepatitis C Screening 01/29/2002 Pneumococcal Vaccine: 0-49 Y ears (1 of 2 - PCV) 01/29/2003 Lipid Panel 01/29/2019 Hemoglobin A1C 01/28/2024 07/30/2023, 03/09/2023 COVID-19 VACCINE (1 - 2023- season) 2024 Tobacco Cessation Counseling and Screening (12+) 08/10/2024 08/10/2023 Influenza Vaccine (#1) 2025 08/30/2017 DTAP/TDAP/TD VACCINES (2 - Td or Tdap) 05/11/2032 Procedures Procedure Name Priority Date/Time Associated Diagnosis Comments HEMOGLOBIN A1C Routine 07/30/2023 9:37 AM EDT Preop examination from Last 3 Months or Most Recently Relevant to Health Maintenance Results * Hemoglobin A1c (07/30/2023 9:37 AM EDT) Hemoglobin A1C 5.7 4.2 - 6.3 % 07/30/2023 12:14 PM EDT [facility] Comment: Hemoglobin A1C levels are related to mean glucose during the preceding 2-3 months. Less than 7% demonstrates glycemic control in diabetic patients. Hemoglobin AlC % Suggested Diagnosis > or = 6.5 Diabetic 5.7 - 6.4 Prediabetic <5.7 Non-diabetic eAVG Glucose 116.89 mg/dL 07/30/2023 12:14 PM EDT [facility] Blood Venipuncture / Unknown 07/30/2023 9:37 AM EDT 07/30/2023 9:43 AM EDT Yazan Sharma MD LAB BLOOD ORDERABLES Marjorie madsen Result [facility] [address] [phone] from Last 3 Months or Most Recently Relevant to Health Maintenance Insurance [employer] ACCESS HMO MAP Member Subscriber Plan / Payer (Ef fective 2021-Present) Name:Judson Cornelius Relation to Subscriber:Self Name:Judson Cornelius Payer ID:[id number] Group ID:[id number] Type:Not on file Address: [facility] [id number] [phone] Care Teams Investment Trader Relationship Specialty Start Date End Date Sugey Nieto, MANAGER EDUCATIONAL [address] [place] [address] PCP - General Nurse Practitioner 03/05/23
--- OUTSIDE RECORDS SUMMARY | 2025-06-06 16:36 | XMS_ITS | Encounter Summary ---
Author Organization Healthcare Address [address] [place] [address] Care Team Providers Care Store Grocery Merchandiser Name Role Phone Jayshree Morales PROGRESSIVE CARE NURSE Unavailable [phone] Nissa Linn RN Unavailable Unavailable Stiven Blair MD Unavailable Mekhi Aguirre MD Unavailable [phone] Sugey Nieto PROGRESSIVE CARE NURSE Primary Care Provider [phone] Encounter Details Date Type Department Care Team (Latest Contact Info) Description 05/18/2025 Travel Social History Tobacco Use Types Packs/Day [...] Not on file 2021 Cage questionnaire eye header operator Not on file Cage Overall score [...] EDT Appointment Cardiac Imaging [address] [place] [phone] 02/14/2026 11:40 AM EDT Office Visit [facility] Whiteside Walsh [address] [facility] [place] [phone] Colleen Culver MD [address] [place] [address] documented as of this encounter [...] documented as of this encounter Care Teams Store Grocery Merchandiser Relationship Specialty Start Date End Date Sugey Nieto APRN [address] [place] [address] PCP - General 06/30/24 Jayshree Morales APRN [address] [place] [phone] Nurse Practitioner Internal Medicine 08/19/22 Nissa Linn RN [facility] Registered Nurse Cardiology 08/19/22 Stiven Blair MD [address] [place] [phone] Consulting Physician Pediatric Cardiology 09/30/22 Mekhi Aguirre MD [address] [place] [phone] Consulting Physician Cardiology 02/03/23 documented as of this encounter
[2025-06-06 17:42] LABS: Potassium 4.3 mmoL/L (3.5-5.1)
== END 2025-06-06 23:59 | disposition home or self-care (01) ==
LOC: LAB.DROPOF 16:34
PROVIDERS: PCP Nurse Practitioner Family; Visit Provider Nurse Practitioner Family
DX: N18.9 Chronic kidney disease, unspecified (principal)
CPT/HCPCS: 84132

== ENCOUNTER 2025-06-20 12:41 | Outpatient (CLI) | payer MEDICARE, MEDICAID, SELFPAY ==
--- NOTE | 2025-06-20 12:45 | XR_ITS ---
FINAL REPORT CLINICAL HISTORY: Right hip pain, instability COMPARISON: 12/12/2020 FINDINGS: An AP view of the pelvis and two views of the right hip were obtained. There is no acute osseous abnormality of the pelvis or the right hip. There is mild degenerative joint disease, left greater than right, which is unchanged from prior exam. There is no acute soft tissue abnormality. IMPRESSION: Mild degenerative joint disease without acute osseous abnormality of the right hip. Reviewed, Interpreted and Dictated by Emilia Russo MD Transcribed by Yumi Dawson Authenticated and [facility]
--- OUTSIDE RECORDS SUMMARY | 2025-06-20 12:46 | XMS_ITS | Clinical Summary ---
Author Organization [facility] Address [address] [place] [address] Phone Care Team Providers Care Environmental Health Technician Name Role Phone Status, Fax Unavailable Conditions or Problems Problem Name Problem Code Onset Date Status Entry Date Provider Comment Standard Description Annotate Coronary artery disease (CAD) 27949128 (SNOMED CT) 01/02 Active 01/02 Tatyana Lee Coronary arteriosclerosi s Presence of prosthetic heart valve Z95.2 (ICD-10-CM ) 01/02 Active 01/02 Tatyana Jesus Presence of prosthetic heart valve Flexor tenosynoviti s, left hand/finger 299133707 (SNOMED CT) 01/02 Active 01/02 Tatyana Jesus Tenosynovitis of hand Cellulitis, finger, left 67707487 (SNOMED CT) 01/02 Active 01/02 Tatyana Jesus Cellulitis of finger Obesity due to excess calories E66.09 (ICD-10-CM ) 08/02 Resolved 08/02 Tatyana Jesus Other obesity due to excess calories Obesity, class 3, BMI 40 or greater E66.813 (ICD-10-CM ) 01/02 Active 01/02 Tatyana Jesus Obesity, class 3 MSSA infection 207408600 (SNOMED CT) 01/02 Active 01/02 Tatyana Jesus Infection by methicillin sensitive Staphylococcus aureus Abscess, paraspinal G06.1 (ICD-10-CM ) 07/22 Resolved 07/22 Tatyana Jesus Intraspinal abscess and granuloma Lumbar region, infected discitis (pyogenic) (document infectious agent) M46.36 (ICD-10-CM ) 07/22 Resolved 07/22 Tatyana Lee Infection of intervertebral disc (pyogenic), lumbar region Osteomyeliti s of lumbar vertebra 510966435 (SNOMED CT) 07/22 Resolved 07/22 Tatyana Jesus Osteomyelitis of vertebra Rhabdomyolys is 929858819 (SNOMED CT) 08/02 Resolved 08/02 Tatyana Jesus [...] incisional surgical site, subsequent encounter Rhabdomyolys is 087401242 (SNOMED CT) 08/02 Removed 08/02 Tatyana Jesus Rhabdomyolysis Lumbar discitis 808156028 (SNOMED CT) 07/22 Resolved 07/22 Tatyana Jesus Lumbar discitis Benign Essential Hypertension 42796875 (SNOMED CT) 07/22 Active 07/22 Tatyana Jesus Benign hypertension Smoking cessation counseling 904376711 (SNOMED CT) 07/23 Active 07/23 Nicolasa Mayorga Procedure carried out on subject COPD 96688534 (SNOMED CT) 07/22 Active 07/22 Pearl Mohr Chronic obstructive pulmonary disease Lumbar discitis 453972837 (SNOMED CT) 07/22 Removed 07/22 Pearl Mohr Lumbar discitis Lumbar region, infected discitis (pyogenic) (document infectious agent) M46.36 (ICD-10-CM ) 07/22 Removed 07/22 Pearl Mohr Infection of intervertebral disc (pyogenic), lumbar region Osteomyeliti s of lumbar vertebra 631583657 (SNOMED CT) 07/22 Removed 07/22 Pearl Mohr Osteomyelitis of vertebra Abscess, paraspinal G06.1 (ICD-10-CM ) 07/22 Removed 07/22 Pearl Mohr Intraspinal abscess and granuloma Hypertension 67038457 (SNOMED CT) 07/22 Inactive 07/22 Pearl Mohr Hypertensive disorder Diabetes mellitus type II 62846056 (SNOMED CT) 07/22 Inactive 07/22 Pearl Mohr Type 2 diabetes mellitus Medications Medication Instructions Start Date Stop Date Generic Name NDC Provider TRAMADOL HCL 50 MG TABS 03/12 tramadol 85282457053 Ehsan Ashleyh ceftriaxone recon soln Rocephin 2G IV q24hrs -- BHI/LIDC dose, line care, labs 01/18 ceftriaxone recon dagoberto [facility] CEPHALEXIN 500 MG CAPS Take 2 capsule by mouth twice a day 01/16 cephalexin 29709966998 Vijay Guzman MD BISOPROLOL-HYDROCHLO ROTHIAZIDE 5-6.25 MG TABS by mouth once a day bisoprolol-hydrochl orothiazide 95689263644 Samir Linares FLUCONAZOLE 200 MG TABS Take 1 tablet by mouth once a day 01/09 fluconazole 96534682249 Vijay Guzman MD ceftriaxone recon soln Rocephin 2G IV q24hrs -- BHI/LIDC dose, line care, labs 01/18 ceftriaxone recon soln Karlie Navarrete CHANTIX 1 MG TABS by mouth twice a day 01/01 varenicline tartrate 93861979873 [facility] VARENICLINE TARTRATE (STARTER) 0.5 MG X 11 & 1 MG X 42 TBPK 1 mg, Oral, 2 Times Daily 01/01 varenicline tartrate 14810296175 [facility] DOCUSATE SODIUM 100 MG CAPS 100 mg, Oral, 2 Times Daily 01/01 docusate sodium 66748209967 [facility] JARDIANCE 10 MG TABS by mouth once a day 01/01 empagliflozin 36188632998 [facility] LISINOPRIL 20 MG TABS by mouth once a day 01/01 lisinopril 66401846457 [facility] GLYXAMBI 25-5 MG TABS daily 01/01 empagliflozin-linag liptin 60576164261 [facility] FISH OIL 500 MG CAPS 1000mg, Oral, Daily 01/01 omega 3-xlt-ofk-fish oil 77658357267 [facility] METFORMIN HCL ER 750 MG [id number] 2 tablet by mouth once a day 01/01 metformin (glucophage xr) 90316100219 [facility] GABAPENTIN 600 MG TABS by mouth three times a day 01/01 gabapentin 61215747796 [facility] EPIPEN 2-CASIMIRO 0.3 MG/0.3ML SOAJ 01/01 epinephrine 87729283146 [facility] OXYCODONE HCL 5 MG TABS by mouth three times a day PRN 01/01 oxycodone 41457028616 [facility] ALBUTEROL SULFATE HFA 108 (90 Base) MCG/ACT AERS albuterol sulfate 77463875972 [facility] RYBELSUS 14 MG TABS 01/01 semaglutide 80689552131 [facility] PREGABALIN 200 MG CAPS 01/01 pregabalin 26929393086 [facility] PRAVASTATIN SODIUM 40 MG TABS 01/01 pravastatin 93375467793 [facility] HYDROCHLOROTHIAZIDE 12.5 MG TABS 01/01 hydrochlorothiazide 19934989974 [facility] FLUTICASONE PROPIONATE HFA 110 MCG/ACT AERO 01/01 fluticasone propionate 01965916238 Ehsan Stevenson TRAMADOL HCL 50 MG TABS Take 1 tablet by mouth every six hours as needed as directed 01/01 tramadol 56959245749 Ehsan Stevenson RYBELSUS 14 MG TABS semaglutide 29937704 430 Eshan Stevenson JARDIANCE 10 MG TABS empagliflozin 09166 194991 Ehsan Stevenson HYDROCHLOROTHIAZIDE 12.5 MG TABS hydrochlorothiazide 58162356685 Av jairo Stevenson VARENICLINE TARTRATE (STARTER) 0.5 MG X 11 & 1 MG X 42 TBPK varenicline tartrate 26138079692 Ehsan Stevenson PREGABALIN 200 MG CAPS pregabalin 28413281786 Ehsan Stevenson EPINEPHRINE 0.3 MG/0.3ML SOAJ epinephrine 32064305246 Ehsan Stevenson METFORMIN HCL 1000 MG TABS metformin 28977188185 Ehsan Stevenson TRAMADOL HCL 50 MG TABS 03/12 tramadol 02591860484 Ehsan Stevenson PRAVASTATIN SODIUM 40 MG TABS pravastatin 48832297628 Ehsan Stevenson LISINOPRIL 20 MG TABS lisinopril 77169422378 Ehsan Stevenson OXYCODONE-ACETAMINOP HEN 7.5-325 MG TABS by mouth three times a day as needed 01/05 oxycodone-acetamino phen 27830216890 [facility] PRAVASTATIN SODIUM 20 MG TABS by mouth once a day 01/05 pravastatin 05932028550 Mackenzie Garciaguillaume OXYCODONE HCL 5 MG TABS by mouth three times a day PRN 01/01 oxycodone 31261379200 Mackenzie Walsh DOXYCYCLINE MONOHYDRATE 100 MG TABS Take 1 tablet by mouth twice a day 11/12 doxycycline monohydrate 90709586830 Vijay Verdin MD LEVOFLOXACIN 500 MG TABS Take 1 tablet by mouth once a day 11/12 levofloxacin 61853564156 Vijay Verdin MD DOXYCYCLINE MONOHYDRATE 100 MG TABS Take 1 tablet by mouth twice a day 10/13 doxycycline monohydrate 51047020170 Vijay Verdin MD LEVOFLOXACIN 500 MG TABS Take 1 tablet by mouth once a day 10/13 levofloxacin 37439241150 Vijay Verdin MD TEFLARO 400 MG SOLR Teflaro 600mg IV i25wwi-NJG/ROSE BRUCE DOSE, LINE CARE, STAT LABS 07/28 ceftaroline fosamil 76591591908 Ericka Kwon RN LEVOFLOXACIN 500 MG TABS Take 1 tablet by mouth once a day 10/10 levofloxacin 01482842740 Vijay Verdin MD DOXYCYCLINE MONOHYDRATE 100 MG TABS Take 1 tablet by mouth twice a day 10/10 doxycycline monohydrate 42593760524 Vijay Verdin MD GLYXAMBI 25-5 MG TABS daily 01/01 empagliflozin-linag liptin 97551996840 Daisy Tejeda CELEBREX 200 MG CAPS 07/29 celecoxib 70368173346 Daisy Tejeda docusate sodium 100 mg tablet by mouth twice a day 07/29 docusate sodium 79394409093 Daisy Tejeda HYDROCHLOROTHIAZIDE 12.5 MG TABS by mouth once a day 07/29 hydrochlorothiazide 19157510024 Daisy Tejeda DOCUSATE SODIUM 100 MG CAPS 100 mg, Oral, 2 Times Daily 05/22 docusate sodium 86098190117 Daisy Tejeda omega 8-zmb-wzq-fish oil unspecified unspecified 1000mg, Oral, Daily 01/01 omega 9-sow-ilz-fish oil 70190208823 Daisy Tejeda varenicline 0.5 mg (11)- 1 mg (42) tablets,dose pack 1 mg, Oral, 2 Times Daily 01/01 varenicline 01815748168 Daisy Tejeda Cubicin unspecified unspecified Cubicin 500mg IV s73igw-TNP/CA RETENDERS 07/23 daptomycin 18753127593 Ericka Kwon RN CEFTRIAXONE SODIUM 1 GM SOLR Rocephin 2G IV q95yms-IQI/CA RETENDERS 07/23 ceftriaxone 23276999678 Ericka Kwon RN TEFLARO 400 MG SOLR Teflaro 600mg IV x04cmr-ARG/LI DC DOSE, LINE CARE, STAT LABS 07/28 ceftaroline fosamil 78301776996 Ericka Kwon RN Cubicin unspecified unspecified Cubicin 500mg IV l35msy-MZA/CA RETENDERS 07/23 daptomycin 28548600339 Ericka Kwon RN CEFTRIAXONE SODIUM 1 GM SOLR Rocephin 2G IV w13wdn-SFS/CA RETENDERS 07/23 ceftriaxone 67373882734 Ericka Kwon RN BACLOFEN 20 MG TABS by mouth twice a day baclofen 99507856030 Nicolasa Mayorga BISOPROLOL-HYDROCHLO ROTHIAZIDE 2.5-6.25 MG TABS by mouth once a day 05/22 bisoprolol-hydrochl orothiazide 78313179924 Nicolasa Mayorga CELEBREX 200 MG CAPS 07/29 celecoxib 42265986837 Nicolasa Mayorga docusate sodium 100 mg tablet by mouth twice a day 07/29 docusate sodium 15797886763 Nicolasa Mayorga JARDIANCE 10 MG TABS by mouth once a day 01/01 empagliflozin 32483385848 Nicolasa Mayorga EpiPen 0.3 mg/0.3 mL auto-injector 01/01 epinephrine 45456364203 Nicolasa Mayorga GABAPENTIN 600 MG TABS by mouth three times a day 01/01 gabapentin 89931965483 Nicolasa Mayorga GLYXAMBI 25-5 MG TABS 07/29 empagliflozin-linag liptin 98398287535 Nicolasa Mayorga HYDROCHLOROTHIAZIDE 12.5 MG TABS by mouth once a day 05/22 hydrochlorothiazide 06381036124 Nicolasa Mayorga LISINOPRIL 20 MG TABS by mouth once a day 01/01 lisinopril 58985534289 Nicolasa Mayorga METFORMIN HCL ER 750 MG [id number] 2 tablet by mouth once a day 01/01 metformin 37985618788 Nicolasa Mayorga OXYCODONE-ACETAMINOP HEN 7.5-325 MG TABS by mouth three times a day as needed 01/05 oxycodone-acetamino phen 16032451400 Nicolasa Mayorga PRAVASTATIN SODIUM 20 MG TABS by mouth once a day 01/05 pravastatin 85750857629 Nicolasa Mayorga Chantix 1 mg tablet by mouth twice a day 01/01 varenicline 37431587250 Nicolasa Mayorga Medications Administered No information available. [...] Care 01/09 CPT-cwl Weekly Labs (Continue) 01/09 CPT-88521 CMP CPT-75440 CBC w/o Differential CPT-43592 C- reactive protein CPT-86224 Sedimentation Rate (ESR) 202 03/23/18 CPT-sl STAT Labs [id number] CBC with Differential 2022 CPT-82890 CMP CPT-06889 C- reactive protein CPT-64225 Sedimentation Rate (ESR) 202 01/23/11 CPT-63661 MRI Lumbar Spine with/without constrast 2 [id number] CBC with Differential 2022 CPT-60821 Sedimentation Rate (ESR) 202 01/21/14 CPT-26459 C- reactive protein CPT-Cooral Continue oral antibiotics 20 13/10/22 CPT-DC Discontinue IV antibiotics 2 CPT-óscar New Oral Antibiotic CPT-PICREM PICC Removal CPT- stat weekly Stat Weekly Labs CPT-ca Continue IV antibiotics 2021 CPT-J0712 Teflaro CPT-sl STAT Labs [id number] CBC with Differential 2021 CPT-46067 CMP CPT-65122 C- reactive protein CPT-54357 PICC Line Insertion CPT-ca Continue IV antibiotics [...]
--- OUTSIDE RECORDS SUMMARY | 2025-06-20 12:47 | XMS_ITS | Encounter Summary ---
Author Organization [facility] Address [address] [place] [address] Care Team Providers Care Buffet Manager Name Role Phone Chandrakant Hopson MD Primary Care Provider [phone] Susanna Patel RN Unavailable Unavailable Jayshree Morales CRISIS INTERVENTION COUNSELOR Unavailable [phone] Nissa Linn RN Unavailable Unavailable Stvien Blair MD Unavailable Mekhi Aguirre MD Unavailable [phone] Sugey Nieto CRISIS INTERVENTION COUNSELOR Primary Care Provider [phone] Encounter Details Date Type Department Care Team (Late st Contact Info) Description 12/23/2023 Orders Only External Location [address] [place] [id number] Provider, External Social History Tobacco Use Types Packs/Day Years Used Date Smoking Tobacco: Every Day Cigarettes 0.3 29.2 Started: 04/25/1996 Smokeless Tobacco: Never Comments:Down to [...] Not on file 2021 Cage questionnaire 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 [place] [address] Colleen Culver MD [address] [place] [address] documented as of this encounter [...] documented as of this encounter Care Teams Buffet Manager Relationship Specialty Start Date End Date Chandrakant Hopson MD [address] [place] [address] PCP - General 08/28/21 06/29/24 Sugey Nieto APRN [address] [place] [address] PCP - General 06/30/24 Susanna Patel, RN [facility] Registered Nurse 08/19/22 03/15/25 Jayshree Morales APRN [address] [place] [address] Nurse Practitioner Internal Medicine 08/19/22 Nissa Linn RN [facility] Registered Nurse Cardiology 08/19/22 Stiven Blair MD [address] [place] [address] Consulting Physician Pediatric Cardiology 09/30/22 Mekhi Aguirre MD [address] [place] [address] Consulting Physician Cardiology 02/03/23 documented as of this encounter
--- OUTSIDE RECORDS SUMMARY | 2025-06-20 12:47 | XMS_ITS | Encounter Summary ---
Author Organization [facility] Address [address] [place] [address] Care Team Providers Care Project Management It Specialist Name Role Phone Jayshree Morales FREELANCE PATTERNMAKER Unavailable [phone] Nissa Linn RN Unavailable Unavailable Stiven Blair MD Unavailable Mekhi Aguirre MD Unavailable [phone] Sugey Nieto FREELANCE PATTERNMAKER Primary Care Provider [phone] Encounter Details Date Type Department Care Team (Latest Contact Info) Description 05/11/2025 Travel Social History Tobacco Use Types Packs/Day Years Used Date Smoking Tobacco: Some Days Cigarettes 0.3 34.2 Started: 04/25/1996 Smokeless Tobacco: Never Comments:Down to [...] Not on file 2021 Cage questionnaire 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 [place] [address] Colleen Culver MD [address] [place] [address] documented as of this encounter [...] documented as of this encounter Care Teams Project Management It Specialist Relationship Specialty Start Date End Date Sugey Nieto APRN [address] [place] [address] PCP - General 06/30/24 Jayshree Morales APRN [address] [place] [phone] Nurse Practitioner Internal Medicine 08/19/22 Nissa Linn RN [facility] Registered Nurse Cardiology 08/19/22 Stiven Blair MD [address] [place] [address] Consulting Physician Pediatric Cardiology 09/30/22 Mekhi Aguirre MD [address] [place] [phone] Consulting Physician Cardiology 02/03/23 documented as of this encounter
--- OUTSIDE RECORDS SUMMARY | 2025-06-20 12:47 | XMS_ITS | Encounter Summary ---
Author Organization [facility] Address [address] [place] [address] Care Team Providers Care Comfort Filler Name Role Phone Jayshree Morales DIRECTOR ACCOUNT MANAGEMENT Unavailable [phone] Nissa Linn RN Unavailable Unavailable Stiven Blair MD Unavailable Mekhi Aguirre MD Unavailable [phone] Sugey Nieto DIRECTOR ACCOUNT MANAGEMENT Primary Care Provider [phone] Encounter Details Date Type Department Care Team [...] Not on file 2021 Cage questionnaire eye center rep Not on file Cage Overall score Not [...] EDT Appointment Cardiac Imaging [address] [place] [phone] 02/14/2026 11:40 AM EDT Office Visit [facility] [place] [address] [facility] [place] [phone] Colleen Culver MD [address] [place] [address] documented as of this encounter [...] documented as of this encounter Care Teams Comfort Filler Relationship Specialty Start Date End Date Sugey Nieto APRN [address] [place] [address] PCP - General 06/30/24 Jayshree Morales APRN [address] [place] [phone] Nurse Practitioner Internal Medicine 08/19/22 Nissa Linn RN [facility] Registered Nurse Cardiology 08/19/22 Stiven Blair MD [address] [place] [address] Consulting Physician Pediatric Cardiology 09/30/22 Mekhi Aguirre MD [address] [place] [address] Consulting Physician Cardiology 02/03/23 documented as of this encounter
--- OUTSIDE RECORDS SUMMARY | 2025-06-20 12:47 | XMS_ITS | Clinical Summary ---
[facility] Organization [facility] Address [address] [place] [address] Care Team Providers Care Stamp Press Operator Name Role Phone Sugey Nieto APRN Primary Care Provider Allergies Active Allergy Reactions Criticality Noted Date Comments Acetaminophen Palpitations Low 09/14/2022 Codeine Rash Low 09/14/2022 Daptomycin Other (See Comments) 07/25/2022 Rhabdomyolysis Hydrocodone Rash,Hives Medium 09/14/2022 Ibuprofen GI Intolerance,Diarrhea Low 09/14/2022 Levofloxacin Rash Low 07/30/2023 Kidney issues Meloxicam GI Intolerance,Other (See Comments),Nausea And Vomiting Medium 02/17/2022 Abdominal pain Abdominal pain Abdominal pain Abdominal pain Abdominal pain Wasp Venom Protein Swelling High 03/09/2023 Medications hydroCHLOROthia zide (HYDRODIURIL) 12.5 MG tablet 2 Active metFORMIN (GLUCOPHAGE) 1000 MG tablet 3 Active baclofen (LIORESAL) 20 MG tablet Take 1 tablet by mouth Daily. 3 Active albuterol sulfate HFA 108 (90 Base) MCG/ACT inhaler 3 Active fluticasone (FLOVENT HFA) 110 MCG/ACT inhaler Inhale 1 puff. Activ e pregabalin (LYRICA) 200 MG capsule 4 Active pravastatin (PRAVACHOL) 40 MG tablet Active Jardiance 10 MG tablet tablet 1 tablet Daily. 4 Active EPINEPHrine (EPIPEN JR) 0.15 MG/0.3ML solution auto-injector injection Inject 0.3 mL into the appropriate muscle as directed by prescriber. Active Rybelsus 14 MG tablet 4 Active Varenicline Tartrate, Starter, 0.5 MG X 11 & 1 MG X 42 tablet therapy pack 4 Active oxyCODONE (ROXICODONE) 5 MG immediate release tabletIndicatio ns:Post-operati ve state Take 1 tablet by mouth Every 6 (Six) Hours As Needed for Severe Pain. 20 tablet 5 Active Kerendia 20 MG tablet 5 Active traMADol (ULTRAM) 50 MG tablet TRAMADOL HCL 50 MG TABS Active bisoprolol-hydr ochlorothiazide (ZIAC) 5-6.25 MG per tablet Take 1 tablet by mouth Daily. Active losartan (COZAAR) 50 MG tablet Take 1 tablet by mouth Daily. 5 Active aspirin 81 MG EC tablet Take 2 tablets by mouth. Active Active Problems Problem Noted Date Diagnosed Date Flexor tenosynovitis of finger 12/28/2024 Rhabdomyolysis 07/25/2022 Discitis of lumbar region 07/20/2022 Osteomyelitis 07/19/2022 Acute bilateral low back pain without sciatica 0 07/19/2022 Type 2 diabetes mellitus, [facility] long-term current use of insulin 07/19/2022 Essential hypertension 07/19/2022 Dyslipidemia 07/19/2022 Tobacco abuse 07/19/2022 S/P discectomy 06/15/2022 Recurrent herniation of lumbar disc 02/17/2022 Lumbar disc herniation 08/09/2020 Encounters Date Type Department Care Team Description 03/22/2025 11:30 AM EDT Office Visit [facility] [address] [facility] [address] [place] [address] Parish Horn MD Post-operative state (Primary Dx) 03/22/2025 Telephone [facility] [address] [place] [address] [address] [place] [address] Parish Horn MD 03/22/2025 Travel from Last 3 Months Family History Medical History Relation Name Comments Anxiety disorder Father Storm Cornelius Diabetes Maternal Grandmother Jareth monte Heart disease Maternal Grandmother Jareth monte Heart issues diabetic Anxiety disorder Mother Jacqueline Adryan Brain cancer Mother Jacqueline [place] Cancer Mother Jacqueline [place] Brain tumor Relation Name Status Comments Father Storm Cornelius Maternal Grandmother Jareth monte Mother Jacqueline Cornelius Social History Tobacco Use Types Packs/Day Years Used Date Smoking Tobacco: Some Days Cigarettes 0.3 42.4 Started: 04/25/1996; Last attempted to quit: 06/15/2022 Smokeless Tobacco: Never Tobacco Cessation:Ready to Q uit: Not Asked; Counseling Given: Not Answered Alcohol Use Standard Drinks/Week Comments Not Currently 0 (1 standard drink = 0.6 oz pur e alcohol) RARE AUDIT-C Answer Date Recorded Q1: How often do you have a drink containing alcohol? Never 12/28/2024 Q2: How many drinks containi ng alcohol do you have on a typical day when you are drinking? Patient does not drink Q3: How often do you have si x or more drinks on one occasion? Never 12/28/2024 Abuse Screen Answer Date Recorded Feels Unsafe at Home or Work/School no 12/28/2024 Feels Threatened by Someone no 04/2025 Does Anyone Try to Keep You From Having Contact with Others or Doing Things Outside Your Home? no 12/28/2024 Physical Signs of Abuse Present no 12/28/2024 Housing Stability Answer Date Recorded Current Living Arrangements home 04/2025 Potentially Unsafe Housing Conditions Not on richard e 12/28/2024 Disabilities Answer Date Recorded Difficulty Concentrating, Remembering or Making Decisions no 12/28/2024 Difficulty Managing Errands Independently no 12/28/2024 Sex and Gender Information Value Date Recorded Sex Assigned at Male 01/09/2025 8:14 AM EST Legal Sex Male 9:06 AM EDT Gender Identity Not on file Sexual Orientation Not on file Last Filed Vital Signs Vital Sign Reading Time Taken Comments Blood Pressure 163/85 01/01/2025 7:00 AM EST Pulse 67 01/01/2025 7:00 AM EST Temperature 36.4 C (97.6 F) 01/04/2025 10:24 AM EST Respiratory Rate 18 01/01/2025 7:00 AM EST Oxygen Saturation 93% 12/31/2024 7:00 AM EST Inhaled Oxygen Concentration - - Weight 125 kg (275 lb) 02/26/2025 10:29 AM EDT Height 173.4 cm (5' 8.27 ) 02/26/2025 10:29 AM E DT Body Mass Index 41.49 02/26/2025 10:29 AM EDT Plan of Treatment Health Maintenance Due Date Last Done Comments DIABETIC EYE EXAM 01/29/1994 DIABETIC FOOT EXAM 01/29/1994 URINE MICROALBUMIN-CREATININ E RATIO (uACR) 01/29/1994 Hepatitis B (1 of 3 - 19+ 3- dose series) 01/29/2003 Pneumococcal Vaccine 0-49 (1 of 2 - PCV) 01/29/2003 ANNUAL WELLNESS VISIT 08/09/2020 COVID-19 Vaccine (1 - 2023-2 5 season) 2024 HEMOGLOBIN A1C 06/27/2025 12/28/2024, 09/0 06/2023, 07/30/2023, Additional history exists INFLUENZA VACCINE 08/22/2025 08/30/2017 TDAP/TD VACCINES (2 - Td or Tdap) 05/11/2032 022 HEPATITIS C SCREENING Completed 06/19/2023 Medical Devices Implanted Type Area Flooring Sales Manager Device Identifier Shelf Expiration Date Model / Serial / Lot Kt Seal Hemos Abs Floseal Matrx Fast/Prep 10ml - [id number] Implanted:Qty : 1 on 10/10/2020 by Fredy Fabian MD at [facility] Implant Right: Spine Lumbar [facility] 01/29/2022 [id number] / / [id number] Hemost Abs Surgifoam Sz100 8x12 10mm - [id number] Implanted:Qty : 1 on 10/10/2020 by Fredy Fabian MD at [facility] Implant Right: Spine Lumbar [employer] 05/28/2024 1974 / / [id number] Kt Seal Hemos Abs Floseal Matrx Fast/Prep 10ml - [id number] Implanted:Qty : 1 on 06/08/2022 by Fredy Fabian MD at [facility] Implant Right: Spine Lumbar [facility] [id number] / / Hemost Abs Surgifoam Sz100 8x12 10mm - [id number] Implanted:Qty : 1 on 06/08/2022 by Fredy Fabian MD at [facility] Implant Right: Spine Lumbar [employer] J [employer] J 1974 / / Procedures Procedure Name Priority Date/Time Associated Diagnosis Comments HEMOGLOBIN A1C Add-On 12/28/2024 2:26 PM EST from Last 3 Months or Most Recently Relevant to Health Maintenance Results * (ABNORMAL) Hemoglobin A1c (12/28/2024 2:26 PM EST) Hemoglobin A1C 7.70(H) 4.80 - 5.60 % 12/28/2024 4:59 PM EST [facility] Blood Venipuncture / Unknown 12/28/2024 2:26 PM EST 12/28/2024 2:55 PM EST Narrative [facility] - 12/28/2024 4:59 PM EST Hemoglobin A1C Ranges: Increased Risk for Diabetes 5.7% to 6.4% Diabetes >= 6.5% Diabetic Goal < 7.0% us Mervat Winn MD LAB BLOOD ORDERABLES Final Resul t [facility]
[address] [place] [address], from Last 3 Months or Most Recently Relevant to Health Maintenance Insurance MEDICARE ADVANTAGE SNP HMO NON PAR Advance Directives * CPR (Attempt to Resuscitate) (Latest Code Status on File) Date Activated Date Inactivated Comments 12/28/2024 2:39 PM 01/01/2025 2:02 PM Question Answer Comments Code Status (Patient has no pulse and is not breathing): CPR (Attempt to Resuscitate) Medical Interventions (Patie nt has pulse or is breathing): Full Support Level Of Support Discussed With: Patient * CPR (Attempt to Resuscitate) Date Activated Date Inactivated Comments 07/25/2022 5:02 AM 07/28/2022 5:56 PM Question Answer Comments Code Status (Patient has no pulse and is not breathing): CPR (Attempt to Resuscitate) Medical Interventions (Patie nt has pulse or is breathing): Full Support * CPR (Attempt to Resuscitate) Date Activated Date Inactivated Comments 07/19/2022 9:49 PM 07/22/2022 7:47 PM Question Answer Comments Code Status (Patient has no pulse and is not breathing): CPR (Attempt to Resuscitate) Medical Interventions (Patie nt has pulse or is breathing): Full Support Care Teams Stamp Press Operator Relationship Specialty Start Date End Date Sugey Nieto APRN PCP - General Internal Medicine 07/30/20
--- OUTSIDE RECORDS SUMMARY | 2025-06-20 12:47 | XMS_ITS | Referral Summary ---
Author Organization [employer] ([place], [place], [place], [place]) Address [address] [place] [address] Care Team Providers Care Magisterial District Judge Name Role Phone NietoSugey galloway RUBBLE PLACER Primary Care Provider Allergies Active Allergy Reactions [...] 07/31/2023 Asthma 07/31/2023 Type 2 diabetes mellitus, [facility] long-term current use of insulin 07/31/2023 [...] Date Tino rded Speak language other than French at home Not on file 12/04/2023 Want [...] - 6.3 % 07/30/2023 12:14 PM EDT [facility] Comment: Hemoglobin A1C levels are related to mean glucose during the preceding 2-3 months. Less than 7% demonstrates glycemic control in diabetic patients. Hemoglobin AlC % Suggested Diagnosis > or = 6.5 Diabetic 5.7 - 6.4 Prediabetic <5.7 Non-diabetic eAVG Glucose 116.89 mg/dL 07/30/2023 12:14 PM EDT [facility] Blood Venipuncture / Unknown 07/30/2023 9:37 AM EDT 07/30/2023 9:43 AM EDT us Yazan Sharma MD LAB BLOOD ORDERABLES Marjorie l Result [facility] [address] [phone] from Last 3 Months or Most Recently Relevant to Health Maintenance Insurance [employer] O MAP Care Teams Magisterial District Judge Relationship Specialty Start Date End Date Sugey Nieto APRN [address] [address] PCP - General Nurse Practitioner 03/05/23
--- OUTSIDE RECORDS SUMMARY | 2025-06-20 12:47 | XMS_ITS | Encounter Summary ---
Author Organization Healthcare Address [address] [place] [address] Care Team Providers Care Ceramics Teacher Name Role Phone Susanna Patel RN Unavailable Unavailable Jayshree Morales SWIMMING POOL SALESPERSON Unavailable [phone] Nissa Linn RN Unavailable Unavailable Stiven Blair MD Unavailable Mekhi Aguirre MD Unavailable [phone] Sugey Nieto SWIMMING POOL SALESPERSON Primary Care Provider [phone] Encounter Details Date Type Department Care Team (Late st Contact Info) Description 08/09/2024 Orders Only External Location [address] [place] [address] Provider, External Social History Tobacco Use Types [...] Not on file 2021 Cage questionnaire eye tail worker Not on file Cage Overall score Not [...] AM EDT Appointment Cardiac Imaging [address] [place] [address] 02/14/2026 11:40 AM EDT Office Visit [facility] [place] [address] [facility] [place] [address] Colleen Culver MD [address] [place] [address] documented as of this encounter [...] documented as of this encounter Care Teams Ceramics Teacher Relationship Specialty Start Date End Date Sugey Nieto APRN [address] [place] [address] PCP - General 06/30/24 Susanna Patel, RN [facility] Registered Nurse 08/19/22 03/15/25 Jayshree Morales APRN [address] [place] [address] Nurse Practitioner Internal Medicine 08/19/22 iNssa Linn, RN [facility] Registered Nurse Cardiology 08/19/22 Stiven Blair MD [address] [place] [address] Consulting Physician Pediatric Cardiology 09/30/22 Mekhi Aguirre MD [address] [place] [address] Consulting Physician Cardiology 02/03/23 documented as of this encounter
--- OUTSIDE RECORDS SUMMARY | 2025-06-20 12:47 | XMS_ITS | Clinical Summary ---
Author Organization [employer] ([place], [place], [place], [place]) Address [address] [place] [address] Care Team Providers Care Clinical Documentation Improvement Specialist Name Role Phone NietoSugey galloway CAROUSEL OPERATOR Primary Care Provider Allergies Active Allergy Reactions [...] 07/31/2023 Asthma 07/31/2023 Type 2 diabetes mellitus, [facility] long-term current use of insulin 07/31/2023 [...] rded Speak language other than Citizen [place] at home Not on file 12/04/2023 Want [...] MD LAB BLOOD ORDERABLES Marjorie madsen Result [facility] [address] [phone] from Last 3 Months or Most Recently Relevant to Health Maintenance Insurance [employer] ACCESS HMO MAP Member Subscriber Plan / Payer (Ef fective 2021-Present) Name:Judson Cornelius Relation to Subscriber:Self Name:Judson Cornelius Payer ID:[id number] Group ID:[id number] Type:Not on file Address: [facility] [id number] [id number] Care Teams Clinical Documentation Improvement Specialist Relationship Specialty Start Date End Date Sugey Nieto, CAROUSEL OPERATOR [address] [place] [address] PCP - General Nurse Practitioner 03/05/23
--- OUTSIDE RECORDS SUMMARY | 2025-06-20 12:47 | XMS_ITS | Clinical Summary ---
Author Organization [facility] Address [address] [place] [address] Care Team Providers Care Skin Care Therapist Name Role Phone Jayshree Morales WASTE HAND Unavailable Nissa Linn RN Unavailable Unavailable Stiven Blair MD Unavailable Mekhi Aguirre MD Unavailable [phone] Sugey Nieto WASTE HAND Primary Care Provider [phone] Allergies Active Allergy Reactions Criticality Noted Date [...] to cardiac imaging 1 tablet 3 Active albuterol 108 (90 Base) MCG/ACT inhaler [...] Travel 03/29/2025 1:20 PM EDT [facility] [address] [place] [address] Cely Elizabeth APRN S/P laminectomy (Primary Dx); Lumbar disc herniation 03/29/2025 Travel 03/27/2025 [facility]ill [facility] [address] [place] [address] Raleigh Agee MD 03/22/2025 Travel from Last 3 Months Immunizations Immunization [...] Jareth Lyles Heart disease Maternal Grandmother Jareth Carliemariam Brain Aneurysm Mother Jacqueline winter jones Brain Tumor Mother Jacqueline winter jones Cancer Mother Jacqueline winter jones Depression Mother Jacqueline winter jones Mental illness Mother Jacqueline cornelius Other cancer Mother Jacqueline max jones Parkinsonism Mother Jacqueline cornelius Anesthesia problems Neg Hx Malig Hyperthermia Neg Hx Relation Name Status Comments Father Alive Maternal Grandmother Jareth Lyles Mother Jacqueline cornelius Social History Tobacco Use Types Packs/Day Years Used Date Smoking Tobacco: Some Days Cigarettes 0.3 34.2 Started: 04/25/1996 Smokeless Tobacco: Never Tobacco Cessation:Ready [...] Not on file 2021 Cage questionnaire 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 [place] [address] Colleen Culver MD [address] [place] [address] Health Maintenance Due Date Last [...] Years) (1 of 2 - PCV) 01/29/2003 [id number] Vaccine (1 - season) 2024 UKY-Diabetes: Hemoglobin [...] this topic Medical Devices Implanted Type Area Mason Apprentice Device Identifier Shelf Expiration Date Model / Serial / Lot Screw Screw Right: Ankle Procedures Procedure Name Priority Date/Time Associated Diagnosis Comments HEPATITIS C ANTIBODY - ED W/REFLEX TO HCV QUANT PCR STAT 06/19/2023 5:50 PM EDT HIV 1/2 ANTIBODY/ANTIGEN SCREEN WITH REFLEX TO HIV I/II DIFFERENTIATION STAT 06/19/2023 5:50 PM EDT from Last 3 Months or Most Recently Relevant to Health Maintenance Results * HIV 1 & 2 Antibody/Antigen Screen (06/19/2023 5:50 PM EDT) Pathologist [facility] HIV 1 & 2 Antibody/Antigen Screen Non Reactive Non Reactive 06/19/2023 6:56 PM EDT [facility] Comment:Screening for HIV 1 & 2 antibodies, and P24 antigen is NONREACTIVE. No confirmatory testing is required. Blood Venous blood specimen / Unknown Venipuncture / Unknown 06/19/2023 5:50 PM EDT 06/19/2023 6:06 PM EDT us Jeremy Lopez MD LAB BLOOD ORDERABLES Final Resu lt [facility] [address] [place] [address] * Hepatitis C Antibody - ED (06/19/2023 5:50 PM EDT) Pathologist [facility] Hepatitis C Antibody Negative Negative 06/19/2023 6:46 PM EDT [facility] Blood Venous blood specimen / Unknown Venipuncture / Unknown 06/19/2023 5:50 PM EDT 06/19/2023 6:06 PM EDT Jeremy Lopez MD LAB BLOOD ORDERABLES Final Resu lt [facility] [address] [place] [address] from Last 3 Months or Most Recently Relevant to Health Maintenance Insurance [place] [facility] MEDICARE Advance Directives * Full Code (Latest Code Status on File) Date Activated Date Inactivated Comments 07/18/2022 2:23 AM 07/19/2022 12:56 PM Question Answer Comments Patient has decision-making capacity? Yes Care Teams Skin Care Therapist Relationship Specialty Start Date End Date Sugey Nieto APRN [address] [place] [address] PCP - General 06/30/24 Jayshree Morales APRN [address] [place] [address] Nurse Practitioner Internal Medicine 08/19/22 Nissa Linn, RN [facility] Registered Nurse Cardiology 08/19/22 Stiven Blair MD [address] [place] [address] Consulting Physician Pediatric Cardiology 09/30/22 Mekhi Aguirre MD [address] [place] [address] Consulting Physician Cardiology 02/03/23
== END 2025-06-20 23:59 | disposition home or self-care (01) ==
LOC: RAD 12:43
PROVIDERS: PCP Nurse Practitioner Family; Visit Provider Nurse Practitioner Family
DX: M17.11 Unilateral primary osteoarthritis, right knee (principal)
CPT/HCPCS: 73502

== ENCOUNTER 2025-07-25 16:42 | Outpatient (CLI) | payer MEDICARE, MEDICAID, SELFPAY ==
--- OUTSIDE RECORDS SUMMARY | 2025-07-25 16:45 | XMS_ITS | Referral Summary ---
Author Organization [employer] ([place], [place], [place], [place]) Address [address] [place] [address] Care Team Providers Care Valve Liner Rubber Name Role Phone NietoSugey galloway LABOR GANG SUPERVISOR Primary Care Provider Allergies Active Allergy Reactions [...] 07/31/2023 Asthma 07/31/2023 Type 2 diabetes mellitus, [facility] long-term current use of insulin [...] Date Tino rded Speak language other than Guatemalan at home Not on file 12/04/2023 Want [...] - 6.3 % 07/30/2023 12:14 PM EDT [facility] Comment: Hemoglobin A1C levels are related to mean glucose during the preceding 2-3 months. Less than 7% demonstrates glycemic control in diabetic patients. Hemoglobin AlC % Suggested Diagnosis > or = 6.5 Diabetic 5.7 - 6.4 Prediabetic <5.7 Non-diabetic eAVG Glucose 116.89 mg/dL 07/30/2023 12:14 PM EDT [facility] Blood Venipuncture / Unknown 07/30/2023 9:37 AM EDT 07/30/2023 9:43 AM EDT us Yazan Sharma MD LAB BLOOD ORDERABLES Marjorie l Result [facility] [address] [phone] from Last 3 Months or Most Recently Relevant to Health Maintenance Insurance [employer] O MAP Care Teams Valve Liner Rubber Relationship Specialty Start Date End Date Sguey Nieto APRN [address] [address] PCP - General Nurse Practitioner 03/05/23
--- OUTSIDE RECORDS SUMMARY | 2025-07-25 16:45 | XMS_ITS | Encounter Summary ---
Author Organization [facility] Address [address] [place] [address] Care Team Providers Care Yoga Instructor Name Role Phone Chandrakant Hopson MD Primary Care Provider [phone] Susanna Patel RN Unavailable Unavailable Jayshree Morales SHIFT MGR Unavailable [phone] Nissa Linn RN Unavailable Unavailable Stiven Blair MD Unavailable Mekhi Aguirre MD Unavailable [phone] Sugey Nieto SHIFT MGR Primary Care Provider [phone] Encounter Details Date Type Department Care Team (Late st Contact Info) Description 12/23/2023 Orders Only External Location [address] [place] [phone] Provider, External Social History Tobacco Use Types [...] Not on file 2021 Cage questionnaire eye material controller Not on file Cage Overall score Not [...] AM EDT Appointment Cardiac Imaging [address] [place] [address] 02/14/2026 11:40 AM EDT Office Visit [facility] [place] [address] [place] [address] Colleen Culver MD [address] [place] [address] documented as of this encounter [...] documented as of this encounter Care Teams Yoga Instructor Relationship Specialty Start Date End Date Chandrakant Hopson MD [address] [place] [address] PCP - General 08/28/21 06/29/24 Sugey Nieto APRN [address] [place] [address] PCP - General 06/30/24 Susanna Patel, RN [facility] Registered Nurse 08/19/22 03/15/25 Jayshree Morales APRN [address] [place] [address] Nurse Practitioner Internal Medicine 08/19/22 Nissa Linn RN [facility] Registered Nurse Cardiology 08/19/22 Stiven Blair MD [address] [place] [address] Consulting Physician Pediatric Cardiology 09/30/22 Mekhi Aguirre MD [address] [place] [address] Consulting Physician Cardiology 02/03/23 documented as of this encounter
--- OUTSIDE RECORDS SUMMARY | 2025-07-25 16:45 | XMS_ITS | Encounter Summary ---
Author Organization Healthcare Address [address] [place] [address] Care Team Providers Care Rehab Physician Name Role Phone Susanna Patel RN Unavailable Unavailable Jayshree Morales TEACHER ASST Unavailable [phone] Nissa Linn RN Unavailable Unavailable Stiven Blair MD Unavailable Mekhi Aguirre MD Unavailable [phone] Sugey Nieto TEACHER ASST Primary Care Provider [phone] Encounter Details Date Type Department Care Team (Late st Contact Info) Description 08/09/2024 Orders Only External Location [address] [place] [address] Provider, External Social History Tobacco Use Types [...] Not on file 2021 Cage questionnaire eye itinerant teacher assistant Not on file Cage Overall score Not [...] AM EDT Appointment Cardiac Imaging [address] [place] [address] 02/14/2026 11:40 AM EDT Office Visit [facility] [place] [address] [facility] [place] [address] Colleen Culver MD [address] [place] [address] documented as of this encounter [...] documented as of this encounter Care Teams Rehab Physician Relationship Specialty Start Date End Date Sugey Nieto APRN [address] [place] [address] PCP - General 06/30/24 Susanna Patel, RN [facility] Registered Nurse 08/19/22 03/15/25 Jayshree Morales APRN [address] [place] [address] Nurse Practitioner Internal Medicine 08/19/22 Nissa Linn, RN [facility] Registered Nurse Cardiology 08/19/22 Stiven Blair MD [address] [place] [address] Consulting Physician Pediatric Cardiology 09/30/22 Mekhi Aguirre MD [address] [place] [address] Consulting Physician Cardiology 02/03/23 documented as of this encounter
--- OUTSIDE RECORDS SUMMARY | 2025-07-25 16:45 | XMS_ITS | Clinical Summary ---
Author Organization [employer] ([place], [place], [place], [place]) Address [address] [place] [address] Care Team Providers Care Clinical Biochemist Name Role Phone NietoSugey galloway RISK ADVISOR Primary Care Provider Allergies Active Allergy Reactions [...] 07/31/2023 Asthma 07/31/2023 Type 2 diabetes mellitus, [facility] long-term current use of insulin 07/31/2023 Primary [...] Date Tino rded Speak language other than Malagasy at home Not on file 12/04/2023 Want [...] - 6.3 % 07/30/2023 12:14 PM EDT [facility] Comment: Hemoglobin A1C levels are related to mean glucose during the preceding 2-3 months. Less than 7% demonstrates glycemic control in diabetic patients. Hemoglobin AlC % Suggested Diagnosis > or = 6.5 Diabetic 5.7 - 6.4 Prediabetic <5.7 Non-diabetic eAVG Glucose 116.89 mg/dL 07/30/2023 12:14 PM EDT [facility] Blood Venipuncture / Unknown 07/30/2023 9:37 AM EDT 07/30/2023 9:43 AM EDT Yazan Sharma MD LAB BLOOD ORDERABLES Marjorie madsen Result [facility] [address] [phone] from Last 3 Months or Most Recently Relevant to Health Maintenance Insurance [employer] ACCESS HMO MAP Member Subscriber Plan / Payer (Ef fective 2021-Present) Name:Judson Cornelius Relation to Subscriber:Self Name:Judson Cornelius Payer ID:[id number] Group ID:[id number] Type:Not on file Address: [facility] [address] [id number] Care Teams Clinical Biochemist Relationship Specialty Start Date End Date Sugey Nieto, RISK ADVISOR [address] [place] [address] PCP - General Nurse Practitioner 03/05/23
--- OUTSIDE RECORDS SUMMARY | 2025-07-25 16:45 | XMS_ITS | Clinical Summary ---
Author Organization [facility] Address [address] [place] [address] Care Team Providers Care Health Concierge Name Role Phone Sugey Nieto APRN Primary Care Provider [phone] Allergies Active Allergy Reactions Criticality Noted Date [...] sciatica 0 07/19/2022 Type 2 diabetes mellitus, wi thout long-term current use of insulin 07/19/2022 Essential hypertension 07/19/2022 Dyslipidemia 07/19/2022 Tobacco abuse 07/19/2022 S/P discectomy 06/15/2022 Recurrent herniation of lumbar disc 02/17/2022 Lumbar disc herniation 08/09/2020 Family History Medical History Relation Name Comments Anxiety disorder Father Storm Bolivar Diabetes Maternal Grandmother Jareth monte Heart disease Maternal Grandmother Jareth monte Heart issues diabetic Anxiety disorder Mother Jacqueline Bolivar Brain cancer Mother Jacqueline Adryan Cancer Mother Jacqueline Adryan Brain tumor Relation Name Status Comments Father Storm Adryan Maternal Grandmother Jareth mell Mother Jacqueline Bolivar Social History Tobacco Use Types Packs/Day Years Used Date Smoking Tobacco: Some Days Cigarettes 0.3 42.5 Started: 04/25/1996; Last attempted to quit: 06/15/2022 [...] 5 season) 2024 HEMOGLOBIN A1C 06/27/2025 12/28/2024, 06/2023, 07/30/2023, Additional history exists INFLUENZA VACCINE 08/22/2025 08/30/2017 TDAP/TD VACCINES (2 - Td or Tdap) 05/11/2032 022 HEPATITIS C SCREENING Completed 06/19/2023 Medical Devices Implanted Type Area Shuttle Threader Device Identifier Shelf Expiration Date Model / Serial / Lot Kt Seal Hemos Abs Floseal Matrx Fast/Prep 10ml - [id number] Implanted:Qty : 1 on 10/10/2020 by Fredy Fabian MD at [facility] Implant Right: Spine Lumbar [facility] 01/29/2022 [id number] / / [id number] Hemost Abs Surgifoam Sz100 8x12 10mm - [id number] Implanted:Qty : 1 on 10/10/2020 by Fredy Fabian MD at [facility] Implant Right: Spine Lumbar [employer] 05/28/2024 1974 / / [id number] Kt Seal Hemos Abs Floseal Matrx Fast/Prep 10ml - [id number] Implanted:Qty : 1 on 06/08/2022 by Fredy Fabian MD at [facility] Implant Right: Spine Lumbar [facility] [id number] / / Hemost Abs Surgifoam Sz100 8x12 10mm - [id number] Implanted:Qty : 1 on 06/08/2022 by Fredy Fabian MD at [facility] Implant Right: Spine Lumbar [employer] J 1974 / / Procedures Procedure Name Priority Date/Time Associated Diagnosis Comments HEMOGLOBIN A1C Add-On 12/28/2024 2:26 PM EST from Last 3 Months or Most Recently Relevant to Health Maintenance Results * (ABNORMAL) Hemoglobin A1c (12/28/2024 2:26 PM EST) Hemoglobin A1C 7.70(H) 4.80 - 5.60 % 12/28/2024 4:59 PM EST [facility] Blood Venipuncture / Unknown 12/28/2024 2:26 PM EST 12/28/2024 2:55 PM EST Narrative [facility] - 12/28/2024 4:59 PM EST Hemoglobin A1C Ranges: Increased Risk for Diabetes 5.7% to 6.4% Diabetes >= 6.5% Diabetic Goal < 7.0% Mervat Winn MD LAB BLOOD ORDERABLES Final Resul t [facility]
[address] [place] [address], from Last 3 Months or Most Recently Relevant to Health Maintenance Insurance MEDICARE ADVANTAGE [facility] HMO NON PAR Advance Directives * CPR [...] or is breathing): Full Support Care Teams Health Concierge Relationship Specialty Start Date End Date Sugey Nieto APRN PCP - General Internal Medicine 07/30/20
--- OUTSIDE RECORDS SUMMARY | 2025-07-25 16:45 | XMS_ITS | Clinical Summary ---
Author Organization [facility] Address [address] [place] [address] Care Team Providers Care Bee Robber Name Role Phone Jayshree Morales SAND CONTROL WORKER Unavailable [phone] Nissa Linn RN Unavailable Unavailable Stiven Blair MD Unavailable Mekhi Aguirre MD Unavailable [phone] Sugey Nieto SAND CONTROL WORKER Primary Care Provider [phone] Allergies Active Allergy Reactions Criticality Noted Date [...] Care Team Description 05/18/2025 Travel 05/11/2025 Travel from Last 3 Months Immunizations Immunization Administration Dates Next Due Hep B, Adolescent or Pediatric 07/17/1996,1995 Hep B, Adolescent/High Risk Infant 07/17/1996, Influenza, injectable, quadrivalent 08/30/2017 MMR 06/14/1996 Tdap 05/11/2022 Family History Medical History Relation Name Comments Hyperlipidemia Father Hypertension, benign Father Abnormal EKG Maternal Grandmother Jareth Morrislexy Diabetes Maternal Grandmother Jareth Morrislexy Heart attack Maternal Grandmother Jareth Sextonmariam Heart disease Maternal Grandmother Jareth Morrislexy Brain Aneurysm Mother Jacquelinenove jones Brain Tumor Mother Jacqueline winter jones Cancer Mother Jacqueline winter jones Depression Mother Jacqueline jones Mental illness Mother Jacqueline winter jones Other cancer Mother Jacqueline winter jones Parkinsonism Mother Jacqueline jones Anesthesia problems Neg Hx Malig Hyperthermia [...] Not on file 2021 Cage questionnaire eye table 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 [place] [address] Colleen Culver MD [address] [place] [phone] Health Maintenance Due Date Last Done Comments [facility]-Medicare Annual Wellness (AWV) 1984 [facility]-/Child/Adol SDOH Screenings 1984 Diabetes: Dental Exam 01/29/1994 [facility]-Hepatitis B Vaccines (4 of 4 - 4-dose series) 10/04/1996 07/17/1996, 07/17/1996, 06/14/1996, Additional history exists [facility]-Varicella Vaccines (1 of 2 - 13+ 2-dose series) 01/29/1997 [facility]- SDOH Screenings 01/29/2002 [facility]-Adult SDOH Screenings 01/29/2002 [facility]-Pneumococcal Vaccine: Pediatrics (0 to 5 Years) and At-Risk Patients (6 to 49 Years) (1 of 2 - PCV) 01/29/2003 HPV Vaccines (1 - 3-dose SCDM series) 01/29/2011 CFF-[id number]-17 Vaccine (1 - season) 2024 [facility]-Diabetes: Hemoglobin [...] this topic Medical Devices Implanted Type Area Sharepoint Application Developer Device Identifier Shelf Expiration Date Model / [...] Antibody/Antigen Screen (06/19/2023 5:50 PM EDT) Pathologist [facility] HIV 1 & 2 Antibody/Antigen Screen Non Reactive Non Reactive 06/19/2023 6:56 PM EDT [facility] Comment:Screening for HIV 1 & 2 antibodies, and P24 antigen is NONREACTIVE. No confirmatory testing is required. Blood Venous blood specimen / Unknown Venipuncture / Unknown 06/19/2023 5:50 PM EDT 06/19/2023 6:06 PM EDT Jeremy Lopez MD LAB BLOOD ORDERABLES Final Resu lt Performing Organization Address City/[facility] Co de Phone Number [facility] [address] [place] [address] * Hepatitis C Antibody - ED (06/19/2023 5:50 PM EDT) Pathologist [facility] Hepatitis C Antibody Negative Negative 06/19/2023 6:[address] [facility] Blood Venous blood specimen / Unknown Venipuncture / Unknown 06/19/2023 5:50 PM EDT 06/19/2023 6:06 PM EDT Jeremy Lopez MD LAB BLOOD ORDERABLES Final Resu lt Performing Organization Address City/[facility] Co de Phone Number [facility] [address] [place] [address] from Last 3 Months or Most Recently Relevant to Health Maintenance Insurance [place]ICAID-[place] [employer] MEDICARE Advance Directives * Full Code (Latest Code Status on File) Date Activated Date Inactivated Comments 07/18/2022 2:23 AM 07/19/2022 12:56 PM Question Answer Comments Patient has decision-making capacity? Yes Care Teams Bee Robber Relationship Specialty Start Date End Date Sugey Nieto APRN [address] [place] [address] PCP - General 06/30/24 Jayshree Morales APRN [address] [place] [address] Nurse Practitioner Internal Medicine 08/19/22 Nissa Linn RN [facility] Registered Nurse Cardiology 08/19/22 Stiven Blair MD [address] [place] [address] Consulting Physician Pediatric Cardiology 09/30/22 Mekhi Aguirre MD [address] [place] [phone] Consulting Physician Cardiology 02/03/23
--- OUTSIDE RECORDS SUMMARY | 2025-07-25 16:45 | XMS_ITS | Clinical Summary ---
Author Organization [facility] Address [address] [place] [address] Phone Care Team Providers Care Strategic Analyst Name Role Phone Status, Fax Unavailable Conditions or Problems Problem Name Problem Code Onset Date Status Entry Date Provider Comment Standard Description Annotate Coronary artery disease (CAD) 10580840 (SNOMED CT) 01/02 Active 01/02 Tatyana Lee Coronary arteriosclerosi s Presence of prosthetic heart valve Z95.2 (ICD-10-CM ) 01/02 Active 01/02 Tatyana Jesus Presence of prosthetic heart valve Flexor tenosynoviti s, left hand/finger 371621617 (SNOMED CT) 01/02 Active 01/02 Tatyana Jesus Tenosynovitis of hand Cellulitis, finger, left 42010528 (SNOMED CT) 01/02 Active 01/02 Tatyana Jesus Cellulitis of finger Obesity due to excess calories E66.09 (ICD-10-CM ) 08/02 Resolved 08/02 Tatyana Jesus Other obesity due to excess calories Obesity, class 3, BMI 40 or greater E66.813 (ICD-10-CM ) 01/02 Active 01/02 Tatyana Jesus Obesity, class 3 MSSA infection 282277089 (SNOMED CT) 01/02 Active 01/02 Tatyana Jesus Infection by methicillin sensitive Staphylococcus aureus Abscess, paraspinal G06.1 (ICD-10-CM ) 07/22 Resolved 07/22 Tatyana Jesus Intraspinal abscess and granuloma Lumbar region, infected discitis (pyogenic) (document infectious agent) M46.36 (ICD-10-CM ) 07/22 Resolved 07/22 Tatyana Lee Infection of intervertebral disc (pyogenic), lumbar region Osteomyeliti s of lumbar vertebra 562072468 (SNOMED CT) 07/22 Resolved 07/22 Tatyana Jesus Osteomyelitis of vertebra Rhabdomyolys is 321769850 (SNOMED CT) 08/02 Resolved 08/02 Tatyana Jesus [...] incisional surgical site, subsequent encounter Rhabdomyolys is 638624512 (SNOMED CT) 08/02 Removed 08/02 Tatyana Jesus Rhabdomyolysis Lumbar discitis 672745932 (SNOMED CT) 07/22 Resolved 07/22 Tatyana Jesus Lumbar discitis Benign Essential Hypertension 75029693 (SNOMED CT) 07/22 Active 07/22 Tatyana Jesus Benign hypertension Smoking cessation counseling 544608546 (SNOMED CT) 07/23 Active 07/23 Nicolasa Mayorga Procedure carried out on subject COPD 62441821 (SNOMED CT) 07/22 Active 07/22 Pearl Mohr Chronic obstructive pulmonary disease Lumbar discitis 145530837 (SNOMED CT) 07/22 Removed 07/22 Pearl Mohr Lumbar discitis Lumbar region, infected discitis (pyogenic) (document infectious agent) M46.36 (ICD-10-CM ) 07/22 Removed 07/22 Pearl Mohr Infection of intervertebral disc (pyogenic), lumbar region Osteomyeliti s of lumbar vertebra 605683469 (SNOMED CT) 07/22 Removed 07/22 Pearl Mohr Osteomyelitis of vertebra Abscess, paraspinal G06.1 (ICD-10-CM ) 07/22 Removed 07/22 Pearl Mohr Intraspinal abscess and granuloma Hypertension 82215325 (SNOMED CT) 07/22 Inactive 07/22 Pearl Mohr Hypertensive disorder Diabetes mellitus type II 73433421 (SNOMED CT) 07/22 Inactive 07/22 Pearl Mohr Type 2 diabetes mellitus Medications Medication Instructions Start Date Stop Date Generic Name NDC Provider TRAMADOL HCL 50 MG TABS 03/12 tramadol 03568335510 Ehsan Ashleyh ceftriaxone recon soln Rocephin 2G IV q24hrs -- BHI/LIDC dose, line care, labs 01/18 ceftriaxone recon dagoberto [facility] CEPHALEXIN 500 MG CAPS Take 2 capsule by mouth twice a day 01/16 cephalexin 93879902883 Vijay Guzman MD BISOPROLOL-HYDROCHLO ROTHIAZIDE 5-6.25 MG TABS by mouth once a day bisoprolol-hydrochl orothiazide 84807307694 Samir Linares FLUCONAZOLE 200 MG TABS Take 1 tablet by mouth once a day 01/09 fluconazole 08882980864 Vijay Guzman MD ceftriaxone recon soln Rocephin 2G IV q24hrs -- BHI/LIDC dose, line care, labs 01/18 ceftriaxone recon soln Karlie Navarrete CHANTIX 1 MG TABS by mouth twice a day 01/01 varenicline tartrate 23168346541 [facility] VARENICLINE TARTRATE (STARTER) 0.5 MG X 11 & 1 MG X 42 TBPK 1 mg, Oral, 2 Times Daily 01/01 varenicline tartrate 56308275417 [facility] DOCUSATE SODIUM 100 MG CAPS 100 mg, Oral, 2 Times Daily 01/01 docusate sodium 09942161071 [facility] JARDIANCE 10 MG TABS by mouth once a day 01/01 empagliflozin 82422567811 [facility] LISINOPRIL 20 MG TABS by mouth once a day 01/01 lisinopril 37720583726 [facility] GLYXAMBI 25-5 MG TABS daily 01/01 empagliflozin-linag liptin 94809286116 [facility] FISH OIL 500 MG CAPS 1000mg, Oral, Daily 01/01 omega 4-rkh-qls-fish oil 89954259355 [facility] METFORMIN HCL ER 750 MG [id number] 2 tablet by mouth once a day 01/01 metformin (glucophage xr) 14280883174 [facility] GABAPENTIN 600 MG TABS by mouth three times a day 01/01 gabapentin 03323062437 [facility] EPIPEN 2-CASIMIRO 0.3 MG/0.3ML SOAJ 01/01 epinephrine 58566278793 [facility] OXYCODONE HCL 5 MG TABS by mouth three times a day PRN 01/01 oxycodone 00693233966 [facility] ALBUTEROL SULFATE HFA 108 (90 Base) MCG/ACT AERS albuterol sulfate 44423454568 [facility] RYBELSUS 14 MG TABS 01/01 semaglutide 16160157116 [facility] PREGABALIN 200 MG CAPS 01/01 pregabalin 83300149845 [facility] PRAVASTATIN SODIUM 40 MG TABS 01/01 pravastatin 47607531549 [facility] HYDROCHLOROTHIAZIDE 12.5 MG TABS 01/01 hydrochlorothiazide 00385783183 [facility] FLUTICASONE PROPIONATE HFA 110 MCG/ACT AERO 01/01 fluticasone propionate 62907785487 Ehsan Stevenson TRAMADOL HCL 50 MG TABS Take 1 tablet by mouth every six hours as needed as directed 01/01 tramadol 74326785792 Ehsan Stevenson RYBELSUS 14 MG TABS semaglutide 65366988 430 Ehsan Stevenson JARDIANCE 10 MG TABS empagliflozin 76467 124751 Ehsan Stevenson HYDROCHLOROTHIAZIDE 12.5 MG TABS hydrochlorothiazide 68657326106 Av jairo Stevenson VARENICLINE TARTRATE (STARTER) 0.5 MG X 11 & 1 MG X 42 TBPK varenicline tartrate 97571077337 Ehsan Stevenson PREGABALIN 200 MG CAPS pregabalin 63564896965 Ehsan Stevenson EPINEPHRINE 0.3 MG/0.3ML SOAJ epinephrine 14613581738 Ehsan Stevenson METFORMIN HCL 1000 MG TABS metformin 64941102878 Ehsan Stevenson TRAMADOL HCL 50 MG TABS 03/12 tramadol 62418495273 Ehsan Stevenson PRAVASTATIN SODIUM 40 MG TABS pravastatin 47917046833 Ehsan Stevenson LISINOPRIL 20 MG TABS lisinopril 48021066559 Ehsan Stevenson OXYCODONE-ACETAMINOP HEN 7.5-325 MG TABS by mouth three times a day as needed 01/05 oxycodone-acetamino phen 73240693840 [facility] PRAVASTATIN SODIUM 20 MG TABS by mouth once a day 01/05 pravastatin 53192010306 Mackenzie Garciaguillaume OXYCODONE HCL 5 MG TABS by mouth three times a day PRN 01/01 oxycodone 92012436271 Mackenzie Walsh DOXYCYCLINE MONOHYDRATE 100 MG TABS Take 1 tablet by mouth twice a day 11/12 doxycycline monohydrate 27785150396 Vijay Verdin MD LEVOFLOXACIN 500 MG TABS Take 1 tablet by mouth once a day 11/12 levofloxacin 67730272070 Vijay Verdin MD DOXYCYCLINE MONOHYDRATE 100 MG TABS Take 1 tablet by mouth twice a day 10/13 doxycycline monohydrate 34266032084 Vijay Verdin MD LEVOFLOXACIN 500 MG TABS Take 1 tablet by mouth once a day 10/13 levofloxacin 32364891850 Vijay Verdin MD TEFLARO 400 MG SOLR Teflaro 600mg IV r65caz-ZLB/ROSE BRUCE DOSE, LINE CARE, STAT LABS 07/28 ceftaroline fosamil 63369282482 [facility] RN LEVOFLOXACIN 500 MG TABS Take 1 tablet by mouth once a day 10/10 levofloxacin 79550773233 Vijay Verdin MD DOXYCYCLINE MONOHYDRATE 100 MG TABS Take 1 tablet by mouth twice a day 10/10 doxycycline monohydrate 05999697650 Vijay Verdin MD GLYXAMBI 25-5 MG TABS daily 01/01 empagliflozin-linag liptin 03560598107 Daisy Tejeda CELEBREX 200 MG CAPS 07/29 celecoxib 32074298824 Daisy Tejeda docusate sodium 100 mg tablet by mouth twice a day 07/29 docusate sodium 68665991041 Daisy Tejeda HYDROCHLOROTHIAZIDE 12.5 MG TABS by mouth once a day 07/29 hydrochlorothiazide 41510126482 Daisy Tejeda DOCUSATE SODIUM 100 MG CAPS 100 mg, Oral, 2 Times Daily 05/22 docusate sodium 17886191923 Daisy Tejeda omega 9-ipf-zyo-fish oil unspecified unspecified 1000mg, Oral, Daily 01/01 omega 1-mon-xuj-fish oil 81404447184 Daisy Tejeda varenicline 0.5 mg (11)- 1 mg (42) tablets,dose pack 1 mg, Oral, 2 Times Daily 01/01 varenicline 09423563096 Daisy Tejeda Cubicin unspecified unspecified Cubicin 500mg IV [id number]-KUY/CA RETENDERS 07/23 daptomycin 53840383287 [facility] RN CEFTRIAXONE SODIUM 1 GM SOLR Rocephin 2G IV [id number]-RKF/CA RETENDERS 07/2306 [facility]ri[facility] 26564981121 [facility] MG SOLR Teflaro 600mg IV m31cco-BEK/ROSE BRUCE DOSE, LINE CARE, STAT LABS 07/28 ceftaroline fosamil 69701821071 [place] RN Cubicin unspecified unspecified Cubicin 500mg IV [id number]-DEZ/CA RETENDERS 07/23 daptomycin 31211113662 [facility] CEFTRIAXONE SODIUM 1 GM SOLR Rocephin 2G IV q48olu-ZIX/CA RETENDERS 07/23 ceftriaxone 26603356644 [facility] KAILEY BACLOFEN 20 MG TABS by mouth twice a day baclofen 24558734507 Nicolasa Mayorga BISOPROLOL-HYDROCHLO ROTHIAZIDE 2.5-6.25 MG TABS by mouth once a day 05/22 bisoprolol-hydrochl orothiazide 62690527476 Nicolasa Mayorga CELEBREX 200 MG CAPS 07/29 celecoxib 92054707367 Nicolasa Mayorga docusate sodium 100 mg tablet by mouth twice a day 07/29 docusate sodium 37018971185 Nicolasa Mayorga JARDIANCE 10 MG TABS by mouth once a day 01/01 empagliflozin 92555123778 Nicolasa Mayorga EpiPen 0.3 mg/0.3 mL auto-injector 01/01 epinephrine 69887869616 Nicolasa Mayorga GABAPENTIN 600 MG TABS by mouth three times a day 01/01 gabapentin 69464546411 Nicolasa Mayorga GLYXAMBI 25-5 MG TABS 07/29 empagliflozin-linag liptin 78822701434 Nicolasa Mayorga HYDROCHLOROTHIAZIDE 12.5 MG TABS by mouth once a day 05/22 hydrochlorothiazide 56331202710 Nicolasa Mayorga LISINOPRIL 20 MG TABS by mouth once a day 01/01 lisinopril 48682358831 Nicolasa Mayorga METFORMIN HCL ER 750 MG [id number]-NCG 2 tablet by mouth once a day 01/01 metformin 60089279139 Nicolasa Mayorga OXYCODONE-ACETAMINOP HEN 7.5-325 MG TABS by mouth three times a day as needed 01/05 oxycodone-acetamino phen 30153036330 Nicolasa Mayorga PRAVASTATIN SODIUM 20 MG TABS by mouth once a day 01/05 pravastatin 28738513930 Nicolasa Mayorga Chantix 1 mg tablet by mouth twice a day 01/01 varenicline 68194948502 Nicolasa Mayorga Medications Administered No information available. [...] Care 01/09 CPT-cwl Weekly Labs (Continue) 01/09 CPT-95174 CMP CPT-16560 CBC w/o Differential CPT-15040 C- reactive protein CPT-94326 Sedimentation Rate (ESR) 202 03/23/18 CPT-sl STAT Labs [id number] CBC with Differential 2022 CPT-09861 CMP CPT-94584 C- reactive protein CPT-36814 Sedimentation Rate (ESR) 202 01/23/11 CPT-51496 MRI Lumbar Spine with/without constrast 2 [id number] CBC with Differential 2022 CPT-40311 Sedimentation Rate (ESR) 202 01/21/14 CPT-02593 C- reactive protein CPT-Cooral Continue oral antibiotics 20 13/10/22 CPT-DC Discontinue IV antibiotics 2 CPT-óscar New Oral Antibiotic CPT-PICREM PICC Removal CPT- stat weekly Stat Weekly Labs CPT-ca Continue IV antibiotics 2021 CPT-J0712 Teflaro CPT-sl STAT Labs [id number] CBC with Differential 2021 CPT-42230 CMP CPT-53445 C- reactive protein CPT-59879 PICC Line Insertion CPT-ca Continue IV antibiotics [...]
--- NOTE | 2025-07-25 17:00 | MR_ITS ---
PROCEDURE INFORMATION: Exam: MR Right Lower Extremity Joint Without Contrast; Hip Exam date and time: 07/25/2025 4:59 PM Age: 40 years old Clinical indication: Pain; Hip; Right; Additional info: Right hip djd, instability TECHNIQUE: Imaging protocol: Magnetic resonance imaging of the right lower extremity joint without contrast. Exam focused on the hip. COMPARISON: CR XR HIP RT 2-3V W/PELVIS 06/20/2025 1:04 PM FINDINGS: Bones/joints: Normal bone marrow signal. No worrisome lytic or blastic osseous lesion bilaterally. The bilateral imaged hip joint spaces and cartilage are preserved. Resolution is limited for evaluation of the labrum. No distinct labral tear is identified bilaterally. Labrum: See Bones/joints finding. TENDONS: Tendons of iliopsoas group: Unremarkable. No evidence of tear. Tendons of medial compartment of thigh: Unremarkable. No evidence of tear. Tendons of lateral rotators of hip: Unremarkable. No evidence of tear. Tendons of gluteal group: Unremarkable. No evidence of tear. Soft tissues: Within the limitation of pulsation artifacts from vascular structures in the abdomen and pelvis, no distinct soft tissue abnormality., IMPRESSION: The bilateral imaged hip joint spaces and cartilage are preserved. Resolution is limited for evaluation of the labrum. No distinct labral tear is identified bilaterally. According to clinical discretion, a repeat high-resolution study can be considered if there is specific concern for a labral tear.
== END 2025-07-25 23:59 | disposition home or self-care (01) ==
LOC: RAD 16:43
PROVIDERS: PCP Nurse Practitioner Family; Visit Provider Nurse Practitioner Family
DX: M16.11 Unilateral primary osteoarthritis, right hip (principal); M25.351 Other instability, right hip
CPT/HCPCS: 73721

== ENCOUNTER 2025-08-14 14:46 | Outpatient (CLI) | payer MEDICARE, MEDICAID, SELFPAY ==
[2025-08-14 18:33] LABS: Albumin Level 5.0 g/dl (3.5-5.0); Chloride 103 mmol/L (98-107); Potassium 3.8 mmoL/L (3.5-5.1); Sodium 139 mmol/L (136-145)
[2025-08-14 18:36] LABS: Alanine Aminotransferase 36 U/L (12-78); Albumin/Globulin Ratio 2.2 (1.1-1.8); Alkaline Phosphatase 108 U/L (38-126); Anion Gap 18.8 mEq/L (5-15); Aspartate Amino Transferase 37 U/L (17-59); Bilirubin,Total 1.4 mg/dl (0.2-1.3); Blood Urea Nitrogen 11 mg/dl (9-20); Calcium 10.0 mg/dl (8.4-10.2); Carbon Dioxide 21 mmol/L (22.0-30.0); Creatinine,Serum 0.90 mg/dl (0.66-1.25); Estimated Glomerular Filt Rate 93 ml/min (>60); GFR (African American) 113 ML/MIN (>60); Globulin 2.3 g/dL (1.3-3.2); Glucose 95 mg/dl (74-100); Total Protein,Serum 7.3 g/dl (6.3-8.2)
[2025-08-14 19:57] LABS: Hemoglobin A1C 6.7 % (4.0-6.0)
--- OUTSIDE RECORDS SUMMARY | 2025-08-15 10:37 | XMS_ITS | Encounter Summary ---
Author Organization Healthcare Address [address] [place] [address] Care Team Providers Care Bag Checker Name Role Phone Susanna Patel RN Unavailable Unavailable Jayshree Morales RECEIVING COORDINATOR Unavailable [phone] Nissa Linn RN Unavailable Unavailable Stiven Blair MD Unavailable Mekhi Aguirre MD Unavailable [phone] Sugey Nieto RECEIVING COORDINATOR Primary Care Provider [phone] Encounter Details Date Type Department Care Team (Late st Contact Info) Description 08/09/2024 Orders Only External Location [address] [place] [address] Provider, External Social History Tobacco Use Types Packs/Day Years Used Date Smoking Tobacco: Every Day Cigarettes 0.3 29.3 Started: 04/25/1996 Smokeless Tobacco: Never Comments:Down to [...] Not on file 2021 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 [place] [address] Colleen Culver MD [address] [place] [address] documented as of this encounter [...] documented as of this encounter Care Teams Bag Checker Relationship Specialty Start Date End Date Sugey Nieto APRN [address] [place] [address] PCP - General 06/30/24 Susanna Patel, RN [facility] Registered Nurse 08/19/22 03/15/25 Jayshree Morales APRN [address] [place] [id number] Nurse Practitioner Internal Medicine 08/19/22 Nissa Linn, RN [facility] Registered Nurse Cardiology 08/19/22 Stiven Blair MD [address] [place] [address] Consulting Physician Pediatric Cardiology 09/30/22 Mekhi Aguirre MD [address] [place] [address] Consulting Physician Cardiology 02/03/23 documented as of this encounter
--- OUTSIDE RECORDS SUMMARY | 2025-08-15 10:37 | XMS_ITS | Clinical Summary ---
Author Organization [employer] ([place], [place], [place], [place]) Address [address] [place] [address] Care Team Providers Care Sld Educational Aide Name Role Phone NietoSugey galloway LIQUEFACTION AND REGASIFICATION HELPER Primary Care Provider Allergies Active Allergy Reactions [...] 07/31/2023 Asthma 07/31/2023 Type 2 diabetes mellitus, [facility] long-term current use of insulin 07/31/2023 [...] Date Tino rded Speak language other than Mozambican at home Not on file 12/04/2023 Want [...] Panel 01/29/2019 Hemoglobin A1C 01/28/2024 07/30/2023, 03/09/2023 Tobacco Cessation Counseling and Screening (12+) 08/10/2024 08/10/2023 COVID-19 VACCINE ( - season) 2025 Influenza Vaccine (#1) 2025 08/30/2017 DTAP/TDAP/TD VACCINES (2 - Td or Tdap) 05/11/2032 Procedures Procedure Name Priority Date/Time Associated Diagnosis Comments HEMOGLOBIN A1C Routine 07/30/2023 9:37 AM EDT Preop examination from Last 3 Months or Most Recently Relevant to Health Maintenance Results * Hemoglobin A1c (07/30/2023 9:37 AM EDT) Hemoglobin A1C 5.7 4.2 - 6.3 % 07/30/2023 12:14 PM EDT [facility] Comment: Hemoglobin A1C levels are related to mean glucose during the preceding 2-3 months. Less than 7% demonstrates glycemic control in diabetic patients. Hemoglobin AlC % Suggested Diagnosis > or = 6.5 Diabetic 5.7 - 6.4 Prediabetic <5.7 Non-diabetic eAVG Glucose 116.89 mg/dL 07/30/2023 12:14 PM EDT [facility] Blood Venipuncture / Unknown 07/30/2023 9:37 AM EDT 07/30/2023 9:43 AM EDT Yazan Sharma MD LAB BLOOD ORDERABLES Marjorie madsen Result [facility] [address] [phone] from Last 3 Months or Most Recently Relevant to Health Maintenance Insurance [employer]ible [employer] ACCESS HMO MAP Member Subscriber Plan / Payer (Ef fective 2021-Present) Name:Judson Cornelius Relation to Subscriber:Self Name:Judson Cornelius Payer ID:[id number] Group ID:[id number] Type:Not on file Address: [facility] [id number] [place] [id number] Care Teams Sld Educational Aide Relationship Specialty Start Date End Date Sugey Nieto, LIQUEFACTION AND REGASIFICATION HELPER [address] [place] [address] PCP - General Nurse Practitioner 03/05/23
--- OUTSIDE RECORDS SUMMARY | 2025-08-15 10:37 | XMS_ITS | Encounter Summary ---
Author Organization [facility] Address [address] [place] [address] Care Team Providers Care Clinical Medical Transcriptionist Name Role Phone Chandrakant Hopson MD Primary Care Provider [phone] Susanna Patel RN Unavailable Unavailable Jayshree Morales FRAME GATE MORTISER OPERATOR Unavailable [phone] Nissa Linn RN Unavailable Unavailable Stiven Blair MD Unavailable Mekhi Aguirre MD Unavailable [phone] Sugey Nieto FRAME GATE MORTISER OPERATOR Primary Care Provider [phone] Encounter Details Date Type Department Care Team (Late st Contact Info) Description 12/23/2023 Orders Only External Location [address] [place] [id number] Provider, External Social History Tobacco Use Types [...] Not on file 2021 Cage questionnaire eye gi technician Not on file Cage Overall score Not [...] AM EDT Appointment Cardiac Imaging [address] [place] [address] 02/14/2026 11:40 AM EDT Office Visit [facility] [place] [address] [place] [address] Colleen Culver MD [address] [place] [address] documented as of this encounter [...] documented as of this encounter Care Teams Clinical Medical Transcriptionist Relationship Specialty Start Date End Date Chandrakant Hopson MD [address] [place] [address] PCP - General 08/28/21 06/29/24 Sugey Nieto APRN [address] [place] [address] PCP - General 06/30/24 Susanna Patel, RN [facility] Registered Nurse 08/19/22 03/15/25 Jayshree Morales APRN [address] [place] [address] Nurse Practitioner Internal Medicine 08/19/22 Nissa Linn RN [facility] Registered Nurse Cardiology 08/19/22 Stiven Blair MD [address] [place] [address] Consulting Physician Pediatric Cardiology 09/30/22 Mekhi Aguirre MD [address] [place] [address] Consulting Physician Cardiology 02/03/23 documented as of this encounter
--- OUTSIDE RECORDS SUMMARY | 2025-08-15 10:37 | XMS_ITS | Clinical Summary ---
Author Organization [facility] Address [address] [place] [address] Care Team Providers Care Network Internship Name Role Phone Sugey Nieto APRN Primary [...] Relation Name Comments Anxiety disorder Father [place] Diabetes Maternal Grandmother Jareth monte Heart disease Maternal Grandmother Jareth monte Heart issues diabetic Anxiety disorder Mother Jacqueline Adryan Brain cancer Mother Jacqueline Adryan Cancer Mother Jacqueline Adryan Brain tumor Relation Name Status Comments Father [place] Maternal Grandmother Jareth mell Mother Jacqueline Adryan Social History Tobacco Use Types Packs/Day Years Used Date Smoking Tobacco: Some Days Cigarettes 0.3 42.6 Started: 04/25/1996; Last attempted to quit: 06/15/2022 [...] - PCV) 01/29/2003 ANNUAL WELLNESS VISIT 08/09/2020 INFLUENZA VACCINE 06/22/2025 08/30/2017 HEMOGLOBIN A1C 06/27/2025 12/28/2024, 06/2023, 07/30/2023, Additional history exists TDAP/TD VACCINES (2 - Td or Tdap) 05/11/2032 022 HEPATITIS C SCREENING Completed 06/19/2023 Medical Devices Implanted Type Area Paint Supervisor Device Identifier Shelf Expiration Date Model / Serial / Lot Kt Seal Hemos Abs Floseal Matrx Fast/Prep 10ml - [id number] Implanted:Qty : 1 on 10/10/2020 by Fredy Fabian MD at [facility] Implant Right: Spine Lumbar [employer] 01/29/2022 [id number] / / [id number] Hemost Abs Surgifoam Sz100 8x12 10mm - [id number] Implanted:Qty : 1 on 10/10/2020 by Fredy Fabian MD at [facility] Implant Right: Spine Lumbar ETHICON DIV OF J AND J 05/28/20241973 / / [id number] Kt Seal Hemos Abs Floseal Matrx Fast/Prep 10ml - [id number] Implanted:Qty : 1 on 06/08/2022 by Fredy Fabian MD at [facility] Implant Right: Spine Lumbar [employer]KINSON [employer] [id number] / / Hemost Abs Surgifoam Sz100 8x12 10mm - [id number] Implanted:Qty : 1 on 06/08/2022 by Fredy Fabian MD at [facility] Implant Right: Spine Lumbar ETHICON DIV OF J AND J 1974 / / Procedures Procedure Name Priority Date/Time Associated Diagnosis Comments HEMOGLOBIN A1C Add-On 12/28/2024 2:26 PM EST from Last 3 Months or Most Recently Relevant to Health Maintenance Results * (ABNORMAL) Hemoglobin A1c (12/28/2024 2:26 PM EST) Hemoglobin A1C 7.70(H) 4.80 - 5.60 % 12/28/2024 4:59 PM EST [facility] Blood Venipuncture / Unknown 12/28/2024 2:26 PM EST 12/28/2024 2:55 PM EST Narrative [facility] - 12/28/2024 4:59 PM EST Hemoglobin A1C Ranges: Increased Risk for Diabetes 5.7% to 6.4% Diabetes >= 6.5% Diabetic Goal < 7.0% us Mervat Winn MD LAB BLOOD ORDERABLES Final Resul t [facility]
[address] [place] [address], from Last 3 Months or Most Recently Relevant to Health Maintenance Insurance MEDICARE ADVANTAGE [facility] HMO NON PAR Advance Directives * CPR [...] or is breathing): Full Support Care Teams Network Internship Relationship Specialty Start Date End Date Sugey Nieto APRN PCP - General Internal Medicine 07/30/20
--- OUTSIDE RECORDS SUMMARY | 2025-08-15 10:37 | XMS_ITS | Referral Summary ---
Author Organization [employer] ([place], [place], [place], [place]) Address [address] [place] [address] Care Team Providers Care Export Packer Name Role Phone NietoSugey galloway CHIPPER Primary Care Provider Allergies Active Allergy Reactions [...] diabetes mellitus, [facility] long-term current use of insulin 07/31/2023 Primary [...] Date Tino rded Speak language other than Thai at home Not on file 12/04/2023 Want [...] - 6.3 % 07/30/2023 12:14 PM EDT [facility] Comment: Hemoglobin A1C levels are related to mean glucose during the preceding 2-3 months. Less than 7% demonstrates glycemic control in diabetic patients. Hemoglobin AlC % Suggested Diagnosis > or = 6.5 Diabetic 5.7 - 6.4 Prediabetic <5.7 Non-diabetic eAVG Glucose 116.89 mg/dL 07/30/2023 12:14 PM EDT [facility] Blood Venipuncture / Unknown 07/30/2023 9:37 AM EDT 07/30/2023 9:43 AM EDT us Yazan Sharma MD LAB BLOOD ORDERABLES Marjorie l Result [facility] [address] [phone] from Last 3 Months or Most Recently Relevant to Health Maintenance Insurance [employer] Care Teams Export Packer Relationship Specialty Start Date End Date Sugey Nieto APRN [address] [address] PCP - General Nurse Practitioner 03/05/23
--- OUTSIDE RECORDS SUMMARY | 2025-08-15 10:37 | XMS_ITS | Clinical Summary ---
Author Organization [facility] Address [address] [place] [address] Phone Care Team Providers Care Airport Baggage Screener Name Role Phone Status, Fax Unavailable Conditions or Problems Problem Name Problem Code Onset Date Status Entry Date Provider Comment Standard Description Annotate Coronary artery disease (CAD) 23368754 (SNOMED CT) 01/02 Active 01/02 Tatyana Lee Coronary arteriosclerosi s Presence of prosthetic heart valve Z95.2 (ICD-10-CM ) 01/02 Active 01/02 Tatyana Jesus Presence of prosthetic heart valve Flexor tenosynoviti s, left hand/finger 876163286 (SNOMED CT) 01/02 Active 01/02 Tatyana Jesus Tenosynovitis of hand Cellulitis, finger, left 96976187 (SNOMED CT) 01/02 Active 01/02 Tatyana Jesus Cellulitis of finger Obesity due to excess calories E66.09 (ICD-10-CM ) 08/02 Resolved 08/02 Tatyana Jesus Other obesity due to excess calories Obesity, class 3, BMI 40 or greater E66.813 (ICD-10-CM ) 01/02 Active 01/02 Tatyana Jesus Obesity, class 3 MSSA infection 904372165 (SNOMED CT) 01/02 Active 01/02 Tatyana Jesus Infection by methicillin sensitive Staphylococcus aureus Abscess, paraspinal G06.1 (ICD-10-CM ) 07/22 Resolved 07/22 Tatyana Jesus Intraspinal abscess and granuloma Lumbar region, infected discitis (pyogenic) (document infectious agent) M46.36 (ICD-10-CM ) 07/22 Resolved 07/22 Tatyana Lee Infection of intervertebral disc (pyogenic), lumbar region Osteomyeliti s of lumbar vertebra 929011385 (SNOMED CT) 07/22 Resolved 07/22 Tatyana Jesus Osteomyelitis of vertebra Rhabdomyolys is 555133283 (SNOMED CT) 08/02 Resolved 08/02 Tatyana Jesus [...] incisional surgical site, subsequent encounter Rhabdomyolys is 908553885 (SNOMED CT) 08/02 Removed 08/02 Tatyana Jesus Rhabdomyolysis Lumbar discitis 885287049 (SNOMED CT) 07/22 Resolved 07/22 Tatyana Jesus Lumbar discitis Benign Essential Hypertension 86282223 (SNOMED CT) 07/22 Active 07/22 Tatyana Jesus Benign hypertension Smoking cessation counseling 282840807 (SNOMED CT) 07/23 Active 07/23 Nicolasa Mayorga Procedure carried out on subject COPD 52276292 (SNOMED CT) 07/22 Active 07/22 Pearl Mohr Chronic obstructive pulmonary disease Lumbar discitis 029525980 (SNOMED CT) 07/22 Removed 07/22 Pearl Mohr Lumbar discitis Lumbar region, infected discitis (pyogenic) (document infectious agent) M46.36 (ICD-10-CM ) 07/22 Removed 07/22 Pearl Mohr Infection of intervertebral disc (pyogenic), lumbar region Osteomyeliti s of lumbar vertebra 040800634 (SNOMED CT) 07/22 Removed 07/22 Pearl Mohr Osteomyelitis of vertebra Abscess, paraspinal G06.1 (ICD-10-CM ) 07/22 Removed 07/22 Pearl Mohr Intraspinal abscess and granuloma Hypertension 16532703 (SNOMED CT) 07/22 Inactive 07/22 Pearl Mohr Hypertensive disorder Diabetes mellitus type II 39821047 (SNOMED CT) 07/22 Inactive 07/22 Pearl Mohr Type 2 diabetes mellitus Medications Medication Instructions Start Date Stop Date Generic Name NDC Provider TRAMADOL HCL 50 MG TABS 03/12 tramadol 38310124204 Ehsan Ashleyh ceftriaxone recon soln Rocephin 2G IV q24hrs -- BHI/LIDC dose, line care, labs 01/18 ceftriaxone recon [facility] CEPHALEXIN 500 MG CAPS Take 2 capsule by mouth twice a day 01/16 cephalexin 76854482871 Vijay Guzman MD BISOPROLOL-HYDROCHLO ROTHIAZIDE 5-6.25 MG TABS by mouth once a day bisoprolol-hydrochl orothiazide 48461424527 Samir Linares FLUCONAZOLE 200 MG TABS Take 1 tablet by mouth once a day 01/09 fluconazole 95712732538 Vijay Guzman MD ceftriaxone recon soln Rocephin 2G IV q24hrs -- BHI/LIDC dose, line care, labs 01/18 ceftriaxone recon soln Karlie Navarrete CHANTIX 1 MG TABS by mouth twice a day 01/01 varenicline tartrate 37737678463 [facility] VARENICLINE TARTRATE (STARTER) 0.5 MG X 11 & 1 MG X 42 TBPK 1 mg, Oral, 2 Times Daily 01/01 varenicline tartrate 80089941069 [facility] DOCUSATE SODIUM 100 MG CAPS 100 mg, Oral, 2 Times Daily 01/01 docusate sodium 11468996467 [facility] JARDIANCE 10 MG TABS by mouth once a day 01/01 empagliflozin 84569182027 [facility] LISINOPRIL 20 MG TABS by mouth once a day 01/01 lisinopril 16779166554 [facility] GLYXAMBI 25-5 MG TABS daily 01/01 empagliflozin-linag liptin 64107590209 [facility] FISH OIL 500 MG CAPS 1000mg, Oral, Daily 01/01 omega 2-xrc-tha-fish oil 44620564510 [facility] METFORMIN HCL ER 750 MG [id number] 2 tablet by mouth once a day 01/01 metformin (glucophage xr) 58467082297 [facility] GABAPENTIN 600 MG TABS by mouth three times a day 01/01 gabapentin 99051495733 [facility] EPIPEN 2-CASIMIRO 0.3 MG/0.3ML SOAJ 01/01 epinephrine 07793587910 [facility] OXYCODONE HCL 5 MG TABS by mouth three times a day PRN 01/01 oxycodone 00704909063 [facility] ALBUTEROL SULFATE HFA 108 (90 Base) MCG/ACT AERS albuterol sulfate 90835939739 [facility] RYBELSUS 14 MG TABS 01/01 semaglutide 51228440029 [facility] PREGABALIN 200 MG CAPS 01/01 pregabalin 52564512239 [facility] PRAVASTATIN SODIUM 40 MG TABS 01/01 pravastatin 59863065560 [facility] HYDROCHLOROTHIAZIDE 12.5 MG TABS 01/01 hydrochlorothiazide 48791934351 [facility] FLUTICASONE PROPIONATE HFA 110 MCG/ACT AERO 01/01 fluticasone propionate 25487206911 Ehsan Stevenson TRAMADOL HCL 50 MG TABS Take 1 tablet by mouth every six hours as needed as directed 01/01 tramadol 84317179185 Ehsan Stevenson RYBELSUS 14 MG TABS semaglutide 05547909 430 Ehsan Stevenson JARDIANCE 10 MG TABS empagliflozin 73751 002928 Ehsan Stevenson HYDROCHLOROTHIAZIDE 12.5 MG TABS hydrochlorothiazide 68428734374 Av jairo Stevenson VARENICLINE TARTRATE (STARTER) 0.5 MG X 11 & 1 MG X 42 TBPK varenicline tartrate 35165733319 Ehsan Stevenson PREGABALIN 200 MG CAPS pregabalin 19569533144 Ehsan Stevenosn EPINEPHRINE 0.3 MG/0.3ML SOAJ epinephrine 64240747114 Ehsan Stevenson METFORMIN HCL 1000 MG TABS metformin 02539595573 Ehsan Stevenson TRAMADOL HCL 50 MG TABS 03/12 tramadol 34606755109 Ehsan Stevenson PRAVASTATIN SODIUM 40 MG TABS pravastatin 68331054999 Ehsan Stevenson LISINOPRIL 20 MG TABS lisinopril 18979451160 Ehsan Stevenson OXYCODONE-ACETAMINOP HEN 7.5-325 MG TABS by mouth three times a day as needed 01/05 oxycodone-acetamino phen 87067879646 [facility] PRAVASTATIN SODIUM 20 MG TABS by mouth once a day 01/05 pravastatin 04895094781 Mackenzie Garciaguillaume OXYCODONE HCL 5 MG TABS by mouth three times a day PRN 01/01 oxycodone 45976346719 Mackenzie Walsh DOXYCYCLINE MONOHYDRATE 100 MG TABS Take 1 tablet by mouth twice a day 11/12 doxycycline monohydrate 62408165375 Vijay Verdin MD LEVOFLOXACIN 500 MG TABS Take 1 tablet by mouth once a day 11/12 levofloxacin 45208077193 Vijay Verdin MD DOXYCYCLINE MONOHYDRATE 100 MG TABS Take 1 tablet by mouth twice a day 10/13 doxycycline monohydrate 56495551054 Vijay Verdin MD LEVOFLOXACIN 500 MG TABS Take 1 tablet by mouth once a day 10/13 levofloxacin 61925385787 Vijay Verdin MD TEFLARO 400 MG SOLR Teflaro 600mg IV q22ytq-SID/ROSE BRUCE DOSE, LINE CARE, STAT LABS 07/28 ceftaroline fosamil 04888400982 [facility] RN LEVOFLOXACIN 500 MG TABS Take 1 tablet by mouth once a day 10/10 levofloxacin 86659481914 Vijay Verdin MD DOXYCYCLINE MONOHYDRATE 100 MG TABS Take 1 tablet by mouth twice a day 10/10 doxycycline monohydrate 70385051636 Vijay Verdin MD GLYXAMBI 25-5 MG TABS daily 01/01 empagliflozin-linag liptin 93997758202 Daisy Tejeda CELEBREX 200 MG CAPS 07/29 celecoxib 71744301617 Daisy Tejeda docusate sodium 100 mg tablet by mouth twice a day 07/29 docusate sodium 67960007282 Daisy Tejeda HYDROCHLOROTHIAZIDE 12.5 MG TABS by mouth once a day 07/29 hydrochlorothiazide 46234783416 Daisy Tejeda DOCUSATE SODIUM 100 MG CAPS 100 mg, Oral, 2 Times Daily 05/22 docusate sodium 06230477328 Daisy Tejeda omega 3-cth-ohu-fish oil unspecified unspecified 1000mg, Oral, Daily 01/01 omega 1-ple-pxg-fish oil 44727340757 Daisy Tejeda varenicline 0.5 mg (11)- 1 mg (42) tablets,dose pack 1 mg, Oral, 2 Times Daily 01/01 varenicline 49946133648 Daisy Tejeda Cubicin unspecified unspecified Cubicin 500mg IV [id number]-TNX/CA RETENDERS 07/23 daptomycin 77189508737 [facility] RN CEFTRIAXONE SODIUM 1 GM SOLR Rocephin 2G IV [id number]-IWP/CA RETENDERS 07/2306 ceftriaxone 73089128622 [facility] TEFLARO 400 MG SOLR Teflaro 600mg IV g75ixc-KQP/ROSE BRUCE DOSE, LINE CARE, STAT LABS 07/28 ceftaroline fosamil 14227832922 Keyla Maine RN Cubicin unspecified unspecified Cubicin 500mg IV [id number]-JYJ/CA RETENDERS 07/23 daptomycin 30467626757 [facility] RN CEFTRIAXONE SODIUM 1 GM SOLR Rocephin 2G IV h93xze-SFI/CA RETENDERS 07/23 ceftriaxone 47633816008 [facility] KAILEY BACLOFEN 20 MG TABS by mouth twice a day baclofen 02680580757 Nicolasa Mayorga BISOPROLOL-HYDROCHLO ROTHIAZIDE 2.5-6.25 MG TABS by mouth once a day 05/22 bisoprolol-hydrochl orothiazide 76845345379 Nicolasa Mayorga CELEBREX 200 MG CAPS 07/29 celecoxib 71415070165 Nicolasa Mayorga docusate sodium 100 mg tablet by mouth twice a day 07/29 docusate sodium 09575247563 Nicolasa Mayorga JARDIANCE 10 MG TABS by mouth once a day 01/01 empagliflozin 80295316276 Nicolasa Mayorga EpiPen 0.3 mg/0.3 mL auto-injector 01/01 epinephrine 08436860176 Nicolasa Mayorga GABAPENTIN 600 MG TABS by mouth three times a day 01/01 gabapentin 06398140400 Nicolasa Mayorga GLYXAMBI 25-5 MG TABS 07/29 empagliflozin-linag liptin 31616387225 Nicolasa Mayorga HYDROCHLOROTHIAZIDE 12.5 MG TABS by mouth once a day 07/27 hydrochlorothiazide 41715015106 Nicolasa Mayorga LISINOPRIL 20 MG TABS by mouth once a day 01/01 lisinopril 26021436714 Nicolasa Mayorga METFORMIN HCL ER 750 MG [id number] 2 tablet by mouth once a day 01/01 metformin 09089866512 Nicolasa Mayorga OXYCODONE-ACETAMINOP HEN 7.5-325 MG TABS by mouth three times a day as needed 01/05 oxycodone-acetamino phen 75743916537 Nicolasa Mayorga PRAVASTATIN SODIUM 20 MG TABS by mouth once a day 01/05 pravastatin 32120215171 Nicolasa Mayorga Chantix 1 mg tablet by mouth twice a day 01/01 varenicline 95576120350 Nicolasa Mayorga Medications Administered No information available. [...] Care 01/09 CPT-cwl Weekly Labs (Continue) 01/09 CPT-52174 CMP CPT-27229 CBC w/o Differential CPT-39941 C- reactive protein CPT-58692 Sedimentation Rate (ESR) 202 03/23/18 CPT-sl STAT Labs [id number] CBC with Differential 2022 CPT-87224 CMP CPT-15061 C- reactive protein CPT-85743 Sedimentation Rate (ESR) 202 01/23/11 CPT-18892 MRI Lumbar Spine with/without constrast 2 [id number] CBC with Differential 2022 CPT-91575 Sedimentation Rate (ESR) 202 01/21/14 CPT-44140 C- reactive protein CPT-Cooral Continue oral antibiotics 20 13/10/22 CPT-DC Discontinue IV antibiotics 2 CPT-óscar New Oral Antibiotic CPT-PICREM PICC Removal CPT- stat weekly Stat Weekly Labs CPT-ca Continue IV antibiotics 2021 CPT-J0712 Teflaro CPT-sl STAT Labs [id number] CBC with Differential 2021 CPT-85950 CMP CPT-30791 C- reactive protein CPT-32634 PICC Line Insertion CPT-ca Continue IV antibiotics [...]
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
== END 2025-08-14 23:59 ==
LOC: LAB.DROPOF 08-15 10:33
PROVIDERS: PCP Nurse Practitioner Family; Visit Provider Nurse Practitioner Family
DX: E11.9 Type 2 diabetes mellitus without complications (principal)
CPT/HCPCS: 80053; 83036

== ENCOUNTER 2025-08-23 09:20 | Outpatient (CLI) | payer MEDICARE, MEDICAID, SELFPAY ==
--- OUTSIDE RECORDS SUMMARY | 2025-08-23 09:23 | XMS_ITS | Clinical Summary ---
Author Organization [facility] Address [address] [place] [address] Care Team Providers Care Life Teacher Name Role Phone Sugey Nieto APRN Primary [...] Relation Name Comments Anxiety disorder Father Storm Kaplan Diabetes Maternal Grandmother Jareth monte Heart disease Maternal Grandmother Jareth monte Heart issues diabetic Anxiety disorder Mother Jacqueline Kaplan Brain cancer Mother Jacqueline Kaplan Cancer Mother Jacqueline Adryan Brain tumor Relation Name Status Comments Father Storm Kaplan Maternal Grandmother Jareth mell Mother Jacqueline Adryan [...] Completed 06/19/2023 Medical Devices Implanted Type Area Cannon Pinion Adjuster Device Identifier Shelf Expiration Date Model / Serial / Lot Kt Seal Hemos Abs Floseal Matrx Fast/Prep 10ml - [id number] Implanted:Qty : 1 on 10/10/2020 by Fredy Fabian MD at [facility] Implant Right: Spine Lumbar [employer] 01/29/2022 [id number] / / [id number] Hemost Abs Surgifoam Sz100 8x12 10mm - [id number] Implanted:Qty : 1 on 10/10/2020 by Fredy Fabian MD at [facility] Implant Right: Spine Lumbar ETHICON DIV OF J AND J 05/28/20241973 / / [id number] Kt Seal Hemos Abs Floseal Matrx Fast/Prep 10ml - [id number] Implanted:Qty : 1 on 06/08/2022 by Fredy Fabian MD at [facility] Implant Right: Spine Lumbar ATKINSON iPawn [id number] / / Hemost Abs Surgifoam Sz100 8x12 10mm - [id number] Implanted:Qty : 1 on 06/08/2022 by Fredy Fabian MD at [facility] Implant Right: Spine Lumbar ETHICON DIV OF J AND J 1974 / / Procedures Procedure Name Priority Date/Time Associated Diagnosis Comments HEMOGLOBIN A1C Add-On 12/28/2024 2:26 PM EST from Last 3 Months or Most Recently Relevant to Health Maintenance Results * (ABNORMAL) Hemoglobin A1c (12/28/2024 2:26 PM EST) Hemoglobin A1C 7.70(H) 4.80 - 5.60 % 12/28/2024 4:59 PM EST [facility] Blood Venipuncture / Unknown 12/28/2024 2:26 PM EST 12/28/2024 2:55 PM EST Narrative [facility] - 12/28/2024 4:59 PM EST Hemoglobin A1C Ranges: Increased Risk for Diabetes 5.7% to 6.4% Diabetes >= 6.5% Diabetic Goal < 7.0% us Mervat Winn MD LAB BLOOD ORDERABLES Final Resul t [facility]
[address] [place] [address], from Last 3 Months or Most Recently Relevant to Health Maintenance Insurance MEDICARE ADVANTAGE [facility] HMO NON PAR Advance Directives * [...] or is breathing): Full Support Care Teams Life Teacher Relationship Specialty Start Date End Date Sugey Nieto APRN PCP - General Internal Medicine 07/30/20
--- OUTSIDE RECORDS SUMMARY | 2025-08-23 09:23 | XMS_ITS | Clinical Summary ---
Author Organization [facility] Address [address] [place] [address] Phone Care Team Providers Care Manager Of Internal Name Role Phone Status, Fax Unavailable Conditions or Problems Problem Name Problem Code Onset Date Status Entry Date Provider Comment Standard Description Annotate Coronary artery disease (CAD) 18966536 (SNOMED CT) 01/02 Active 01/02 Tatyana Lee Coronary arteriosclerosi s Presence of prosthetic heart valve Z95.2 (ICD-10-CM ) 01/02 Active 01/02 Tatyana Jesus Presence of prosthetic heart valve Flexor tenosynoviti s, left hand/finger 323954487 (SNOMED CT) 01/02 Active 01/02 Tatyana Jesus Tenosynovitis of hand Cellulitis, finger, left 58942787 (SNOMED CT) 01/02 Active 01/02 Tatyana Jesus Cellulitis of finger Obesity due to excess calories E66.09 (ICD-10-CM ) 08/02 Resolved 08/02 Tatyana Jesus Other obesity due to excess calories Obesity, class 3, BMI 40 or greater E66.813 (ICD-10-CM ) 01/02 Active 01/02 Tatyana Jesus Obesity, class 3 MSSA infection 973294773 (SNOMED CT) 01/02 Active 01/02 Tatyana Jesus Infection by methicillin sensitive Staphylococcus aureus Abscess, paraspinal G06.1 (ICD-10-CM ) 07/22 Resolved 07/22 Tatyana Jesus Intraspinal abscess and granuloma Lumbar region, infected discitis (pyogenic) (document infectious agent) M46.36 (ICD-10-CM ) 07/22 Resolved 07/22 Tatyana Lee Infection of intervertebral disc (pyogenic), lumbar region Osteomyeliti s of lumbar vertebra 685711665 (SNOMED CT) 07/22 Resolved 07/22 Tatyana Jesus Osteomyelitis of vertebra Rhabdomyolys is 647449214 (SNOMED CT) 08/02 Resolved 08/02 Tatyana Jesus [...] incisional surgical site, subsequent encounter Rhabdomyolys is 410389769 (SNOMED CT) 08/02 Removed 08/02 Tatyana Jesus Rhabdomyolysis Lumbar discitis 257475465 (SNOMED CT) 07/22 Resolved 07/22 Tatyana Jesus Lumbar discitis Benign Essential Hypertension 80207671 (SNOMED CT) 07/22 Active 07/22 Tatyana Jesus Benign hypertension Smoking cessation counseling 461700491 (SNOMED CT) 07/23 Active 07/23 Nicolasa Mayorga Procedure carried out on subject COPD 41984484 (SNOMED CT) 07/22 Active 07/22 Pearl Mohr Chronic obstructive pulmonary disease Lumbar discitis 853425373 (SNOMED CT) 07/22 Removed 07/22 Pearl Mohr Lumbar discitis Lumbar region, infected discitis (pyogenic) (document infectious agent) M46.36 (ICD-10-CM ) 07/22 Removed 07/22 Pearl Mohr Infection of intervertebral disc (pyogenic), lumbar region Osteomyeliti s of lumbar vertebra 881341344 (SNOMED CT) 07/22 Removed 07/22 Pearl Mohr Osteomyelitis of vertebra Abscess, paraspinal G06.1 (ICD-10-CM ) 07/22 Removed 07/22 Pearl Mohr Intraspinal abscess and granuloma Hypertension 82903643 (SNOMED CT) 07/22 Inactive 07/22 Pearl Mohr Hypertensive disorder Diabetes mellitus type II 34213029 (SNOMED CT) 07/22 Inactive 07/22 Pearl Mohr Type 2 diabetes mellitus Medications Medication Instructions Start Date Stop Date Generic Name NDC Provider TRAMADOL HCL 50 MG TABS 03/12 tramadol [id number] Ehsan Ashleyh ceftriaxone recon soln Rocephin 2G IV q24hrs -- BHI/LIDC dose, line care, labs 01/18 ceftriaxone recon dagoberto [facility] CEPHALEXIN 500 MG CAPS Take 2 capsule by mouth twice a day 01/16 cephalexin 31156876476 Vijay Guzman MD BISOPROLOL-HYDROCHLO ROTHIAZIDE 5-6.25 MG TABS by mouth once a day bisoprolol-hydrochl orothiazide 68666490280 Samir Linares FLUCONAZOLE 200 MG TABS Take 1 tablet by mouth once a day 01/09 fluconazole 99241213607 Vijay Guzman MD ceftriaxone recon soln Rocephin 2G IV q24hrs -- BHI/LIDC dose, line care, labs 01/18 ceftriaxone recon soln Karlie Navarrete CHANTIX 1 MG TABS by mouth twice a day 01/01 varenicline tartrate 15479946207 [facility] VARENICLINE TARTRATE (STARTER) 0.5 MG X 11 & 1 MG X 42 TBPK 1 mg, Oral, 2 Times Daily 01/01 varenicline tartrate 38872491804 [facility] DOCUSATE SODIUM 100 MG CAPS 100 mg, Oral, 2 Times Daily 01/01 docusate sodium 91161879383 [facility] JARDIANCE 10 MG TABS by mouth once a day 01/01 empagliflozin 91410019684 [facility] LISINOPRIL 20 MG TABS by mouth once a day 01/01 lisinopril 44744474906 [facility] GLYXAMBI 25-5 MG TABS daily 01/01 empagliflozin-linag liptin 63753020711 [facility] FISH OIL 500 MG CAPS 1000mg, Oral, Daily 01/01 omega 3-bnc-oyh-fish oil 38201602720 [facility] METFORMIN HCL ER 750 MG TB11N-YBF 2 tablet by mouth once a day 01/01 metformin (glucophage xr) 87212729111 [facility] GABAPENTIN 600 MG TABS by mouth three times a day 01/01 gabapentin 36918962537 [facility] EPIPEN 2-CASIMIRO 0.3 MG/0.3ML SOAJ 01/01 epinephrine 60848514045 [facility] OXYCODONE HCL 5 MG TABS by mouth three times a day PRN 01/01 oxycodone 96695830384 [facility] ALBUTEROL SULFATE HFA 108 (90 Base) MCG/ACT AERS albuterol sulfate 29762014062 [facility] RYBELSUS 14 MG TABS 01/01 semaglutide 50941996691 [facility] PREGABALIN 200 MG CAPS 01/01 pregabalin 23403926386 [facility] PRAVASTATIN SODIUM 40 MG TABS 01/01 pravastatin 94228788849 [facility] HYDROCHLOROTHIAZIDE 12.5 MG TABS 01/01 hydrochlorothiazide 95187788853 [facility] FLUTICASONE PROPIONATE HFA 110 MCG/ACT AERO 01/01 fluticasone propionate 29608121073 Ehsan Stevenson TRAMADOL HCL 50 MG TABS Take 1 tablet by mouth every six hours as needed as directed 01/01 tramadol 61817933393 Ehsan Stevenson RYBELSUS 14 MG TABS semaglutide 98173237 430 Ehsan Stevenson JARDIANCE 10 MG TABS empagliflozin 80145 726772 Ehsan Stevenson HYDROCHLOROTHIAZIDE 12.5 MG TABS hydrochlorothiazide 94704073905 Av jairo Stevenson VARENICLINE TARTRATE (STARTER) 0.5 MG X 11 & 1 MG X 42 TBPK varenicline tartrate 80678327026 Ehsan Stevenson PREGABALIN 200 MG CAPS pregabalin 04651132794 Ehsan Stevenson EPINEPHRINE 0.3 MG/0.3ML SOAJ epinephrine 14644455515 Ehsan Stevenson METFORMIN HCL 1000 MG TABS metformin 17619557622 Ehsan Stevenson TRAMADOL HCL 50 MG TABS 03/12 tramadol 13464243968 Ehsan Stevenson PRAVASTATIN SODIUM 40 MG TABS pravastatin 45182874437 Ehsan Stevenson LISINOPRIL 20 MG TABS lisinopril 95725533713 Ehsan Stevenson OXYCODONE-ACETAMINOP HEN 7.5-325 MG TABS by mouth three times a day as needed 01/05 oxycodone-acetamino phen 76092891525 Mackenzie Garciaformerly [facility] PRAVASTATIN SODIUM 20 MG TABS by mouth once a day 01/05 pravastatin 42107631553 Mackenzie Garciaguillaume OXYCODONE HCL 5 MG TABS by mouth three times a day PRN 01/01 oxycodone 15723727258 Mackenzie Walsh DOXYCYCLINE MONOHYDRATE 100 MG TABS Take 1 tablet by mouth twice a day 11/12 doxycycline monohydrate 73347916108 Vijay Verdin MD LEVOFLOXACIN 500 MG TABS Take 1 tablet by mouth once a day 11/12 levofloxacin 15872366738 Vijay Verdin MD DOXYCYCLINE MONOHYDRATE 100 MG TABS Take 1 tablet by mouth twice a day 10/13 doxycycline monohydrate 00896745864 Vijay Verdin MD LEVOFLOXACIN 500 MG TABS Take 1 tablet by mouth once a day 10/13 levofloxacin 50492966274 Vijay Verdin MD TEFLARO 400 MG SOLR Teflaro 600mg IV i41gzp-KFM/ROSE BRUCE DOSE, LINE CARE, STAT LABS 07/28 ceftaroline fosamil 86881582623 [facility] RN LEVOFLOXACIN 500 MG TABS Take 1 tablet by mouth once a day 10/10 levofloxacin 66990968923 Vijay Verdin MD DOXYCYCLINE MONOHYDRATE 100 MG TABS Take 1 tablet by mouth twice a day 10/10 doxycycline monohydrate 13716406887 Vijay Verdin MD GLYXAMBI 25-5 MG TABS daily 01/01 empagliflozin-linag liptin 63248761184 Daisy Tejeda CELEBREX 200 MG CAPS 07/29 celecoxib 18407999387 Daisy Tejeda docusate sodium 100 mg tablet by mouth twice a day 07/29 docusate sodium 47688259762 Daisy Tejeda HYDROCHLOROTHIAZIDE 12.5 MG TABS by mouth once a day 07/29 hydrochlorothiazide 84923292471 Daisy Tejeda DOCUSATE SODIUM 100 MG CAPS 100 mg, Oral, 2 Times Daily 05/22 docusate sodium 95066896791 Daisy Tejeda omega 5-qyq-xsu-fish oil unspecified unspecified 1000mg, Oral, Daily 01/01 omega 7-nva-woa-fish oil 73462408921 Daisy Tejeda varenicline 0.5 mg (11)- 1 mg (42) tablets,dose pack 1 mg, Oral, 2 Times Daily 01/01 varenicline 58942600827 Daisy Tejeda Cubicin unspecified unspecified Cubicin 500mg IV [id number]-ILM/CA RETENDERS 07/23 daptomycin 78898943825 [facility] RN CEFTRIAXONE SODIUM 1 GM SOLR Rocephin 2G IV a58sio-MXJ/CA RETENDERS 07/2306 [facility]ri[facility]1722879727 [facility] 400 MG SOLR Teflaro 600mg IV l06jex-ALN/ROSE BRUCE DOSE, LINE CARE, STAT LABS 07/28 ceftaroline fosamil 99197066858 [facility] [place] RN Cubicin unspecified unspecified Cubicin 500mg IV [id number]-VZB/CA RETENDERS 07/23 [facility]aptomycin 58952854979 [facility] CEFTRIAXONE SODIUM 1 GM SOLR Rocephin 2G IV w86bcg-QHG/CA RETENDERS 07/23 ceftriaxone 23787981603 [facility] KAILEY BACLOFEN 20 MG TABS by mouth twice a day baclofen 20107913573 Nicolasa Mayorga BISOPROLOL-HYDROCHLO ROTHIAZIDE 2.5-6.25 MG TABS by mouth once a day 05/22 bisoprolol-hydrochl orothiazide 86490682010 Nicolasa Mayorga CELEBREX 200 MG CAPS 07/29 celecoxib 78506666675 Nicolasa Mayorga docusate sodium 100 mg tablet by mouth twice a day 07/29 docusate sodium 34197703061 Nicolasa Mayorga JARDIANCE 10 MG TABS by mouth once a day 01/01 empagliflozin 46860656723 Nicolasa Mayorga EpiPen 0.3 mg/0.3 mL auto-injector 01/01 epinephrine 87278224386 Nicolasa Mayorga GABAPENTIN 600 MG TABS by mouth three times a day 01/01 gabapentin 83554223692 Nicolasa Mayorga GLYXAMBI 25-5 MG TABS 07/29 empagliflozin-linag liptin 05363282375 Nicolasa Mayorga HYDROCHLOROTHIAZIDE 12.5 MG TABS by mouth once a day 07/27 hydrochlorothiazide 90647119013 Nicolasa Mayorga LISINOPRIL 20 MG TABS by mouth once a day 01/01 lisinopril 37827010504 Nicolasa Mayorga METFORMIN HCL ER 750 MG CV41A-ITE 2 tablet by mouth once a day 01/01 metformin 93877045411 Nicolasa Mayorga OXYCODONE-ACETAMINOP HEN 7.5-325 MG TABS by mouth three times a day as needed 01/05 oxycodone-acetamino phen 15563185656 Nicolasa Mayorga PRAVASTATIN SODIUM 20 MG TABS by mouth once a day 01/05 pravastatin 16621339963 Nicolasa Mayorga Chantix 1 mg tablet by mouth twice a day 01/01 varenicline 15929291309 Nicolasa Mayorga Medications Administered No information available. [...] Care 01/09 CPT-cwl Weekly Labs (Continue) 01/09 CPT-10526 CMP CPT-18661 CBC w/o Differential CPT-10577 C- reactive protein CPT-67559 Sedimentation Rate (ESR) 202 03/23/18 CPT-sl STAT Labs [id number] CBC with Differential 2022 CPT-13699 CMP CPT-73335 C- reactive protein CPT-34771 Sedimentation Rate (ESR) 202 01/23/11 CPT-59794 MRI Lumbar Spine with/without constrast 2 [id number] CBC with Differential 2022 CPT-24172 Sedimentation Rate (ESR) 202 01/21/14 CPT-50622 C- reactive protein CPT-Cooral Continue oral antibiotics 20 13/10/22 CPT-DC Discontinue IV antibiotics 2 CPT-óscar New Oral Antibiotic CPT-PICREM PICC Removal CPT- stat weekly Stat Weekly Labs CPT-ca Continue IV antibiotics 2021 CPT-J0712 Teflaro CPT-sl STAT Labs [id number] CBC with Differential 2021 CPT-64851 CMP CPT-95523 C- reactive protein CPT-68942 PICC Line Insertion CPT-ca Continue IV antibiotics [...]
--- NOTE | 2025-08-23 09:30 | US_ITS ---
FINAL REPORT CLINICAL HISTORY: dyspepsia, diarrhea FINDINGS: Sonographic images of the right upper quadrant were obtained. The pancreas is partially obscured. There is mild fatty infiltration of the liver. Minimal amount of sludge is noted in the gallbladder. There is no evidence of biliary ductal dilatation.The common duct measures 4mm. Limited images of the right kidney are unremarkable. IMPRESSION: Minimal sludge in the gallbladder. Mild fatty infiltration of the liver. Reviewed, Interpreted and Dictated by Yvon Fernandez MD Transcribed by Regla Montenegro Authenticated and . [facility]
--- NOTE | 2025-08-23 10:30 | MR_ITS ---
FINAL REPORT CLINICAL HISTORY: Right hip instability prior MRI of r hip wo sent eval for tears COMPARISON: 07/25/2025 FINDINGS: Multiplanar MR imaging of the right hip was performed with and without IV contrast. The hip joint spaces are preserved. Femoral heads have a normal smooth contour. There is no osteochondral lesions. There is no evidence of marrow edema or AVN. The acetabular labrum appear intact. On the T1-weighted fat saturation postinfusion images, there is some mild increased signal in the substance of the acetabular curly bilaterally, more evident than expected for age. Discrete linear tear is not identified. Incidental note is made of the left testicle in the distal portion of the left inguinal canal. IMPRESSION: Mild increased signal in the acetabular curly seen on the post infused images without definite full-thickness tears. Left testicle hung up in the distal inguinal canal. Reviewed, Interpreted and Dictated by Yvon Fernandez MD Transcribed by Natalya Otto Authenticated and . [facility]
== END 2025-08-23 23:59 | disposition home or self-care (01) ==
LOC: RAD 09:21
PROVIDERS: PCP Nurse Practitioner Family; Visit Provider Nurse Practitioner Family
DX: K82.8 Other specified diseases of gallbladder (principal); K76.0 Fatty (change of) liver, not elsewhere classified; R19.7 Diarrhea, unspecified; R10.13 Epigastric pain; M25.351 Other instability, right hip; M16.11 Unilateral primary osteoarthritis, right hip; R93.6 Abnormal findings on diagnostic imaging of limbs; N50.89 Other specified disorders of the male genital organs
CPT/HCPCS: 73723; 76705

== ENCOUNTER 2025-09-21 10:31 | Outpatient (CLI) | payer MEDICARE, MEDICAID, SELFPAY ==
[2025-09-21 13:50] LABS: Coronavirus 19, PCR Not Detected (NotDetected); Influenza A, PCR Not Detected (NotDetected); Influenza B, PCR Not Detected (NotDetected)
--- OUTSIDE RECORDS SUMMARY | 2025-09-24 10:46 | XMS_ITS | Clinical Summary ---
Author Organization [facility] Address [address] [place] [address] Phone Care Team Providers Care Transmission Builder Name Role Phone Status, Fax Unavailable Conditions or Problems Problem Name Problem Code Onset Date Status Entry Date Provider Comment Standard Description Annotate Coronary artery disease (CAD) 76359901 (SNOMED CT) 01/02 Active 01/02 Tatyana Lee Coronary arteriosclerosi s Presence of prosthetic heart valve Z95.2 (ICD-10-CM ) 01/02 Active 01/02 Tatyana Jesus Presence of prosthetic heart valve Flexor tenosynoviti s, left hand/finger 700309370 (SNOMED CT) 01/02 Active 01/02 Tatyana Jesus Tenosynovitis of hand Cellulitis, finger, left 47032142 (SNOMED CT) 01/02 Active 01/02 Tatyana Jesus Cellulitis of finger Obesity due to excess calories E66.09 (ICD-10-CM ) 08/02 Resolved 08/02 Tatyana Jesus Other obesity due to excess calories Obesity, class 3, BMI 40 or greater E66.813 (ICD-10-CM ) 01/02 Active 01/02 Tatyana Jesus Obesity, class 3 MSSA infection 833150580 (SNOMED CT) 01/02 Active 01/02 Tatyana Jesus Infection by methicillin sensitive Staphylococcus aureus Abscess, paraspinal G06.1 (ICD-10-CM ) 07/22 Resolved 07/22 Tatyana Jesus Intraspinal abscess and granuloma Lumbar region, infected discitis (pyogenic) (document infectious agent) M46.36 (ICD-10-CM ) 07/22 Resolved 07/22 Tatyana Lee Infection of intervertebral disc (pyogenic), lumbar region Osteomyeliti s of lumbar vertebra 533102368 (SNOMED CT) 07/22 Resolved 07/22 Tatyana Jesus Osteomyelitis of vertebra Rhabdomyolys is 955347001 (SNOMED CT) 08/02 Resolved 08/02 Tatyana Jesus [...] incisional surgical site, subsequent encounter Rhabdomyolys is 863899491 (SNOMED CT) 08/02 Removed 08/02 Tatyana Jesus Rhabdomyolysis Lumbar discitis 840247003 (SNOMED CT) 07/22 Resolved 07/22 Tatyana Jesus Lumbar discitis Benign Essential Hypertension 32895778 (SNOMED CT) 07/22 Active 07/22 Tatyana Jesus Benign hypertension Smoking cessation counseling 571344184 (SNOMED CT) 07/23 Active 07/23 Nicolasa Mayorga Procedure carried out on subject COPD 42447498 (SNOMED CT) 07/22 Active 07/22 Pearl Mohr Chronic obstructive pulmonary disease Lumbar discitis 025495259 (SNOMED CT) 07/22 Removed 07/22 Pearl Mohr Lumbar discitis Lumbar region, infected discitis (pyogenic) (document infectious agent) M46.36 (ICD-10-CM ) 07/22 Removed 07/22 Pearl Mohr Infection of intervertebral disc (pyogenic), lumbar region Osteomyeliti s of lumbar vertebra 220087848 (SNOMED CT) 07/22 Removed 07/22 Pearl Mohr Osteomyelitis of vertebra Abscess, paraspinal G06.1 (ICD-10-CM ) 07/22 Removed 07/22 Pearl Mohr Intraspinal abscess and granuloma Hypertension 76885982 (SNOMED CT) 07/22 Inactive 07/22 Pearl Mohr Hypertensive disorder Diabetes mellitus type II 70917393 (SNOMED CT) 07/22 Inactive 07/22 Pearl Mohr Type 2 diabetes mellitus Medications Medication Instructions Start Date Stop Date Generic Name NDC Provider TRAMADOL HCL 50 MG TABS 03/12 tramadol [id number] Ehsan Ashleyh ceftriaxone recon soln Rocephin 2G IV q24hrs -- BHI/LIDC dose, line care, labs 01/18 ceftriaxone recon dagoberto [facility] CEPHALEXIN 500 MG CAPS Take 2 capsule by mouth twice a day 01/16 cephalexin 16903181742 Vijay Guzman MD BISOPROLOL-HYDROCHLO ROTHIAZIDE 5-6.25 MG TABS by mouth once a day bisoprolol-hydrochl orothiazide 35699274684 Samir Linares FLUCONAZOLE 200 MG TABS Take 1 tablet by mouth once a day 01/09 fluconazole 32246869980 Vijay Guzman MD ceftriaxone recon soln Rocephin 2G IV q24hrs -- BHI/LIDC dose, line care, labs 01/18 ceftriaxone recon soln Karlie Navarrete CHANTIX 1 MG TABS by mouth twice a day 01/[address] [facility] VARENICLINE TARTRATE (STARTER) 0.5 MG X 11 & 1 MG X 42 TBPK 1 mg, Oral, 2 Times Daily 01/[address] [facility] DOCUSATE SODIUM 100 MG CAPS 100 mg, Oral, 2 Times Daily 01/[address] [facility] JARDIANCE 10 MG TABS by mouth once a day 01/[address] [facility] LISINOPRIL 20 MG TABS by mouth once a day 01/[address] [facility] GLYXAMBI 25-5 MG TABS daily 01/01 empagliflozin-linag liptin 37084922338 [facility] FISH OIL 500 MG CAPS 1000mg, Oral, Daily 01/01 omega 8-vgj-uyc-fish oil 80159931512 [facility] METFORMIN HCL ER 750 MG [id number] 2 tablet by mouth once a day 01/01 metformin (glucophage xr) 72475159916 [facility] GABAPENTIN 600 MG TABS by mouth three times a day 01/[address] [facility] EPIPEN 2-CASIMIRO 0.3 MG/0.3ML SOAJ 01/[address] [facility] OXYCODONE HCL 5 MG TABS by mouth three times a day PRN 01/[address] [facility] ALBUTEROL SULFATE HFA 108 (90 Base) MCG/ACT AERS albuterol sulfate 72662709893 [facility] RYBELSUS 14 MG TABS 01/[address] [facility] PREGABALIN 200 MG CAPS 01/[address] [facility] PRAVASTATIN SODIUM 40 MG TABS 01/[address] [facility] HYDROCHLOROTHIAZIDE 12.5 MG TABS 01/[address] [facility] FLUTICASONE PROPIONATE HFA 110 MCG/ACT AERO 01/01 fluticasone propionate 32887488952 Ehsan Stevenson TRAMADOL HCL 50 MG TABS Take 1 tablet by mouth every six hours as needed as directed 01/01 tramadol 17088715465 Ehsan Stevenson RYBELSUS 14 MG TABS semaglutide 08656325 430 Ehsan Stevenson JARDIANCE 10 MG TABS empagliflozin 61005 291386 Ehsan Stevenson HYDROCHLOROTHIAZIDE 12.5 MG TABS hydrochlorothiazide 52002973657 Av jairo Stevenson VARENICLINE TARTRATE (STARTER) 0.5 MG X 11 & 1 MG X 42 TBPK varenicline tartrate 57151233534 Ehsan Stevenson PREGABALIN 200 MG CAPS pregabalin 22439157623 Ehsan Stevenson EPINEPHRINE 0.3 MG/0.3ML SOAJ epinephrine 15146172855 Ehsan Stevenson METFORMIN HCL 1000 MG TABS metformin 51171207556 Ehsan Stevenson TRAMADOL HCL 50 MG TABS 03/12 tramadol 95543565410 Ehsan Stevenson PRAVASTATIN SODIUM 40 MG TABS pravastatin 29809415244 Ehsan Stevenson LISINOPRIL 20 MG TABS lisinopril 83910065221 Ehsan Stevenson OXYCODONE-ACETAMINOP HEN 7.5-325 MG TABS by mouth three times a day as needed 01/05 oxycodone-acetamino phen 93838472315 [facility] PRAVASTATIN SODIUM 20 MG TABS by mouth once a day 01/05 pravastatin 55471757906 Mackenzie Garciaguillaume OXYCODONE HCL 5 MG TABS by mouth three times a day PRN 01/01 oxycodone 72134507951 Mackenzie Walsh DOXYCYCLINE MONOHYDRATE 100 MG TABS Take 1 tablet by mouth twice a day 11/12 doxycycline monohydrate 62777528777 Vijay Verdin MD LEVOFLOXACIN 500 MG TABS Take 1 tablet by mouth once a day 11/12 levofloxacin 51360539927 Vijay Verdin MD DOXYCYCLINE MONOHYDRATE 100 MG TABS Take 1 tablet by mouth twice a day 10/13 doxycycline monohydrate 12045038738 Vijay Verdin MD LEVOFLOXACIN 500 MG TABS Take 1 tablet by mouth once a day 10/13 levofloxacin 70853911929 Vijay Verdin MD TEFLARO 400 MG SOLR Teflaro 600mg IV c81hnr-XNU/ROSE BRUCE DOSE, LINE CARE, STAT LABS 07/28 ceftaroline fosamil 74704919886 [facility] RN LEVOFLOXACIN 500 MG TABS Take 1 tablet by mouth once a day 10/10 levofloxacin 40436595404 Vijay Verdin MD DOXYCYCLINE MONOHYDRATE 100 MG TABS Take 1 tablet by mouth twice a day 10/10 doxycycline monohydrate 72762522622 Vijay Verdin MD GLYXAMBI 25-5 MG TABS daily 01/01 empagliflozin-linag liptin 06827668335 Daisy Tejeda CELEBREX 200 MG CAPS 07/29 celecoxib 96202074955 Daisy Tejeda docusate sodium 100 mg tablet by mouth twice a day 07/29 docusate sodium 51085955130 Daisy Tejeda HYDROCHLOROTHIAZIDE 12.5 MG TABS by mouth once a day 07/29 hydrochlorothiazide 96783451959 Daisy Tejeda DOCUSATE SODIUM 100 MG CAPS 100 mg, Oral, 2 Times Daily 05/22 docusate sodium 30875361603 Daisy Tejeda omega 1-bjt-tuu-fish oil unspecified unspecified 1000mg, Oral, Daily 01/01 omega 1-bsv-qhq-fish oil 13482811690 Daisy Tejeda varenicline 0.5 mg (11)- 1 mg (42) tablets,dose pack 1 mg, Oral, 2 Times Daily 01/01 varenicline 29608021760 Daisy Tejeda Cubicin unspecified unspecified Cubicin 500mg IV [id number]-VKL/CA RETENDERS 07/23 daptomycin 35301549534 [facility] RN CEFTRIAXONE SODIUM 1 GM SOLR Rocephin 2G IV m23vst-SCF/CA RETENDERS 07/2306 [facility]ri[facility]9685602930 [facility] SOLR Teflaro 600mg IV [id number]-JGX/ROSE BRUCE DOSE, LINE CARE, STAT LABS 07/28 ceftaroline fosamil 13193552738 Keyla [place] RN Cubicin unspecified unspecified Cubicin 500mg IV k20ycm-XAH/CA RETENDERS 07/23 [facility]apt[facility] 14748776270 [facility] CEFTR[facility] SODIUM 1 GM SOLR Rocephin 2G IV k86tgi-ATM/CA RETENDERS 07/23 ceftriaxone 10108103970 [facility] KAILEY BACLOFEN 20 MG TABS by mouth twice a day baclofen 15170297685 Nicolasa Mayorga BISOPROLOL-HYDROCHLO ROTHIAZIDE 2.5-6.25 MG TABS by mouth once a day 05/22 bisoprolol-hydrochl orothiazide 47455292596 Nicolasa Mayorga CELEBREX 200 MG CAPS 07/29 celecoxib 00819572293 Nicolasa Mayorga docusate sodium 100 mg tablet by mouth twice a day 07/29 docusate sodium 35054576199 Nicolasa Mayorga JARDIANCE 10 MG TABS by mouth once a day 01/01 empagliflozin 91333377291 Nicolasa Mayorga EpiPen 0.3 mg/0.3 mL auto-injector 01/01 epinephrine 25365134362 Nicolasa Mayorga GABAPENTIN 600 MG TABS by mouth three times a day 01/01 gabapentin 29496199886 Nicolasa Mayorga GLYXAMBI 25-5 MG TABS 07/29 empagliflozin-linag liptin 80056992817 Nicolasa Mayorga HYDROCHLOROTHIAZIDE 12.5 MG TABS by mouth once a day 08/23 hydrochlorothiazide 25790029484 Nicolasa Mayorga LISINOPRIL 20 MG TABS by mouth once a day 01/01 lisinopril 69000880405 Nicolasa Mayorga METFORMIN HCL ER 750 MG [id number] 2 tablet by mouth once a day 01/01 metformin 26694121727 Nicolasa Mayorga OXYCODONE-ACETAMINOP HEN 7.5-325 MG TABS by mouth three times a day as needed 01/05 oxycodone-acetamino phen 39563294509 Nicolasa Mayorga PRAVASTATIN SODIUM 20 MG TABS by mouth once a day 01/05 pravastatin 54341849948 Nicolasa Mayorga Chantix 1 mg tablet by mouth twice a day 01/01 varenicline 71058201368 Nicolasa Mayorga Medications Administered No information available. [...] Care 01/09 CPT-cwl Weekly Labs (Continue) 01/09 CPT-23357 CMP CPT-69713 CBC w/o Differential CPT-05941 C- reactive protein CPT-54236 Sedimentation Rate (ESR) 202 03/23/18 CPT-sl STAT Labs [id number] CBC with Differential 2022 CPT-13311 CMP CPT-34757 C- reactive protein CPT-96121 Sedimentation Rate (ESR) 202 01/23/11 CPT-20786 MRI Lumbar Spine with/without constrast 2 [id number] CBC with Differential 2022 CPT-52449 Sedimentation Rate (ESR) 202 01/21/14 CPT-48475 C- reactive protein CPT-Cooral Continue oral antibiotics 20 13/10/22 CPT-DC Discontinue IV antibiotics 2 CPT-óscar New Oral Antibiotic CPT-PICREM PICC Removal CPT- stat weekly Stat Weekly Labs CPT-ca Continue IV antibiotics 2021 CPT-J0712 Teflaro CPT-sl STAT Labs [id number] CBC with Differential 2021 CPT-76441 CMP CPT-33919 C- reactive protein CPT-18817 PICC Line Insertion CPT-ca Continue IV antibiotics [...]
--- OUTSIDE RECORDS SUMMARY | 2025-09-24 10:47 | XMS_ITS | Continuity of Care Document ---
Author Organization [facility] Address [address] [place] [address] Care Team Providers Care Work Measurement Engineer Name Role Phone VERITO GREY Primary Care Provider [phone] Assessment Encounter Date Assessment Date Assessment LastModified by Organization Details LastModified Time 08/16/2025 08/16/2025 Pain History: Mr. Cornelius is a 40 yo male. This patient has treated in this clinic since January 2018 for chronic pain. He presents to clinic today for the office visit follow-up and for medication refill. Per the patient, he has had increase in pain since last visit without any history for injury or trauma. Particularly, he has had pain in the right hip region. His primary care physician ordered a MRI which she had completed. Now, he will go back next week and get the MRI repeated with contrast. He continues to do the home exercise program since last visit. He reports no issues with the medications. He is using the gabapentin and baclofen as needed. No general health changes reported today. Pain [...] with lateral recess decompression surgery. The patient did have lumbar decompression surgery L5-S1 level with this provider on March 16, 2025. Update: He has not seen this provider since last visit. The patient treats with Dr. Verdin, infectious disease. Update: He has not seen this provider since last visit. The patient has treated with Dr. Childress for his right ankle. He had an updated MRI performed. He has a torn ligament and tendon. He did have his surgical procedure to include repair right collateral ligament of the right ankle on August 10, 2023. The patient has a history for kidney stones. He is awaiting an evaluation with urology. The patient has history of hepatomegaly noted on previous imaging. For this, he is treating with Dr. Smith at [facility]. He has not seen this provider since last visit. The patient treated with Dr. Horn, hand surgeon. He underwent right cubital tunnel release surgery with this provider. He also had left index trigger finger surgery. The postoperative course was complicated by infection which required a second surgery. He now treats with Dr. Cruz, hand surgeon. Update: He has not seen this provider since last visit. Imaging: MRI right hip without contrast dated June 20, 2025 was unremarkable. X-rays lumbar spine dated November 03, 2024 [...] surgery was recommended. He is status post lumbar decompression surgery at L5-S1 level by Dr. Rodríguez March 16, 2025. He is status post left index trigger [...] October 10, 2020. Conservative Treatments: For the low back pain, the patient attended 6 weeks of physical therapy from January through February 2025. He continues to perform the home exercise program daily learned in physical therapy. For the neck pain, he was provided [...] fatty liver, so we do avoid acetaminophen. Pregabalin Current analgesics: For his chronic pain, he is prescribed oxycodone, baclofen, and gabapentin which he tolerates. He is to using gabapentin and baclofen as needed. Compliance Monitoring: The updated Prasanth report is reviewed today and is appropriate. The oral swab confirmation report from June 18, 2025 is appropriately positive for oxycodone. A urine specimen is collected today for screening and confirmation. The last dose of oxycodone and gabapentin was today. The specimen will be sent for confirmation today. Anticoagulant/Anti platelet Medications: None Oswestry Disability Index score: 52 Neck Pain score: 21 Plan: This patient continues to report multiple chronic pain complaints. Primary complaint today is pain in the right hip region. The primary care physician ordered MRI right hip which he had performed June 20, 2025. He was able to pull up the radiology report on his phone. The initial report was unremarkable. Repeat study with contrast was recommended, and he is scheduled to get that on August 24, 2025. He has not seen any other specialist since last visit. He should continue the home exercise program daily as performed which includes exercises for the neck and low back regions. I will continue with the current medications. He is using gabapentin and baclofen as needed. No issues are reported today. The medications allow him to perform his activities of daily living. He may continue gabapentin 800 mg 1 p.o. 3 times daily, baclofen 20 mg 1 p.o. twice daily-rx not needed today, and oxycodone 5 mg 1 p.o. twice daily. This results in the same morphine equivalent dose of 15. I will reassess him in 60 days. I will follow-up on his repeat MRI right hip with contrast. His ORT score is 4, and the risk assessment level is moderate based on the fact that the patient has filled pain medication twice from other providers without notifying the office for documentation and approval. [email or web address] Not available 08/16/2025 10:54:16 Plan of Treatment Reminders Order Date Submit Date Provider Last Modified By Organization Details Last Modified Time Details Appointments FOLLOW UP 15 2024 11:15A RICKY Gibson Not available Not available Not available Lab drug screen, urine - Qualitati ve LCMS Screen Panel 2024 [facility], [facility], [address] [place] [address], [id number], 08/21/2025 15:30:54 Referral None recorded. Procedures None recorded. Surgeries None recorded. Imaging None recorded. Medication Orders oxycodone 5 mg tablet 2024 025 [facility], [address] [place] [address], [id number], 08/17/2025 13:09:11 oxycodone 5 mg tablet 2024 025 [facility], [address] [place] [address], [id number], 09/14/2025 11:19:55 gabapenti n 800 mg tablet 2024 025 [facility], [address] [place] [address], [id number], 09/14/2025 11:19:55 Patient TargetsNo targets recorded. Patient InstructionsNo instructions recorded. Reason for Referral None Reported. Results Created Date Observation Date Name Description Value Unit Range Abnormal Flag Note LastModifiedBy Organization Detail LastModifiedTime Result Notes None recorded. Problems Name Problem SNOMED Code Status Onset Date Resolution Date Notes Provider Name and Address Organization Details Recorded Time Hypertens trung disorder 19345599 Completed 201712/06/2018 JUDY Sanderson - [facility] 9 08:13:39 Heart disease 26314293 Completed 201702/09/2018 JUDY Jalloh [facility] 8 14:45:09 Asthma 449242401 Completed 201712/06/2018 Carmen Ying null, [place] - [facility] 9 08:13:34 Acid reflux 252858058 Completed 201712/06/2018 Carmen Ying null, [place] - [facility] 9 08:13:49 Spinal stenosis 59954491 Completed 201712/06/2018 Carmen Ying null, [place] - [facility] 9 08:13:44 Lumbar radiculop athy 171345644 Active 2017 Beatriz stamper null, [place] - [facility] 5 10:17:28 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 30913980738 536925 Active 2020 Beatriz stamper null, [place] - [facility] 5 10:17:28 Myofascia l pain 692385935 Active 2021 RICKY Atkins [address] [place] [address], [phone] , [place] - [facility] 2 16:06:27 Long-term drug therapy Active 2021 RICKY Atkins [address] [place] [address], [phone] , [place] - [facility] 2 07:13:34 Spasm of back muscles 844233437 Active 2021 Beatriz stamper null, [place] - [facility] 5 10:17:28 Cervical spondylos is 901954489 Active 2023 Beatriz stamper null, [place] - [facility] 5 10:17:37 Cervical radiculop athy 60278739 Active 2023 RICKY Atkins [address] [place] [address], [phone] , [place] - [facility] 4 11:33:44 Chronic pain 06254948 Active 2023 Beatriz stamper null, [place] - [facility] 10:17:37 Notes:Some problems listed i n Documents: #[id number], #[id number], #[id number], #[id number], #[id number] could not be added to this patient's chart. Please review these documents and add these problems to the patient's chart manually as needed. Problem Notes None recorded. Procedures Surgical History Date Name Laterality Status Provider Name and Address Organization Details Recorded Time 04/12/20 Lumbar Transforaminal Epidural Steroid Injection (1 Level Bilateral): completed Carmen Ying [facility] 04/12/2024 11:19:35 02/29/20 24 Lumbar Transforaminal Epidural Steroid Injection (1 Level Bilateral): cancelled imani ybarra [facility] 02/28/2024 08:09:44 01/12/20 24 Cervical Epidural Steroid Injection: Interlaminar completed Carmen Ying [facility] 01/12/2024 09:59:11 12/13/19 24 Diagnostic Cervical MBB: Posterior (3 Level Unilateral) completed Carmen Zapatawitt [facility] 12/13/2023 11:06:34 09/23/20 21 Trigger Point Injections completed RICKY Atkins [address] [place] [address], [phone] 09/23/2021 09:35:29 09/18/20 21 Carpal tunnel surgery completed Adriana Jain [facility] 12/03/2021 09:34:54 05/12/20 21 GT Bursa Fluoro cancelled Oksana Martinez [facility] 05/08/2021 08:55:24 12/23/19 21 Hip Joint Injection Fluoro completed Carmen Zap[place]witt [facility] 12/23/2020 09:52:58 10/10/20 20 Lumbar Discectomy/Decompr ession completed Adriana Jain [facility] 10/16/2020 11:07:16 09/28/20 18 Lumbar RFA (3 Level Bilateral) completed Vandana Norman [facility] 09/28/2018 08:38:13 08/08/20 18 Diagnostic Lumbar MBB (3 Level Bilateral) completed Vandana Norman [facility] 08/08/2018 11:11:01 03/11/20 18 Lumbar Transforaminal Epidural Steroid Injection (1 Level Unilateral): completed Vandana Norman [facility] 03/11/2018 13:35:41 Remove spine lamina 1/2 lmbr completed Adriana Jain [facility] 12/05/2018 12:40:35 Imaging Results None recorded. Procedure Notes None recorded. Medical Equipment None Reported. Allergies Allergen ID Allergen Name Allergen Category Reaction Reaction Severity Criticality Documentation Date Start Date Code Code System Note Provider Name and Address Organization Details Recorded Time 892033 meloxicam medicatio n abdominal pain Not available Not available 04/09/2021 62406 RxNorm Adriana cole [facility] 1 09:40:05 622784 Non-stero idal anti-infl ammatory agent (substanc e) medicatio n Not available Not available Not available 01/10/2024 59882 5008 SNOMED Carmen Summerland [facility] 4 14:05:22 Medications Name Sig Start [...] Not Available losartan 50 mg tablet TAKE 1 TABLET BY MOUTH [...] Not Available fluconazole 200 mg tablet infection 06/18 completed Not Available Not Available Not Available meloxicam 15 mg tablet Take 1 [...] Available Not Available tramadol 50 mg tablet 06/18 completed Not Available Not Available Not Available baclofen 20 mg tablet TAKE 1 TABLET BY MOUTH 2 TIMES A DAY 2024 active Not Available Not Available Not Avai lable oxycodone-a cetaminophe n 5 mg-325 mg tablet [...] Available gabapentin 800 mg tablet TAKE 1 CAPSULE BY MOUTH 3 TIMES A DAY NEEDED active Not Available Not Available No t Available lorazepam 2 mg tablet 08/02 completed Not Available Not Available Not Available cephalexin 500 mg capsule infection 06/18 completed Not Available Not Available Not Available metformin 1,000 mg tablet TAKE 1 TABLET BY MOUTH [...] epinephrine 0.3 mg/0.3 mL injection, auto-inject or inject 1 prefilled syringe INTRAMUSC ULARLY every 5-15 minutes NEEDED FOR allergies . no more THAN 3 doses PER episode active Not Available Not Available No t [...] sulfate HFA 90 mcg/actuati on aerosol inhaler inhale 2 puffs BY MOUTH EVERY 6 HOURS NEEDED active [...] Not Available Not Available No t Available hydroxyzine pamoate 25 mg capsule TAKE 1 CAPSULE BY MOUTH 2 TIMES A DAY NEEDED FOR ANXIETY active Not Available Not Available No t [...] Not Available Jardiance 10 mg tablet TAKE 1 TABLET BY MOUTH [...] height Body mass index (BMI) Body weight Heart rate Oxygen saturation Oxygen saturation in Arterial blood by Pulse oximetry Pain severity - 0-10 verbal numeric rating [Score] - Reported Systolic And Diastolic Provider Name and Address Organization Details Last Updated DateTime 5 176.53 cm 33.5 kg/m2 840603. 25 g 78 /min 95 % 95 % 7 122/73 mm[Hg] Sarah Jenkins [facility] 5 10:28:21 Social History Question Answer Notes LastModified by Organizat ion Details LastModified Time Tobacco Smoking Status Current Some Day Smoker Adriana cole [facility] 10/16/2020 11:07:29 Do You Have An Advance Directive? No [email or web address] Information not available 07/29/2022 What Type Of Diet Are You Following? REGULAR [email or web address] Information not available 07/29/2022 Which Illicit Or Recreational Drugs Have You Used? None [email or web address] Information not available 09/07/2018 Education 12 [email or web address] Information no t available 09/07/2018 What Is The Highest Grade Or Level Of School You Have Completed Or The Highest Degree You Have Received? RA14372-9 [email or web address] Information not available 07/29/2022 How Many Times Per Week Do You Exercise? 1-2 Times Per Week [email or web address] Information not available 06/02/2023 Prescription Drug Abuse No Information not available 02/09/2018 Disability Yes Information no t available 02/09/2018 History Of Sexual Abuse No [email or web address] Information not available 02/09/2018 Marital [place] [address] Informatio n not available 02/09/2018 Do You Have A Medical Power Of Heat Treating Furnace Tender? No [email or web address] Information not available 12/28/2023 What Was The Date Of Your Most Recent Tobacco Screening? 12/01/2024 [email or web address] Information not available 12/01/2024 What Is Your Relationship Status? [email or web address] Information not available 07/29/2022 How Much Tobacco Do You Smoke? 0.5 PPD Information not available 09/07/2018 Has Tobacco Cessation Counseling Been Provided? Yes Information not available 12/28/2023 On What Date Was Tobacco Cessation Counseling Provided? 12/01/2024 [email or web address] Answered No To The Tobacco Cessation Counseling Provided Question On 09/07/2018. [email or web address] Information not available 12/01/2024 How Many Years Have You Smoked Tobacco? 24 [email or web address] Information not available 09/07/2018 Sex: Unknown Functional Status Question Answer Note LastModified by Organizat ion Details LastModified Time What is your level of alcohol consumption? None Information not available 02/09/2018 Do you or have you ever used smokeless tobacco? Never used smokeless tobacco [email or web address] Information not available 07/18/2020 Are you currently employed? No Information not available 09/16/2021 What is your occupation? Disabled [email or web address] Information not available 09/07/2018 Do you or have you ever used e-cigarettes or vape? Never used electronic cigarettes [email or web address] Information not available 07/18/2020 What is your exercise level? Occasional [email or web address] Information not available 06/02/2023 Mental Status None recorded. Family History Nothing Reported. Medical History Condition Response Bipolar Disease N Coronary Artery Disease N Seizure Disorder N Gout N Atrial Fibrillation N Thyroid Disease N Hernia N Head Trauma/Injury N COPD N Depression N Anxiety Disorder N Acid Reflux (GERD) Y Cancer N Skin Disorder N Stroke N High Cholesterol N Liver Disease N Rheumatoid Arthritis N Headaches Y Fibromyalgia N Autoimmune Disease N Kidney Disease N Osteoarthritis Y Neurosurgery N DVT N Peptic Ulcer Disease N Anemia N Heart Attack (NE) N Diabetes N Cardiomyopathy N Bleeding Disorder N CHF N AIDS/HIV N Inflammatory Bowel Disease N Dementia N Asthma Y Substance Abuse N Sleep Apnea N Hepatitis N Heart Disease N Pulmonary Embolism N Chronic Low Back Pain Y Hypertension Y Osteoporosis N Past Encounters Encounter ID Performer Location Encounter Start Date Encounter Closed Date Diagnosis/Indication Diagnosis SNOMED-CT Code Diagnosis ICD10 Code Diagnosis IMO Codes Diagnosis Note [id number] PATRICK LEAL MD [place] [address] [facility] [address] [place] [address] 08/16/2025 10:19:12 08/16/2025 10:45:55 Greater trochanteric pain syndrome of right lower limb 7278554806 5263234 M70.61 Lumbar radiculopathy 128 846581 M54.16 Use of the medication does allow the patient to perform the activities of daily living and function without being in severe pain. Chronic pain 91186392 G8 9.29 Cervical spondylosis 387 527417 M47.812 Long-term drug therapy 465521191 Z79.899 The patient was advised that the purpose of this drug screen is to monitor for compliance and to assist in risk stratifica tion. Health Concerns Section Related Observation LastModified by Organization Detai ls LastModified Time None Recorded Concern Status LastModified by Organization Details LastModified Time None Recorded Payers Encounter Date Sequence Insurance Name Policy Number Policy Kirkpatrick Covered Member ID Kirkpatrick Member ID Guarantor Name 08/16/2025 2 [place] [employer] - FFS/TRADITION AL Z -QMB Judson Cornelius [id number] Judson Cornelius 08/16/2025 1 [employer] (MEDICARE REPLACEMENT/A DVANTAGE - HMO) KATIA Cornelius [id number] Judson Cornelius Notes Date Note Type Note Provider Name and Address Organization Details Recorded Time 5 text/html Low back painReported by PatientHPIFor associated symptoms, patient reportsweakness,numbness (right thigh), andtingling (right thigh, right calve and 4th and 5th digits). For functional assessment of adls, patient reportsdifficulty completing river rat secondary to pain.but reportsliving independently.,able to bathe/groom without assistance.,walking without assistance or significant difficulty,exercising on a regular basis. (as tolerated), andparticipating in recreation on a regular basis.. For adverse reactions, patient reportsconstipationbut reportsno nausea,no vomiting,no itching, andno respiratory depression(patient is currently taking stool softener for constipation). For location, patient reportsbuttock: __andradiating down the to the calf lower extremity __. For duration, patient reportsvaries throughout the day. For context, patient reportsstarted without cause. For quality, patient reportsachingandnot changing. For pain intensity, patient reportsmoderate,current pain level: 7/10,average pain level: 8/10, andworst pain level: 10/10. For alleviating factors, patient reportsrestandnsaids. For aggravating factors, patient reportssitting,standing,wa lking,getting out of bed,standing from a seated position, andcold weather. For prior imaging, patient reportsx-ray,mri (07/11/2020 lumbar mri at [facility] in [place], [place]), andemg(11/03/2024 lumbar xr at [facility]08/09/2024 lumbar [facility]03/29/2024 emg at [facility] lsniezehy24/01/2024 lumbar mri at [facility]). For lumbar surgery, patient reportslumbar decompression/discectomy: (10/10/2020 dr. fabian)(06/08/2022 dr. fabian, lumbar surgeryjan. 2011-l4-5 laminectomy and microdiscectomy with dr. denny). For interventional treatment history, patient reportslumbar tfesis: __,lumbar medial branch nerve blocks: __, andlumbar rfa: __(04/12/2024 #1 tfesi bilateral l5/s1; left side 100% pain relief, right side 0% pain jblzts2309/23/2021 therapeutic bilateral cervical/thoracic tpi, 75% pain relief ongoing (12/03/2021)). For physical therapy, patient reportscomplete 5weeksandresponse to therapy: no improvement in pain/symptoms. For current analgesics, patient reportsoxycodone effective,pregabalin effective,muscle relaxants effective, andreported pain relief- 40% for 5 hours(last dose of oxycodone was this morning around 6:30am, patient isn't sure the last time he took gabapentin. pharmacy verified.). For medications history, patient reportsnsaids:,muscle relaxants:,neuropathics:, andopioid pain medications:(nsaids: naproxen - not effectivemuscle relaxants: robaxin - not effectiveneuropathics: neurontin - not effective / cymbalta - mood disorders and nightmaresnarcotics meds: norco - effective, however pcp stopped prescribing narcotic medication in 2016). For prior pain management, patient reportsyes:. For oswestry disability index (lupis), patient reportsscore/date completed: (-12/01/2024). For complete care program, patient reportsorder date: (12/01/2024). For onset, (2009). Neck painReported by PatientHPIFor quality, patient reportsthrobbing,tightness ,numbess,stabbing, andsharp. For associated symptoms, patient reportsweakness,numbness,t ingling, andpain in upper extremitiesbut reportsno dizziness,no popping/clicking,no bladder incontinence, andno bowel incontinence. For previous pt, patient reportsnone. For location, patient reportsbilateral paraspinal,midline spine, andradiating to the right upper extremity to the deltoid. For duration, patient reportsconstant. For context, patient reportsmva. For pain intensity, patient reportscurrent pain level: 0/10andno pain. For alleviating factors, patient reportsmedicationandstretc vitor. For aggravating factors, patient reportslying down (long period of time). For timing, patient reportsvaries throughout the day. For prior imaging, patient reportsmriandemg( [facility]12[facility]2018 xray of cervical spine). For previous cervical surgery, patient reportsnone. For interventional treatment history, patient reportscervical mbb/facet injections: no reliefandcervical shilpa: __(01/12/2024 #1 karmen c7/t1; 50% pain [id number]/13/2023 #1 cmbb right c3-c6; 60% pain relief with local only). For other conservative treatment, patient reportschiropractic treatments: __. For working, patient reportsno. For functional scores, patient reportsneck disability index (ndi) completed: -03/31/2024. For prior pain management, patient reportsyes. For complete care program, patient reportsorder date: (12/01/2024). For medications history, (nsaids: naproxen - not effectivemuscle relaxants: robaxin - not effectiveneuropathics: neurontin - not effective / cymbalta - mood disorders and nightmaresnarcotics meds: norco - effective, however pcp stopped prescribing narcotic medication in 2015).ROS as noted in the HPI Patient presents today for f/u and medication refill. Patient states he seen PCP and had MRI at [facility] of right hip. RICKY Atkins [address] [place] [address], [phone], [facility] - [facility] 08/16/2025 15:00:55
--- OUTSIDE RECORDS SUMMARY | 2025-09-24 10:47 | XMS_ITS | Clinical Summary ---
[facility] Address [address] [place] [address] Care Team Providers Care Music Orchestrator Name Role Phone Sugey Nieto APRN Primary [...] Relation Name Comments Anxiety disorder Father Storm Adryan Diabetes Maternal Grandmother Jareth monte Heart disease Maternal Grandmother Jareth monte Heart issues diabetic Anxiety disorder Mother Jacqueline Adryan Brain cancer Mother Jacqueline [place] Cancer Mother Jacqueline Adryan Brain tumor Relation Name Status Comments Father Storm [place] Maternal Grandmother Jareth mell Mother Jacqueline [place] Social History Tobacco Use Types Packs/Day Years Used Date Smoking Tobacco: Some Days Cigarettes 0.3 42.7 Started: 04/25/1996; Last attempted to quit: 06/15/2022 [...] Completed 06/19/2023 Medical Devices Implanted Type Area Ice Cream Chef Device Identifier Shelf Expiration Date Model / Serial / Lot Kt Seal Hemos Abs Floseal Matrx Fast/Prep 10ml - [id number] Implanted:Qty : 1 on 10/10/2020 by Fredy Fabian MD at [facility] Implant Right: Spine Lumbar [employer] 01/29/2022 [id number] / / [id number] Hemost Abs Surgifoam Sz100 8x12 10mm - [id number] Implanted:Qty : 1 on 10/10/2020 by Fredy Fabian MD at [facility] Implant Right: Spine Lumbar [employer] J 05/28/20241973 / / [id number] Kt Seal Hemos Abs Floseal Matrx Fast/Prep 10ml - [id number] Implanted:Qty : 1 on 06/08/2022 by Fredy Fabian MD at [facility] Implant Right: Spine Lumbar [employer] [id number] / / Hemost Abs Surgifoam Sz100 8x12 10mm - [id number] Implanted:Qty : 1 on 06/08/2022 by Fredy Fabian MD at [facility] Implant Right: Spine Lumbar ETH[employer] J [employer] J 1974 / / Procedures Procedure Name Priority Date/Time Associated Diagnosis Comments HEMOGLOBIN A1C Add-On 12/28/2024 2:26 PM EST from Last 3 Months or Most Recently Relevant to Health Maintenance Results * (ABNORMAL) Hemoglobin A1c (12/28/2024 2:26 PM EST) Hemoglobin A1C 7.70(H) 4.80 - 5.60 % 12/28/2024 4:59 PM EST [facility] Blood Venipuncture / Unknown 12/28/2024 2:26 PM EST 12/28/2024 2:55 PM EST Narrative [facility] - 12/28/2024 4:59 PM EST Hemoglobin A1C Ranges: Increased Risk for Diabetes 5.7% to 6.4% Diabetes >= 6.5% Diabetic Goal < 7.0% us Mervat Winn MD LAB BLOOD ORDERABLES Final Resul t [facility]
[address] [place] [address], from Last 3 Months or Most Recently Relevant to Health Maintenance Insurance MEDICARE ADVANTAGE [facility] HMO NON PAR Advance Directives * [...] or is breathing): Full Support Care Teams Music Orchestrator Relationship Specialty Start Date End Date Sugey Nieto APRN PCP - General Internal Medicine 07/30/20
--- OUTSIDE RECORDS SUMMARY | 2025-09-24 10:47 | XMS_ITS | Clinical Summary ---
Author Organization [facility] Address [address] [place] [address] Care Team Providers Care Systems Security Analyst Name Role Phone Jayshree Morales SHIRT MARKER Unavailable [phone] Nissa Linn RN Unavailable Unavailable Stiven Blair MD Unavailable Mekhi Aguirre MD Unavailable [phone] Sugey Nieto SHIRT MARKER Primary Care Provider [phone] Allergies Active Allergy Reactions Criticality Noted Date [...] 07/18/2022 ADD (attention deficit disorder) 12/11/2016 07/18/2022 Immunizations Immunization Administration Dates Next Due Hep B, Adolescent or Pediatric 07/17/1996,1995 Hep B, Adolescent/High Risk 07/17/1996, Influenza, injectable, quadrivalent 08/30/2017 MMR 06/14/1996 Tdap 05/11/2022 Family History Medical History Relation Name Comments Hyperlipidemia Father Hypertension, benign Father Abnormal EKG Maternal Grandmother Jarethbalbir Sextonmariam Diabetes Maternal Grandmother Jareth Sextonmariam Heart attack Maternal Grandmother Jareth Sextonmariam Heart disease Maternal Grandmother Jareth Sextonmariam Brain Aneurysm Mother Jacqueline winter jones Brain Tumor Mother Jacqueline winter jones Cancer Mother [facility] winter [place] Depression Mother [facility] [place] Mental illness Mother [facility] [place] Other cancer Mother [facility] [place] Parkinsonism Mother [facility] [place] Anesthesia problems Neg Hx Malig Hyperthermia Neg Hx Relation Name Status Comments Father Alive Maternal Grandmother Jareth [place]lexy Mother Jacqueline winter jones Social History Tobacco Use Types Packs/Day Years Used Date Smoking Tobacco: Some Days Cigarettes 0.3 34.4 Started: 04/25/1996 Smokeless Tobacco: Never Tobacco Cessation:Ready [...] Not on file 2021 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 [place] [address] Colleen Culver MD [address] [place] [address] Health Maintenance Due Date Last [...] [facility]-Diabetes: Hemoglobin A1C 03/29/2025 12/28/2024, 07/20/2022, 06/05/2022 [id number] Vaccine (1 - season) 2025 [facility]-Influenza Vaccine (#1) 2025 [...] this topic Medical Devices Implanted Type Area Scarfer Operator Device Identifier Shelf Expiration Date Model [...] 2 Antibody/Antigen Screen (06/19/2023 5:50 PM EDT) HIV 1 & 2 Antibody/Antigen Screen Non Reactive Non Reactive 06/19/2023 6:56 PM EDT [facility] Comment:Screening for HIV 1 & 2 antibodies, and P24 antigen is NONREACTIVE. No confirmatory testing is required. Blood Venous blood specimen / Unknown Venipuncture / Unknown 06/19/2023 5:50 PM EDT 06/19/2023 6:06 PM EDT Jeremy Lopez MD LAB BLOOD ORDERABLES Final Resu lt Performing Organization Address [facility] Co de Phone Number [facility] [address] [place] [address] * Hepatitis C Antibody - ED (06/19/2023 5:50 PM EDT) Hepatitis C Antibody Negative Negative 06/19/2023 6:46 PM EDT [facility] Blood Venous blood specimen / Unknown Venipuncture / Unknown 06/19/2023 5:50 PM EDT 06/19/2023 6:06 PM EDT Jeremy Lopez MD LAB BLOOD ORDERABLES Final Resu lt Performing Organization Address [facility] Co de Phone Number [facility] [address] [place] [address] from Last 3 Months or Most Recently Relevant to Health Maintenance Insurance MEDICAID-[facility] MEDICARE Advance Directives * Full Code (Latest Code Status on File) Date Activated Date Inactivated Comments 07/18/2022 2:23 AM 07/19/2022 12:56 PM Question Answer Comments Patient has decision-making capacity? Yes Care Teams Systems Security Analyst Relationship Specialty Start Date End Date Sugey Nieto APRN [address] [place] [address] PCP - General 06/30/24 Jayshree Morales APRN [address] [place] [phone] Nurse Practitioner Internal Medicine 08/19/22 Nissa Linn RN [facility] Registered Nurse Cardiology 08/19/22 Stiven Blair MD [address] [place] [phone] Consulting Physician Pediatric Cardiology 09/30/22 Mekhi Aguirre MD [address] [place] [phone] Consulting Physician Cardiology 02/03/23
--- OUTSIDE RECORDS SUMMARY | 2025-09-24 10:47 | XMS_ITS | Encounter Summary ---
Author Organization Healthcare Address [address] [place] [address] Care Team Providers Care It Professional Name Role Phone Susanna Patel RN Unavailable Unavailable Jayshree Morales TRANSPORTATION SPECIALIST Unavailable [phone] Nissa Linn RN Unavailable Unavailable Stiven Blair MD Unavailable Mekhi Aguirre MD Unavailable [phone] Sugey Nieto TRANSPORTATION SPECIALIST Primary Care Provider [phone] Encounter Details Date Type Department Care Team (Late st Contact Info) Description 08/09/2024 Orders Only External Location [address] [place] [address] Provider, External Social History Tobacco Use Types Packs/Day Years Used Date Smoking Tobacco: Every Day Cigarettes 0.3 29.4 Started: 04/25/1996 Smokeless Tobacco: Never Comments:Down to [...] Not on file 2021 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 [place] [address] Colleen Culver MD [address] [place] [address] documented as of this encounter [...] documented as of this encounter Care Teams It Professional Relationship Specialty Start Date End Date Sugey Nieto APRN [address] [place] [address] PCP - General 06/30/24 Susanna Patel, RN [facility] Registered Nurse 08/19/22 03/15/25 Jayshree Morales APRN [address] [place] [phone] Nurse Practitioner Internal Medicine 08/19/22 Nissa Linn, RN [facility] Registered Nurse Cardiology 08/19/22 Stiven Blair MD [address] [place] [address] Consulting Physician Pediatric Cardiology 09/30/22 Mekhi Aguirre MD [address] [place] [address] Consulting Physician Cardiology 02/03/23 documented as of this encounter
--- OUTSIDE RECORDS SUMMARY | 2025-09-24 10:47 | XMS_ITS | Clinical Summary ---
Author Organization [facility] ([place], [place], [place], [place], [place]) Address [address] [place] [address] Care Team Providers Care Scouts Name Role Phone Sugey Nieto APRN Primary [...] 07/31/2023 Asthma 07/31/2023 Type 2 diabetes mellitus, [facility] long-term current use of insulin 07/31/2023 Primary [...] Date Tino rded Speak language other than Belizean at home Not on file 12/04/2023 Want [...] (12+) 08/10/2024 08/10/2023 COVID-19 VACCINE ( - 2023- season) 2025 Influenza Vaccine (#1) 2025 08/30/2017 DTAP/TDAP/TD VACCINES (2 - Td or Tdap) 05/11/2032 Procedures Procedure Name Priority Date/Time Associated Diagnosis Comments HEMOGLOBIN A1C Routine 07/30/2023 9:37 AM EDT Preop examination from Last 3 Months or Most Recently Relevant to Health Maintenance Results * Hemoglobin A1c (07/30/2023 9:37 AM EDT) Hemoglobin A1C 5.7 4.2 - 6.3 % 07/30/2023 12:14 PM EDT [facility] Comment: Hemoglobin A1C levels are related to mean glucose during the preceding 2-3 months. Less than 7% demonstrates glycemic control in diabetic patients. Hemoglobin AlC % Suggested Diagnosis > or = 6.5 Diabetic 5.7 - 6.4 Prediabetic <5.7 Non-diabetic eAVG Glucose 116.89 mg/dL 07/30/2023 12:14 PM EDT [facility] Blood Venipuncture / Unknown 07/30/2023 9:37 AM EDT 07/30/2023 9:43 AM EDT Yazan Sharma MD LAB BLOOD ORDERABLES Marjorie madsen Result [facility] [address] [phone] from Last 3 Months or Most Recently Relevant to Health Maintenance Insurance [employer] Care Teams Scouts Relationship Specialty Start Date End Date Sugey Nieto, STAFF SERVICES MANAGER [address] [place] [address] PCP - General Nurse Practitioner 03/05/23
--- OUTSIDE RECORDS SUMMARY | 2025-09-24 10:47 | XMS_ITS | Data Portability ---
Author Organization [facility] Address [address] [place] [address] Care Team Providers Care Glass Inspector Name Role Phone PARISH FUENTES Referring Provider [...] Details Last Modified Time Details Appointments None record ed. Lab None record ed. Referral None record ed. Procedures None record ed. Surgeries None record ed. Imaging None record ed. Medication Orders None record ed. Patient TargetsNo targets recorded. Patient InstructionsNo instructions recorded. Reason for Referral None Reported. Medical Equipment None Reported. Allergies Allergen ID Allergen Name Allergen Category Reaction Reaction Severity Criticality Documentation Date Start Date Code Code System Note Provider Name and Address Organization Details Recorded Time 207137 Tylenol medicatio n Not available Not available Not available 04/20/202502023 3 RxNorm Judson Dela Cruz [facility] 09:27:01 [id number] adhesive tape environme nt,medica tion Not available Not available Not available 04/20/2025 Judson Dela Cruz [facility] 5 09:27:15 [id number] codeine medicatio n Not available Not available Not available 04/20/2025 2670 RxNorm [facility] 5 09:27:26 438042 daptomyci n medicatio n Not available Not available Not available 04/20/2025 41579 RxNorm [facility] 5 09:27:37 293677 hydrocodo ne Not available Not available Not available Not available 04/20/2025 5489 RxNorm [facility] 5 09:27:47 324327 ibuprofen medicatio n Not available Not available Not available 04/20/2025 5640 RxNorm [facility] 5 09:27:56 Medications Name Sig Start Date Stop Date Status Note LastModified by Organization Details LastModified Time losartan 50 mg tablet TAKE 1 TABLET [...] Not Available Not Available No t Available hydroxyzin e pamoate 25 mg capsule TAKE 1 CAPSULE BY MOUTH TWICE a DAY NEEDED FOR ANXIETY active Not Available [...] Details Last Updated DateTime 04/20/2025 172.72 cm [facility] 09:26:42 Social History None recorded. Functional Status None recorded. Mental Status None recorded. Family History Nothing Reported. Medical History No medical history recorded. Past Encounters Encounter ID Performer Location Encounter Start Date Encounter Closed Date Diagnosis/Indication Diagnosis SNOMED-CT Code Diagnosis ICD10 Code Diagnosis IMO Codes Diagnosis Note [id number] SIS VALLADARES MD [facility] [address] [place] [address] 04/20/2025 09:19:29 04/20/2025 09:56:16 Disorder of tendon 61062482 M67.80 324268 Left index finger flexor tendon adhesions Status [...] Kirkpatrick Member ID Guarantor Name 04/20/2025 3 [place] [id number] Judson Cornelius [id number] Judson Cornelius 05/15/2025 1 [facility] (MEDICARE REPLACEMENT/A DVANTAGE - HMO) JUDYDSDORIS Cornelius [id number] Judson Cornelius 05/15/2025 2 MEDICAID-[facility] - FFS/TRADITION [place] Judson Cornelius [id number] Judson Cornelius Notes Date Note Type Note Provider Name and Address Organization Details Recorded Time 5 text/htm l Patient is a 40-year-old [id number] male who is on disability. He presents [...] back surgery. Consult requested by: Parish Fuentes [facility] Physician: Hand dominance: LeftLocation: Left IF Pain level: Date of injury: 3 monthsDuration: Recent Surgery: [...] Workers Compensation claim?Patient arrived in: taken off Mechanical Engineering Director Strength: right: left: New: Mr. Cornelius is [...] TFR in Nov SIS VALLADARES MD [address] [place], [address], [facility] 04/20/2025 10:01:24
--- OUTSIDE RECORDS SUMMARY | 2025-09-24 10:47 | XMS_ITS | Data Portability ---
Author Organization [place] [facility] [place] [facility] [place] [facility] Address [address] [place] [address] Care Team Providers Care Mold Preparer Name Role Phone KENTRELL GREYNIE Primary Care Provider Assessment Encounter Date Assessment Date Assessment LastModified by Organization Details LastModified Time 01/01/2023 01/01/2023 37 yo male with history of hepatosplenomegaly with historically normal hepatic function labs. Transaminitis workup was unremarkable. Will repeat labs per below. Check US liver and hepatic vein doppler. Patient plans to have these done at [facility]. f/u 5 weeks te to go over results [email or web address] Not available 01/01/2023 09:44:01 03/04/2023 03/04/2023 38 [...] exceed 2gm tylenol daily annual follow up [email or web address] Not available 03/04/2023 17:44:06 Plan of Treatment Reminders Order Date Submit Date Provider Last Modified By Organization Details Last Modified Time Details Appointments Establish ed Visit 15 min 2024 01:45P M Stevenson Smith PA-C Not available Not available Not available OV NEW 15 2025 01:15P M Parish Garcia Jr, MD Not available Not available Not available Lab CMP, serum or plasma 2022 023 [facility] (Lab), [address] [place] [address] [address], JUDY Rosas, [id number], 01/01/2023 14:18:37 CBC 2022 023 [facility], [address] [place] [address] [address], JUDY Rosas, [id number], 01/01/2023 09:18:07 PT/INR 2022 023 [facility] (Lab), [address] [place] [address] [address], JDUY Rosas, [id number], 01/01/2023 13:23:42 nonalcoho lic steatohep atitis + fibrosis panel, serum or plasma 2022 023 [facility] (Lab), [address] [place] [address] [address], JUDY Rosas, [id number], 01/05/2023 05:35:15 Referral None recorded. Procedures None recorded. Surgeries None recorded. Imaging US, duplex, hepatic vein 2022 023 [facility] (Scheduling), [address] [place] [address] [address], [place] Rosas, [id number], 04/14/2023 22:24:43 US, liver 2022 023 [facility] (Scheduling), [address] [place], [place] [address], JUD[place] Rosas, [id number], 02/22/2023 11:09:38 Medication Orders None recorded. Patient TargetsNo targets recorded. Patient InstructionsNo instructions recorded. Reason for Referral None Reported. Results Created Date Observation Date Name Description Value Unit Range Abnormal Flag Note LastModifiedBy Organization Detail LastModifiedTime 02/23/20 23 02/22/2023 US, liver No observ ation record ed. [email or web address] [place] [address] [address], JUDY Rosas, [id number], 04/14/2023 22:23:40 02/23/20 23 02/22/2023 US, duple x, hepat ic vein No observ ation record ed. [email or web address] [facility] (Scheduling) [address], [place], [id number], 04/14/2023 22:24:43 Result Notes None recorded. Problems Name Problem SNOMED Code Status Onset Date Resolution Date Notes Provider Name and Address Organization Details Recorded Time Hepatosplenome manuel 18911967 Active 2022 Stevenson Smith PA-C [address] [facility], [place], [address] , [facility] [place] 3 09:13:27 Problem Notes None recorded. Procedures Surgical History Date Name Laterality Status Provider Name and Address Organization Details Recorded Time 2 Back Surgery completed Octavia Roman [facility] & [place] 03/04/2023 14:53:39 Imaging Results None recorded. Procedure Notes None recorded. Medical Equipment None Reported. Allergies No known drug allergies Medications Name Sig Start Date Stop Date Status Note LastModified by Organization Details LastModified Time losartan 50 mg tablet TAKE 1 TABLET BY MOUTH ONCE A DAY active Not Available Not Available No t Available cyclobenzap rine 10 mg tablet active Not Available Not Available Not Available gabapentin 600 mg tablet active Not Available Not Available Not Available Normal Saline Flush 0.9 % injection syringe 12/29 completed Not Available Not Available Not Available azithromyci n 250 mg tablet TAKE 2 TABLETS BY MOUTH ON DAY 1, THEN TAKE 1 TABLET DAILY ON DAYS 2 THROUGH 5 active Not Available Not Available No t Available pravastatin 40 mg tablet TAKE 1 TABLET BY MOUTH ONCE A DAY active Not Available Not Available No t Available hydrocodone 5 mg-acetamin ophen 325 mg tablet active Not Available Not Available No t Available lisinopril 20 mg tablet active Not Available Not Available Not Available gabapentin 400 mg capsule 01/01 completed Not Available Not Available Not Available niacin ER 500 mg tablet,exte nded release 24 hr active Not Available Not Available Not Available bisoprolol 5 mg-hydrochl orothiazide 6.25 mg tablet TAKE 1 TABLET BY MOUTH ONCE A DAY active Not Available Not Available No t Available sulfamethox azole 800 mg-trimetho prim 160 mg tablet active Not Available Not Available Not Available doxycycline monohydrate 100 mg tablet active Not Available Not Available Not Available bisoprolol 2.5 mg-hydrochl orothiazide 6.25 mg tablet active Not Available Not Available Not Available baclofen 20 mg tablet TAKE 1 TABLET BY MOUTH 2 TIMES A DAY active Not Available Not Available No t Available Celebrex 200 mg capsule Take 1 capsule every day by oral route. active Not Available Not Available No t Available oxycodone-a cetaminophe n 5 mg-325 mg tablet active Not Available Not Available No t Available hydromorpho ne 2 mg tablet active Not Available Not Available Not Available methocarbam ol 750 mg tablet active Not Available Not Available Not Available tamsulosin 0.4 mg capsule active Not Available Not Available Not Available gabapentin 800 mg tablet TAKE 1 CAPSULE BY MOUTH 3 TIMES A DAY NEEDED active Not Available Not Available No t Available cephalexin 500 mg capsule 09/22 completed Not Available Not Available Not Available metformin 1,000 mg tablet TAKE 1 TABLET BY MOUTH 2 TIMES A DAY active Not Available Not Available No t Available docusate sodium 100 mg capsule active [...] t Available levofloxaci n 500 mg tablet active Not Available Not Available Not Available oxycodone-a cetaminophe n 7.5 mg-325 mg tablet active Not Available Not Available Not Available methylpredn isolone 4 mg tablets in a dose pack FOLLOWING Schedule ON PACKAGE INSTRUCTI ONS active Not Available Not Available No t Available albuterol sulfate HFA 90 mcg/actuati on aerosol inhaler inhale 2 puffs BY MOUTH EVERY 6 HOURS NEEDED active Not Available Not Available No t Available cefdinir 300 mg capsule active Not Available Not Available Not Available Microlet Lancet active Not Available Not [...] 750 mg tablet,exte nded release 24 hr active Not Available Not Available Not Available daptomycin 500 mg intravenous solution active Not Available Not Available Not Available pregabalin [...] Skin Cleanser (chlorhexid ine) 4 % liquid 01/01 completed Not Available Not Available Not Available Contour Next Test Strips active Not Available Not Available Not Available Jardiance 10 mg tablet TAKE 1 TABLET BY MOUTH ONCE A DAY active Not Available Not Available No t Available Jardiance 25 mg tablet active Not Available Not Available Not Available Glyxambi 25 mg-5 mg tablet active Not Available Not Available Not Available OneTouch Ultra2 Meter active Not Available Not Available Not Available OneTouch Delica Plus Lancet 33 gauge active Not Available Not Available Not Available Rybelsus 14 mg tablet TAKE ONE TABLET BY MOUTH ONCE A DAY active Not Available Not Available No t Available Rybelsus 7 mg tablet active Not Available Not Available No t Available Rybelsus 3 mg tablet active Not Available Not Available No t Available Vitals Date Recorded Heart rate Systolic And Diastolic Provider Name and Address Organization Details Last Updated DateTime 01/01/2023 77 /min 139/79 mm[Hg] [facility] [place] [facility] [place] 01/01/2023 08:56:32 Date Recorded Body weight Heart rate Systolic And Diastolic Provider Name and Address Organization Details Last Updated DateTime 03/04/2023 488029.72 g 99 /min 172/80 mm[Hg] [facility] [place] 03/04/2023 15:24:05 Social History Question Answer Notes LastModified by Organizat ion Details LastModified Time Tobacco Smoking Status Current Some Day Smoker Octavia cole, JUDY Nogueira [facility] & [place] 03/04/2023 14:53:39 Do You Have An Advance [...] anxious, or unable to sleep at night)? [id number] Information not available 03/04/2023 Family History Nothing Reported. Medical History Condition Response Diabetes Y Arthritis Y High Cholesterol Y Heart Disease Y Spine Problems Y Headaches Y Hypertension Y Obstructive Sleep Apnea Y Kidney or Bladder Problems Y Immunizations Vaccine Type Date Status Note Provider Rene manrique and Address Organization Details Recorded Time Influenza, split virus, quadrivalent, preservative 7 completed Octavia cole, JUDY CARR [facility] & [place] 03/04/2023 14:53:48 MMR 6 completed Octavia Roman null, [place] - [facility] [place] [facility] [place] 03/04/2023 14:53:48 Tdap 2 completed Octavia Roman null, JUDY - [facility] [place] [facility] [place] 03/04/2023 14:53:48 Hep B, adolescent/high risk 6 completed Octavia Roman null, JUDY - [facility] [place] [facility] [place] 03/04/2023 14:53:48 Hep B, adolescent/high risk infant 6 completed Octavia Roman null, JUDY - [facility] [place] [facility] [place] 03/04/2023 14:53:48 Past Encounters Encounter ID Performer Location Encounter Start Date Encounter Closed Date Diagnosis/Indication Diagnosis SNOMED-CT Code Diagnosis ICD10 Code Diagnosis IMO Codes Diagnosis Note [id number] Stevenson Smith PA-C [facility] [address] [address] 01/01/2023 08:45:43 01/01/2023 09:22:30 Hepatosplenomegaly 69269974 R16.2 [id number] Stevenson Smith PA-C [facility] [address] [address] 03/04/2023 15:07:15 03/04/2023 15:49:35 Hepatosplenomegaly 72272353 R16.2 Non-alcoho lic fatty liver 480226508 K76.0 Health Concerns Section Related Observation LastModified by Organization Detai ls LastModified Time None Recorded Concern Status LastModified by Organization Details LastModified Time None Recorded Advance Directives Directive N: Payers Insurance Date Sequence Insurance Name Policy Number Policy Kirkpatrick Covered Member ID Kirkpatrick Member ID Guarantor Name 09/22/2025 2 MEDICAID-[facility] - FFS/TRADITIO NAL Judson Cornelius [id number] Judson Cornelius 02/28/2023 1 [employer] (MEDICARE REPLACEMENT/ ADVANTAGE - PPO) Judson Cornelius [id number] Judson Cornelius 09/22/2025 1 [place] [id number] Judson Cornelius [id number] Judson Cornelius Notes Date Note Type Note Provider Name and Address Organization Details Recorded Time 3 text/html Darrius 37-year-old male with history hepatosplenomegaly referred to [...] hematemesis, melena, or hematochezia. Stevenson Smith PA-C [address], [place], [address], [place] - [facility] [place] [facility] [place] 01/01/2023 09:44:14 3 text/html PREVIOUS (01/01/23): Darrius 37-year-old male with history hepatosplenomegaly referred to [...] scheduled for surgical repair. Stevenson Smith PA-C [address], [place], [address], [facility] - [facility] [place] [facility] [place] 03/04/2023 17:44:31
--- OUTSIDE RECORDS SUMMARY | 2025-09-24 10:47 | XMS_ITS | Encounter Summary ---
Author Organization [facility] Address [address] [place] [address] Care Team Providers Care Procurement Forester Name Role Phone Chandrakant Hopson MD Primary Care Provider [phone] Susanna Patel RN Unavailable Unavailable Jayshree Morales NURSE CLINICIAN Unavailable [phone] Nissa Linn RN Unavailable Unavailable Stiven Blair MD Unavailable Mekhi Aguirre MD Unavailable [phone] Sugey Nieto NURSE CLINICIAN Primary Care Provider [phone] Encounter Details Date Type Department Care Team (Late st Contact Info) Description 12/23/2023 Orders Only External Location [address] [place] [id number] Provider, External Social History Tobacco Use Types [...] Not on file 2021 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 [place] [address] Colleen Culver MD [address] [place] [address] documented as of this encounter [...] as of this encounter Care Teams Procurement Forester Relationship Specialty Start Date End Date Chandrakant Hopson MD [address] [place] [address] PCP - General 08/28/21 06/29/24 Sugey Nieto APRN [address] [place] [address] PCP - General 06/30/24 Susanna Patel, RN [facility] Registered Nurse 08/19/22 03/15/25 Jayshree Morales APRN [address] [place] [address] Nurse Practitioner Internal Medicine 08/19/22 Nissa Linn RN [facility] Registered Nurse Cardiology 08/19/22 Stiven Blair MD [address] [place] [address] Consulting Physician Pediatric Cardiology 09/30/22 Mekhi Aguirre MD [address] [place] [address] Consulting Physician Cardiology 02/03/23 documented as of this encounter
--- OUTSIDE RECORDS SUMMARY | 2025-09-24 10:48 | XMS_ITS | Referral Summary ---
Author Organization [employer] ([place], [place], [place], [place], [place]) Address [address] [place] [address] Care Team Providers Care Community Service Officer Name Role Phone Sugey Nieto APRN Primary [...] 07/31/2023 Asthma 07/31/2023 Type 2 diabetes mellitus, [facility] long-term current use of insulin [...] Date Tino rded Speak language other than Swazi at home Not on file 12/04/2023 Want [...] - 6.3 % 07/30/2023 12:14 PM EDT [facility] Comment: Hemoglobin A1C levels are related to mean glucose during the preceding 2-3 months. Less than 7% demonstrates glycemic control in diabetic patients. Hemoglobin AlC % Suggested Diagnosis > or = 6.5 Diabetic 5.7 - 6.4 Prediabetic <5.7 Non-diabetic eAVG Glucose 116.89 mg/dL 07/30/2023 12:14 PM EDT [facility] Blood Venipuncture / Unknown 07/30/2023 9:37 AM EDT 07/30/2023 9:43 AM EDT us Yazan Sharma MD LAB BLOOD ORDERABLES Marjorie madsen Result [facility] [address] [employer] [place] [id number] [phone] from Last 3 Months or Most Recently Relevant to Health Maintenance Insurance Data [employer] MAP Care Teams Community Service Officer Relationship Specialty Start Date End Date Sugey Nieto, WRISTER [address] [address] PCP - General Nurse Practitioner 03/05/23
--- OUTSIDE RECORDS SUMMARY | 2025-09-24 10:48 | XMS_ITS | Data Portability ---
Author Organization [facility] Address [address] [place] [address] Care Team Providers Care Bioengineer Name Role Phone VERITO GREY Primary Care Provider Assessment Encounter Date Assessment Date Assessment LastModified by Organization Details LastModified Time 12/01/2024 12/01/2024 Pain History: Mr. Cornelius is a 39 yo male. This patient has treated in this clinic since January 2018 for chronic pain. Due to inclement weather, the visit is conducted today via telephone. He is currently at his home in [place], [place]. Since last visit, he notes an [...] [facility]. He has not seen this provider since [...] the primary care physician and performed at [facility]. I will request the radiology report. He [...] Patient is located at his home in [place], [place], and the treating medical provider is located at the [facility]. * Visit today was conducted via audio and video with [employer] due to inclement weather. Not available 12/01/2024 11:58:01 2025 2025 Pain [...] last visit. The patient treats with Dr. Vredin, infectious disease. He has seen this provider [...] [facility]. He has not seen this provider since [...] ORT score is 3 representing low risk. [email or web address] Not available 2025 10:57:14 04/18/2025 04/18/2025 Interval [...] [facility]. He has not seen this provider since [...] for medication management and further treatment planning. [email or web address] Not available 04/18/2025 09:14:04 06/18/2025 06/18/2025 Pain History: Mr. Cornelius is a 40 yo male. This patient has treated in this clinic since January 2018 for chronic pain. He presents to clinic today for the office visit follow-up and for medication refill. The patient reports the overall pain level to be about the same as per last visit. No significant changes or exacerbations reported today. He has not seen the neurosurgeon in follow-up since last visit. He continues to do the home exercise program daily. He reports no issues with the medications. He reports no issues with the medications today. He is using the gabapentin as needed. No general health changes reported [...] last visit. The patient treats with Dr. Childress for [...] [facility]. He has not seen this provider since last visit. The patient treated with Dr. Horn, hand surgeon. He underwent right cubital tunnel release surgery with this provider. He also had left index trigger finger surgery. The postoperative course was complicated by infection which required a second surgery. Update: He is now treating with Dr. Cruz, hand surgeon. He has seen this provider since last visit. Imaging: X-rays lumbar spine dated November 03, [...] he tolerates. He is to using gabapentin as needed. Compliance Monitoring: The updated Prasanth report is reviewed today and is appropriate. The patient was unable to provide a urine specimen today. The last dose of oxycodone was today. It has been greater than 48 hours since the last dose of gabapentin. The specimen will be sent for confirmation today. I anticipate gabapentin to be negative. Anticoagulant/Anti platelet Medications: None Oswestry Disability Index score: 52 Neck Pain score: 21 Plan: This patient does have multiple chronic pain complaints. The nature of these chronic pain complaints has not changed compared to last visit. He has not been back to see the neurosurgeon since last visit. He continues to work with the hand surgeon for his left index trigger finger. The patient had lumbar decompression surgery March 16, 2025 and L5-S1 levels. Afterwards, he was prescribed hydrocodone for the pain. The patient did not notify the office as previously instructed. This is the second time this has happened. I did educate the patient, per the controlled medication agreement, anytime he is prescribed pain medication from any other provider, he is obligated to notify the office for documentation and approval. I did explain to the patient going forward, should this happen again, it may result in his medications being tapered and discontinue, and it may result in him being discharged from the practice. The patient understands. I want him to continue the home exercise program daily which includes exercises for the neck and low back regions. He may continue with the current medications. He is using gabapentin as needed no issues are reported today. The medications allow him to perform his activities of daily living. He may continue gabapentin 800 mg 1 p.o. 3 times daily, baclofen 20 mg 1 p.o. twice daily, and oxycodone 5 mg 1 p.o. twice daily. This results in the same morphine equivalent dose of 15. I will reassess him in 60 days. His ORT score is 3, but the risk assessment level is moderate based on the fact that the patient has filled pain medication twice from other providers without notifying the office for documentation and approval. [email or web address] Not available 06/18/2025 12:06:56 08/16/2025 08/16/2025 Pain History: Mr. Cornelius is [...] [facility]. He has not seen this provider since [...] notifying the office for documentation and approval. [email or web address] Not available 08/16/2025 10:54:16 Plan of Treatment Reminders Order Date Submit Date Provider Last Modified By Organization Details Last Modified Time Details Appointments FOLLOW UP 15 2024 11:15A RICKY Gibson Not available Not available Not available Lab drug screen, urine - Qualitati ve LCMS Screen Panel 2024 025 FERNANDO [facility], [facility], [address] [place] [address], [id number], 08/21/2025 15:30:54 unlisted lab - saliva opiates/o pioids [email or web address], [facility], [address] [place] [address], [id number], 07/09/2025 07:18:01 unlisted lab - saliva opiates/o pioids [address], [facility], [address] [place] [address], [id number], 02/20/2025 07:22:11 unlisted lab - saliva kathrine analogs [address] [facility], [facility], [address] [place] [address], [place], [id number], 02/20/2025 07:22:11 Referral None recorded. Procedures remote [...] consent obtained and device provided. 2024 025 [email or web address] Not available 04/18/2025 11:40:15 remote therapeut ic monitorin g to monitor musculosk eletal system (PROC) - Patient prescribe d RTM (Remote Therapeut ic Monitorin g) to prevent further functiona l decline and monitor treatment effective ness. Patient will complete medicatio n tracking and physical therapy exercises as instructe d. Monitorin g to take place over the next 12 months using the CP&Contextool Shon to also include functiona l assessmen ts as well as daily pain scores. Patient consent obtained and device provided. 2024 025 [email or web address] Not available 12/01/2024 11:58:02 Surgeries None recorded. Imaging None recorded. Medication Orders oxycodone 5 mg tablet 2024 025 [facility], [address] [place] [address], [id number], 08/17/2025 13:09:11 oxycodone 5 mg tablet 2024 025 [facility], [address] [place] [address], [id number], 09/14/2025 11:19:55 gabapenti n 800 mg tablet 2024 025 [facility], [address] [place] [address] JUDY Rosas, [id number], 09/14/2025 11:19:55 oxycodone 5 mg tablet 2024 025 [facility], [facility] [address], JUDY Rosas, [id number], 06/18/2025 13:36:28 oxycodone 5 mg tablet 2024 025 [facility], [address] [place] [address] S, JUDY Rosas, [id number], 07/18/2025 13:13:08 baclofen 20 mg tablet 2024 025 [facility], [address] [place] [address] S, JUDY Rosas, [id number], 08/03/2025 13:04:24 oxycodone 5 mg tablet 2024 025 [id number] [facility], [address] [place] [address] S, JUDY Rosas, [id number], 04/21/2025 05:11:02 oxycodone 5 mg tablet 2024 025 [facility], [address] [place] [address] S, JUDY Rosas, [id number], 05/18/2025 15:54:55 gabapenti n 800 mg tablet 2024 025 [facility], [facility] [place] [address] S, JUDY Rosas, [id number], 06/01/2025 11:37:31 baclofen 20 mg tablet 2024 025 [facility], [address] [place] [address] S, JUDY Rosas, [id number], 05/16/2025 15:15:14 pregabali n 200 mg capsule 2024 025 [facility], [address] [place] [address] S, JUDY Rosas, [id number], 2025 10:47:55 oxycodone 5 mg tablet 2024 025 [id number] [facility], [address] [place] [address] S, JUDY Rosas, [id number], 04/21/2025 05:11:02 oxycodone 5 mg tablet 2024 025 [id number] [facility], [address] [place] [address] S, JUDY Rosas, [id number], 04/21/2025 05:11:02 baclofen 20 mg tablet 2024 025 [facility], [address] [place] [address] S, JUDY Rosas, [id number], 2025 10:47:57 pregabali n 200 mg capsule 2024 025 [facility], [address] [place] [address] S, JUDY Rosas, [id number], 12/01/2024 10:26:43 oxycodone 5 mg tablet 2024 025 [id number] 7064 [facility], [address] [place] [address] S, JUDY Rosas, [id number], 04/21/2025 05:11:02 oxycodone 5 mg tablet 2024 025 [id number] 7064 [facility], [address] [place] [address] S, JUDY Rosas, [id number], 04/21/2025 05:11:02 baclofen 20 mg tablet 2024 025 FERNANDO Ros[facility], [address] [address] [place], [id number], 12/01/2024 10:26:46 Patient TargetsNo targets recorded. Patient Instructions Encounter Date Encounter Id Patient Instructions Last Modified By Organization Details Last Modified Time 12/01/2024 [id number] high blood pressure: care instructions [email or web address] Not available 12/01/2024 11:58:03 A healthy lifestyle: care instructions [email or web address] Not available 12/01/2024 11:58:03 advance directives: care instructions [email or web address] Not available 12/01/2024 11:58:03 depression and chronic disease: care instructions [email or web address] Not available 12/01/2024 11:58:03 safe use of opioid pain medicine: care instructions [email or web address] Not available 12/01/2024 11:58:03 Learning About Benefits of Quitting Smoking Not available 12/01/2024 11:58:03 behavioral healt h screen* [email or web address] Not available 12/05/2024 15:44:29 medical record request* - Request radiology report for the last lumbar x-rays ordered by primary care provider FERNANDO Not available 06/24/2025 05:02:01 2025 [id number] high blood pressure: care instructions [email or web address] Not available 2025 16:24:20 Reason for Referral None Reported. Results Created Date Observation Date Name Description Value Unit Range Abnormal Flag Note LastModifiedBy Organization Detail LastModifiedTime 12/01/1911/03/2024 XR, lumbo sacra l spine , 4 or more view No observ ation record ed. [email or web address] [facility] (Med Record) [address], [place], [id number], 2025 10:41:01 12/25/19 25 11/03/2024 XR, lumbo sacra l spine , 4 or more view No observ ation record ed. [email or web address] [facility] (Med Record) [address], [place], [id number], 2025 10:41:01 Result Notes None recorded. Problems Name Problem SNOMED Code Status Onset Date Resolution Date Notes Provider Name and Address Organization Details Recorded Time Hypertens trung disorder 70999977 Completed 201712/06/2018 Carmen Ying null, [place] - [facility] 9 08:13:39 Heart disease 28706381 Completed 201702/09/2018 Germania Sanford null, [place] - [facility] 8 14:45:09 Asthma 436436667 Completed 201712/06/2018 Carmen Ying null, [place] - [facility] 9 08:13:34 Acid reflux 319925621 Completed 201712/06/2018 Carmen Auburn null, [place] - [facility] 9 08:13:49 Spinal stenosis 96395317 Completed 201712/06/2018 Carmen [place] null, [place] - [facility] 9 08:13:44 Lumbar radiculop athy 044542971 Active 2017 Beatrizkenisha yuan null, [place] - [facility] 5 10:17:28 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 05331755027 286986 Active 2020 Beatriz yuan null, [place] - [facility] 5 10:17:28 Myofascia l pain 198910976 Active 2021 RICKY Atkins [address] [place] [address], [phone] , [place] - [facility] 2 16:06:27 Long-term drug therapy Active 2021 RICKY Atkins [address] [place], [address] , [place] [facility] 2 07:13:34 Spasm of back muscles 118119345 Active 2021 Beatriz cole, [facility] 5 10:17:28 Cervical spondylos is 706507934 Active 2023 Beatriz cole, [place] - [facility] 5 10:17:37 Cervical radiculop athy 81933650 Active 2023 RICKY Atkins [address] [place] [address], [phone] , [facility] 4 11:33:44 Chronic pain 07795995 Active 2023 Beatriz cole, JUDY - [facility] 5 10:17:37 Notes:Some problems listed i n Documents: #[id number], #[id number], #[id number], #[id number], #[id number] could not be added to this patient's chart. Please review these documents and add these problems to the patient's chart manually as needed. Problem Notes None recorded. Procedures Surgical History Date Name Laterality Status Provider Name and Address Organization Details Recorded Time 04/12/20 Lumbar Transforaminal Epidural Steroid Injection (1 Level Bilateral): completed Carmen Ying [facility] 04/12/2024 11:19:35 02/29/20 24 Lumbar Transforaminal Epidural Steroid Injection (1 Level Bilateral): cancelled imani ybarra [facility] 02/28/2024 08:09:44 01/12/20 Cervical Epidural Steroid Injection: Interlaminar completed Carmen Ying [facility] 01/12/2024 09:59:11 12/13/19 24 Diagnostic Cervical MBB: Posterior (3 Level Unilateral) completed Carmen Ying [facility] 12/13/2023 11:06:34 09/23/20 Trigger Point Injections completed RICKY Atkins [address] [place] [address], [phone], [facility] 09/23/2021 09:35:29 09/18/20 21 Carpal tunnel surgery completed Adriana Jain [facility] 12/03/2021 09:34:54 05/12/20 21 GT Bursa Fluoro cancelled Oksana Martinez [facility] 05/08/2021 08:55:24 12/23/19 21 Hip Joint Injection Fluoro completed Carmen He [facility] 12/23/2020 09:52:58 10/10/20 20 Lumbar Discectomy/Decompr ession completed Adriana Jain [facility] 10/16/2020 11:07:16 09/28/20 18 Lumbar RFA (3 Level Bilateral) completed Vandana Norman [facility] 09/28/2018 08:38:13 08/08/20 18 Diagnostic Lumbar MBB (3 Level Bilateral) completed Vandana Castilloon [facility] 08/08/2018 11:11:01 03/11/20 18 Lumbar Transforaminal Epidural Steroid Injection (1 Level Unilateral): completed Vandana Norman [facility] 03/11/2018 13:35:41 Remove spine lamina 1/2 lmbr completed Adriana Jain [facility] 12/05/2018 12:40:35 Imaging Results None recorded. Procedure Notes None recorded. Medical Equipment None Reported. Allergies Allergen ID Allergen Name Allergen Category Reaction Reaction Severity Criticality Documentation Date Start Date Code Code System Note Provider Name and Address Organization Details Recorded Time 415513 meloxicam medicatio n abdominal pain Not available Not available 04/09/2021 42172 RxNorm Adriana Jain douglas [facility] 09:40:05 523376 Non-stero idal anti-infl ammatory agent (substanc e) medicatio n Not available Not available Not available 01/10/2024 63630 5008 SNOMED Carmensue He douglas [facility] 4 14:05:22 Medications Name Sig Start Date [...] Not Available Vitals Date Recorded Body height Pain severity - 0-10 verbal numeric rating [Score] - Reported Provider Name and Address Organization Details Last Updated DateTime 12/01/2024 176.53 cm 6 Adriana Jain [facility] 12/01/2024 09:53:23 Date Recorded Body height Body mass index (BMI) Body weight Oxygen saturation Oxygen saturation in Arterial blood by Pulse oximetry Heart rate Pain severity - 0-10 verbal numeric rating [Score] - Reported Systolic And Diastolic Provider Name and Address Organization Details Last Updated DateTime 5 176.53 cm 34.2 kg/m2 671200. 21 g 97 % 97 % 75 /min 7 113/72 mm[Hg] Adrianaabbie Jain [facility] 5 10:33:26 Date Recorded Body height Body mass index (BMI) Body weight Oxygen saturation Oxygen saturation in Arterial blood by Pulse oximetry Heart rate Systolic And Diastolic Provider Name and Address Organization Details Last Updated DateTime 5 176.53 cm 34.2 kg/m2 744153. 21 g 96 % 96 % 89 /min 134/69 mm[Hg] Maikel Henderson [facility] 5 08:40:20 Date Recorded Body height Body mass index (BMI) Body weight Pain severity - 0-10 verbal numeric rating [Score] - Reported Oxygen saturation Oxygen saturation in Arterial blood by Pulse oximetry Heart rate Systolic And Diastolic Provider Name and Address Organization Details Last Updated DateTime 5 176.53 cm 33.5 kg/m2 292475. 25 g 6 96 % 96 % 84 /min 138/83 mm[Hg] Adriana Jain [facility] 5 11:15:16 Date Recorded Body height Body mass index (BMI) Body weight Heart rate Oxygen saturation Oxygen saturation in Arterial blood by Pulse oximetry Pain severity - 0-10 verbal numeric rating [Score] - Reported Systolic And Diastolic Provider Name and Address Organization Details Last Updated DateTime 5 176.53 cm 33.5 kg/m2 296736. 25 g 78 /min 95 % 95 % 7 122/73 mm[Hg] Sarah Jenkins [facility] 5 10:28:21 Social History Question Answer Notes LastModified by Organizat ion Details LastModified Time Tobacco Smoking Status Current Some Day Smoker Adriana cole [facility] 10/16/2020 11:07:29 Do You Have An Advance Directive? No [email or web address] Information not available 07/29/2022 What Type Of Diet Are You Following? REGULAR Information not available 07/29/2022 Which Illicit Or Recreational Drugs Have You Used? None [email or web address] Information not available 09/07/2018 Education 12 [email or web address] Information no t available 09/07/2018 What Is The Highest Grade Or Level Of School You Have Completed Or The Highest Degree You Have Received? [id number] [email or web address] Information not available 07/29/2022 How Many Times Per Week Do You Exercise? 1-2 Times Per Week [email or web address] Information not available 06/02/2023 Prescription Drug Abuse No Information not available 02/09/2018 Disability Yes [email or web address] Information no t available 02/09/2018 History Of Sexual Abuse No [email or web address] Information not available 02/09/2018 Marital Status [email or web address] Informatio n not available 02/09/2018 Do You Have A Medical Power Of Plant Cytologist? No [email or web address] Information not available 12/28/2023 What Was The Date Of Your Most Recent Tobacco Screening? 12/01/2024 [email or web address] Information not available 12/01/2024 What Is Your Relationship Status? [email or web address] Information not available 07/29/2022 How Much Tobacco Do You Smoke? 0.5 PPD [email or web address] Information not available 09/07/2018 Has Tobacco Cessation Counseling Been Provided? Yes [email or web address] Information not available 12/28/2023 On What Date Was Tobacco Cessation Counseling Provided? 12/01/2024 [email or web address] Answered No To The Tobacco Cessation Counseling Provided Question On 09/07/2018. [email or web address] Information not available 12/01/2024 How Many Years Have You Smoked Tobacco? 24 [email or web address] Information not available 09/07/2018 Sex: Unknown Functional Status Question Answer Note LastModified by Organizat ion Details LastModified Time What is your level of alcohol consumption? None [email or web address] Information not available 02/09/2018 Do you or have you ever used smokeless tobacco? Never used smokeless tobacco [email or web address] Information not available 07/18/2020 Are you currently employed? No [email or web address] Information not available 09/16/2021 What is your occupation? Disabled [email or web address] Information not available 09/07/2018 Do you or have you ever used e-cigarettes or vape? Never used electronic cigarettes [email or web address] Information not available 07/18/2020 What is your exercise level? Occasional Information not available 06/02/2023 Mental Status None recorded. Family History Nothing Reported. Medical History Condition Response Bipolar Disease N Coronary Artery Disease N Gout N Seizure Disorder N Thyroid Disease N Atrial Fibrillation N Head Trauma/Injury N Hernia N COPD N Depression N Anxiety Disorder N Acid Reflux (GERD) Y Cancer N Skin Disorder N Stroke N High Cholesterol N Liver Disease N Rheumatoid Arthritis N Fibromyalgia N Headaches Y Autoimmune Disease N Kidney Disease N Osteoarthritis Y Neurosurgery N DVT N Peptic Ulcer Disease N Anemia N Heart Attack (AK) N Diabetes N Cardiomyopathy N Bleeding Disorder [...] ICD10 Code Diagnosis IMO Codes Diagnosis Note [id number] Heriberto Mccann MD [facility] [address] [place] [address] 02/09/2018 14:05:33 02/09/2018 15:14:14 Low back pain 224679484 M54.5 Interverte bral disc disorder 71010533 M51.27 Lumbar radiculopathy 128 541753 M54.16 Post-ruperto ectomy syndrome 91759702 M96.1 [id number] Heriberto Mccann MD [facility] [address] [place] [address] 03/11/2018 12:55:15 03/11/2018 13:37:41 Lumbar radiculopathy 040104080 M54.16 [id number] Heriberto Mccann MD [facility] [address] [place] [address] 06/09/2018 13:52:35 06/09/2018 14:35:19 Low back pain 254467846 M54.5 Interverte bral disc disorder 31456550 M51.27 Lumbar spondylosis 36288 0009 M47.816 [id number] MD Donnell Escudero [address] [place] [address] 08/08/2018 10:37:12 08/08/2018 11:12:14 Lumbosacral spondylosis without myelopathy 59443809 M47.817 [id number] MD Donnell Escudero [address] [place] [address] 09/07/2018 08:24:49 09/07/2018 09:02:35 Degeneration of lumbar intervertebral disc 54599665 M51.36 Chronic pain syndrome 37 7095525 G89.4 Lumbar spondylosis 48607 0009 M47.816 The recommende d procedure is discussed with the patient in detail. Questions related to the procedure are answered. The patient is provided the patient education handout. Lumbar radiculopathy 128 703208 M54.16 Lumbar post-laminectomy syndrome 665344148 M96.1 [id number] MD Donnell Escudero [address] [place] [address] 09/28/2018 07:53:06 09/28/2018 08:39:21 Lumbosacral spondylosis without myelopathy 41350288 M47.817 [id number] MD Donnell Escudero [address] [place] [address] 12/06/2018 07:59:17 12/06/2018 08:34:06 Neck pain 88283886 M54.2 Lumbosacra l spondylosis without myelopathy 39390641 M47.817 [id number] MD Solitario Daigleington [address] [place] [address] 01/18/2019 09:13:59 01/18/2019 10:27:42 Lumbar radiculopathy 217657438 M54.16 ORT and PHQ-9 testing was completed [...] the future. Lumbosacra l spondylosis without myelopathy 74457553 M47.817 Neck pain 04085060 M54.2 [id number] MD [place] [address] [place] [address] 03/15/2019 09:33:18 03/15/2019 10:18:41 Degeneration of lumbar intervertebral disc 35508272 M51.36 Degenerati on of cervical intervertebral disc 89512756 M50.30 Lumbar radiculopathy 128 015535 M54.16 Chronic pain syndrome 37 6465518 G89.4 Pain of ri ght shoulder joint 2386471407 3785158 M25.511 The recommende d procedure is discussed with the patient in detail. Questions related to the procedure are answered. The patient is provided the patient education handout. [id number] MD Donnell Escudero [address] [place] [address] 06/18/2020 07:58:52 06/18/2020 08:37:20 Degeneration of lumbar intervertebral disc 73839964 M51.36 Degenerati on of cervical intervertebral disc 21201968 M50.30 Lumbar radiculopathy 128 438397 M54.16 [id number] MD Solitario [place] [address] [place] [address] 07/18/2020 09:00:18 07/18/2020 09:30:36 Lumbar radiculopathy 966343831 M54.16 Use of the medication does allow the patient to perform the activities of daily living and function without being in severe pain. Degenerati on of lumbar intervertebral disc 04826277 M51.36 Degenerati on of cervical intervertebral disc 81113932 M50.30 Long-term drug therapy 518566582 Z79.899 [id number] MD Donnell Escudero [address] [place] [address] 08/13/2020 08:45:15 08/13/2020 09:11:57 Lumbar radiculopathy 914794796 M54.16 Use of the medication does allow the patient to perform the activities of daily living and function without being in severe pain. Degenerati on of lumbar intervertebral disc 99070513 M51.36 Degenerati on of cervical intervertebral disc 39121378 M50.30 Long-term drug therapy 309686121 Z79.899 The preliminar y urine drug screen is appropriat e for the class of medication s that the patient is being prescribed and based on their stratifica tion I will not send this sample for further quantitati ve LCMS testing. [id number] Heriberto Mccann MD [place] [address] [place] [address] 10/16/2020 10:59:37 10/16/2020 11:24:09 Lumbar radiculopathy 538313675 M54.16 Use of the medication does allow the patient to perform the activities of daily living and function without being in severe pain. Degenerati on of lumbar intervertebral disc 18064125 M51.36 Degenerati on of cervical intervertebral disc 20174999 M50.30 Long-term drug therapy 381368350 Z79.899 The preliminar y urine drug screen is appropriat e for the class of medication s that the patient is being prescribed and based on their stratifica tion I will not send this sample for further quantitati ve LCMS testing. [id number] Heriberto Mccann MD [place] [address] [place] [address] 12/12/2020 08:24:41 12/12/2020 09:12:44 Lumbar radiculopathy 563556883 M54.16 Use of the medication does allow the patient to perform the activities of daily living and function without being in severe pain. Degenerati on of lumbar intervertebral disc 48529905 M51.36 Degenerati on of cervical intervertebral disc 54233391 M50.30 Long-term drug therapy 650400196 Z79.899 Pain of ri ght hip joint 7351322344 60458 M25.551 The recommende d procedure is discussed with the patient in detail. Questions related to the procedure are answered. The patient is provided the patient education handout. [id number] MD Donnell Escudero [address] [place] [address] 12/23/2020 09:19:19 12/23/2020 09:38:06 Osteoarthritis of right hip joint 8545849202 10194 M16.11 [id number] Heriberto Mccann MD [place] [address] [place] [address] 02/07/2021 08:37:20 02/07/2021 10:39:39 Lumbar radiculopathy 743917546 M54.16 Use of the medication does allow the patient to perform the activities of daily living and function without being in severe pain. Degenerati on of lumbar intervertebral disc 79391959 M51.36 Degenerati on of cervical intervertebral disc 79769443 M50.30 Long-term drug therapy 097239838 Z79.093 [id number] Heriberto Mccann MD [place] [address],[facility] [address] [place] [address] 04/09/2021 08:46:46 04/09/2021 10:04:52 Lumbar radiculopathy 766138381 M54.16 Degenerati on of lumbar intervertebral disc 93623981 M51.36 Degenerati on of cervical intervertebral disc 46432237 M50.30 Long-term drug therapy 175320941 Z79.899 The patient was advised that the purpose of this urine drug screen is to monitor for compliance and to assist in risk stratifica tion. The results of this preliminar y screening test was discussed with the patient. do not send Greater tr ochanteric pain syndrome of right lower limb 6839729689 1071272 M70.61 The recommende d procedure is discussed with the patient in detail. Questions related to the procedure are answered. The patient is provided the patient education handout. [id number] MD Donnell Escudero [address] [place] [address] 09/16/2021 09:01:40 09/16/2021 09:56:26 Lumbar radiculopathy 636597019 M54.16 Degenerati on of lumbar intervertebral disc 86545510 M51.36 Greater tr ochanteric pain syndrome of right lower limb 9576977150 5747063 M70.61 Myofascial pain 76945950 9 M79.10 The recommende d procedure is discussed with the patient in detail. Questions related to the procedure are answered. The patient is provided the patient education handout. Chronic neck pain 894434 3412 107 M54.2 [id number] MD Solitario [place] [address] [place] [address] 09/23/2021 08:46:44 09/23/2021 09:26:42 Myofascial pain 163923522 M79.10 The recommende d procedure is discussed with the patient in detail. Questions related to the procedure are answered. The patient is provided the patient education handout. [id number] MD Donnell Escudero [address] [place] [address] 12/03/2021 09:04:06 12/03/2021 09:54:45 Degeneration of lumbar intervertebral disc 23189894 M51.36 Use of the medication does allow the patient to perform the activities of daily living and function without being in severe pain. Lumbar radiculopathy 128 M54.16 Greater tr ochanteric pain syndrome of right lower limb 6398967051 6762104 M70.61 Myofascial pain 76997729 9 M79.10 [id number] MD Donnell Escudero [address] [place] [address] 01/01/2022 09:01:48 01/01/2022 10:08:11 Degeneration of lumbar intervertebral disc 91685430 M51.36 Use of the medication does allow the patient to perform the activities of daily living and function without being in severe pain. Lumbar radiculopathy 128 M54.16 Use of the medication does allow the patient to perform the activities of daily living and function without being in severe pain. Greater tr ochanteric pain syndrome of right lower limb 2132020975 9417098 M70.61 Myofascial pain 46268119 9 M79.10 [id number] MD Donnell Escudero [address] [place] [address] 01/23/2022 09:13:13 01/23/2022 10:04:27 Degeneration of lumbar intervertebral disc 68154838 M51.36 Use of the medication does allow the patient to perform the activities of daily living and function without being in severe pain. Lumbar radiculopathy 128 711862 M54.16 Use of the medication does allow the patient to perform the activities of daily living and function without being in severe pain. Greater tr ochanteric pain syndrome of right lower limb 7083326669 6401814 M70.61 Myofascial pain 80621399 9 M79.10 [id number] MD Solitario [place] [address] [place] [address] 04/27/2022 13:48:22 04/27/2022 14:35:22 Lumbar radiculopathy 233673918 M54.16 Use of the medication does allow the patient to perform the activities of daily living and function without being in severe pain. Greater tr ochanteric pain syndrome of right lower limb 1695781887 5765788 M70.61 Myofascial pain 56607660 9 M79.10 [id number] MD [place] [address] [place] [address] 07/29/2022 10:06:34 07/29/2022 11:32:43 Lumbar radiculopathy 817806614 M54.16 Use of the medication does allow the patient to perform the activities of daily living and function without being in severe pain. Greater tr ochanteric pain syndrome of right lower limb 5707857232 1830583 M70.61 Myofascial pain 73262377 9 M79.10 Long-term drug therapy 726047033 Z79.899 The patient was advised that the [...] the patient is currently prescribed Gabapentin . [id number] MD Solitario [place] [address] [place] [address] 08/25/2022 10:17:01 08/25/2022 10:44:23 Lumbar radiculopathy 583790524 M54.16 Use of the medication does allow the patient to perform the activities of daily living and function without being in severe pain. Greater tr ochanteric pain syndrome of right lower limb 4022551092 0288111 M70.61 Long-term drug therapy 756512412 Z79.899 Spasm of back muscles 20 1899888 M62.830 Use of the medication does allow the patient to perform the activities of daily living and function without being in severe pain. [id number] MD Donnell Escudero [address] [place] [address] 09/25/2022 10:28:30 09/25/2022 11:19:59 Lumbar radiculopathy 731648116 M54.16 Use of the medication does allow the patient to perform the activities of daily living and function without being in severe pain. Greater tr ochanteric pain syndrome of right lower limb 6651283946 7698280 M70.61 Spasm of back muscles 20 9040013 M62.830 Use of the medication does allow the patient to perform the activities of daily living and function without being in severe pain. Long-term drug therapy 902783719 Z79.899 The patient was advised that the [...] the patient is currently prescribed Gabapentin . [id number] MD Donnell Escudero [address] [place] [address] 12/04/2022 08:00:53 12/04/2022 08:41:57 Lumbar radiculopathy 888341636 M54.16 Use of the medication does allow the patient to perform the activities of daily living and function without being in severe pain. Greater tr ochanteric pain syndrome of right lower limb 2592223610 0698844 M70.61 Spasm of back muscles 20 7409890 M62.830 Use of the medication does allow the patient to perform the activities of daily living and function without being in severe pain. Long-term drug therapy 786911267 Z79.959 [id number] MD Donnell FELIX [address] [place] [address] 02/01/2023 09:53:53 02/01/2023 10:22:41 Lumbar radiculopathy 414375409 M54.16 Use of the medication does allow the patient to perform the activities of daily living and function without being in severe pain. Greater tr ochanteric pain syndrome of right lower limb 6986229136 1376486 M70.61 Spasm of back muscles 20 0989953 M62.830 Use of the medication does allow the patient to perform the activities of daily living and function without being in severe pain. Long-term drug therapy 862294895 Z79.831 [id number] PATRICK LEAL MD [place] [address] [place] [address] 04/01/2023 09:49:22 04/01/2023 10:26:09 Lumbar radiculopathy 609591788 M54.16 Use of the medication does allow the patient to perform the activities of daily living and function without being in severe pain. Greater tr ochanteric pain syndrome of right lower limb 8748617376 2218748 M70.61 Spasm of back muscles 20 6661142 M62.830 Use of the medication does allow the patient to perform the activities of daily living and function without being in severe pain. Long-term drug therapy 081095024 Z79.899 The patient was advised that the purpose of this urine drug screen is to monitor for compliance and to assist in risk stratifica tion. Hypertensi on screening 378228437 Z13.6 [id number] MD Donnell FELIX [address] [place] [address] 06/02/2023 09:52:02 06/02/2023 10:16:04 Lumbar radiculopathy 163031333 M54.16 Use of the medication does allow the patient to perform the activities of daily living and function without being in severe pain. Spasm of back muscles 20 9916573 M62.830 Use of the medication does allow the patient to perform the activities of daily living and function without being in severe pain. Greater tr ochanteric pain syndrome of right lower limb 9843651380 7768313 M70.61 Hypertensi on screening 407289093 Z13.6 Long-term drug therapy 923464531 Z79.916 [id number] PATRICK LEAL MD [place] [address] [place] [address] 08/02/2023 09:14:53 08/02/2023 10:02:02 Greater trochanteric pain syndrome of right lower limb 9965495368 2594908 M70.61 Spasm of back muscles 20 2826263 M62.830 Use of the medication does allow the patient to perform the activities of daily living and function without being in severe pain. Lumbar radiculopathy 128 M54.16 Use of the medication does allow the patient to perform the activities of daily living and function without being in severe pain. Hypertensi on screening 025966239 Z13.6 Long-term drug therapy 826526839 Z79.899 The patient was advised that the purpose of this urine drug screen is to monitor for compliance and to assist in risk stratifica tion. [id number] PATRICK LEAL MD [place] [address] [place] [address] 10/01/2023 10:34:39 10/01/2023 11:04:41 Greater trochanteric pain syndrome of right lower limb 4015176346 4376479 M70.61 Spasm of back muscles 20 9743883 M62.830 Use of the medication does allow the patient to perform the activities of daily living and function without being in severe pain. Lumbar radiculopathy 128 190261 M54.16 Use of the medication does allow the patient to perform the activities of daily living and function without being in severe pain. Hypertensi on screening 022247735 Z13.6 Long-term drug therapy 522986912 Z79.899 Neck pain 22852834 M54.2 [id number] PATRICK LEAL MD [place] [address] [place] [address] 11/30/2023 10:44:02 11/30/2023 11:26:34 Spasm of back muscles 736239322 M62.830 Use of the medication does allow the patient to perform the activities of daily living and function without being in severe pain. Lumbar radiculopathy 128 694466 M54.16 Use of the medication does allow the patient to perform the activities of daily living and function without being in severe pain. Hypertensi on screening 218845955 Z13.6 Long-term drug therapy 887748475 Z79.899 The patient was advised that the purpose of this urine drug screen is to monitor for compliance and to assist in risk stratifica tion. Cervical spondylosis 387 005099 M47.812 The recommende d procedure is discussed with the patient in detail. Questions related to the procedure are answered. The patient is provided the patient education handout. [id number] MD Donnell FELIX [address] [place] [address] 12/13/2023 10:23:57 12/13/2023 10:58:51 Cervical spondylosis 693483112 M47.793 [id number] MD Donnell FELIX [address] [place] [address] 12/28/2023 08:22:38 12/28/2023 09:57:19 Hypertension screening 745111791 Z13.6 Cervical radiculopathy 55814940 M54.12 [id number] MD Donnell FELIX [address] [place] [address] 01/12/2024 08:45:13 01/12/2024 09:57:20 Cervical radiculopathy 36567172 M54.12 [id number] MD Donnell FELIX [address] [place] [address] 02/01/2024 10:27:37 02/01/2024 11:19:50 Greater trochanteric pain syndrome of right lower limb 6676682067 2761746 M70.61 Spasm of back muscles 20 2678495 M62.830 Use of the medication does allow the patient to perform the activities of daily living and function without being in severe pain. Lumbar radiculopathy 128 M54.16 Use of the medication does allow the patient to perform the activities of daily living and function without being in severe pain. 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 Lumbar radiculopathy 128 M54.16 Use of the medication does allow the patient to perform the activities of daily living and function without being in severe pain. 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 1637503484 57586 G56.01 Hypertensi on screening 136128295 Z13.6 Long-term drug therapy 283805777 Z79.899 Chronic pain 95410850 G8 9.29 [id number] MD Donnell FELIX [address] [place] [address] 04/12/2024 10:28:16 04/12/2024 11:16:47 Lumbar radiculopathy 193520360 M54.16 [id number] MD Donnell FELIX [address] [place] [address] 06/05/2024 09:39:53 06/05/2024 10:06:30 Greater trochanteric pain syndrome of right lower limb 0722546163 5028110 M70.61 Spasm of back muscles 20 4251984 M62.830 Use of the medication does allow the patient to perform the activities of daily living and function without being in severe pain. Lumbar radiculopathy 128 M54.16 Use of the medication does allow the patient to perform the activities of daily living and function without being in severe pain. 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 [id number] RANDI ALVARADO MD [place] [address] [place] [address] 08/04/2024 09:14:15 08/04/2024 09:33:35 Greater trochanteric pain syndrome of right lower limb 2287194263 5154170 M70.61 Spasm of back muscles 20 6560805 M62.830 Use of the medication does allow the patient to perform the activities of daily living and function without being in severe pain. Lumbar radiculopathy 128 M54.16 Use of the medication does allow the patient to perform the activities of daily living and function without being in severe pain. Chronic pain 83387063 G8 9.29 Long-term drug therapy 809764556 Z79.899 Cervical spondylosis 387 150703 M47.891 [id number] PATRICK LEAL MD [place] [address] [place] [address] 10/02/2024 09:51:05 10/02/2024 10:27:12 Greater trochanteric pain syndrome of right lower limb 4460078219 6041711 M70.61 Spasm of back muscles 20 7207643 M62.830 Use of the medication does allow the patient to perform the activities of daily living and function without being in severe pain. Lumbar radiculopathy 128 M54.16 Use of the medication does allow the patient to perform the activities of daily living and function without being in severe pain. Cervical spondylosis 387 826245 M47.812 Chronic pain 13832323 G8 9.29 Long-term drug therapy 643604048 Z79.333 [id number] PATRICK LEAL MD [place] [address] [place] [address] 12/01/2024 09:50:48 12/01/2024 10:29:20 Greater trochanteric pain syndrome of right lower limb 1377697712 9052631 M70.61 Spasm of back muscles 20 5537964 M62.830 Use of the medication does allow the patient to perform the activities of daily living and function without being in severe pain. Lumbar radiculopathy 128 885716 M54.16 Use of the medication does allow the patient to perform the activities of daily living and function without being in severe pain. Chronic pain 17680961 G8 9.29 Cervical spondylosis 387 142305 M47.812 Long-term drug therapy 943393476 Z79.899 Hypertensi on screening 376397184 Z13.6 [id number] PTARICK LEAL MD [place] [address] [place] [address] 2025 10:24:08 2025 11:05:37 Spasm of back muscles 179459644 M62.830 Use of the medication does allow the patient to perform the activities of daily living and function without being in severe pain. Greater tr ochanteric pain syndrome of right lower limb 1641739220 2564858 M70.61 Lumbar radiculopathy 128 107583 M54.16 Use of the medication does allow the patient to perform the activities of daily living and function without being in severe pain. Chronic pain 13128173 G8 9.29 Cervical spondylosis 387 561881 M47.812 Hypertensi on screening 447206328 Z13.6 Long-term drug therapy 139365535 Z79.899 The patient was advised that the purpose of this drug screen is to monitor for compliance and to assist in risk stratifica tion. [id number] MD Donnell FELIX [address] [place] [address] 04/18/2025 08:15:07 04/18/2025 09:05:53 Spasm of back muscles 756334370 M62.830 Lumbar radiculopathy 128 277112 M54.16 Long-term drug therapy 812637943 Z79.899 no uds today Chronic pain 10343555 G8 9.29 [id number] PATRICK LEAL MD [place] [address] [place] [address] 06/18/2025 11:00:07 06/18/2025 11:34:39 Lumbar radiculopathy 853150556 M54.16 Use of the medication does allow the patient to perform the activities of daily living and function without being in severe pain. Greater tr ochanteric pain syndrome of right lower limb 8260935049 0641436 M70.61 Spasm of back muscles 20 2405496 M62.830 Use of the medication does allow the patient to perform the activities of daily living and function without being in severe pain. Chronic pain 52578670 G8 9.29 Cervical spondylosis 387 093361 M47.812 Long-term drug therapy 119276890 Z79.899 The patient was advised that the purpose of this drug screen is to monitor for compliance and to assist in risk stratifica tion. [id number] PATRICK LEAL MD [place] [address] [place] [address] 08/16/2025 10:19:12 08/16/2025 10:45:55 Greater trochanteric pain syndrome of right lower limb 9480536749 1532537 M70.61 Lumbar radiculopathy 128 718604 M54.16 Use of the medication does allow the patient to perform the activities of daily living and function without being in severe pain. Chronic pain 62144628 G8 9.29 Cervical spondylosis 387 868909 M47.812 Long-term drug therapy 866723914 Z79.899 The patient was advised that the [...] ID Kirkpatrick Member ID Guarantor Name 08/16/2025 1 [place]AC[place] H[place] [id number] Judson Evansow [id number] Judson Cornelius 09/17/2025 2 [place] [facility] HEALTH CHOICES - FFS/TRADITIONA L [id number] Judson Cornelius [id number] Judson Cornelius 08/16/2025 1 [place] [id number] Judson Knox Adryan [id number] Judson Cornelius 08/16/2025 2 [place] [id number] Judson Evansow [id number] Judson Cornelius 09/17/2025 1 [facility] (MEDICARE REPLACEMENT/AD VANTAGE - HMO) [id number] Judson Adryan [id number] Judson Cornelius 08/16/2025 2 [place] Judson Cornelius [id number] Judson Cornelius 08/16/2025 2 [place]IT[place] Judson Abilio Evansow [id number] Judson Cornelius 08/16/2025 2 [place] [facility] Linq3 - FFS/TRADITIONA L Judson Evansow [id number] Judson Cornelius 08/16/2025 1 [employer] (MEDICARE REPLACEMENT/AD VANTAGE - PPO) Judson Abilio Evansow [id number] Judson Inman Adryan Notes Date Note Type Note Provider Name and Address Organization Details Recorded Time 5 text/html Low back painReported by PatientHPIFor associated symptoms, patient reportsweakness,numbness (right thigh), andtingling (right thigh, right calve and 4th and 5th digits). 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 For alleviating factors, patient reportsrestandnsaids. For aggravating factors, patient reportssitting,standing,wa lking,getting out of bed,standing from a seated position, andcold weather. For prior imaging, patient reportsmri (07/11/2020 lumbar mri at [facility] in [place], [place])andemg(08/09/2024 lumbar mri at [facility]03/29/2024 emg at [facility] hgdpyzbvi26/01/2024 lumbar mri at [facility]11/27/2022 lumbar mri at [facility]01/06/2022 lumbar mri at [facility]07/05/2018 xray of lumbar spine03/14/15 mri lumbar spine:). For lumbar surgery, patient reportslumbar decompression/discectomy: (10/10/2020 dr. fabian)(06/08/2022 dr. fabian, lumbar surgeryjan. 2011-l4-5 laminectomy and microdiscectomy with dr. denny). For interventional treatment history, patient reportslumbar tfesis: __,lumbar medial branch nerve blocks: __, andlumbar rfa: __(04/12/2024 #1 tfesi bilateral l5/s1; left side 100% pain relief, right side 0% pain [id number]/23/2021 therapeutic bilateral cervical/thoracic tpi, 75% pain relief ongoing (12/03/2021)). For physical therapy, patient reportscomplete 5weeksandresponse to therapy: no improvement in pain/symptoms. For current analgesics, patient reportsoxycodone effective,pregabalin effective,muscle relaxants effective, andreported pain relief- 40% for 5 hours(last dose of oxycodone was yesterday, he doesn't remember what time of day. pharmacy verified.). For medications history, patient reportsnsaids:,muscle [...] the day. For prior imaging, patient reportsmriandemg( 4 emg at [facility]07/05/2023 cervical [facility]12/20/2018 xray of cervical spine). For previous cervical surgery, patient reportsnone. For interventional treatment history, patient reportscervical mbb/facet injections: no reliefandcervical shilpa: __(01/12/2024 #1 karmen c7/t1; 50% pain [id number]/13/2023 #1 cmbb right c3-c6; 60% pain relief with local only). For other conservative treatment, patient reportschiropractic treatments: __. For working, patient reportsno. For functional scores, patient reportsneck disability index (ndi) completed: 24-03/31/2024. For prior pain management, patient reportsyes. For complete care program, patient reportsorder date: (12/01/2024). For medications history, (nsaids: naproxen - not effectivemuscle relaxants: robaxin - not effectiveneuropathics: neurontin - not effective / cymbalta - mood disorders and nightmaresnarcotics meds: norco - effective, however pcp stopped prescribing narcotic medication in 2016).ROS as noted in the HPI Patient states he did have f/u with PCP since last visit and he did have updated imaging of lumbar spine at [facility]. Patient states his PCP referred him to Dr. Denny for second opinion. Patient states he did have evaluation with Dr. Denny and he has been referred to another surgeon in same office with Dr. Denny. Patient states physical therapy was ordered but he has not started this at this time. RICKY Atkins [address] [place] [address], [phone], [facility] 12/01/2024 11:58:11 5 text/html Low back painReported by PatientHPIFor associated symptoms, patient reportsweakness,numbness (right thigh), andtingling (right thigh, right calve and 4th and 5th digits). 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 For pain intensity, patient reportssevere,current pain level: 7/10,average pain level: 8/10, andworst pain level: 10/10. For alleviating factors, patient reportsrestandnsaids. For aggravating factors, patient reportssitting,standing,wa lking,getting out of bed,standing from a seated position, andcold weather. For prior imaging, patient reportsx-ray,mri (07/11/2020 lumbar mri at [facility] in [place], [place]), andemg(11/03/2024 lumbar xr at [facility]08/09/2024 lumbar mri at [facility]03/29/2024 emg at [facility] /01/2024 lumbar mri at [facility]). For lumbar surgery, patient reportslumbar decompression/discectomy: (10/10/2020 dr. fabian)(06/08/2022 dr. fabian, lumbar surgeryjan. 2010-l4-5 laminectomy and microdiscectomy with dr. denny). For interventional treatment history, patient reportslumbar tfesis: __,lumbar medial branch nerve blocks: __, andlumbar rfa: __(04/12/2024 #1 tfesi bilateral l5/s1; left side 100% pain relief, right side 0% pain [id number]/23/2021 therapeutic bilateral cervical/thoracic tpi, 75% pain relief ongoing (12/03/2021)). For physical therapy, patient reportscomplete 5weeksandresponse to therapy: no improvement in pain/symptoms. For current analgesics, patient reportsoxycodone effective,pregabalin effective,muscle relaxants effective, andreported pain relief- 40% for 5 hours(last dose of oxycodone was 3-4 days ago. pharmacy verified.). For medications history, patient reportsnsaids:,muscle relaxants:,neuropathics:, andopioid pain medications:(nsaids: naproxen - not effectivemuscle relaxants: robaxin - not effectiveneuropathics: neurontin - not effective / cymbalta - mood disorders and nightmaresnarcotics meds: norco - effective, however pcp stopped prescribing narcotic medication in 2016). For prior pain management, patient reportsyes:. For oswestry disability index (lupis), patient reportsscore/date completed: (52-12/01/2024). For complete care program, patient reportsorder date: [...] For prior imaging, patient reportsmriandemg( emg at [facility]07/05/2023 cervical [facility]12/20/2018 xray of cervical spine). For previous cervical surgery, patient reportsnone. For interventional treatment history, patient reportscervical mbb/facet injections: no reliefandcervical shilpa: __(01/12/2024 #1 karmen c7/t1; 50% pain aqeszr7912/13/2023 #1 cmbb right c3-c6; 60% pain relief [...] in the HPI Patient presents today for f/u, medication refill, [...] f/u with Dr. Denny today. RICKY Atkins [address] [place] [address], [phone], [facility] 2025 16:24:41 5 text/html Low back painReported by PatientHPIFor associated symptoms, patient reportsweakness,numbness (right thigh), andtingling (right thigh, right calve and 4th and 5th digits). 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 For pain intensity, patient reportssevere,current pain level: 7/10,average pain level: 8/10, andworst pain level: 10/10. For alleviating factors, patient reportsrestandnsaids. For aggravating factors, patient reportssitting,standing,wa lking,getting out of bed,standing from a seated position, andcold weather. For prior imaging, patient reportsx-ray,mri (07/11/2020 lumbar mri at [facility] in [place], [place]), andemg(11/03/2024 lumbar xr at [facility]08/09/2024 lumbar mri at [facility]03/29/2024 emg at [facility] onvdtichy64/01/2024 lumbar mri at [facility]). For lumbar surgery, patient reportslumbar decompression/discectomy: (10/10/2020 dr. fabian)(06/08/2022 dr. fabian, lumbar surgeryjan. 2011-l4-5 laminectomy and microdiscectomy with dr. denny). For interventional treatment history, patient reportslumbar tfesis: __,lumbar medial branch nerve blocks: __, andlumbar rfa: __(04/12/2024 #1 tfesi bilateral l5/s1; left side 100% pain relief, right side 0% pain [id number]/23/2021 therapeutic bilateral cervical/thoracic tpi, 75% pain relief ongoing (12/03/2021)). For physical therapy, patient reportscomplete 5weeksandresponse to therapy: no improvement in pain/symptoms. For current analgesics, patient reportsoxycodone effective,pregabalin effective,muscle relaxants effective, andreported pain relief- 40% for 5 hours(last dose of oxycodone was 3-4 days ago. pharmacy verified.). For medications history, patient reportsnsaids:,muscle relaxants:,neuropathics:, andopioid pain medications:(nsaids: naproxen - not effectivemuscle relaxants: robaxin - not effectiveneuropathics: neurontin - not effective / cymbalta - mood disorders and nightmaresnarcotics meds: norco - effective, however pcp stopped prescribing narcotic medication in 2016). For prior pain management, patient reportsyes:. For oswestry disability index (lupis), patient reportsscore/date completed: (52-12/01/2024). For complete care program, patient reportsorder date: [...] the day. For prior imaging, patient reportsmriandemg( 4 emg [facility]07/05/2023 [facility]12/20/2018 xray of cervical spine). For previous cervical surgery, patient reportsnone. For interventional treatment history, patient reportscervical mbb/facet injections: no reliefandcervical shilpa: __(01/12/2024 #1 karmen c7/t1; 50% pain [id number]/13/2023 #1 cmbb right c3-c6; 60% pain relief [...] however pcp stopped prescribing narcotic medication in 2016).ROS as noted in the HPI Patient presents today for f/u, medication refill. RICKY JOSEPH [address] [place] [address], [place], [phone], [facility] 04/18/2025 11:40:20 5 text/html Low back painReported by PatientHPIFor associated symptoms, patient reportsweakness,numbness (right thigh), andtingling (right thigh, right calve and 4th and 5th digits). 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 For alleviating factors, patient reportsrestandnsaids. For aggravating factors, patient reportssitting,standing,wa lking,getting out of bed,standing from a seated position, andcold weather. For prior imaging, patient reportsx-ray,mri (07/11/2020 lumbar mri at [facility] in [place]), andemg(11/03/2024 lumbar xr at [facility]08/09/2024 lumbar mri at [facility]03/29/2024 emg at [facility] ukagscosh16/01/2024 lumbar mri at [facility]). For lumbar surgery, patient reportslumbar decompression/discectomy: (10/10/2020 dr. fabian)(06/08/2022 dr. fabian, lumbar surgeryjan. 2011-l4-5 laminectomy and microdiscectomy with dr. denny). For interventional treatment history, patient reportslumbar tfesis: __,lumbar medial branch nerve blocks: __, andlumbar rfa: __(04/12/2024 #1 tfesi bilateral l5/s1; left side 100% pain relief, right side 0% pain [id number]/23/2021 therapeutic bilateral cervical/thoracic tpi, 75% pain relief ongoing (12/03/2021)). For physical therapy, patient reportscomplete 5weeksandresponse to therapy: no improvement in pain/symptoms. For current analgesics, patient reportsoxycodone effective,pregabalin effective,muscle relaxants effective, andreported pain relief- 40% for 5 hours(last dose of oxycodone was this morning around 5:30-6am, patient isn't sure the last time he [...] oswestry disability index (lupis), patient reportsscore/date completed: (52-12/01/2024). For complete care program, patient reportsorder date: [...] the day. For prior imaging, patient reportsmriandemg( 4 emg at [employer] gxdlclaojcjw36/14/2023 cervical mri at [facility]12/20/2018 xray of cervical spine). For previous cervical surgery, patient reportsnone. For interventional treatment history, patient reportscervical mbb/facet injections: no reliefandcervical shilpa: __(01/12/2024 #1 karmen c7/t1; 50% pain [id number]/13/2023 #1 cmbb right c3-c6; 60% pain relief [...] however pcp stopped prescribing narcotic medication in 2016).ROS as noted in the HPI Patient presents today for f/u and medication refill. Patient states he did have consult with new orthopedist, Dr. Heriberto Cruz at [facility] since last visit. Patient states he does have the Gabapentin at home but he does not take on regular basis, he states he does not need refill of Gabapentin or Lyrica at this time. 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 RICKY Atkins [address] [place] [address], [phone], [facility] 06/18/2025 12:08:35 5 text/html Low back painReported by PatientHPIFor associated symptoms, patient reportsweakness,numbness (right thigh), andtingling (right thigh, right calve and 4th and 5th digits). 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 For lumbar surgery, patient reportslumbar decompression/discectomy: (10/10/2020 dr. fabian)(06/08/2022 dr. fabian, lumbar surgeryjan. 2010-l4-5 laminectomy and microdiscectomy with dr. denny). For interventional treatment history, patient reportslumbar tfesis: __,lumbar medial branch nerve blocks: __, andlumbar rfa: __(04/12/2024 #1 tfesi bilateral l5/s1; left side 100% pain relief, right side 0% pain [id number]/23/2021 therapeutic bilateral cervical/thoracic tpi, 75% pain relief [...] however pcp stopped prescribing narcotic medication in 2015). For prior pain management, patient reportsyes:. For [...] For prior imaging, patient reportsmriandemg( emg at [facility]07/05/2023 cervical [facility]12/[facility]2018 xray of cervical spine). For previous cervical surgery, patient reportsnone. For interventional treatment history, patient reportscervical mbb/facet injections: no reliefandcervical shilpa: __(01/12/2024 #1 karmen c7/t1; 50% pain [id number]/13/2023 #1 cmbb right c3-c6; 60% pain relief [...] however pcp stopped prescribing narcotic medication in 2016).ROS as noted in the HPI Patient presents today for f/u and medication refill. Patient states he seen PCP and had MRI at [facility] of right hip. RICKY Atkins [address] [place] [address], [phone], [facility] 08/16/2025 15:00:55
== END 2025-09-21 23:59 ==
LOC: LAB.DROPOF 09-24 10:31
PROVIDERS: PCP Nurse Practitioner Family; Visit Provider Nurse Practitioner Family
DX: J02.9 Acute pharyngitis, unspecified (principal); R09.81 Nasal congestion; J34.89 Other specified disorders of nose and nasal sinuses
CPT/HCPCS: 87631